=== PATIENT | male | born 1955 | race Caucasian/White ===

== ENCOUNTER 2016-06-05 10:24 | Emergency (ER) | payer MEDICARE, MEDICAID ==
--- NOTE | 2016-06-05 11:29 | PCM.SN ---
- Free Text/Narrative Note: 60-year-old gentleman presents emergency department today complaining of refill of his pain medications for his chronic back pain. I did review the [place] prescription drug monitoring program he has been receiving at consistent refills from the [facility] variety of providers. He didn't call to the clinic however unfortunately his primary care provider is out of the office and was informed he would not receive any pain medication and recommended that he followup in the emergency department. I was able to discuss the case with his primary care provider's team reviewed their policies as well as prescription usage history, after discussion with his primary care provider's team they agreed to refill his medication until his primary care provider returns on Thursday of next week at which time he has an appointment. Patient was in agreement above plan all his questions were answered.
== END 2016-06-05 11:32 | disposition home or self-care (01) ==
LOC: JP.ED 10:24
DX: M54.9 Dorsalgia, unspecified (principal); G89.29 Other chronic pain; Z79.899 Other long term (current) drug therapy
CPT/HCPCS: 99281; 99282

== ENCOUNTER 2016-06-27 04:07 | Emergency (ER) | payer MEDICARE, MEDICAID ==
[2016-06-27] MEDS ORDERED: Sodium Chloride 0.9% 1,000 ML IV SCH (04:45)
[2016-06-27] MEDS ORDERED: Sodium Chloride 0.9% 10 ML Syringe FLUSH PRN (04:53)
[2016-06-27] MEDS ORDERED: Sodium Chloride 0.9% 80 ML IV SCH (05:00)
[2016-06-27] MEDS ORDERED: Iopamidol 612 MG/ML 150 ML Bottle IV SCH (05:00)
[2016-06-27] MEDS ORDERED: HYDROmorphone 1 MG/ML Syringe IVPUSH ONE (06:28)
[2016-06-27 06:48] VITALS: BP 157/90
--- NOTE | 2016-06-27 07:11 | EDM.PDOC ---
ED HPI Trauma - General Chief Complaint: Lower Extremity Injury/Pain Stated Complaint: [facility] Time Seen by Provider: 06/27/16 04:29 Source: Reports: Patient History Limitations: Reports: No limitations - History of Present Illness INITIAL COMMENTS - FREE TEXT/NARRATIVE: History of present illness: [60-year-old male presenting with pain right lower quadrant and inability to raise his right leg off of his bed or to ambulate. Ischemia over the last couple of days and it got to the point where he called 911 and an ambulance to bring him in. He's had no fevers chills he's had no constipation diarrhea dysuria no blood in his urine but he is noted he's otherwise been feeling well. He's never had it like this before. It is a constant pain 9/10 in intensity sharp stabbing right lower quadrant] Review of systems: As per history of present illness and below otherwise all systems reviewed and negative. Past medical history: As per history of present illness and as reviewed below otherwise noncontributory. Surgical history: As per history of present illness and as reviewed below otherwise noncontributory. Social history: No reported history of drug or alcohol abuse. Family history: As per history of present illness and as reviewed below otherwise noncontributory. Physical exam: HEENT: Atraumatic, normocephalic, pupils reactive, negative for conjunctival pallor or scleral icterus, mucous membranes moist, throat clear, neck supple, nontender, trachea midline. Lungs: Clear to auscultation, breath sounds equal bilaterally, chest nontender. Heart: S1S2, regular, negative for clicks, rubs, or JVD. Abdomen: Exam shows patient to be morbidly obese but he does have a painful palpable mass in the right lower quadrant and on attempting to lift his right leg he experienced an exacerbation of his pain. Pelvis: Stable nontender. Genitourinary: Deferred. Rectal: Deferred. Extremities: Atraumatic, negative for cords or calf pain. Neurovascular unremarkable. Neuro: Awake, alert, oriented. Cranial nerves II through XII unremarkable. Cerebellum unremarkable. Motor and sensory unremarkable throughout. Exam nonfocal. Diagnostics: [CBC complete metabolic panel and UA were done. He may have a urinary tract infection urine cultures are ordered. Most notable is the abdominal pelvic CT which shows a mass in the right lower quadrant that may be involving the bladder or inside the bladder.] Therapeutics: [He was given IV fluids and IV Dilaudid for pain] Impression: [Right lower cord at Mass.] Plan: [He will be transferred by ground to [facility] to the hospitalist Dr. Soriano who will more than likely consult urology.] Definitive disposition and diagnosis as appropriate pending reevaluation and review of above. Allergies/ADRs: Allergies raspberry Allergy (Verified 06/18/16 13:06) Seizure strawberry Allergy (Verified 06/18/16 13:06) Seizure Home Medications: Ambulatory Orders Levothyroxine [Synthroid] 50 mcg PO DAILY 02/29/16 [Confirmed 06/27/16] Clotrimazole [Clotrimazole 1%] 1 applic TOP BID 06/04/16 [Confirmed 06/27/16] HYDROmorphone [Dilaudid] 2 - 4 mg PO Q6HR 06/27/16 [Confirmed 06/27/16] Past Medical History - Past Health History Medical/Surgical History: Denies Medical/Surgical History HEENT History: Reports: Impaired vision Cardiovascular History: Reports: Blood clots/VTE/DVT, SOB on exertion Respiratory History: Reports: Sleep apnea, SOB Gastrointestinal History: Reports: Chronic constipation, PUD Genitourinary History: Reports: Renal calculus Musculoskeletal History: Reports: Arthritis, Back pain, chronic, Fracture Neurological History: Reports: Seizure, Other (see below) Other Neuro History: Pt. states that some foods cause him to have seizures, mostly sweet foods Psychiatric History: Reports: Anxiety, Depression, Eating disorders Endocrine/Metabolic History: Reports: Hypothyroidism, Obesity/BMI 30+, Other ( see below) Other Endocrine/Metabolic History: started on thyroid meds again Hematologic History: Reports: None Immunologic History: Reports: None Oncologic (Cancer) History: Reports: None Dermatologic History: Reports: Other (see below) Other Dermatologic History: irritated skin at skin folds - Infectious Disease History Infectious Disease History: Reports: Chicken pox - Past Surgical History HEENT Surgical History: Reports: None Cardiovascular Surgical History: Reports: None Respiratory Surgical History: Reports: None GI Surgical History: Reports: Hernia, abdominal, Hernia, inguinal, Other (see below) Other GI Surgeries/Procedures: Pt. states that a "couple" years ago he had an EGD done and was found to have two ulcers. Pt. denies being on any medication for it. panniculectomy for abscess 3 weeks ago here with [facility]. PT HAD A PANNICULECTOMY JUNE 2015 Musculoskeletal Surgical History: Reports: Carpal tunnel Social & Family History - Family History HEENT: Reports: Cataract, Impaired vision, Macular degeneration Cardiac: Reports: CAD, [place] Respiratory: Reports: None GI: Reports: None : Reports: None OBGYN: Reports: None Musculoskeletal: Reports: Arthritis Other Musculoskeletal Family History: HIP REPLACEMENT BONE DEGENERATION Neurological: Reports: None Psychiatric: Reports: None Endocrine/Metabolic: Reports: None Hematologic: Reports: None Immunologic: Reports: None Dermatologic: Reports: None Oncologic: Reports: Other (see below) Other Oncologic Family History: BROTHER OF CANCER DOES NOT KNOW WHAT KIND - Tobacco Use Smoking Status *Q: Never Smoker Years of Tobacco use: 30 Packs/Tins Daily: 2 Used Tobacco, but Quit: Yes Month Tobacco Last Used: NA Second Hand Smoke Exposure: No - Caffeine Use Caffeine Use: Reports: Coffee Caffeine Use Comment: 3 cups/day - Alcohol Use Days Per Week of Alcohol Use: 0 - Recreational Drug Use Recreational Drug Use: No Review of Systems - Review of Systems Review Of Systems: ROS reveals no pertinent complaints other than HPI. Trauma Exam - Physical Exam Exam: See Below Course - Vital Signs Last Recorded V/S: Last Vital Signs Temp 35.9 C 06/27/16 06:47 Pulse 72 06/27/16 06:47 Resp 18 06/27/16 06:47 BP 157/90 H 06/27/16 06:47 Pulse Ox 98 06/27/16 06:47 - Orders/Labs/Meds Orders: Active Orders 24 hr Category Date Time Status Abdomen Pelvis w Cont [CT] Stat Exams 06/27/16 04:37 Taken Iopamidol [Isovue-300 (61%)] Med 06/27/16 05:00 Active 150 ml IV . DIRECTED Sodium Chloride 0.9% [Normal Saline] 1,000 ml Med 06/27/16 04:45 Active IV ASDIRECTED Sodium Chloride 0.9% [Normal Saline] 80 ml Med 06/27/16 05:00 Active IV ASDIRECTED Sodium Chloride 0.9% [Saline Flush] Med 06/27/16 04:53 Active 10 ml FLUSH ASDIRECTED PRN Medication Orders Sodium Chloride (Normal Saline) 1,000 mls @ 500 mls/hr IV ASDIRECTED VON Last Admin: 06/27/16 04:53 Dose: 500 mls/hr Sodium Chloride (Normal Saline) 80 mls @ 3 mls/sec IV ASDIRECTED VON Last Admin: 06/27/16 05:30 Dose: 3 mls/sec Iopamidol (Isovue-300 (61%)) 150 ml IV . DIRECTED VON Last Admin: 06/27/16 05:30 Dose: 150 ml Sodium Chloride (Saline Flush) 10 ml FLUSH ASDIRECTED PRN PRN Reason: Keep Vein Open Last Admin: 06/27/16 05:30 Dose: 10 ml Labs: Laboratory Tests 06/27/16 06/27/16 06/27/16 Range/Units 04:47 04:47 04:47 WBC 5.3 (4.5-11.0) K/uL RBC 4.39 (4.30-5.90) M/uL Hgb 12.3 (12.0-15.0) g/dL Hct 39.6 L (40.0-54.0) % MCV 90 (80-98) fL MCH 28 (27-31) pg MCHC 31 L (32-36) % Plt Count 122 L (150-400) K/uL Neut % (Auto) 60 (36-66) % Lymph % (Auto) 26 (24-44) % [place] % (Auto) 11 H (2-6) % Eos % (Auto) 3 (2-4) % Baso % (Auto) 0 (0-1) % D-Dimer, Quantitative 354 (0.0-400.0) ng/mL Sodium 146 (140-148) mmol/L Potassium 4.3 (3.6-5.2) mmol/L Chloride 108 (100-108) mmol/L Carbon Dioxide 30 (21-32) mmol/L Anion Gap 8.2 (5.0-14.0) mmol/L BUN 19 H (7-18) mg/dL Creatinine 0.9 (0.8-1.3) mg/dL Est Cr Clr Drug Dosing 81.40 mL/min Estimated GFR (MDRD) > 60 (>60) Glucose 98 (74-106) mg/dL Calcium 8.3 L (8.5-10.1) mg/dL Total Bilirubin 0.3 (0.2-1.0) mg/dL AST 16 (15-37) U/L ALT 25 (12-78) U/L Alkaline Phosphatase 62 (46-116) U/L Creatine Kinase 111 (39-308) U/L Total Protein 7.1 (6.4-8.2) g/dL Albumin 3.3 L (3.4-5.0) g/dL Globulin 3.8 H (2.3-3.5) g/dL Albumin/Globulin Ratio 0.9 L (1.2-2.2) Urine Color Urine Appearance Urine pH (4.5-8.0) Ur Specific Burns (1.008-1.030) Urine Protein (NEGATIVE) mg/dL Urine Glucose (UA) (NEGATIVE) mg/dL Urine Ketones (NEGATIVE) mg/dL Urine Occult Blood (NEGATIVE) Urine Nitrite (NEGAITVE) Urine Bilirubin (NEGATIVE) Urine Urobilinogen (NORMAL) mg/dL Ur Leukocyte Esterase (NEGATIVE) Urine RBC (0-5) Urine WBC (0-5) Ur Epithelial Cells Amorphous Sediment Urine Bacteria Urine Mucus 06/27/16 Range/Units 05:09 WBC (4.5-11.0) K/uL RBC (4.30-5.90) M/uL Hgb (12.0-15.0) g/dL Hct (40.0-54.0) % MCV (80-98) fL MCH (27-31) pg MCHC (32-36) % Plt Count (150-400) K/uL Neut % (Auto) (36-66) % Lymph % (Auto) (24-44) % [place] % (Auto) (2-6) % Eos % (Auto) (2-4) % Baso % (Auto) (0-1) % D-Dimer, Quantitative (0.0-400.0) ng/mL Sodium (140-148) mmol/L Potassium (3.6-5.2) mmol/L Chloride (100-108) mmol/L Carbon Dioxide (21-32) mmol/L Anion Gap (5.0-14.0) mmol/L BUN (7-18) mg/dL Creatinine (0.8-1.3) mg/dL Est Cr Clr Drug Dosing mL/min Estimated GFR (MDRD) (>60) Glucose (74-106) mg/dL Calcium (8.5-10.1) mg/dL Total Bilirubin (0.2-1.0) mg/dL AST (15-37) U/L ALT (12-78) U/L Alkaline Phosphatase (46-116) U/L Creatine Kinase (39-308) U/L Total Protein (6.4-8.2) g/dL Albumin (3.4-5.0) g/dL Globulin (2.3-3.5) g/dL Albumin/Globulin Ratio (1.2-2.2) Urine Color Yellow Urine Appearance Clear Urine pH 6.0 (4.5-8.0) Ur Specific Burns 1.020 (1.008-1.030) Urine Protein Negative (NEGATIVE) mg/dL Urine Glucose (UA) Normal (NEGATIVE) mg/dL Urine Ketones Negative (NEGATIVE) mg/dL Urine Occult Blood Trace (NEGATIVE) Urine Nitrite Negative (NEGAITVE) Urine Bilirubin Negative (NEGATIVE) Urine Urobilinogen Normal (NORMAL) mg/dL Ur Leukocyte Esterase Large (NEGATIVE) Urine RBC 0-5 (0-5) Urine WBC 10-20 H (0-5) Ur Epithelial Cells Not seen Amorphous Sediment Not seen Urine Bacteria Not seen Urine Mucus Not seen Meds: Medications Generic Name Dose Route Start Last Admin Trade Name Freq PRN Reason Stop Dose Admin Sodium Chloride 1,000 mls @ 500 mls/hr 06/27/16 04:45 06/27/16 04:53 Normal Saline IV 500 mls/hr ASDIRECTED VON Administration Sodium Chloride 80 mls @ 3 mls/sec 06/27/16 05:00 06/27/16 05:30 Normal Saline IV 3 mls/sec ASDIRECTED VON Administration Iopamidol 150 ml 06/27/16 05:00 06/27/16 05:30 Isovue-300 (61%) IV 150 ml . DIRECTED VON Administration Sodium Chloride 10 ml 06/27/16 04:53 06/27/16 05:30 Saline Flush FLUSH 10 ml ASDIRECTED PRN Administration Keep Vein Open Discontinued Medications Generic Name Dose Route Start Last Admin Trade Name Freq PRN Reason Stop Dose Admin Hydromorphone HCl 1 mg 06/27/16 06:28 06/27/16 06:43 Dilaudid IVPUSH 06/27/16 06:29 1 mg ONETIME ONE Administration Departure - Departure Time of Disposition: 07:11 Disposition: Home, Self-Care 01 Condition: fair Clinical Impression: Right lower quadrant abdominal mass Forms: ED Department Discharge - My Orders Last 24 Hours: My Active Orders 06/27/16 04:37 Abdomen Pelvis w Cont [CT] Stat 06/27/16 04:45 Sodium Chloride 0.9% [Normal Saline] 1,000 ml IV ASDIRECTED 06/27/16 04:53 Sodium Chloride 0.9% [Saline Flush] 10 ml FLUSH ASDIRECTED PRN 06/27/16 05:00 Iopamidol [Isovue-300 (61%)] 150 ml IV . DIRECTED Sodium Chloride 0.9% [Normal Saline] 80 ml IV ASDIRECTED - Assessment/Plan Last 24 Hours: My Active Orders 06/27/16 04:37 Abdomen Pelvis w Cont [CT] Stat 06/27/16 04:45 Sodium Chloride 0.9% [Normal Saline] 1,000 ml IV ASDIRECTED 06/27/16 04:53 Sodium Chloride 0.9% [Saline Flush] 10 ml FLUSH ASDIRECTED PRN 06/27/16 05:00 Iopamidol [Isovue-300 (61%)] 150 ml IV . DIRECTED Sodium Chloride 0.9% [Normal Saline] 80 ml IV ASDIRECTED
== END 2016-06-27 07:42 | disposition home or self-care (01) ==
LOC: JP.ED 04:07
DX: R19.03 Right lower quadrant abdominal swelling, mass and lump (principal); F41.9 Anxiety disorder, unspecified; F32.9 Major depressive disorder, single episode, unspecified; E03.9 Hypothyroidism, unspecified; E66.9 Obesity, unspecified; Z68.43 Body mass index [BMI] 50.0-59.9, adult; Z86.718 Personal history of other venous thrombosis and embolism; Z98.890 Other specified postprocedural states; Z79.899 Other long term (current) drug therapy; Z91.018 Allergy to other foods
CPT/HCPCS: 36415; 74177; 80053; 81001; 82550; 85025; 85379; 87086; 96361; 96374; 99284; J1170; J7030; J7040; J7050

== ENCOUNTER 2016-08-21 02:08 | Emergency (ER) | payer MEDICARE, MEDICAID ==
[2016-08-21] MEDS ORDERED: Sodium Chloride 0.9% 1,000 ML IV SCH ×2 (02:30→03:30)
[2016-08-21] MEDS ORDERED: Meclizine 25 MG Tab PO ONE ×2 (02:31→07:15)
[2016-08-21] MEDS ORDERED: LORazepam 2 MG/ML MDV IVPUSH ONE (02:37)
--- NOTE | 2016-08-21 02:37 | EDM.PDOC ---
[id number] [facility] Time Seen by Provider: 08/21/16 02:32 Source of Information: Reports: Patient History Limitations: Reports: No Limitations - History of Present Illness INITIAL COMMENTS - FREE TEXT/NARRATIVE: pt ate a wrap from [employer] and he thinks he may have gotten food poisoning in that he had 6-7 loose stools .He then developed vertigo and he felt like he was moving. He did not vomit. Onset: Today Duration: Hour(s):, Waxing/Waning Location: Reports: Generalized Associated Symptoms: Reports: Other ( vertigo) - Related Data Allergies Allergy/AdvReac Type Severity Reaction Status Date / Time raspberry Allergy Seizure Verified 07/09/16 14:03 strawberry Allergy Seizure Verified 07/09/16 14:03 Home Meds: Home Meds Clotrimazole [Clotrimazole 1%] 1 applic TOP BID 06/04/16 [History] HYDROmorphone [Dilaudid] 2 - 4 mg PO Q6HR 06/27/16 [History] Past Medical History - Past Health History Medical/Surgical History: Denies Medical/Surgical History HEENT History: Reports: Impaired Vision Cardiovascular History: Reports: Blood Clots/VTE/DVT, SOB on Exertion Respiratory History: Reports: Sleep Apnea, SOB Gastrointestinal History: Reports: Chronic Constipation, PUD Genitourinary History: Reports: Renal Calculus Musculoskeletal History: Reports: Arthritis, Back Pain, Chronic, Fracture Neurological History: Reports: Seizure, Other (See Below) Other Neuro History: Pt. states that some foods cause him to have seizures, mostly sweet foods Psychiatric History: Reports: Anxiety, Depression, Eating Disorders Endocrine/Metabolic History: Reports: Hypothyroidism, Obesity/BMI 30+, Other ( See Below) Other Endocrine/Metabolic History: started on thyroid meds again Hematologic History: Reports: None Immunologic History: Reports: None Oncologic (Cancer) History: Reports: None Dermatologic History: Reports: Other (See Below) Other Dermatologic History: irritated skin at skin folds - Infectious Disease History Infectious Disease History: Reports: Chicken Pox - Past Surgical History Head Surgeries/Procedures: Reports: None GI Surgical History: Reports: Hernia, Abdominal, Hernia, Inguinal, Other (See Below) Musculoskeletal Surgical History: Reports: Carpal Tunnel Social & Family History - Family History HEENT: Reports: Cataract, Impaired Vision, Macular Degeneration Cardiac: Reports: CAD, [place] Respiratory: Reports: None GI: Reports: None : Reports: None OBGYN: Reports: None Musculoskeletal: Reports: Arthritis Other Musculoskeletal Family History: HIP REPLACEMENT BONE DEGENERATION Neurological: Reports: None Psychiatric: Reports: None Endocrine/Metabolic: Reports: None Hematologic: Reports: None Immunologic: Reports: None Dermatologic: Reports: None Oncologic: Reports: Other (See Below) Other Oncologic Family History: BROTHER OF CANCER DOES NOT KNOW WHAT KIND - Tobacco Use Smoking Status *Q: Never Smoker Years of Tobacco use: 30 Packs/Tins Daily: 2 Used Tobacco, but Quit: Yes Month Tobacco Last Used: NA Second Hand Smoke Exposure: No - Caffeine Use Caffeine Use: Reports: Coffee, Soda Caffeine Use Comment: 3 cups/day - Alcohol Use Days Per Week of Alcohol Use: 0 - Recreational Drug Use Recreational Drug Use: No ED ROS GENERAL - Review of Systems Review Of Systems: See Below Constitutional: Reports: No Symptoms HEENT: Reports: Vertigo Respiratory: Reports: No Symptoms Cardiovascular: Reports: No Symptoms Endocrine: Reports: No Symptoms GI/Abdominal: Reports: Diarrhea : Reports: No Symptoms Musculoskeletal: Reports: No Symptoms Skin: Reports: No Symptoms ED EXAM, GENERAL - Physical Exam Exam: See Below Free Text/Narrative:: pt arrived feeling like his head was moving back and forth and having difficulty with his balance. He had had profuse diarrhea prior to that. Exam Limited By: No Limitations General Appearance: Alert, Anxious Eye Exam: Left Eye: Nystagmus Ears: Normal TMs Nose: Normal Inspection Throat/Mouth: Normal Inspection Neck: Normal Inspection Respiratory/Chest: No Respiratory Distress Cardiovascular: Regular Rate, Rhythm GI/Abdominal: Soft, Non-Tender Rectal (Males) Exam: Deferred Extremities: Normal Inspection Neurological: Alert, Oriented, Normal Cognition, Other ( vertigo) Psychiatric: Anxious Course - Vital Signs Last Recorded V/S: Last Vital Signs Temp 36.7 C 08/21/16 02:10 Pulse 69 08/21/16 07:17 Resp 15 08/21/16 07:17 BP 148/88 H 08/21/16 07:17 Pulse Ox 95 08/21/16 07:17 - Orders/Labs/Meds Labs: Laboratory Tests 08/21/16 08/21/16 08/21/16 Range/Units 02:30 02:30 05:04 WBC 5.0 (4.5-11.0) K/uL RBC 4.46 (4.30-5.90) M/uL Hgb 13.0 (12.0-15.0) g/dL Hct 39.9 L (40.0-54.0) % MCV 90 (80-98) fL MCH 29 (27-31) pg MCHC 33 (32-36) % Plt Count 135 L (150-400) K/uL Neut % (Auto) 66 (36-66) % Lymph % (Auto) 20 L (24-44) % [place] % (Auto) 12 H (2-6) % Eos % (Auto) 2 (2-4) % Baso % (Auto) 0 (0-1) % Sodium 143 (140-148) mmol/L Potassium 4.7 (3.6-5.2) mmol/L Chloride 107 (100-108) mmol/L Carbon Dioxide 29 (21-32) mmol/L Anion Gap 6.8 (5.0-14.0) mmol/L BUN 12 (7-18) mg/dL Creatinine 1.0 (0.8-1.3) mg/dL Est Cr Clr Drug Dosing 72.35 mL/min Estimated GFR (MDRD) > 60 (>60) Glucose 118 H (74-106) mg/dL Calcium 8.7 (8.5-10.1) mg/dL Total Bilirubin 0.3 (0.2-1.0) mg/dL AST 22 (15-37) U/L ALT 27 (12-78) U/L Alkaline Phosphatase 59 (46-116) U/L Total Protein 7.5 (6.4-8.2) g/dL Albumin 3.5 (3.4-5.0) g/dL Globulin 4.0 H (2.3-3.5) g/dL Albumin/Globulin Ratio 0.9 L (1.2-2.2) Urine Color Yellow Urine Appearance Clear Urine pH 5.0 (4.5-8.0) Ur Specific [place] 1.025 (1.008-1.030) Urine Protein Negative (NEGATIVE) mg/dL Urine Glucose (UA) Normal (NEGATIVE) mg/dL Urine Ketones Negative (NEGATIVE) mg/dL Urine Occult Blood Negative (NEGATIVE) Urine Nitrite Negative (NEGAITVE) Urine Bilirubin Negative (NEGATIVE) Urine Urobilinogen Normal (NORMAL) mg/dL Ur Leukocyte Esterase Negative (NEGATIVE) Urine RBC 0-5 (0-5) Urine WBC 0-5 (0-5) Ur Epithelial Cells Not seen Amorphous Sediment Not seen Urine Bacteria Not seen Urine Mucus Not seen Meds: Medications Discontinued Medications Generic Name Dose Route Start Last Admin Trade Name Sunnyq PRN Reason Stop Dose Admin Sodium Chloride 1,000 mls @ 999 mls/hr 08/21/16 02:30 08/21/16 02:40 Normal Saline IV 999 mls/hr ASDIRECTED VON Administration Sodium Chloride 1,000 mls @ 500 mls/hr 08/21/16 03:30 08/21/16 03:45 Normal Saline IV 500 mls/hr ASDIRECTED VON Administration Lorazepam 0.5 mg 08/21/16 02:37 08/21/16 02:42 Ativan IVPUSH 08/21/16 02:38 0.5 mg ONETIME ONE Administration Meclizine HCl 25 mg 08/21/16 02:31 08/21/16 02:39 Antivert PO 08/21/16 02:32 25 mg ONETIME ONE Administration Meclizine HCl 25 mg 08/21/16 07:15 08/21/16 07:32 Antivert PO 08/21/16 07:16 25 mg ONETIME ONE Administration - Re-Assessments/Exams Free Text/Narrative Re-Assessment/Exam: 08/21/16 07:12 pt had 2 liters of fluid and antivert. He is feeling much better. His lab work looked ok. Departure - Departure Time of Disposition: 07:13 Disposition: Home, Self-Care 01 Condition: fair Clinical Impression: Vertigo, Dehydration - Discharge Information Instructions: Vertigo, [id number], Dehydration, Adult, [id number] Referrals: PCP,None [Primary Care Provider] - Forms: ED Department Discharge Care Plan Goals: push fluids, low activity today immodium 2 tabs after each loose stool.
[2016-08-21 07:18] VITALS: BP 148/88
== END 2016-08-21 07:33 | disposition home or self-care (01) ==
LOC: JP.ED 02:08
DX: R42 Dizziness and giddiness (principal); E86.0 Dehydration; G89.29 Other chronic pain; M54.9 Dorsalgia, unspecified; E66.9 Obesity, unspecified; E03.9 Hypothyroidism, unspecified; Z91.018 Allergy to other foods; Z79.899 Other long term (current) drug therapy
CPT/HCPCS: 36415; 80053; 81001; 85025; 96361; 96374; 99284; A9270; J2060; J7040

== ENCOUNTER 2016-11-10 20:45 | Emergency (ER) | payer MEDICARE, MEDICAID ==
[2016-11-10 20:59] VITALS: BP 141/67
--- NOTE | 2016-11-10 21:16 | EDM.PDOC ---
ED HPI GENERAL MEDICAL PROBLEM - General Chief Complaint: General Stated Complaint: LOWER ABD PAIN Time Seen by Provider: 11/10/16 21:16 Source of Information: Reports: Patient, Old Records, RN Notes Reviewed History Limitations: Reports: No Limitations - History of Present Illness INITIAL COMMENTS - FREE TEXT/NARRATIVE: drove himself here Chief complaint Lower abdominal pain, painful urination History of present illness 61-year-old male with recent diagnosis of bladder cancer, presented to emergency a couple months ago, and was found to have a small mass next to the bladder on CT scan. Ultimately was diagnosed with bladder cancer and had a single treatment with removal of tumor and instillation of chemotherapy into the bladder about 2 months ago, treated at [facility] in [place]. He was seen by his physician on November 07 in the clinic and diagnosed with sinus condition and treated with albuterol and Advair inhalers and levofloxacin by mouth. His symptoms are a little better now. He has been on hydromorphone by mouth for a year for low back pain, he had an MRI which revealed nonsurgical condition. He takes 2-3 tablets per day. 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 He still has an open draining wound on the left side of his abdomen. Today's pain started yesterday, lower in the abdomen in the suprapubic area worse on the left than the right. Associated with urgency frequency but small amounts of urine with some blood streaking and significant pain in the penis with urination. He does wear incontinence underwear, some problem with control since he had his bladder surgery, never back to normal. He has felt hot today but no fever documented. bladder, penile Pain Score (Numeric/FACES): 8 - Related Data Allergies Allergy/AdvReac Type Severity Reaction Status Date / Time raspberry Allergy Seizure Verified 11/10/16 21:04 strawberry Allergy Seizure Verified 11/10/16 21:04 chocolate Allergy Seizure Uncoded 11/10/16 21:05 cinnamon Allergy Seizure Uncoded 11/10/16 21:05 Home Meds: Home Meds Albuterol [Ventolin HFA] 2 puff INH Q6H PRN 11/10/16 [History] Fluticasone/Salmeterol [Advair 250-50 Diskus] 1 puff INH BID 11/10/16 [History] HYDROmorphone [Dilaudid] 1 tab PO Q6H PRN 11/10/16 [History] Levofloxacin [Levofloxacin] 1 tab PO DAILY 11/10/16 [History] Phenazopyridine HCl [Pyridium] 200 mg PO TID PRN #10 tablet 11/10/16 [Rx] Sulfamethoxazole/Trimethoprim [Septra DS] 1 each PO BID #20 tab 11/10/16 [Rx] Past Medical History - Past Health History Medical/Surgical History: Denies Medical/Surgical History HEENT History: Reports: Impaired Vision Cardiovascular History: Reports: Blood Clots/VTE/DVT, SOB on Exertion Respiratory History: Reports: Sleep Apnea, SOB Gastrointestinal History: Reports: Chronic Constipation, PUD Genitourinary History: Reports: Renal Calculus, Urinary Incontinence Musculoskeletal History: Reports: Arthritis, Back Pain, Chronic, Fracture Neurological History: Reports: Seizure, Other (See Below) Other Neuro History: Pt. states that some foods cause him to have seizures, mostly sweet foods Psychiatric History: Reports: Anxiety, Depression, Eating Disorders, Suicide Attempt Endocrine/Metabolic History: Reports: Obesity/BMI 30+ Other Endocrine/Metabolic History: started on thyroid meds again Hematologic History: Reports: None Immunologic History: Reports: None Oncologic (Cancer) History: Reports: Bladder Dermatologic History: Reports: Other (See Below) Other Dermatologic History: irritated skin at skin folds - Infectious Disease History Infectious Disease History: Reports: Chicken Pox - Past Surgical History Head Surgeries/Procedures: Reports: None GI Surgical History: Reports: Hernia, Abdominal, Hernia, Inguinal, Other (See Below) Male Surgical History: Reports: Other (See Below) Other Male Surgeries/Procedures: bladder cancer- Social & Family History - Family History HEENT: Reports: Cataract, Impaired Vision, Macular Degeneration Cardiac: Reports: CAD, [place] Respiratory: Reports: None GI: Reports: None : Reports: None OBGYN: Reports: None Musculoskeletal: Reports: Arthritis Other Musculoskeletal Family History: HIP REPLACEMENT BONE DEGENERATION Neurological: Reports: None Psychiatric: Reports: None Endocrine/Metabolic: Reports: None Hematologic: Reports: None Immunologic: Reports: None Dermatologic: Reports: None Oncologic: Reports: Other (See Below) Other Oncologic Family History: BROTHER OF CANCER DOES NOT KNOW WHAT KIND - Tobacco Use Smoking Status *Q: Never Smoker Years of Tobacco use: 30 Packs/Tins Daily: 2 Used Tobacco, but Quit: Yes Month Tobacco Last Used: NA Second Hand Smoke Exposure: No - Caffeine Use Caffeine Use: Reports: Coffee, Soda Caffeine Use Comment: 3 cups/day - Alcohol Use Days Per Week of Alcohol Use: 0 - Recreational Drug Use Recreational Drug Use: No - Living Situation & Occupation Social History Comment: 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 Denies: Fever, Decreased Appetite HEENT: Reports: Rhinitis Respiratory: Reports: Cough. Denies: Shortness of Breath Cardiovascular: Denies: Chest Pain GI/Abdominal: Reports: Abdominal Pain. Denies: Diarrhea, Decreased Appetite, Nausea, Vomiting : Reports: Dysuria, Frequency, Hematuria, Incontinence, Urgency. Denies: Flank Pain Musculoskeletal: Reports: Back Pain Skin: Reports: Other (open wound of left abdomen from previous surgery) Neurological: Reports: No Symptoms Psychiatric: Reports: Anxiety Hematologic/Lymphatic: Reports: No Symptoms Immunologic: Reports: No Symptoms ED EXAM, RENAL/ - Physical Exam Exam: See Below Exam Limited By: No Limitations General Appearance: Alert, Anxious, Moderate Distress, Other (large body habitus , anxious, uncomfortable, increased respiratory rate and increased blood pressure, afebrile) Eye Exam: Bilateral Eye: Normal Inspection Nose: Normal Inspection Throat/Mouth: Normal Inspection Head: Atraumatic, Normocephalic Respiratory/Chest: No Respiratory Distress, Lungs Clear, No Accessory Muscle Use Cardiovascular: Normal Peripheral Pulses, Regular Rate, Rhythm GI/Abdominal: Normal Bowel Sounds, Soft, No Distention, Other (open wound left midabdomen with serous drainage, tender in the suprapubic area to the left of midline, it feels as if he might have a full bladder) (Male) Exam: No Hernia, Other (minimal erythema of his foreskin on the inside , no balanitis). No: Circumcised, Inguinal Lymphadenopathy, Scrotal Swelling, Scrotum Tenderness (L), Testicular Mass, Testicular Tenderness (L) Extremities: Normal Inspection Neurological: Alert, Oriented, No Motor/Sensory Deficits Psychiatric: Anxious Skin Exam: Warm, Dry, No Rash Course - Vital Signs Last Recorded V/S: Last Vital Signs Temp 37.1 C 11/10/16 21:12 Pulse 93 11/10/16 21:12 Resp 24 H 11/10/16 21:12 BP 141/67 H 11/10/16 21:12 Pulse Ox 97 11/10/16 21:12 - Orders/Labs/Meds Labs: Laboratory Tests 11/10/16 11/10/16 Range/Units 21:26 21:36 WBC 4.8 (4.5-11.0) K/uL RBC 4.29 L (4.30-5.90) M/uL Hgb 12.6 (12.0-15.0) g/dL Hct 38.9 L (40.0-54.0) % MCV 91 (80-98) fL MCH 29 (27-31) pg MCHC 32 (32-36) % Plt Count 126 L (150-400) K/uL Urine Color Yellow Urine Appearance Cloudy Urine pH 5.0 (4.5-8.0) Ur Specific [place] 1.025 (1.008-1.030) Urine Protein 30 H (NEGATIVE) mg/dL Urine Glucose (UA) Normal (NEGATIVE) mg/dL Urine Ketones Negative (NEGATIVE) mg/dL Urine Occult Blood Large (NEGATIVE) Urine Nitrite Negative (NEGAITVE) Urine Bilirubin Negative (NEGATIVE) Urine Urobilinogen Normal (NORMAL) mg/dL Ur Leukocyte Esterase Negative (NEGATIVE) Urine RBC Packed H (0-5) Urine WBC 5-10 H (0-5) Ur Epithelial Cells Few Amorphous Sediment Rare Urine Bacteria Few Urine Mucus Few Urine Other See note Meds: Medications Discontinued Medications Generic Name Dose Route Start Last Admin Trade Name Sunnyq PRN Reason Stop Dose Admin Ketorolac Tromethamine 15 mg 11/10/16 21:26 11/10/16 21:31 Toradol IM 11/10/16 21:27 15 mg ONETIME ONE Administration - Re-Assessments/Exams Free Text/Narrative Re-Assessment/Exam: 11/10/16 21:33 61-year-old male with dysuria urgency frequency hematuria and lower abdominal pain since yesterday. Diagnosed and treated for bladder cancer 2 months ago. On levofloxacin for upper respiratory infection currently. Differential diagnosis includes bladder infection, urinary retention among others Bladder scan Toradol 15 mg IM for pain 11/10/16 22:41 CBC normal Urine does show significant blood and white cells Urine culture pending Treat as infection Bladder scan was negative so he is not retaining urine Follow-up with urology or primary care if not improving within 3 days 11/10/16 22:42 Departure - Departure Time of Disposition: 22:43 Disposition: Home, Self-Care 01 Condition: Good Clinical Impression: Urinary tract infection Qualifiers: Urinary tract infection type: acute cystitis Hematuria presence: with hematuria Qualified Code(s): N30.01 - Acute cystitis with hematuria - Discharge Information Prescriptions: Phenazopyridine HCl [Pyridium] 200 mg PO TID PRN #10 tablet PRN Reason: painful urination Sulfamethoxazole/Trimethoprim [Septra DS] 1 each PO BID #20 tab Instructions: Urinary Tract Infection, Adult Referrals: Ezekiel Roberson MD [Primary Care Provider] - Forms: ED Department Discharge Additional Instructions: Please see your primary care provider/physician or urologist if symptoms aren't improving within 3 days
[2016-11-10] MEDS ORDERED: Ketorolac 30 MG/ML SDV IM ONE (21:26)
[2016-11-10] MEDS ORDERED: Phenazopyridine 95 MG Tab PO ONE (23:07)
[2016-11-10] MEDS ORDERED: Phenazopyridine 95 MG Tab ONE (23:10)
== END 2016-11-10 22:57 | disposition home or self-care (01) ==
LOC: JP.ED 20:45
DX: N30.01 Acute cystitis with hematuria (principal); E66.9 Obesity, unspecified; M19.90 Unspecified osteoarthritis, unspecified site; Z79.2 Long term (current) use of antibiotics; Z85.51 Personal history of malignant neoplasm of bladder; Z98.890 Other specified postprocedural states; Z86.718 Personal history of other venous thrombosis and embolism
CPT/HCPCS: 36415; 51798; 81001; 85027; 96372; 99284; A9270; J1885

== ENCOUNTER 2017-01-25 20:47 | Emergency (ER) | payer MEDICARE, MEDICAID ==
[2017-01-25 21:12] VITALS: BP 151/101
--- NOTE | 2017-01-25 22:06 | EDM.PDOC ---
ED HPI GENERAL MEDICAL PROBLEM - General Chief Complaint: Abdominal Pain Stated Complaint: INCISION PAIN Time Seen by Provider: 01/25/17 21:45 Source of Information: Reports: Patient History Limitations: Reports: No Limitations - History of Present Illness INITIAL COMMENTS - FREE TEXT/NARRATIVE: Stephanie presents to the emergency room tonight with complaints of chronic left lower abdomen fold wound for 2 years with increase in drainage for the past we or two. He reports previous panniculectomy two years ago. He denies fever, chills, nausea, vomiting or change in bowel and bladder function. left;abdom Pain Score (Numeric/FACES): 6 - Related Data Allergies Allergy/AdvReac Type Severity Reaction Status Date / Time cinnamon Allergy Seizure Verified 01/25/17 21:15 raspberry Allergy Seizure Verified 01/25/17 21:15 strawberry Allergy Seizure Verified 01/25/17 21:15 chocolate Allergy Seizure Uncoded 01/25/17 21:15 Home Meds: Home Meds Albuterol [Ventolin HFA] 2 puff INH Q6H PRN 11/10/16 [History] Fluticasone/Salmeterol [Advair 250-50 Diskus] 1 puff INH BID 11/10/16 [History] HYDROmorphone [Dilaudid] 1 tab PO Q6H PRN 11/10/16 [History] Fluticasone Propionate [Flonase] 2 spray INH DAILY 01/25/17 [History] Past Medical History - Past Health History Medical/Surgical History: Denies Medical/Surgical History HEENT History: Reports: Impaired Vision Cardiovascular History: Reports: Blood Clots/VTE/DVT, SOB on Exertion Respiratory History: Reports: Sleep Apnea, SOB Gastrointestinal History: Reports: Chronic Constipation, PUD Genitourinary History: Reports: Renal Calculus, Urinary Incontinence Musculoskeletal History: Reports: Arthritis, Back Pain, Chronic, Fracture Neurological History: Reports: Seizure, Other (See Below) Other Neuro History: Pt. states that some foods cause him to have seizures, mostly sweet foods Psychiatric History: Reports: Anxiety, Depression, Eating Disorders, Suicide Attempt Endocrine/Metabolic History: Reports: Obesity/BMI 30+ Other Endocrine/Metabolic History: started on thyroid meds again Hematologic History: Reports: None Immunologic History: Reports: None Oncologic (Cancer) History: Reports: Bladder Dermatologic History: Reports: Other (See Below) Other Dermatologic History: irritated skin at skin folds - Infectious Disease History Infectious Disease History: Reports: Chicken Pox - Past Surgical History Head Surgeries/Procedures: Reports: None GI Surgical History: Reports: Hernia, Abdominal, Hernia, Inguinal, Other (See Below) Male Surgical History: Reports: Other (See Below) Other Male Surgeries/Procedures: bladder cancer- Social & Family History - Family History HEENT: Reports: Cataract, Impaired Vision, Macular Degeneration Cardiac: Reports: CAD, [place] Respiratory: Reports: None GI: Reports: None : Reports: None OBGYN: Reports: None Musculoskeletal: Reports: Arthritis Other Musculoskeletal Family History: HIP REPLACEMENT BONE DEGENERATION Neurological: Reports: None Psychiatric: Reports: None Endocrine/Metabolic: Reports: None Hematologic: Reports: None Immunologic: Reports: None Dermatologic: Reports: None Oncologic: Reports: Other (See Below) Other Oncologic Family History: BROTHER OF CANCER DOES NOT KNOW WHAT KIND - Tobacco Use Smoking Status *Q: Never Smoker Years of Tobacco use: 30 Packs/Tins Daily: 2 Used Tobacco, but Quit: Yes Month Tobacco Last Used: NA Second Hand Smoke Exposure: No - Caffeine Use Caffeine Use: Reports: Coffee, Soda Caffeine Use Comment: 3 cups/day - Alcohol Use Days Per Week of Alcohol Use: 0 - Recreational Drug Use Recreational Drug Use: No ED ROS GENERAL - Review of Systems Review Of Systems: See Below Constitutional: Denies: Fever, Chills, Malaise, Weakness HEENT: Reports: No Symptoms Respiratory: Denies: Shortness of Breath, Wheezing, Cough, Sputum Cardiovascular: Denies: Dyspnea on Exertion, Edema, Lightheadedness, Palpitations, PND, Syncope Endocrine: Reports: No Symptoms GI/Abdominal: Reports: Abdominal Pain, Other (Pain to left lower abdomen at site of chronic wound. ). Denies: Constipation, Diarrhea, Nausea, Vomiting : Reports: No Symptoms Musculoskeletal: Denies: Joint Pain, Joint Swelling, Muscle Pain, Muscle Stiffness Skin: Reports: Wound, Other (Left lower abdomen, ) Neurological: Reports: No Symptoms Psychiatric: Reports: No Symptoms Hematologic/Lymphatic: Reports: No Symptoms Immunologic: Reports: No Symptoms ED EXAM, SKIN/RASH Exam: See Below Text/Narrative:: Stephanie is an alert, oriented 61 year old male presenting tonight for increased drainage of left lower abdominal wound status post panniculectomy 2 years ago. Exam Limited By: No Limitations General Appearance: Alert, WD/WN, Mild Distress Eye Exam: Bilateral Eye: EOMI, Normal Inspection Ears: Normal External Exam, Normal Canal, Hearing Grossly Normal, Normal TMs Throat/Mouth: Normal Inspection, Normal Lips, Normal Oropharynx, Normal Voice, No Airway Compromise Head: Atraumatic, Normocephalic Neck: Normal Inspection, Supple, Non-Tender, Full Range of Motion. No: Lymphadenopathy (R), Lymphadenopathy (L) Respiratory/Chest: No Respiratory Distress, Lungs Clear, Normal Breath Sounds, No Accessory Muscle Use, Chest Non-Tender Cardiovascular: Normal Peripheral Pulses, Regular Rate, Rhythm, No Murmur, No Rub, Other (1 to 2+ edema bilateral feet and ankles. ) Peripheral Pulses: 1+: Radial (L), Radial (R), Dorsalis Pedis (L), Dorsalis Pedis (R) GI/Abdominal: Normal Bowel Sounds, Soft, Non-Tender, No Distention, No Mass, Other (large, obese) Back Exam: Normal Inspection, Full Range of Motion. No: CVA Tenderness (R), CVA Tenderness (L), Muscle Spasm, Paraspinal Tenderness, Vertebral Tenderness Extremities: Normal Inspection, Normal Range of Motion, Non-Tender, Normal Capillary Refill, Other (pedal edema 1-2+. ) Neurological: Alert, Oriented, CN II-XII Intact, Normal Cognition, No Motor/ Sensory Deficits Psychiatric: Normal Affect, Normal Mood Skin: Warm, Dry, Normal Color, No Rash, Wound/Incision Location, Skin: Abdomen, Other (left lower abodominal fold at site of past panniculectomy incision. ) Characteristics: Linear, Other (wound bed pink, no fluctuance or erythema noted to surrounding tissues. Wound bed explored with longer area about 4 cm in length, and shorter separate open area 2cm, no sites of tunneling. Culture obtained. ) Associated features: Tenderness. No: Warmth, Swelling, Induration, Crusting Lymphatic: No Adenopathy Course - Vital Signs Last Recorded V/S: Last Vital Signs Temp 37.3 C 01/25/17 21:11 Pulse 93 01/25/17 21:11 Resp 20 01/25/17 21:11 BP 151/101 H 01/25/17 21:11 Pulse Ox 91 L 01/25/17 21:11 - Orders/Labs/Meds Orders: Active Orders 24 hr Category Date Time Status CULTURE WOUND + SMEAR [RM] Stat Lab 01/25/17 22:03 Received Labs: Laboratory Tests 01/25/17 01/25/17 Range/Units 22:09 22:09 WBC 5.3 (4.5-11.0) K/uL RBC 4.49 (4.30-5.90) M/uL Hgb 13.0 (12.0-15.0) g/dL Hct 40.5 (40.0-54.0) % MCV 90 (80-98) fL MCH 29 (27-31) pg MCHC 32 (32-36) % Plt Count 112 L (150-400) K/uL Neut % (Auto) 63 (36-66) % Lymph % (Auto) 20 L (24-44) % Orange % (Auto) 14 H (2-6) % Eos % (Auto) 2 (2-4) % Baso % (Auto) 0 (0-1) % Sodium 142 (140-148) mmol/L Potassium 4.2 (3.6-5.2) mmol/L Chloride 106 (100-108) mmol/L Carbon Dioxide 29 (21-32) mmol/L Anion Gap 7.2 (5.0-14.0) mmol/L BUN 19 H D (7-18) mg/dL Creatinine 1.0 (0.8-1.3) mg/dL Est Cr Clr Drug Dosing 64.96 mL/min Estimated GFR (MDRD) > 60 (>60) Glucose 110 H (74-106) mg/dL Calcium 8.8 (8.5-10.1) mg/dL Lab work reviewed with the patient. He will be provided a referral to Dr. Ramos for wound management. Culture results pending. Departure - Departure Time of Disposition: 22:29 Disposition: Home, Self-Care 01 Condition: Fair Clinical Impression: Abdominal pain, Status post panniculectomy - Discharge Information Referrals: Ezekiel Roberson MD [Primary Care Provider] - Forms: ED Department Discharge Additional Instructions: You have been treated for chronic left lower abdominal wound status post panniculectomy 2 years ago. There is no active infection at this time. It is best to do wet to dry dressings to the area and follow up with Dr. Ramos for chronic wound management. A referral will be placed for you to follow up with Dr. Schafer. Continue to take your prescribed pain medications per your pain contract. You may take acetaminophen as needed for pain. Return to the ER for worsening, issues or concerns. Follow up with your primary this week for a recheck and Dr. Ramos as directed. - My Orders Last 24 Hours: My Active Orders 01/25/17 22:03 CULTURE WOUND + SMEAR [RM] Stat - Assessment/Plan Last 24 Hours: My Active Orders 01/25/17 22:03 CULTURE WOUND + SMEAR [RM] Stat Assessment:: Abdominal pain - due to chronic wound Status post panniculectomy 2 years ago Plan: Patient has been treated for chronic left lower abdominal wound status post panniculectomy 2 years ago. There is no active infection at this time. It is best to do wet to dry dressings to the area and follow up with Dr. Ramos for chronic wound management. A referral will be placed to follow up with Dr. Schafer. Continue to take the prescribed pain medications per your pain contract. Patient may take acetaminophen as needed for pain. Return to the ER for worsening, issues or concerns. Follow up with his primary this week for a recheck and Dr. Ramos as directed.
== END 2017-01-25 22:56 | disposition home or self-care (01) ==
LOC: JP.ED 20:47
DX: R10.32 Left lower quadrant pain (principal); G89.29 Other chronic pain; Z98.890 Other specified postprocedural states; Z91.018 Allergy to other foods; Z79.899 Other long term (current) drug therapy
CPT/HCPCS: 36415; 80048; 85025; 87070; 87077; 87186; 87205; 99283; 99284

== ENCOUNTER 2017-01-31 15:39 | Emergency (ER) | payer MEDICARE, MEDICAID ==
[2017-01-31 16:01] VITALS: BP 173/85
[2017-01-31] MEDS ORDERED: Sulfamethoxazole/Trimethoprim 800-160 MG Tab PO ONE (16:27)
[2017-01-31] MEDS ORDERED: Ketorolac 60 MG/2 ML SDV IM ONE (16:29)
[2017-01-31] MEDS ORDERED: Fluconazole 150 MG Tab PO ONE (16:32)
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
== END 2017-01-31 17:38 | disposition home or self-care (01) ==
LOC: JP.ED 15:39
DX: L03.115 Cellulitis of right lower limb (principal); B37.2 Candidiasis of skin and nail; G47.30 Sleep apnea, unspecified; F32.9 Major depressive disorder, single episode, unspecified; Z85.51 Personal history of malignant neoplasm of bladder; Z86.718 Personal history of other venous thrombosis and embolism; Z98.890 Other specified postprocedural states; Z87.891 Personal history of nicotine dependence; Z79.899 Other long term (current) drug therapy; Z91.018 Allergy to other foods
CPT/HCPCS: 96372; 99283; A9270; J1885

== ENCOUNTER 2017-02-19 11:51 | Day surgery (SDC) | payer MEDICARE, MEDICAID ==
[2017-02-19] MEDS ORDERED: fentaNYL 100 MCG/2 ML SDV ONE (12:00)
[2017-02-19] MEDS ORDERED: Propofol 200 MG/20 ML SDV ONE (12:00)
[2017-02-19] MEDS ORDERED: Midazolam 1 MG/ML 2 ML SDV ONE (12:00)
[2017-02-19] MEDS ORDERED: Sodium Chloride 0.9% 1,000 ML IV SCH (12:15)
[2017-02-19] MEDS ORDERED: Ertapenem 1 GM in Sodium Chloride 0.9% 100 ML IV ONE (12:30)
[2017-02-19] MEDS ORDERED: ceFAZolin 2 GM in Sodium Chloride 0.9% 50 ML IV ONE (13:00)
[2017-02-19] MEDS ORDERED: Bupivacaine 0.5% 50 ML MDV ONE ×2 (13:34→14:51)
[2017-02-19] MEDS ORDERED: Lidocaine 1% with EPINEPHrine 1:100,000 50 ML MDV ONE ×2 (13:34→14:51)
[2017-02-19] MEDS ORDERED: Acetaminophen/HYDROcodone 325-5 MG Tab PO ONE (16:15)
[2017-02-19 16:44] VITALS: BP 142/82
--- NOTE | 2017-02-20 08:36 | CR ---
Catheter placement. Distal tip is not well visualized. Distal tip does appear the location of the mos t distal left brachiocephalic vein and near the confluence of the brachiocephalic veins. Consider rep eat film..
--- NOTE | 2017-02-20 11:16 | OR ---
DATE OF PROCEDURE: 02/19/2017 PROCEDURE: Left subclavian vein access. COMPLICATIONS: None. OPTICAL MODEL MAKER AND TESTER: None. ANESTHESIA: MAC. RISKS: Risks, benefits, alternatives, limitations including, but not limited to infection, bleeding, and pneumothorax were explained to the patient. PROCEDURE IN DETAIL: The patient was placed in supine position. The left chest was prepped and draped. The micropuncture needle kit system was used to access the left subclavian vein on the first pass. This was accessed without difficulty. This was then exchanged for a 35,000th wire. This was then dilated. Of note, lidocaine 1% was used prior to initiation of the procedure. The device was then advanced to the superior vena cava. This was then sutured into place, and Telfa was then used. The patient tolerated the procedure well. Néstor Ramos MD /[id number]
== END 2017-02-19 16:50 | disposition home or self-care (01) ==
LOC: JP.SDS 11:51
PROVIDERS: ATTEND Surgery
DX: Z45.2 Encounter for adjustment and management of vascular access device (principal)
CPT/HCPCS: 36415; 36558; 80053; 84484; 85025; 85610; 85730; 93005; A9270; C1894; J0690; J1335; J1642; J7030; J7040; J7050; 93010; J2250; J2704; J3010

== ENCOUNTER 2017-07-03 00:22 | Emergency (ER) | payer MEDICARE, MEDICAID ==
[2017-07-03 00:44] VITALS: BP 128/95
[2017-07-03] MEDS ORDERED: Ketorolac 60 MG/2 ML SDV IM ONE (00:51)
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
== END 2017-07-03 06:35 | disposition home or self-care (01) ==
LOC: JP.ED 00:22
DX: M62.838 Other muscle spasm (principal); Z87.891 Personal history of nicotine dependence; Z91.018 Allergy to other foods; Z88.7 Allergy status to serum and vaccine; Z88.8 Allergy status to other drugs, medicaments and biological substances; Z79.899 Other long term (current) drug therapy; X50.3XXA Overexertion from repetitive movements, initial encounter
CPT/HCPCS: 36415; 80048; 85025; 96372; 99284; J1885; 99282

== ENCOUNTER 2018-05-03 20:01 | Emergency (ER) | payer MEDICARE, MEDICAID ==
--- NOTE | 2018-05-03 20:46 | EDM.PDOC ---
ED HPI GENERAL MEDICAL PROBLEM - General Chief Complaint: Upper Extremity Injury/Pain Stated Complaint: L ARM PAIN SOB Time Seen by Provider: 05/03/18 20:30 Source of Information: Reports: Patient, Old Records, RN History Limitations: Reports: No Limitations - History of Present Illness INITIAL COMMENTS - FREE TEXT/NARRATIVE: 62 yo male with a pHx of "blood clots" presents with pain to the L elbow that began about noon today not associated with injury. He has chronic dyspnea on exertion that is not noticeably worse since noon today. No new or worsening swelling of his legs. No pain in his chest with breathing. No fever. Is worried he has a clot in his elbow so presents to the ER now. Onset: Today Onset Date: 05/03/18 Onset Time: 12:00 Duration: Hour(s):, Constant Location: Reports: Upper Extremity, Left Quality: Reports: Ache Severity: Moderate Improves with: Reports: Rest Worsens with: Reports: Movement Context: Reports: Other (see HPI) Associated Symptoms: Reports: No Other Symptoms Treatments SLEEVE MAKER: Reports: Other (see below) (none) Left Middle Arm Pain Score (Numeric/FACES): 6 - Related Data Allergies Allergy/AdvReac Type Severity Reaction Status Date / Time cinnamon Allergy Seizure Verified 05/03/18 20:22 raspberry Allergy Seizure Verified 05/03/18 20:22 strawberry Allergy Seizure Verified 05/03/18 20:22 Influenza Virus Vaccines AdvReac Seizure Verified 05/03/18 20:22 chocolate Allergy Seizure Uncoded 05/03/18 20:22 Home Meds: Home Meds Albuterol [Ventolin HFA] 2 puff INH Q6H PRN 11/10/16 [History] HYDROmorphone [Dilaudid] 2 mg PO Q6H PRN 11/10/16 [History] Fluticasone Propionate [Flonase] 2 spray CHELSY DAILY PRN 01/25/17 [History] Past Medical History - Past Health History Medical/Surgical History: Denies Medical/Surgical History HEENT History: Reports: Impaired Vision, Otitis Media Cardiovascular History: Reports: Angina, Blood Clots/VTE/DVT, SOB on Exertion Respiratory History: Reports: Sleep Apnea, SOB Gastrointestinal History: Reports: Chronic Constipation, PUD Genitourinary History: Reports: Renal Calculus, Urinary Incontinence, UTI, Recurrent Musculoskeletal History: Reports: Arthritis, Back Pain, Chronic, Fracture Neurological History: Reports: Seizure, Other (See Below) Other Neuro History: Pt. states that some foods cause him to have seizures, mostly sweet foods Psychiatric History: Reports: Anxiety, Depression, Eating Disorders, Suicide Attempt Endocrine/Metabolic History: Reports: Obesity/BMI 30+ Other Endocrine/Metabolic History: started on thyroid meds again Hematologic History: Reports: None Immunologic History: Reports: None Oncologic (Cancer) History: Reports: Bladder Dermatologic History: Reports: Other (See Below) Other Dermatologic History: irritated skin at skin folds - Infectious Disease History Infectious Disease History: Reports: Chicken Pox - Past Surgical History Head Surgeries/Procedures: Reports: None GI Surgical History: Reports: EGD, Hernia, Abdominal, Hernia, Inguinal, Other ( See Below) Other GI Surgeries/Procedures: Pt. states that a "couple" years ago he had an EGD done and was found to have two ulcers. Pt. denies being on any medication for it. panniculectomy for abscess 3 weeks ago here with [facility]. PT HAD A PANNICULECTOMY JUNE 2015 Male Surgical History: Reports: Other (See Below) Other Male Surgeries/Procedures: bladder cancer- dx 2017, untreated Social & Family History - Family History HEENT: Reports: Cataract, Impaired Vision, Macular Degeneration Cardiac: Reports: CAD, [place] Respiratory: Reports: None GI: Reports: None : Reports: None OBGYN: Reports: None Musculoskeletal: Reports: Arthritis Other Musculoskeletal Family History: HIP REPLACEMENT BONE DEGENERATION Neurological: Reports: None Psychiatric: Reports: None Endocrine/Metabolic: Reports: None Hematologic: Reports: None Immunologic: Reports: None Dermatologic: Reports: None Oncologic: Reports: Other (See Below) Other Oncologic Family History: BROTHER OF CANCER DOES NOT KNOW WHAT KIND - Tobacco Use Smoking Status *Q: Never Smoker - Caffeine Use Caffeine Use: Reports: Coffee Caffeine Use Comment: 3 cups/day - Recreational Drug Use Recreational Drug Use: No Review of Systems - Review of Systems Review Of Systems: See Below Constitutional: Reports: No Symptoms Eyes: Reports: No Symptoms Ears: Reports: No Symptoms Nose: Reports: No Symptoms Mouth/Throat: Reports: No Symptoms Respiratory: Reports: Shortness of Breath (chronic) Cardiovascular: Reports: No Symptoms, Edema (chronic leg swelling bilaterally below the knees.) GI/Abdominal: Reports: No Symptoms Genitourinary: Reports: No Symptoms Musculoskeletal: Reports: No Symptoms Skin: Reports: No Symptoms Neurological: Reports: No Symptoms Psychiatric: Reports: No Symptoms ED EXAM, GENERAL - Physical Exam Exam: See Below Exam Limited By: No Limitations General Appearance: Alert, WD/WN, No Apparent Distress, Obese Eye Exam: Bilateral Eye: Normal Inspection Ears: Normal External Exam, Normal Canal, Hearing Grossly Normal Ear Exam: Bilateral Ear: Auricle Normal, Canal Normal Nose: Normal Inspection, No Blood Throat/Mouth: Normal Inspection, Normal Lips, Normal Oropharynx, Normal Voice, No Airway Compromise Head: Atraumatic, Normocephalic Neck: Normal Inspection Respiratory/Chest: No Respiratory Distress, Lungs Clear, Normal Breath Sounds, No Accessory Muscle Use Cardiovascular: Regular Rate, Rhythm, Other (edema to both legs below the knees. ) GI/Abdominal: Normal Bowel Sounds, Soft, Non-Tender, No Distention, Other (obese ) Back Exam: Normal Inspection. No: CVA Tenderness (R), CVA Tenderness (L) Extremities: Normal Inspection, Normal Range of Motion, Pedal Edema ( bilaterally below the knees.), Arm Pain (L elbow pain in the antecubital fossa, worse with supination/pronation. No significant increase in elbow pain with flexion/extension. ). No: No Pedal Edema, Increased Warmth, Redness Neurological: Alert, Oriented, CN II-XII Intact, Normal Cognition, No Motor/ Sensory Deficits Psychiatric: Normal Affect, Normal Mood Skin Exam: Warm, Dry, Intact, Normal Color, No Rash Lymphatic: No Adenopathy Course - Vital Signs Last Recorded V/S: Last Vital Signs Temp 36.1 C 05/03/18 20:34 Pulse 81 05/03/18 22:13 Resp 18 05/03/18 22:13 BP 144/87 H 05/03/18 22:13 Pulse Ox 93 L 05/03/18 22:13 - Orders/Labs/Meds Orders: Active Orders 24 hr Category Date Time Status VL Duplex Upr Ext Veins Ltd Lt [US] Stat Exams 05/03/18 21:18 Ordered Labs: Laboratory Tests 05/03/18 Range/Units 20:37 D-Dimer, Quantitative 913 H (0.0-400.0) ng/mL - Radiology Interpretation Free Text/Narrative:: Venous doppler of L arm-negative for DVT Departure - Departure Time of Disposition: 22:56 Disposition: Home, Self-Care 01 Condition: Good Clinical Impression: Elbow pain, left - Discharge Information *PRESCRIPTION DRUG MONITORING PROGRAM REVIEWED*: No *COPY OF PRESCRIPTION DRUG MONITORING REPORT IN PATIENT CANDY: No Referrals: Ezekiel Roberson MD [Primary Care Provider] - Forms: ED Department Discharge Additional Instructions: Rest your left arm. If not better in 2-3 days follow up for recheck in the clinic with your provider. - My Orders Last 24 Hours: My Active Orders 05/03/18 21:18 VL Duplex Upr Ext Veins Ltd Lt [US] Stat - Assessment/Plan Last 24 Hours: My Active Orders 05/03/18 21:18 VL Duplex Upr Ext Veins Ltd Lt [US] Stat
[2018-05-03 22:14] VITALS: BP 144/87
--- NOTE | 2018-05-04 09:01 | US ---
VL Duplex Upr Ext Veins Ltd Lt INDICATION: pain, hx of clots, elevated d-dimer FINDINGS: The left internal jugular, innominate, subclavian, axillary, basilic, brachial, cephalic, radial, and ulnar veins are patent and negative for thrombus. IMPRESSION: Left upper extremity negative for DVT.
== END 2018-05-03 23:17 | disposition home or self-care (01) ==
LOC: JP.ED 20:01
DX: M25.522 Pain in left elbow (principal); Z79.899 Other long term (current) drug therapy; Z91.018 Allergy to other foods; Z88.7 Allergy status to serum and vaccine
CPT/HCPCS: 36415; 85379; 93971-26; 93971-LT; 99283; 99284-25

== ENCOUNTER 2018-11-30 16:56 | Emergency (ER) | payer MEDICARE, MEDICAID ==
--- NOTE | 2018-11-30 17:52 | EDM.PDOC ---
<Joshua Grant G - Last Filed: 11/30/18 17:47> ED HPI GENERAL MEDICAL PROBLEM - General Chief Complaint: Lower Extremity Injury/Pain Stated Complaint: CRAMPING Time Seen by Provider: 11/30/18 17:40 Source of Information: Reports: Patient, EMS, Old Records History Limitations: Reports: No Limitations - History of Present Illness INITIAL COMMENTS - FREE TEXT/NARRATIVE: 63 yo male presents by ambulance for "leg cramps". These have been lasting for several days. Seems to affect the R leg more than the L. Saw Dr. Roberson today and he attributed it to his leg swelling. After that appt the "cramping" moved to his R thigh so he called EMS for transport. Thinks he's been more SOB for a couple weeks, attributed it to his asthma. Thinks his legs are more swollen than usual. Onset: Gradual Duration: Day(s):, Getting Worse Location: Reports: Lower Extremity, Right Quality: Reports: Other ( "cramping") Severity: Moderate Improves with: Reports: None Worsens with: Reports: Other (time) Context: Reports: Other (See HPI, morbid obesity) Associated Symptoms: Reports: Shortness of Breath (mild). Denies: Fever/Chills , Nausea/Vomiting, Rash Treatments RN OR LPN: Reports: Other (see below) (none) - Related Data Allergies Allergy/AdvReac Type Severity Reaction Status Date / Time cinnamon Allergy Seizure Verified 11/30/18 17:56 raspberry Allergy Seizure Verified 11/30/18 17:56 strawberry Allergy Seizure Verified 11/30/18 17:56 Influenza Virus Vaccines AdvReac Seizure Verified 11/30/18 17:56 chocolate Allergy Seizure Uncoded 06/23/18 10:49 Home Meds: Home Meds Albuterol [Ventolin HFA] 2 puff INH Q6H PRN 11/10/16 [History] HYDROmorphone [Dilaudid] 2 mg PO Q6H PRN 11/10/16 [History] Fluticasone Propionate [Flonase] 2 spray CHELSY DAILY PRN 01/25/17 [History] Past Medical History - Past Health History Medical/Surgical History: Denies Medical/Surgical History HEENT History: Reports: Impaired Vision, Otitis Media Cardiovascular History: Reports: Angina, Blood Clots/VTE/DVT, SOB on Exertion Respiratory History: Reports: Sleep Apnea, SOB Gastrointestinal History: Reports: Chronic Constipation, PUD Genitourinary History: Reports: Renal Calculus, Urinary Incontinence, UTI, Recurrent Musculoskeletal History: Reports: Arthritis, Back Pain, Chronic, Fracture Neurological History: Reports: Seizure, Other (See Below) Other Neuro History: Pt. states that some foods cause him to have seizures, mostly sweet foods Psychiatric History: Reports: Anxiety, Depression, Eating Disorders, Suicide Attempt Endocrine/Metabolic History: Reports: Obesity/BMI 30+ Other Endocrine/Metabolic History: started on thyroid meds again Hematologic History: Reports: None Immunologic History: Reports: None Oncologic (Cancer) History: Reports: Bladder Dermatologic History: Reports: Other (See Below) Other Dermatologic History: irritated skin at skin folds - Infectious Disease History Infectious Disease History: Reports: Chicken Pox - Past Surgical History Head Surgeries/Procedures: Reports: None GI Surgical History: Reports: EGD, Hernia, Abdominal, Hernia, Inguinal, Other ( See Below) Other GI Surgeries/Procedures: Pt. states that a "couple" years ago he had an EGD done and was found to have two ulcers. Pt. denies being on any medication for it. panniculectomy for abscess 3 weeks ago here with [facility]. PT HAD A PANNICULECTOMY JUNE 2015 Male Surgical History: Reports: Other (See Below) Other Male Surgeries/Procedures: bladder cancer- dx 2017, untreated Social & Family History - Family History HEENT: Reports: Cataract, Impaired Vision, Macular Degeneration Cardiac: Reports: CAD, [place] Respiratory: Reports: None GI: Reports: None : Reports: None OBGYN: Reports: None Musculoskeletal: Reports: Arthritis Other Musculoskeletal Family History: HIP REPLACEMENT BONE DEGENERATION Neurological: Reports: None Psychiatric: Reports: None Endocrine/Metabolic: Reports: None Hematologic: Reports: None Immunologic: Reports: None Dermatologic: Reports: None Oncologic: Reports: Other (See Below) Other Oncologic Family History: BROTHER OF CANCER DOES NOT KNOW WHAT KIND - Caffeine Use Caffeine Use: Reports: Coffee Caffeine Use Comment: 3 cups/day Review of Systems - Review of Systems Review Of Systems: See Below Constitutional: Reports: No Symptoms Eyes: Reports: No Symptoms Ears: Reports: No Symptoms Nose: Reports: No Symptoms Mouth/Throat: Reports: No Symptoms Respiratory: Reports: Shortness of Breath (mild) Cardiovascular: Reports: No Symptoms, Edema (both LE's chronically, worse lately.) GI/Abdominal: Reports: No Symptoms Genitourinary: Reports: No Symptoms Musculoskeletal: Reports: Leg Pain (R>L) Skin: Reports: No Symptoms Neurological: Reports: No Symptoms ED EXAM, GENERAL - Physical Exam Exam: See Below Exam Limited By: No Limitations General Appearance: Alert, WD/WN, No Apparent Distress, Obese (morbid) Eye Exam: Bilateral Eye: Normal Inspection Ears: Normal External Exam, Normal Canal, Hearing Grossly Normal Ear Exam: Bilateral Ear: Auricle Normal, Canal Normal Nose: Normal Inspection, No Blood Throat/Mouth: Normal Inspection, Normal Lips, Normal Oropharynx, Normal Voice, No Airway Compromise. No: Normal Teeth (no teeth) Head: Atraumatic, Normocephalic Neck: Normal Inspection Respiratory/Chest: No Respiratory Distress, Lungs Clear, Normal Breath Sounds, No Accessory Muscle Use Cardiovascular: Regular Rate, Rhythm. No: No Edema (anasarca of both legs) Extremities: Pedal Edema (Both LE's are massively obese + swollen), Leg Pain (R calf and thigh). No: Non-Tender, No Pedal Edema, Increased Warmth, Redness Neurological: Alert, Oriented, CN II-XII Intact, Normal Cognition, No Motor/ Sensory Deficits Psychiatric: Normal Affect, Normal Mood Skin Exam: Warm, Dry, Intact, Normal Color, No Rash Course - Vital Signs Last Recorded V/S: Last Vital Signs Temp 36.0 C 11/30/18 17:54 Pulse 85 11/30/18 18:19 Resp 14 11/30/18 18:19 BP 126/49 L 11/30/18 18:19 Pulse Ox 92 L 11/30/18 18:19 - Orders/Labs/Meds Labs: Laboratory Tests 11/30/18 11/30/18 11/30/18 Range/Units 17:23 17:49 19:26 WBC 4.5 (4.5-11.0) K/uL RBC 4.42 (4.30-5.90) M/uL Hgb 13.3 (12.0-15.0) g/dL Hct 41.3 (40.0-54.0) % MCV 93 (80-98) fL MCH 30 (27-31) pg MCHC 32 (32-36) % Plt Count 87 L (150-400) K/uL Neut % (Auto) 62 (36-66) % Lymph % (Auto) 16 L (24-44) % [place] % (Auto) 19 H (2-6) % Eos % (Auto) 3 (2-4) % Baso % (Auto) 0 (0-1) % D-Dimer, Quantitative 813 H (0.0-400.0) ng/mL Sodium 140 (140-148) mmol/L Potassium 3.9 (3.6-5.2) mmol/L Chloride 105 (100-108) mmol/L Carbon Dioxide 29 (21-32) mmol/L Anion Gap 6.5 (5.0-14.0) mmol/L BUN 12 (7-18) mg/dL Creatinine 0.9 (0.8-1.3) mg/dL Est Cr Clr Drug Dosing 75.81 mL/min Estimated GFR (MDRD) > 60 (>60) Glucose 139 H (74-106) mg/dL Uric Acid (3.5-7.2) mg/dL Calcium 8.6 (8.5-10.1) mg/dL Magnesium 1.8 (1.8-2.4) mg/dL 11/30/18 Range/Units 20:30 WBC (4.5-11.0) K/uL RBC (4.30-5.90) M/uL Hgb (12.0-15.0) g/dL Hct (40.0-54.0) % MCV (80-98) fL MCH (27-31) pg MCHC (32-36) % Plt Count (150-400) K/uL Neut % (Auto) (36-66) % Lymph % (Auto) (24-44) % [place] % (Auto) (2-6) % Eos % (Auto) (2-4) % Baso % (Auto) (0-1) % D-Dimer, Quantitative (0.0-400.0) ng/mL Sodium (140-148) mmol/L Potassium (3.6-5.2) mmol/L Chloride (100-108) mmol/L Carbon Dioxide (21-32) mmol/L Anion Gap (5.0-14.0) mmol/L BUN (7-18) mg/dL Creatinine (0.8-1.3) mg/dL Est Cr Clr Drug Dosing mL/min Estimated GFR (MDRD) (>60) Glucose (74-106) mg/dL Uric Acid 4.8 (3.5-7.2) mg/dL Calcium (8.5-10.1) mg/dL Magnesium (1.8-2.4) mg/dL Departure - Departure Disposition: Home, Self-Care 01 Clinical Impression: Leg cramps, Infection of right foot - Discharge Information Referrals: PCP,None [Primary Care Provider] - Forms: ED Department Discharge Care Plan Goals: appt with Dr saul at the [facility], soak the rt foot bid in soapy water, keflex 500mg tid for foot, qiinine 325bid for leg cramps. <Sydnee Cevallos - Last Filed: 11/30/18 21:08> ED HPI GENERAL MEDICAL PROBLEM Right Leg Pain Score (Numeric/FACES): 6 Course - Re-Assessments/Exams Free Text/Narrative Re-Assessment/Exam: 11/30/18 20:54 pt was found to have no clots present in his leg. His electrolytes are good. He has a very tender area on the bottom of his rt foot. It is swollen and he is not able to bear weight on the site. xray wqs done which showed the swelling. His wbc was not elevated. He will be started on antibiotics and then he will see Dr saul Departure - Departure Time of Disposition: 20:57 Condition: Fair
[2018-11-30 18:20] VITALS: BP 126/49
--- NOTE | 2018-11-30 19:43 | CRLUS ---
INDICATION: D-dimer, leg cramps TECHNIQUE: Ultrasound venous duplex lower right extremity. Compression venous exam was performed using serra-scale, color Doppler, and spectral Doppler imaging. COMPARISON: 06/18/2015 FINDINGS: Sonographic imaging demonstrates the right common femoral, deep femoral, superficial femoral, popliteal, posterior tibial and greater saphenous veins to be fully compressible with normal color Doppler blood flow. IMPRESSION: Normal right lower extremity venous ultrasound, no sign of deep venous thrombosis. Dictated by Ezekiel Gamez MD @ 11/30/2018 7:42:19 PM Dictated by: Ezekiel Gamez MD @ 11/30/2018 19:42:22 (Electronically Signed)
--- NOTE | 2018-11-30 20:25 | CRLCR ---
Indication: Severe right heel pain Technique: Three views right foot Comparison: None Findings: Bones: Alignment is normal. No fractures or bone lesions. No bony erosions. Joint spaces: Moderate degenerative changes in the interphalangeal joints. Soft tissues: Diffuse soft tissue swelling of the foot. No soft tissue gas. Impression: Diffuse soft tissue swelling of the foot without soft tissue gas or bony abnormality. Dictated by Jane Gordon MD @ Nov 30 2018 8:22PM Signed by Dr. Jane Gordon @ Nov 30 2018 8:25PM
== END 2018-11-30 21:21 | disposition home or self-care (01) ==
LOC: JP.ED 16:56
DX: R25.2 Cramp and spasm (principal); L08.9 Local infection of the skin and subcutaneous tissue, unspecified; Z88.7 Allergy status to serum and vaccine; Z91.018 Allergy to other foods; Z86.718 Personal history of other venous thrombosis and embolism
CPT/HCPCS: 36415; 73630-RT; 80048; 83735; 84550; 85025; 85379; 93971-RT; 99284-25

== ENCOUNTER 2019-01-29 13:08 | Inpatient (IN) | payer MEDICARE, MEDICAID ==
--- NOTE | 2019-01-29 14:06 | EDM.PDOC ---
ED HPI GENERAL MEDICAL PROBLEM - General Chief Complaint: Respiratory Problem Stated Complaint: MEDICAL VIA TRI Time Seen by Provider: 01/29/19 14:02 Source of Information: Reports: Patient History Limitations: Reports: No Limitations - History of Present Illness INITIAL COMMENTS - FREE TEXT/NARRATIVE: 63-year-old with history of morbid obesity, prior DVT presents with concerns of dyspnea Reports that he has had difficulty with breathing for months, this worsened acutely this morning while visiting friends in [place]. His dyspnea has been associated with some pleuritic left-sided chest pain. He has no cough. No fevers. No new swelling in lower extremities. He reports no known history of cardiac disease, he is not sure if he has pulmonary disease. He was seen in the [place] emergency room, workup there was large unremarkable including negative troponins, nonischemic EKG, however he did have a positive d- dimer. Due to his morbid obesity they're unable to perform CT of his chest for PE, was therefore transferred to [place]. the patient is not sure when he was taken off of his anticoagulation for prior DVT. Middle Chest Pain Score (Numeric/FACES): 6 - Related Data Allergies Allergy/AdvReac Type Severity Reaction Status Date / Time cinnamon Allergy Seizure Verified 01/29/19 13:19 raspberry Allergy Seizure Verified 01/29/19 13:19 strawberry Allergy Seizure Verified 01/29/19 13:19 Influenza Virus Vaccines AdvReac Seizure Verified 01/29/19 13:19 chocolate Allergy Seizure Uncoded 06/23/18 10:49 Home Meds: Home Meds Albuterol [Ventolin HFA] 2 puff INH Q6H PRN 11/10/16 [History] HYDROmorphone [Dilaudid] 2 mg PO Q6H PRN 11/10/16 [History] Fluticasone Propionate [Flonase] 2 spray CHELSY DAILY PRN 01/25/17 [History] Gabapentin [Neurontin] 300 mg PO BID 01/29/19 [History] Sulfamethoxazole/Trimethoprim [Bactrim Ds Tablet] 1 tab PO BID 01/29/19 [History ] Past Medical History - Past Health History Medical/Surgical History: Denies Medical/Surgical History HEENT History: Reports: Impaired Vision, Otitis Media Cardiovascular History: Reports: Angina, Blood Clots/VTE/DVT, SOB on Exertion Respiratory History: Reports: Sleep Apnea, SOB Gastrointestinal History: Reports: Chronic Constipation, PUD Genitourinary History: Reports: Renal Calculus, Urinary Incontinence, UTI, Recurrent Musculoskeletal History: Reports: Arthritis, Back Pain, Chronic, Fracture Neurological History: Reports: Seizure, Other (See Below) Other Neuro History: Pt. states that some foods cause him to have seizures, mostly sweet foods Psychiatric History: Reports: Anxiety, Depression, Eating Disorders, Suicide Attempt Endocrine/Metabolic History: Reports: Obesity/BMI 30+ Other Endocrine/Metabolic History: started on thyroid meds again Hematologic History: Reports: None Immunologic History: Reports: None Oncologic (Cancer) History: Reports: Bladder Dermatologic History: Reports: Other (See Below) Other Dermatologic History: irritated skin at skin folds - Infectious Disease History Infectious Disease History: Reports: Chicken Pox - Past Surgical History Head Surgeries/Procedures: Reports: None HEENT Surgical History: Reports: None Cardiovascular Surgical History: Reports: None Respiratory Surgical History: Reports: None GI Surgical History: Reports: EGD, Hernia, Abdominal, Hernia, Inguinal, Other ( See Below) Other GI Surgeries/Procedures: Pt. states that a "couple" years ago he had an EGD done and was found to have two ulcers. Pt. denies being on any medication for it. panniculectomy for abscess 3 weeks ago here with [facility]. PT HAD A PANNICULECTOMY JUNE 2015 Male Surgical History: Reports: Other (See Below) Other Male Surgeries/Procedures: bladder cancer- dx 2017, untreated Endocrine Surgical History: Reports: None Social & Family History - Family History Family Medical History: Noncontributory HEENT: Reports: Cataract, Impaired Vision, Macular Degeneration Cardiac: Reports: CAD, [place] Respiratory: Reports: None GI: Reports: None : Reports: None OBGYN: Reports: None Musculoskeletal: Reports: Arthritis Other Musculoskeletal Family History: HIP REPLACEMENT BONE DEGENERATION Neurological: Reports: None Psychiatric: Reports: None Endocrine/Metabolic: Reports: None Hematologic: Reports: None Immunologic: Reports: None Dermatologic: Reports: None Oncologic: Reports: Other (See Below) Other Oncologic Family History: BROTHER OF CANCER DOES NOT KNOW WHAT KIND - Tobacco Use Smoking Status *Q: Never Smoker - Caffeine Use Caffeine Use: Reports: Coffee, Soda Caffeine Use Comment: 3 cups/day - Recreational Drug Use Recreational Drug Use: No ED ROS GENERAL - Review of Systems Review Of Systems: See Below Constitutional: Denies: Fever, Chills HEENT: Reports: No Symptoms Respiratory: Reports: Shortness of Breath, Pleuritic Chest Pain Cardiovascular: Reports: Chest Pain Endocrine: Reports: No Symptoms GI/Abdominal: Reports: No Symptoms : Reports: No Symptoms Musculoskeletal: Reports: No Symptoms Skin: Reports: No Symptoms Neurological: Reports: No Symptoms Psychiatric: Reports: No Symptoms Hematologic/Lymphatic: Reports: No Symptoms Immunologic: Reports: No Symptoms ED EXAM, GENERAL - Physical Exam Exam: See Below Exam Limited By: Other (morbid obesity) General Appearance: Alert, No Apparent Distress Nose: Normal Inspection Throat/Mouth: Normal Inspection Head: Atraumatic, Normocephalic Neck: Normal Inspection Respiratory/Chest: Other (mild tachypnea, becomes dyspnic with speaking, sat 88 % on RA with no exertion) Cardiovascular: Regular Rate, Rhythm, No Rub. No: Tachycardia GI/Abdominal: Soft, Non-Tender Extremities: Normal Inspection, Increased Warmth (right leg) Neurological: Alert, Oriented Psychiatric: Normal Affect, Normal Mood Skin Exam: Warm, Dry Course - Vital Signs Last Recorded V/S: Last Vital Signs Temp 37.0 C 01/29/19 13:18 Pulse 79 01/29/19 13:18 Resp 18 01/29/19 13:18 BP 153/63 H 01/29/19 13:18 Pulse Ox 89 L 01/29/19 13:58 - Orders/Labs/Meds Orders: Active Orders 24 hr Category Date Time Status EKG Documentation Completion [RC] ASDIRECTED Care 01/29/19 15:28 Active Iopamidol [Isovue-370 (76%)] Med 01/29/19 14:15 Active 100 ml IV . DIRECTED EKG 12 Lead [EK] Routine Ther 01/29/19 15:27 Ordered Medication Orders Iopamidol (Isovue-370 (76%)) 100 ml IV . DIRECTED VON Last Admin: 01/29/19 14:48 Dose: 100 ml Labs: Laboratory Tests 01/29/19 Range/Units 15:28 Troponin I < 0.017 (0.000-0.056) ng/mL Meds: Medications Generic Name Dose Route Start Last Admin Trade Name Freq PRN Reason Stop Dose Admin Iopamidol 100 ml 01/29/19 14:15 01/29/19 14:48 Isovue-370 (76%) IV 100 ml . DIRECTED VON Administration Discontinued Medications Generic Name Dose Route Start Last Admin Trade Name Marina PRN Reason Stop Dose Admin Sodium Chloride 80 mls @ 4 mls/sec 01/29/19 14:07 01/29/19 14:48 Normal Saline IV 01/29/19 14:08 4 mls/sec ONETIME ONE Administration Sodium Chloride 10 ml 01/29/19 14:07 01/29/19 14:48 Saline Flush FLUSH 01/29/19 14:08 10 ml ONETIME ONE Administration - Re-Assessments/Exams Free Text/Narrative Re-Assessment/Exam: 63-year-old presents with concerns of dyspnea. Reviewed his workup from [place]: EKG is nonischemic, there is an S1Q3T3 however this is old negative troponin and BNP. He is not acidotic or anemic. His chest x-ray is limited in value given his body habitus, however perhaps there is an infiltrate at the right base. He is hypoxic diabetes without exertion on my exam. I agree that she'll likely need CT imaging of the chest giving is undifferentiated hypoxia and history of DVT. We will obtain a CTA. Reviewed his labs from [place] and his creatinine is normal. 01/29/19 14:07 Free Text/Narrative Re-Assessment/Exam: CT without acute abnormality Repeat troponin and EKG - unremarkable Failed trial of ambulation due to dyspnea. Unclear etiology of this - does sound like dyspnea has been somewhat subacute, suspect this is due to deconditioning Perhaps an echo would be helpful, he has some risk factors for RV dysfxn At any rate is currently unsafe to live at home independently, admitted for further work-up 01/29/19 16:38 Departure - Departure Time of Disposition: 16:35 Disposition: Admitted As Inpatient 66 Clinical Impression: Dyspnea Qualifiers: Dyspnea type: dyspnea on exertion Qualified Code(s): R06.09 - Other forms of dyspnea - Discharge Information Referrals: PCP,None [Primary Care Provider] - Forms: ED Department Discharge - My Orders Last 24 Hours: My Active Orders 01/29/19 14:15 Iopamidol [Isovue-370 (76%)] 100 ml IV . DIRECTED 01/29/19 15:27 EKG 12 Lead [EK] Routine 01/29/19 15:28 EKG Documentation Completion [RC] ASDIRECTED - Assessment/Plan Last 24 Hours: My Active Orders 01/29/19 14:15 Iopamidol [Isovue-370 (76%)] 100 ml IV . DIRECTED 01/29/19 15:27 EKG 12 Lead [EK] Routine 01/29/19 15:28 EKG Documentation Completion [RC] ASDIRECTED
[2019-01-29] MEDS ORDERED: Sodium Chloride 0.9% 80 ML IV ONE (14:07)
[2019-01-29] MEDS ORDERED: Iopamidol 755 Mg/ML 100 ML Bottle IV SCH (14:15)
[2019-01-29] MEDS: Sodium Chloride 0.9% 10 ML Syringe FLUSH ONE ×2 (14:38→14:48)
--- NOTE | 2019-01-29 15:19 | CRLCT ---
INDICATION: Short of breath. History of DVT. TECHNIQUE: Axial images were acquired through the chest. 100 mL of Isovue-370 IV. Sagittal and coronal reconstructions. COMPARISON: None. FINDINGS: Compromised study due to body habitus. Pulmonary arteries: There is marginal contrast opacification of the main and lobar pulmonary arteries, with suboptimal contrast opacification of the segmental and subsegmental pulmonary arteries. No filling defects are identified to suggest an acute pulmonary embolus. Remainder of the chest: Heart is mildly enlarged. No significant pericardial effusion. The thoracic aorta is normal in caliber. Atherosclerotic changes including coronary calcifications. Paraesophageal varices are noted. Benign calcified pulmonary nodule right upper lobe axial image 26. There is a benign appearing fissural nodule in the right lung on axial image 61. No suspicious pulmonary nodules are identified. No airspace opacities to suggest pneumonia. No findings to suggest pulmonary edema. No pleural fluid. Upper abdomen: Abnormal liver morphology is noted with a nodular surface contour, suggestive of cirrhosis. Although the spleen is not entirely visualized, the spleen appears enlarged. A few low-density lesions are seen in the superior poles of both kidneys, which are incompletely evaluated but likely represent cysts. Please see the prior abdominal CT for further discussion. Bones: No acute abnormality. Degenerative changes. IMPRESSION: 1. Compromised examination due to body habitus as well as suboptimal contrast opacification of the pulmonary arteries. Within the limitations of the study, there is no evidence of an acute pulmonary embolus. 2. No CT findings to suggest acute intrathoracic disease. 3. Cirrhotic liver morphology with stigmata of portal venous hypertension. 4. Other findings as noted. Dictated by August Lucas MD @ 01/29/2019 3:18:15 PM Please note that all CT scans at this facility use dose modulation, iterative reconstruction, and/or weight-based dosing when appropriate to reduce radiation dose to as low as reasonably achievable. Dictated by: August Lucas MD @ 01/29/2019 15:18:34 (Electronically Signed)
[2019-01-29] MEDS ORDERED: Furosemide 20 MG/2 ML VIAL IVPUSH ONE (17:36)
[2019-01-29] MEDS ORDERED: HYDROmorphone 2 MG Tab PO ONE (17:45)
--- NOTE | 2019-01-29 17:46 | PCM.HP.2 ---
H&P History of Present Illness - General Date of Service: 01/29/19 Admit Problem/Dx: Admission Diagnosis/Problem Admission Diagnosis/Problem Dyspnea on exertion Source of Information: Patient, Provider History Limitations: Reports: No Limitations - History of Present Illness Initial Comments - Free Text/Narative: CC: My breathing has been bad HPI: Stephanie presents to the emergency room today with acute on chronic shortness of breath. He first noticed the increase in his dyspnea last night while he was trying to get to the bathroom. He has been short of breath even at rest since that time but is dramatically short of breath whenever he tries to exert himself. He admits that he has been short of breath for months but this is much worse. He does describe some pleuritic chest discomfort and points to the middle of his chest. He says this is relatively mild but only present when he's trying to take a deep breath to catch his breath. He has been taking his usual pain pills but they haven't helped this pleuritic pain much. Pain does not radiate. He has not been coughing and has not had any fevers or chills. No complaints of sore throat but he does have some nasal congestion. Appetite has been stable. He has some lower extremity edema but this is not dramatically worse than usual. He is being treated for cellulitis of the right lower extremity. He does not report orthopnea. No history of heart disease. He was initially seen in the emergency room in [place]. Labs they're unremarkable. He did not fit in the CT scan machine so he was sent here for a CT pulmonary angiogram. This was unremarkable. Troponin and proBNP were unremarkable. The patient is extremely short of breath with any activity and is not safe for outpatient management. He will be admitted for further workup and treatment. Middle Chest Pain Score (Numeric/FACES): 6 - Related Data Allergies/Adverse Reactions: Allergies Allergy/AdvReac Type Severity Reaction Status Date / Time cinnamon Allergy Seizure Verified 01/29/19 13:19 raspberry Allergy Seizure Verified 01/29/19 13:19 strawberry Allergy Seizure Verified 01/29/19 13:19 Influenza Virus Vaccines AdvReac Seizure Verified 01/29/19 13:19 chocolate Allergy Seizure Uncoded 06/23/18 10:49 Home Medications: Home Meds Albuterol [Ventolin HFA] 2 puff INH Q6H PRN 11/10/16 [History] HYDROmorphone [Dilaudid] 2 mg PO Q6H PRN 11/10/16 [History] Fluticasone Propionate [Flonase] 2 spray CHELSY DAILY PRN 01/25/17 [History] Gabapentin [Neurontin] 300 mg PO BID 01/29/19 [History] Sulfamethoxazole/Trimethoprim [Bactrim Ds Tablet] 1 tab PO BID 01/29/19 [History ] Past Medical History - Past Health History Medical/Surgical History: Denies Medical/Surgical History HEENT History: Reports: Impaired Vision, Otitis Media Cardiovascular History: Reports: Angina, Blood Clots/VTE/DVT, SOB on Exertion Respiratory History: Reports: Sleep Apnea, SOB Gastrointestinal History: Reports: Chronic Constipation, PUD Genitourinary History: Reports: Renal Calculus, Urinary Incontinence, UTI, Recurrent Musculoskeletal History: Reports: Arthritis, Back Pain, Chronic, Fracture Neurological History: Reports: Seizure, Other (See Below) Other Neuro History: Pt. states that some foods cause him to have seizures, mostly sweet foods Psychiatric History: Reports: Anxiety, Depression, Eating Disorders, Suicide Attempt Endocrine/Metabolic History: Reports: Obesity/BMI 30+ Other Endocrine/Metabolic History: started on thyroid meds again Hematologic History: Reports: None Immunologic History: Reports: None Oncologic (Cancer) History: Reports: Bladder Dermatologic History: Reports: Other (See Below) Other Dermatologic History: irritated skin at skin folds - Infectious Disease History Infectious Disease History: Reports: Chicken Pox - Past Surgical History Head Surgeries/Procedures: Reports: None HEENT Surgical History: Reports: None Cardiovascular Surgical History: Reports: None Respiratory Surgical History: Reports: None GI Surgical History: Reports: EGD, Hernia, Abdominal, Hernia, Inguinal, Other ( See Below) Other GI Surgeries/Procedures: Pt. states that a "couple" years ago he had an EGD done and was found to have two ulcers. Pt. denies being on any medication for it. panniculectomy for abscess 3 weeks ago here with [facility]. PT HAD A PANNICULECTOMY JUNE 2015 Male Surgical History: Reports: Other (See Below) Other Male Surgeries/Procedures: bladder cancer- dx 2017, untreated Endocrine Surgical History: Reports: None Social & Family History - Family History Family Medical History: Noncontributory HEENT: Reports: Cataract, Impaired Vision, Macular Degeneration Cardiac: Reports: CAD, GA Respiratory: Reports: None GI: Reports: None : Reports: None OBGYN: Reports: None Musculoskeletal: Reports: Arthritis Other Musculoskeletal Family History: HIP REPLACEMENT BONE DEGENERATION Neurological: Reports: None Psychiatric: Reports: None Endocrine/Metabolic: Reports: None Hematologic: Reports: None Immunologic: Reports: None Dermatologic: Reports: None Oncologic: Reports: Other (See Below) Other Oncologic Family History: BROTHER OF CANCER DOES NOT KNOW WHAT KIND - Tobacco Use Smoking Status *Q: Never Smoker - Caffeine Use Caffeine Use: Reports: Coffee, Soda Caffeine Use Comment: 3 cups/day - Alcohol Use Alcohol Use History: No - Recreational Drug Use Recreational Drug Use: No H&P Review of Systems - Review of Systems: Review Of Systems: See Below Free Text/Narrative: A complete 12 point review of systems was obtained. Pertinent positives and negatives are noted in the history of present illness. All other systems were reviewed and were negative except as noted. Exam - Exam Exam: See Below - Vital Signs Vital Signs: Last Vital Signs Temp 37.0 C 01/29/19 13:18 Pulse 79 01/29/19 13:18 Resp 18 01/29/19 13:18 BP 153/63 H 01/29/19 13:18 Pulse Ox 89 L 01/29/19 13:58 Weight: 225.435 kg - Exam Quality Assessment: No: Supplemental Oxygen General: Alert, Oriented, Cooperative. No: Mild Distress HEENT: Conjunctiva Clear, Mucosa Moist & [place]. No: Scleral Icterus Neck: Supple, Trachea Midline. No: Lymphadenopathy Lungs: Clear to Auscultation, Normal Respiratory Effort Cardiovascular: Regular Rate, Regular Rhythm. No: Systolic Murmur GI/Abdominal Exam: Normal Bowel Sounds, Soft, No Distention, Tender (mild LUQ) Extremities: Pedal Edema, Increased Warmth (right leg near knee medially ) Skin: Warm, Dry Neuro Extensive - Mental Status: Alert, Oriented x3, Nl Response to Commands Neuro Extensive - Motor, Sensory, Reflexes: No: Dysarthria, Abnormal Motor, Tremor Psychiatric: Alert, Normal Affect - Patient Data Lab Results Last 24 hrs: Laboratory Results - last 24 hr 01/29/19 Range/Units 15:28 Troponin I < 0.017 (0.000-0.056) ng/mL Imaging Impressions Last 24 hrs: CT scan of the chest - images from the CT pulmonary angiogram were personally reviewed and the radiologist interpretation is noted - there is no evidence for pulmonary embolism though contrast timing was not quite optimal. No evidence for pneumonia. No pleural effusions. No pericardial effusion. *Q Meaningful Use (ADM) - VTE Risk Assess *Q Each Risk Factor Represents 1 Point: Swollen Legs, Current, Obesity ( BMI > 25 kg/m2) Total Score 1 Point Risk Factors: 2 Each Risk Factor Represents 2 Points: Age 60 - 74 Years Total Score 2 Point Risk Factors: 2 Each Risk Factor Represents 3 Points: History of DVT/PE Total Score 3 Point Risk Factors: 3 Each Risk Factor Represents 5 Points: None Total Score 5 Point Risk Factors: 0 Venous Thromboembolism Risk Factor Score *Q: 7 - Problem List (1) Dyspnea on exertion SNOMED Code(s): 39438035 ICD Code: R06.09 - OTHER FORMS OF DYSPNEA Status: Acute Current Visit: Yes (2) Cellulitis of right lower extremity SNOMED Code(s): 805657619 ICD Code: L03.115 - CELLULITIS OF RIGHT LOWER LIMB Status: Acute Current Visit: Yes (3) Morbid obesity with BMI of 70 and over, adult SNOMED Code(s): 192959181 ICD Code: E66.01 - MORBID (SEVERE) OBESITY DUE TO EXCESS CALORIES; Z68.45 - BODY MASS INDEX (BMI) 70 OR GREATER, ADULT Status: Chronic Current Visit: Yes Problem List Initiated/Reviewed/Updated: Yes Orders Last 24hrs: Active Orders 24 hr Category Date Time Status Patient Status Manage Transfer [TRANSFER] Routine ADT 01/29/19 17:37 Ordered EKG Documentation Completion [RC] ASDIRECTED Care 01/29/19 15:28 Active HYDROmorphone [Dilaudid] Med 01/29/19 17:45 Once 2 mg PO ONETIME ONE Iopamidol [Isovue-370 (76%)] Med 01/29/19 14:15 Active 100 ml IV . DIRECTED Resuscitation Status Routine Resus Stat 01/29/19 17:39 Ordered EKG 12 Lead [EK] Routine Ther 01/29/19 15:27 Ordered Medication Orders Hydromorphone HCl (Dilaudid) 2 mg PO ONETIME ONE Stop: 01/29/19 17:46 Iopamidol (Isovue-370 (76%)) 100 ml IV . DIRECTED [facility] Last Admin: 01/29/19 14:48 Dose: 100 ml Assessment/Plan Comment:: ASSESSMENT AND PLAN - Dyspnea on exertion - acute on chronic with rapid worsening in the past 24 hours. No evidence for bacterial infection, pulmonary embolism or acute coronary syndrome. occult congestive heart failure could be considered. Early viral syndrome/URI could be considered. With worsening lower extremity edema over the past month I suspect this is a volume issue. Patient was agreeable to a trial of diuresis. -Furosemide 20 mg 1 now -Reassess volume status in the morning -Echocardiogram when available Thursday -Nebulizers as needed for shortness of breath Morbid obesity with BMI greater than 70 - previous consideration for gastric bypass has been given. Cellulitis of the right lower extremity - receiving outpatient antibiotic therapy for suspected cellulitis. May be a component of stasis dermatitis. -Continue antibiotics Chronic back pain - stable. -Continue home medications Maintenance issues - - DVT prophylaxis - enoxaparin - GI prophylaxis - not indicated - Nutrition - low sodium - Mares catheter - not indicated CODE STATUS - full code Admission justification - This patient will be admitted for inpatient services and is medically appropriate meeting medical necessity for inpatient admission as outlined in my documentation. I reasonably expect the patient will require inpatient services that span a period time over 2 midnights. I reasonably expect this patient to be discharged or transferred within 96 hours [facility]. needs expedited workup including echocardiogram which will not be available for 2 days. Disposition - I would anticipate [facility] versus home with home care Primary care physician - Dr. Da Hurd M.D. - Mortality Measure Prognosis:: Good
[2019-01-29] MEDS ORDERED: LORazepam 2 MG/ML SDV IVPUSH PRN (17:58)
[2019-01-29] MEDS ORDERED: Melatonin 3 MG Tab PO PRN (17:58)
[2019-01-29] MEDS ORDERED: Magnesium Hydroxide 400 MG/5 ML Susp 30 ML Cup PO PRN (17:58)
[2019-01-29] MEDS ORDERED: Fluticasone Propionate Nasal Spray 16 GM Bottle NAS PRN (17:58)
[2019-01-29] MEDS ORDERED: Ondansetron 4 MG/2 ML SDV IV PRN (17:58)
[2019-01-29] MEDS ORDERED: Ondansetron 4 MG Tab.DIS PO PRN (17:58)
[2019-01-29] MEDS: Lactobacillus Rhamnosus GG (Probiotic) Cap PO SCH (21:14)
[2019-01-29] MEDS: Gabapentin 300 MG Cap PO SCH (21:14)
[2019-01-29] MEDS: Sulfamethoxazole/Trimethoprim 800-160 MG Tab PO SCH (21:14)
[2019-01-29] MEDS: Acetaminophen 325 MG Tab PO PRN (22:32)
[2019-01-30] MEDS: HYDROmorphone 2 MG Tab PO PRN ×3 (01:11→20:02)
[2019-01-30] MEDS: Albuterol 0.083% 2.5 MG/3 ML Neb Soln NEB PRN (07:49)
[2019-01-30] MEDS ORDERED: Enoxaparin 40 MG/0.4 ML Syringe SUBCUT SCH (09:00)
[2019-01-30] MEDS: Sulfamethoxazole/Trimethoprim 800-160 MG Tab PO SCH ×2 (09:10→20:02)
[2019-01-30] MEDS: Gabapentin 300 MG Cap PO SCH ×2 (09:10→20:02)
[2019-01-30] MEDS: Lactobacillus Rhamnosus GG (Probiotic) Cap PO SCH ×2 (09:10→20:02)
[2019-01-30] MEDS ORDERED: Ibuprofen 600 MG Tab PO PRN (10:37)
--- NOTE | 2019-01-30 10:41 | PCM.PN ---
- General Info Date of Service: 01/30/19 Subjective Update: No acute events overnight. Patient did have a low-grade fever. Still feels short of breath but no significant cough. Less anterior chest discomfort with deep breathing today. Lower extremity edema is a little better today. Still feels weak and fatigued. Functional Status: Reports: Pain Controlled, Tolerating Diet - Review of Systems General: Reports: Weakness Pulmonary: Reports: Shortness of Breath - Patient Data Vitals - Most Recent: Last Vital Signs Temp 36.9 C 01/30/19 07:30 Pulse 75 01/30/19 07:30 Resp 20 01/30/19 07:30 BP 133/71 01/30/19 07:30 Pulse Ox 94 L 01/30/19 10:11 Weight - Most Recent: 221.353 kg I&O - Last 24 Hours: Intake & Output 01/29/19 01/30/19 01/30/19 22:59 06:59 14:59 Intake Total 520 Output Total 1500 350 Balance -1500 170 Lab Results Last 24 Hours: Laboratory Results - last 24 hr 01/29/19 01/30/19 01/30/19 Range/Units 15:28 04:37 04:37 WBC 4.2 L (4.5-11.0) K/uL RBC 4.41 (4.30-5.90) M/uL Hgb 12.7 (12.0-15.0) g/dL Hct 41.5 (40.0-54.0) % MCV 94 (80-98) fL MCH 29 (27-31) pg MCHC 31 L (32-36) % Plt Count 86 L (150-400) K/uL Sodium 139 L (140-148) mmol/L Potassium 4.0 (3.6-5.2) mmol/L Chloride 104 (100-108) mmol/L Carbon Dioxide 29 (21-32) mmol/L Anion Gap 10.0 (5.0-14.0) mmol/L BUN 10 (7-18) mg/dL Creatinine 1.0 (0.8-1.3) mg/dL Est Cr Clr Drug Dosing 70.52 mL/min Estimated GFR (MDRD) > 60 (>60) Glucose 93 (74-106) mg/dL Calcium 8.4 L (8.5-10.1) mg/dL Troponin I < 0.017 (0.000-0.056) ng/mL Med Orders - Current: Current Medications Acetaminophen (Tylenol) 650 mg PO Q4H PRN PRN Reason: Pain (Mild 1-3)/fever Last Admin: 01/29/19 22:32 Dose: 650 mg Albuterol (Proventil Neb Soln) 2.5 mg NEB Q4H PRN PRN Reason: Shortness Of Breath/wheezing Last Admin: 01/30/19 07:49 Dose: 2.5 mg Fluticasone Propionate (Flonase) 0 gm CHELSY DAILY PRN PRN Reason: Allergies Gabapentin (Neurontin) 300 mg PO BID [facility] Last Admin: 01/30/19 09:10 Dose: 300 mg Hydromorphone HCl (Dilaudid) 2 mg PO Q6H PRN PRN Reason: Pain Last Admin: 01/30/19 07:44 Dose: 2 mg Ibuprofen (Motrin) 600 mg PO Q6H PRN PRN Reason: Pain (Mild 1-3)/Headache Lactobacillus Rhamnosus (Culturelle) 1 cap PO BID [facility] Last Admin: 01/30/19 09:10 Dose: 1 cap Lorazepam (Ativan) 0.5 mg IVPUSH Q4H PRN PRN Reason: Nausea/Vomiting Magnesium Hydroxide (Milk Of Magnesia) 30 ml PO Q12H PRN PRN Reason: Constipation Melatonin (Melatonin) 9 mg PO BEDTIME PRN PRN Reason: Sleep Ondansetron HCl (Zofran Odt) 4 mg PO Q6H PRN PRN Reason: Nausea able to take PO Ondansetron HCl (Zofran) 4 mg IV Q6H PRN PRN Reason: Nausea/Vomiting Senna/Docusate Sodium (Senna Plus) 1 tab PO BID PRN PRN Reason: Constipation Trimethoprim/Sulfamethoxazole (Septra Ds) 1 tab PO BID [facility] Stop: 01/31/19 21:01 Last Admin: 01/30/19 09:10 Dose: 1 tab Discontinued Medications Enoxaparin Sodium (Lovenox) 40 mg SUBCUT DAILY [facility] Furosemide (Lasix) 20 mg IVPUSH ONETIME ONE Stop: 01/29/19 17:37 Last Admin: 01/29/19 18:02 Dose: 20 mg Hydromorphone HCl (Dilaudid) 2 mg PO ONETIME ONE Stop: 01/29/19 17:46 Last Admin: 01/29/19 18:02 Dose: 2 mg Sodium Chloride (Normal Saline) 80 mls @ 4 mls/sec IV ONETIME ONE Stop: 01/29/19 14:08 Last Admin: 01/29/19 14:48 Dose: 4 mls/sec Iopamidol (Isovue-370 (76%)) 100 ml IV . DIRECTED [facility] Last Admin: 01/29/19 14:48 Dose: 100 ml Sodium Chloride (Saline Flush) 10 ml FLUSH ONETIME ONE Stop: 01/29/19 14:08 Last Admin: 01/29/19 14:48 Dose: 10 ml - Exam Quality Assessment: Supplemental Oxygen General: Alert, Oriented, Cooperative, No Acute Distress Lungs: Clear to Auscultation, Normal Respiratory Effort, Decreased Breath Sounds (both bases) Cardiovascular: Regular Rate, Regular Rhythm GI/Abdominal Exam: Soft, No Distention Extremities: Pedal Edema, Increased Warmth (right knee/leg medially and posterior popliteal fossa ) Skin: Warm, Dry, Rash (erythema under pannus from midline to left ) Psy/Mental Status: Alert, Normal Affect - Problem List & Annotations (1) Dyspnea on exertion SNOMED Code(s): 55491778 Code(s): R06.09 - OTHER FORMS OF DYSPNEA Status: Acute Current Visit: Yes (2) Cellulitis of right lower extremity SNOMED Code(s): 238175194 Code(s): L03.115 - CELLULITIS OF RIGHT LOWER LIMB Status: Acute Current Visit: Yes (3) Morbid obesity with BMI of 70 and over, adult SNOMED Code(s): 435627694 Code(s): E66.01 - MORBID (SEVERE) OBESITY DUE TO EXCESS CALORIES; Z68.45 - BODY MASS INDEX (BMI) 70 OR GREATER, ADULT Status: Chronic Current Visit: Yes - Problem List Review Problem List Initiated/Reviewed/Updated: Yes - My Orders Last 24 Hours: My Active Orders 01/29/19 17:39 Resuscitation Status Routine 01/29/19 17:58 Patient Status [ADT] Routine Intake and Output [RC] QSHIFT Notify Provider Vital Signs [RC] ASDIRECTED Oxygen Therapy [RC] PRN RT Aerosol Therapy [RC] ASDIRECTED Up With Assistance [RC] ASDIRECTED VTE/DVT Education [RC] Per Unit Routine Vital Signs [RC] Q4H Acetaminophen [Tylenol] 650 mg PO Q4H PRN Albuterol [Proventil Neb Soln] 2.5 mg NEB Q4H PRN Docusate Sodium/Sennosides [Senna Plus] 1 tab PO BID PRN Fluticasone Propionate [Flonase] 0 gm CHELSY DAILY PRN HYDROmorphone [Dilaudid] 2 mg PO Q6H PRN LORazepam [Ativan] 0.5 mg IVPUSH Q4H PRN Magnesium Hydroxide [Milk of Magnesia] 30 ml PO Q12H PRN Melatonin 9 mg PO BEDTIME PRN Ondansetron [Zofran ODT] 4 mg PO Q6H PRN Ondansetron [Zofran] 4 mg IV Q6H PRN 01/29/19 21:00 Gabapentin [Neurontin] 300 mg PO BID Lactobacillus Rhamnosus GG [Culturelle] 1 cap PO BID Sulfamethoxazole/Trimethoprim [Septra DS] 1 tab PO BID 01/30/19 10:37 Ibuprofen [Motrin] 600 mg PO Q6H PRN 01/30/19 11:00 Nystatin [Nystatin Crm] 1 gm TOP TID 01/31/19 05:00 BASIC METABOLIC PANEL,BMP [CHEM] Timed CBC W/O DIFF,HEMOGRAM [HEME] Timed (1) 01/31/19 07:00 PT Evaluation and Treatment [CONS] Routine Echo Comp wo Cont [US] Routine - Plan Plan:: ASSESSMENT AND PLAN - Dyspnea on exertion - acute on chronic with rapid worsening in the 24 hours prior to admission. CT angiogram of the chest unremarkable. Viral URI could be considered and he does have mild leukopenia and thrombocytopenia. Occult congestive heart failure could be considered. Lower extremity edema little better with diuresis but dyspnea not significantly changed. -Furosemide 40 mg 1 now -Reassess volume status in the morning -Echocardiogram when available Thursday -Nebulizers as needed for shortness of breath Morbid obesity with BMI greater than 70 - previous consideration for gastric bypass has been given. Cellulitis of the right lower extremity - receiving outpatient antibiotic therapy for suspected cellulitis. May be a component of stasis dermatitis. -Continue antibiotics Chronic back pain - stable. -Continue home medications Maintenance issues - - DVT prophylaxis - unable to utilize pharmacological prophylaxis at this time because of thrombocytopenia and unable to utilize mechanical prophylaxis because of cellulitis and body habitus - GI prophylaxis - not indicated - Nutrition - low sodium Disposition - I would anticipate discharge to assisted facility for subacute rehabilitation versus home with home care Jared Hurd M.D.
[2019-01-30] MEDS ORDERED: Furosemide 40 MG/4 ML VIAL IVPUSH ONE (12:30)
[2019-01-30] MEDS: Nystatin Crm 15 GM Tube TOP SCH ×3 (12:52→20:03)
[2019-01-31] MEDS: Albuterol 0.083% 2.5 MG/3 ML Neb Soln NEB PRN (04:59)
[2019-01-31] MEDS: Lactobacillus Rhamnosus GG (Probiotic) Cap PO SCH ×2 (08:21→21:24)
[2019-01-31] MEDS: Nystatin Crm 15 GM Tube TOP SCH ×3 (08:21→21:24)
[2019-01-31] MEDS: Gabapentin 300 MG Cap PO SCH ×2 (08:21→21:24)
[2019-01-31] MEDS: Sulfamethoxazole/Trimethoprim 800-160 MG Tab PO SCH ×2 (08:22→21:25)
[2019-01-31] MEDS: HYDROmorphone 2 MG Tab PO PRN ×2 (08:27→21:28)
[2019-01-31] MEDS: Acetaminophen 325 MG Tab PO PRN ×2 (08:27→21:28)
--- NOTE | 2019-01-31 13:33 | PCM.PN ---
- General Info Date of Service: 01/31/19 Subjective Update: Mr. Santa was admitted with hypoxia of undetermined etiology. Since admission has required ongoing use of supplemental oxygen to maintain adequate oxygenation. He has received IV diuretics but really has noted no significant improvement in his breathing, peripheral edema has improved. CT scan of the chest with contrast was obtained on admission showing no evidence of significant pulmonary disease or evidence of pulmonary emboli. He has a history of long-standing morbid obesity and a current BMI of 75. Functional Status: Reports: Tolerating Diet, Ambulating, Urinating - Review of Systems General: Reports: Weakness. Denies: Fever, Chills Pulmonary: Reports: Shortness of Breath. Denies: Pleuritic Chest Pain, Cough, Sputum, Hemoptysis, Wheezing Cardiovascular: Reports: Dyspnea on Exertion. Denies: Chest Pain, Palpitations , Orthopnea, PND, Edema, Lightheadedness Gastrointestinal: Reports: No Symptoms - Patient Data Vitals - Most Recent: Last Vital Signs Temp 98.5 F 01/31/19 11:26 Pulse 71 01/31/19 11:26 Resp 16 01/31/19 11:26 BP 134/62 01/31/19 11:26 Pulse Ox 93 L 01/31/19 11:26 Weight - Most Recent: 480 lb 9.6 oz I&O - Last 24 Hours: Intake & Output 01/30/19 01/31/19 01/31/19 22:59 06:59 14:59 Intake Total 600 270 Output Total 675 Balance -75 270 Lab Results Last 24 Hours: Laboratory Results - last 24 hr 01/31/19 01/31/19 Range/Units 05:07 05:07 WBC 3.2 L (4.5-11.0) K/uL RBC 4.59 (4.30-5.90) M/uL Hgb 13.8 (12.0-15.0) g/dL Hct 42.6 (40.0-54.0) % MCV 93 (80-98) fL MCH 30 (27-31) pg MCHC 32 (32-36) % Plt Count (150-400) K/uL Sodium 137 L (140-148) mmol/L Potassium 5.0 (3.6-5.2) mmol/L Chloride 104 (100-108) mmol/L Carbon Dioxide 24 (21-32) mmol/L Anion Gap 14.0 (5.0-14.0) mmol/L BUN 11 (7-18) mg/dL Creatinine 0.9 (0.8-1.3) mg/dL Est Cr Clr Drug Dosing 78.35 mL/min Estimated GFR (MDRD) > 60 (>60) Glucose 94 (74-106) mg/dL Calcium 8.3 L (8.5-10.1) mg/dL Med Orders - Current: Current Medications Acetaminophen (Tylenol) 650 mg PO Q4H PRN PRN Reason: Pain (Mild 1-3)/fever Last Admin: 01/31/19 08:27 Dose: 650 mg Albuterol (Proventil Neb Soln) 2.5 mg NEB Q4H PRN PRN Reason: Shortness Of Breath/wheezing Last Admin: 01/31/19 04:59 Dose: 2.5 mg Fluticasone Propionate (Flonase) 0 gm CHELSY DAILY PRN PRN Reason: Allergies Gabapentin (Neurontin) 300 mg PO BID [facility] Last Admin: 01/31/19 08:21 Dose: 300 mg Hydromorphone HCl (Dilaudid) 2 mg PO Q6H PRN PRN Reason: Pain Last Admin: 01/31/19 08:27 Dose: 2 mg Ibuprofen (Motrin) 600 mg PO Q6H PRN PRN Reason: Pain (Mild 1-3)/Headache Last Admin: 01/30/19 10:58 Dose: 600 mg Lactobacillus Rhamnosus (Culturelle) 1 cap PO BID [facility] Last Admin: 01/31/19 08:21 Dose: 1 cap Lorazepam (Ativan) 0.5 mg IVPUSH Q4H PRN PRN Reason: Nausea/Vomiting Magnesium Hydroxide (Milk Of Magnesia) 30 ml PO Q12H PRN PRN Reason: Constipation Melatonin (Melatonin) 9 mg PO BEDTIME PRN PRN Reason: Sleep Nystatin (Nystatin Crm) 0 gm TOP TID [facility] Last Admin: 01/31/19 08:21 Dose: 1 applic Ondansetron HCl (Zofran Odt) 4 mg PO Q6H PRN PRN Reason: Nausea able to take PO Ondansetron HCl (Zofran) 4 mg IV Q6H PRN PRN Reason: Nausea/Vomiting Senna/Docusate Sodium (Senna Plus) 1 tab PO BID PRN PRN Reason: Constipation Trimethoprim/Sulfamethoxazole (Septra Ds) 1 tab PO BID [facility] Stop: 01/31/19 21:01 Last Admin: 01/31/19 08:22 Dose: 1 tab Discontinued Medications Enoxaparin Sodium (Lovenox) 40 mg SUBCUT DAILY [facility] Last Admin: 01/30/19 10:40 Dose: Not Given Furosemide (Lasix) 20 mg IVPUSH ONETIME ONE Stop: 01/29/19 17:37 Last Admin: 01/29/19 18:02 Dose: 20 mg Furosemide (Lasix) 40 mg IVPUSH ONETIME ONE Stop: 01/30/19 12:31 Last Admin: 01/30/19 13:27 Dose: 40 mg Hydromorphone HCl (Dilaudid) 2 mg PO ONETIME ONE Stop: 01/29/19 17:46 Last Admin: 01/29/19 18:02 Dose: 2 mg Sodium Chloride (Normal Saline) 80 mls @ 4 mls/sec IV ONETIME ONE Stop: 01/29/19 14:08 Last Admin: 01/29/19 14:48 Dose: 4 mls/sec Iopamidol (Isovue-370 (76%)) 100 ml IV . DIRECTED [facility] Last Admin: 01/29/19 14:48 Dose: 100 ml Sodium Chloride (Saline Flush) 10 ml FLUSH ONETIME ONE Stop: 01/29/19 14:08 Last Admin: 01/29/19 14:48 Dose: 10 ml - Exam Quality Assessment: DVT Prophylaxis General: Alert, Oriented, Cooperative, Mild Distress Lungs: Clear to Auscultation, Normal Respiratory Effort, Decreased Breath Sounds Cardiovascular: Regular Rate, Regular Rhythm, No Murmurs GI/Abdominal Exam: Soft, Non-Tender, No Organomegaly, No Distention Extremities: No Pedal Edema, Other (Area of tenderness plantar aspect of the right heel) - Problem List Review Problem List Initiated/Reviewed/Updated: Yes - My Orders Last 24 Hours: My Active Orders 01/31/19 13:18 RT Spirometry with Bronchodilator [RESPCARE] Urgent RT Spirometry with DLCO [RESPCARE] Urgent 01/31/19 13:27 Notify Provider Consults [RC] ASDIRECTED Consult to Physician [CONS] Routine 02/01/19 05:00 CBC WITH AUTO DIFF [HEME] Timed - Plan Plan:: ASSESSMENT AND PLAN - Dyspnea on exertion - resistant hypoxia, despite diuretic therapy. Peripheral edema has improved. Most likely would be chronic and worsening obesity related hypoventilation. Echocardiogram obtained this morning, preliminary report, shows normal left ventricular systolic function with concentric left ventricular hypertrophy, raising the possibility of some diastolic dysfunction. -Pulmonary function tests -Echocardiogram or mole report pending -Nebulizers as needed for shortness of breath Morbid obesity with BMI greater than 70 - previous consideration for gastric bypass has been given. Cellulitis of the right lower extremity - receiving outpatient antibiotic therapy for suspected cellulitis. May be a component of stasis dermatitis. -Continue antibiotics until completion Pain plantar aspect of the right heel-tenderness to palpation, question fluctuance -Consult Dr. Ramos for surgical opinion Chronic back pain - stable. -Continue home medications Maintenance issues - - DVT prophylaxis - unable to utilize pharmacological prophylaxis at this time because of thrombocytopenia and unable to utilize mechanical prophylaxis because of cellulitis and body habitus - GI prophylaxis - not indicated - Nutrition - low sodium Disposition - I would anticipate discharge to nursing home facility for subacute rehabilitation versus home with home care
[2019-02-01] MEDS: Albuterol 0.083% 2.5 MG/3 ML Neb Soln NEB PRN ×2 (05:44→07:47)
[2019-02-01] MEDS: Acetaminophen 325 MG Tab PO PRN ×2 (08:19→23:23)
[2019-02-01] MEDS: Lactobacillus Rhamnosus GG (Probiotic) Cap PO SCH ×2 (08:19→20:24)
[2019-02-01] MEDS: HYDROmorphone 2 MG Tab PO PRN (08:20)
[2019-02-01] MEDS: Gabapentin 300 MG Cap PO SCH ×2 (08:21→20:24)
[2019-02-01] MEDS ORDERED: Nitroglycerin 0.4 MG Tab.SL SL ONE (08:34)
[2019-02-01] MEDS: Nystatin Crm 15 GM Tube TOP SCH (09:22)
[2019-02-01] MEDS ORDERED: Nitroglycerin 0.4 MG Tab.SL SL PRN (12:15)
--- NOTE | 2019-02-01 12:28 | PCM.PN ---
- General Info Date of Service: 02/01/19 Subjective Update: Mr. Santa to use to require supplemental oxygen to maintain adequate oxygenation. He did experience a episode of chest pain occurring in the lower chest upper abdomen earlier today. Oxygenation was adequate at that time was stable vital signs. We were unable to get an EKG during the episode, symptoms resolved after he ate and had one sublingual nitroglycerin. He reports pain was similar to his episodes of reflux, but more intense. Full report on echocardiogram shows mild diastolic dysfunction, normal systolic function. Elevated right-sided pressures and concentric left ventricular hypertrophy. Pulmonary function studies showed decreased lung volumes, no evidence of significant obstruction, normal DLCO. Functional Status: Reports: Tolerating Diet, Ambulating, Urinating - Review of Systems General: Reports: Weakness. Denies: Fever, Chills Pulmonary: Reports: Shortness of Breath. Denies: Pleuritic Chest Pain, Cough, Sputum, Hemoptysis, Wheezing Cardiovascular: Reports: Dyspnea on Exertion, Edema. Denies: Chest Pain, Palpitations, Orthopnea, PND, Lightheadedness Gastrointestinal: Reports: No Symptoms - Patient Data Vitals - Most Recent: Last Vital Signs Temp 98.1 F 02/01/19 10:43 Pulse 80 02/01/19 10:43 Resp 18 02/01/19 10:43 BP 137/61 02/01/19 10:43 Pulse Ox 93 L 02/01/19 10:43 Weight - Most Recent: 471 lb 4.8 oz I&O - Last 24 Hours: Intake & Output 01/31/19 02/01/19 02/01/19 22:59 06:59 14:59 Intake Total 100 200 Output Total 750 350 Balance -650 -150 Lab Results Last 24 Hours: Laboratory Results - last 24 hr 02/01/19 Range/Units 04:45 WBC 2.8 L (4.5-11.0) K/uL RBC 4.23 L (4.30-5.90) M/uL Hgb 12.4 (12.0-15.0) g/dL Hct 40.4 (40.0-54.0) % MCV 96 (80-98) fL MCH 29 (27-31) pg MCHC 31 L (32-36) % Plt Count 82 L (150-400) K/uL Neut % (Auto) 58 (36-66) % Lymph % (Auto) 23 L (24-44) % White % (Auto) 15 H (2-6) % Eos % (Auto) 4 (2-4) % Baso % (Auto) 0 (0-1) % Med Orders - Current: Current Medications Acetaminophen (Tylenol) 650 mg PO Q4H PRN PRN Reason: Pain (Mild 1-3)/fever Last Admin: 02/01/19 08:19 Dose: 650 mg Albuterol (Proventil Neb Soln) 2.5 mg NEB Q4H PRN PRN Reason: Shortness Of Breath/wheezing Last Admin: 02/01/19 07:47 Dose: 2.5 mg Fluticasone Propionate (Flonase) 0 gm CHELSY DAILY PRN PRN Reason: Allergies Furosemide (Lasix) 40 mg PO DAILY VON Gabapentin (Neurontin) 300 mg PO BID [facility] Last Admin: 02/01/19 08:21 Dose: 300 mg Hydromorphone HCl (Dilaudid) 2 mg PO Q6H PRN PRN Reason: Pain Last Admin: 02/01/19 08:20 Dose: 2 mg Ibuprofen (Motrin) 600 mg PO Q6H PRN PRN Reason: Pain (Mild 1-3)/Headache Last Admin: 01/30/19 10:58 Dose: 600 mg Lactobacillus Rhamnosus (Culturelle) 1 cap PO BID [facility] Last Admin: 02/01/19 08:19 Dose: 1 cap Lorazepam (Ativan) 0.5 mg IVPUSH Q4H PRN PRN Reason: Nausea/Vomiting Magnesium Hydroxide (Milk Of Magnesia) 30 ml PO Q12H PRN PRN Reason: Constipation Last Admin: 02/01/19 08:19 Dose: 30 ml Melatonin (Melatonin) 9 mg PO BEDTIME PRN PRN Reason: Sleep Nitroglycerin (Nitrostat) 0.4 mg SL Q5M PRN PRN Reason: Chest Pain Nystatin (Nystop) 0 gm TOP TID [facility] Ondansetron HCl (Zofran Odt) 4 mg PO Q6H PRN PRN Reason: Nausea able to take PO Ondansetron HCl (Zofran) 4 mg IV Q6H PRN PRN Reason: Nausea/Vomiting Senna/Docusate Sodium (Senna Plus) 1 tab PO BID PRN PRN Reason: Constipation Last Admin: 02/01/19 08:20 Dose: 1 tab Discontinued Medications Enoxaparin Sodium (Lovenox) 40 mg SUBCUT DAILY [facility] Last Admin: 01/30/19 10:40 Dose: Not Given Furosemide (Lasix) 20 mg IVPUSH ONETIME ONE Stop: 01/29/19 17:37 Last Admin: 01/29/19 18:02 Dose: 20 mg Furosemide (Lasix) 40 mg IVPUSH ONETIME ONE Stop: 01/30/19 12:31 Last Admin: 01/30/19 13:27 Dose: 40 mg Hydromorphone HCl (Dilaudid) 2 mg PO ONETIME ONE Stop: 01/29/19 17:46 Last Admin: 01/29/19 18:02 Dose: 2 mg Sodium Chloride (Normal Saline) 80 mls @ 4 mls/sec IV ONETIME ONE Stop: 01/29/19 14:08 Last Admin: 01/29/19 14:48 Dose: 4 mls/sec Iopamidol (Isovue-370 (76%)) 100 ml IV . DIRECTED [facility] Last Admin: 01/29/19 14:48 Dose: 100 ml Nitroglycerin (Nitrostat) 0.4 mg SL ONETIME ONE Stop: 02/01/19 08:35 Last Admin: 02/01/19 09:19 Dose: 0.4 mg Nystatin (Nystatin Crm) 0 gm TOP TID [facility] Last Admin: 02/01/19 09:22 Dose: 1 applic Sodium Chloride (Saline Flush) 10 ml FLUSH ONETIME ONE Stop: 01/29/19 14:08 Last Admin: 01/29/19 14:48 Dose: 10 ml Trimethoprim/Sulfamethoxazole (Septra Ds) 1 tab PO BID [facility] Stop: 01/31/19 21:01 Last Admin: 01/31/19 21:25 Dose: 1 tab - Exam General: Alert, Oriented, Cooperative Lungs: Clear to Auscultation, Normal Respiratory Effort Cardiovascular: Regular Rate, Regular Rhythm, No Murmurs GI/Abdominal Exam: Soft, Non-Tender, No Organomegaly, No Distention Extremities: Other (Area of cellulitis right leg has resolved, there does appear to be yeast infection the posterior aspect of the knee) - Problem List Review Problem List Initiated/Reviewed/Updated: Yes - My Orders Last 24 Hours: My Active Orders 01/31/19 13:18 RT Spirometry with Bronchodilator [RESPCARE] Urgent RT Spirometry with DLCO [RESPCARE] Urgent 01/31/19 13:27 Notify Provider Consults [RC] ASDIRECTED Consult to Physician [CONS] Routine 02/01/19 12:00 Furosemide [Lasix] 40 mg PO DAILY 02/01/19 12:15 Nitroglycerin [Nitrostat] 0.4 mg SL Q5M PRN 02/01/19 14:00 Nystatin [Nystop] See Dose Instructions TOP TID 02/02/19 05:00 CBC WITH AUTO DIFF [HEME] Timed 02/03/19 08:00 Cholescintigraphy w Pharm Int [NM] Routine - Plan Plan:: ASSESSMENT AND PLAN - Dyspnea on exertion - resistant hypoxia, despite diuretic therapy. Peripheral edema has improved. Most likely would be chronic and worsening obesity related hypoventilation. Echocardiogram report describes normal systolic function, very mild diastolic dysfunction, elevated right-sided pressures, and concentric left ventricular hypertrophy. Pulmonary function studies from this morning showed decreased lung volumes at baseline, no evidence of significant obstructing process or diffusion abnormality. He did experience some chest pain today symptoms consistent with previous episodes of reflux. -Continue supplemental oxygen as needed -Nebulizers as needed for shortness of breath -Outpatient Lexiscan Myoview study Morbid obesity with BMI greater than 70 - previous consideration for gastric bypass has been given. Cellulitis of the right lower extremity - resolved now has residual yeast infection -Statin powder 3 times daily Pain plantar aspect of the right heel-continued tenderness -Management per Dr. Ramos Chronic back pain - stable. -Continue home medications Maintenance issues - - DVT prophylaxis - unable to utilize pharmacological prophylaxis at this time because of thrombocytopenia and unable to utilize mechanical prophylaxis because of cellulitis and body habitus - GI prophylaxis - not indicated - Nutrition - low sodium Disposition - I would [facility] to [facility] for [facility] versus home with home care
[2019-02-01] MEDS: Furosemide 40 MG Tab PO SCH (13:47)
[2019-02-01] MEDS: Nystatin Topical Powder 15 GM Bottle TOP SCH ×2 (13:52→20:24)
--- NOTE | 2019-02-01 17:27 | CONS ---
DATE OF SERVICE: 02/01/2019 REFERRING PHYSICIAN: CONSULTING PHYSICIAN: Néstor Ramos MD REASON FOR CONSULTATION: Evaluation of right heel wound. HISTORY OF PRESENT ILLNESS: This 63-year-old male reports he has chronic shortness of breath, but this has turned acutely worse in the last 24 hours. He also has had some chest pain. The patient has been admitted for these problems. His second problem is an area of concern of fluctuance on his right heel. PAST MEDICAL HISTORY: Morbid obesity, constipation, history kidney stones, chronic UTIs, seizures, anxiety, depression, suicide attempt, shortness of breath as described above, and history of DVTs. PAST SURGICAL HISTORY: Multiple abdominal hernia repairs; history of gastric ulcers; and panniculectomy, which resulted in a prolonged hospital stay. FAMILY HISTORY: Noncontributory. SOCIAL HISTORY: He is not a smoker. REVIEW OF SYSTEMS: GENERAL: The patient is appropriate except for shortness of breath. HEENT: No symptoms. RESPIRATORY: . CARDIOVASCULAR: History of chest pain. GASTROINTESTINAL: Normal bowel movements. GENITOURINARY: No dysuria. MUSCULOSKELETAL: No new symptoms. SKIN: The patient does not report any pain in the right heel. PHYSICAL EXAMINATION: VITAL SIGNS: Stable. GENERAL: The patient is resting comfortably. NECK: Supple. LUNGS: Clear. EYES: Pupils are equal. The patient wears glasses. RESPIRATORY: Poor inspiratory effort bilaterally. CARDIOVASCULAR: Regular rhythm and rate. ABDOMEN: Obese and nontender. SKIN: Shows a palpable area with no pain with palpation. Some callus noted with this. No bleeding. No bruising. IMAGING: I did review his imaging. ASSESSMENT AND PLAN: Probable deep tissue injury due to prolonged sitting and pressure due to the patient's significant morbid obese habitus. We will start the patient on offload heel protector both at night and during the day. No open wound at this time. I discussed with him that this is a deep tissue injury extending from the deep to the proximal tissue. We discussed signs and symptoms of complications and the role of emergency room. Néstor Ramos MD /[id number]
[2019-02-02] MEDS: HYDROmorphone 2 MG Tab PO PRN (08:23)
[2019-02-02] MEDS: Acetaminophen 325 MG Tab PO PRN (08:23)
[2019-02-02] MEDS: Gabapentin 300 MG Cap PO SCH (08:25)
[2019-02-02] MEDS: Nystatin Topical Powder 15 GM Bottle TOP SCH (08:25)
[2019-02-02] MEDS: Lactobacillus Rhamnosus GG (Probiotic) Cap PO SCH (08:25)
[2019-02-02] MEDS: Furosemide 40 MG Tab PO SCH (08:25)
--- NOTE | 2019-02-02 10:41 | PCM.DCSUM1 ---
Discharge Summary - Hospital Course Brief History: Mr. Santa is a 63-year-old gentleman who was admitted as a direct admission from the clinic for further evaluation and management of shortness of breath and hypoxia. - Discharge Data Discharge Date: 02/02/19 Discharge Disposition: Home, Self-Care 01 Condition: Fair - Referral to Home Health Primary Care Physician: PCP None - Discharge Diagnosis/Problem(s) (1) Obesity hypoventilation syndrome SNOMED Code(s): 593157386 ICD Code: E66.2 - MORBID (SEVERE) OBESITY WITH ALVEOLAR HYPOVENTILATION Status: Acute Current Visit: Yes (2) Hypoxia SNOMED Code(s): 371259719 ICD Code: R09.02 - HYPOXEMIA Status: Acute Current Visit: Yes (3) Cellulitis of right lower extremity SNOMED Code(s): 723975194 ICD Code: L03.115 - CELLULITIS OF RIGHT LOWER LIMB Status: Acute Current Visit: Yes (4) Morbid obesity with BMI of 70 and over, adult SNOMED Code(s): 013306166 ICD Code: E66.01 - MORBID (SEVERE) OBESITY DUE TO EXCESS CALORIES; Z68.45 - BODY MASS INDEX (BMI) 70 OR GREATER, ADULT Status: Chronic Current Visit: Yes - Patient Summary/Data Consults: Consultations 01/31/19 07:00 PT Evaluation and Treatment [CONS] Routine Please Evaluate and Treat. PT Reason for Consult: Strengthening This query below is only for informational purposes and is not editable. 01/31/19 13:27 Consult to Physician [CONS] Routine Consulting Provider: Néstor Ramos Call Completed to Consulting Physician: Yes Reason for Consult: Please evaluate right heel for underlying infection Hospital Course: Mr. Santa presented with acute on chronic shortness of breath. He first noticed the increase in his dyspnea last night while he was trying to get to the bathroom. He has been short of breath even at rest since that time but is dramatically short of breath whenever he tries to exert himself. He admits that he has been short of breath for months but this is much worse. He does describe some pleuritic chest discomfort and points to the middle of his chest. He says this is relatively mild but only present when he's trying to take a deep breath to catch his breath. He has been taking his usual pain pills but they haven't helped this pleuritic pain much. Pain does not radiate. He has not been coughing and has not had any fevers or chills. No complaints of sore throat but he does have some nasal congestion. Appetite has been stable. He has some lower extremity edema but this is not dramatically worse than usual. He is being treated for cellulitis of the right lower extremity. He does not report orthopnea. No history of heart disease. He was initially seen in the emergency room in [place]. Labs they're unremarkable. He did not fit in the CT scan machine so he was sent here for a CT pulmonary angiogram. This was unremarkable. Troponin and proBNP were unremarkable. The patient is extremely short of breath with any activity and is not safe for outpatient management. On admission he was treated with supplemental oxygen and maintained adequate oxygenation. He completed his course of oral antibiotic therapy for cellulitis of the right lower extremity. He was seen daily by physical therapy and slowly regain some strength during hospitalization. Throughout his hospital stay continued require supplemental oxygen and prior to discharge was noted to have an oxygen saturation of 87% on room air. There was no evidence of underlying pulmonary infection. Echocardiogram was obtained and showed preserved systolic function of the left ventricle there was mild diastolic dysfunction. He was found to have concentric left ventricular hypertrophy and elevation in right- sided pressures. Only function studies were obtained and showed decreased lung volumes, no evidence of reversible obstructing process, normal DLCO. Was felt most likely that his shortness of breath and hypoxia related to obesity hypoventilation syndrome. He will be discharged on 2 L of oxygen via nasal cannula. He did receive diuretic therapy during hospitalization and will be discharged with this for management of his peripheral edema, there was no improvement in respiratory status with diuresis. He will be scheduled for outpatient today [facility] Myoview study to evaluate for underlying coronary artery disease. Activity will be as tolerated and he will resume his usual diet. He will be discharged to the [facility] for restorative physical therapy and occupational therapy. - Patient Instructions Diet: Usual Diet as Tolerated Activity: As Tolerated Other/Special Instructions: Discharge to [facility] for restorative physical therapy and occupational therapy. Oxygen 2 L/m via nasal cannula - Discharge Plan *PRESCRIPTION DRUG MONITORING PROGRAM REVIEWED*: Not Applicable *COPY OF PRESCRIPTION DRUG MONITORING REPORT IN PATIENT CANDY: Not Applicable Prescriptions/Med Rec: Furosemide [Lasix] 40 mg PO DAILY #30 tablet Lactobacillus Rhamnosus GG [Culturelle] 1 cap PO BID #60 cap Home Medications: Home Meds Albuterol [Ventolin HFA] 2 puff INH Q6H PRN 11/10/16 [History] HYDROmorphone [Dilaudid] 2 mg PO Q6H PRN 11/10/16 [History] Fluticasone Propionate [Flonase] 2 spray CHELSY DAILY PRN 01/25/17 [History] Gabapentin [Neurontin] 300 mg PO BID 01/29/19 [History] Furosemide [Lasix] 40 mg PO DAILY #30 tablet 02/02/19 [Rx] Lactobacillus Rhamnosus GG [Culturelle] 1 cap PO BID #60 cap 02/02/19 [Rx] Oxygen Therapy Mode: Nasal Cannula Oxygen Flow Rate (L/min): 2 - Discharge Summary/Plan Comment DC Time >30 min.: No - Patient Data Vitals - Most Recent: Last Vital Signs Temp 97.6 F 02/02/19 03:00 Pulse 79 02/02/19 03:00 Resp 20 02/02/19 03:00 BP 154/73 H 02/02/19 03:00 Pulse Ox 87 L 02/02/19 10:07 Weight - Most Recent: 471 lb 4.8 oz I&O - Last 24 hours: Intake & Output 02/01/19 02/02/19 02/02/19 22:59 06:59 14:59 Output Total 1250 Balance -1250 Lab Results - Last 24 hrs: Laboratory Results - last 24 hr 02/02/19 Range/Units 05:00 WBC 2.8 L (4.5-11.0) K/uL RBC 4.36 (4.30-5.90) M/uL Hgb 12.7 (12.0-15.0) g/dL Hct 41.4 (40.0-54.0) % MCV 95 (80-98) fL MCH 29 (27-31) pg MCHC 31 L (32-36) % Plt Count 79 L (150-400) K/uL Neut % (Auto) 61 (36-66) % Lymph % (Auto) 20 L (24-44) % [place] % (Auto) 15 H (2-6) % Eos % (Auto) 3 (2-4) % Baso % (Auto) 0 (0-1) % Med Orders - Current: Current Medications Acetaminophen (Tylenol) 650 mg PO Q4H PRN PRN Reason: Pain (Mild 1-3)/fever Last Admin: 02/02/19 08:23 Dose: 650 mg Albuterol (Proventil Neb Soln) 2.5 mg NEB Q4H PRN PRN Reason: Shortness Of Breath/wheezing Last Admin: 02/01/19 07:47 Dose: 2.5 mg Fluticasone Propionate (Flonase) 0 gm CHELSY DAILY PRN PRN Reason: Allergies Furosemide (Lasix) 40 mg PO DAILY [facility] Last Admin: 02/02/19 08:25 Dose: 40 mg Gabapentin (Neurontin) 300 mg PO BID [facility] Last Admin: 02/02/19 08:25 Dose: 300 mg Hydromorphone HCl (Dilaudid) 2 mg PO Q6H PRN PRN Reason: Pain Last Admin: 02/02/19 08:23 Dose: 2 mg Ibuprofen (Motrin) 600 mg PO Q6H PRN PRN Reason: Pain (Mild 1-3)/Headache Last Admin: 01/30/19 10:58 Dose: 600 mg Lactobacillus Rhamnosus (Culturelle) 1 cap PO BID [facility] Last Admin: 02/02/19 08:25 Dose: 1 cap Lorazepam (Ativan) 0.5 mg IVPUSH Q4H PRN PRN Reason: Nausea/Vomiting Magnesium Hydroxide (Milk Of Magnesia) 30 ml PO Q12H PRN PRN Reason: Constipation Last Admin: 02/01/19 08:19 Dose: 30 ml Melatonin (Melatonin) 9 mg PO BEDTIME PRN PRN Reason: Sleep Nitroglycerin (Nitrostat) 0.4 mg SL Q5M PRN PRN Reason: Chest Pain Nystatin (Nystop) 0 gm TOP TID [facility] Last Admin: 02/02/19 08:25 Dose: 1 applic Ondansetron HCl (Zofran Odt) 4 mg PO Q6H PRN PRN Reason: Nausea able to take PO Ondansetron HCl (Zofran) 4 mg IV Q6H PRN PRN Reason: Nausea/Vomiting Senna/Docusate Sodium (Senna Plus) 1 tab PO BID PRN PRN Reason: Constipation Last Admin: 02/01/19 08:20 Dose: 1 tab Discontinued Medications Enoxaparin Sodium (Lovenox) 40 mg SUBCUT DAILY [facility] Last Admin: 01/30/19 10:40 Dose: Not Given Furosemide (Lasix) 20 mg IVPUSH ONETIME ONE Stop: 01/29/19 17:37 Last Admin: 01/29/19 18:02 Dose: 20 mg Furosemide (Lasix) 40 mg IVPUSH ONETIME ONE Stop: 01/30/19 12:31 Last Admin: 01/30/19 13:27 Dose: 40 mg Hydromorphone HCl (Dilaudid) 2 mg PO ONETIME ONE Stop: 01/29/19 17:46 Last Admin: 01/29/19 18:02 Dose: 2 mg Sodium Chloride (Normal Saline) 80 mls @ 4 mls/sec IV ONETIME ONE Stop: 01/29/19 14:08 Last Admin: 01/29/19 14:48 Dose: 4 mls/sec Iopamidol (Isovue-370 (76%)) 100 ml IV . DIRECTED [facility] Last Admin: 01/29/19 14:48 Dose: 100 ml Nitroglycerin (Nitrostat) 0.4 mg SL ONETIME ONE Stop: 02/01/19 08:35 Last Admin: 02/01/19 09:19 Dose: 0.4 mg Nystatin (Nystatin Crm) 0 gm TOP TID [facility] Last Admin: 02/01/19 09:22 Dose: 1 applic Sodium Chloride (Saline Flush) 10 ml FLUSH ONETIME ONE Stop: 01/29/19 14:08 Last Admin: 01/29/19 14:48 Dose: 10 ml Trimethoprim/Sulfamethoxazole (Septra Ds) 1 tab PO BID [facility] Stop: 01/31/19 21:01 Last Admin: 01/31/19 21:25 Dose: 1 tab - Exam Quality Assessment: Reports: DVT Prophylaxis General: Reports: Alert, Oriented, Cooperative, No Acute Distress Lungs: Reports: Clear to Auscultation, Normal Respiratory Effort, Decreased Breath Sounds Cardiovascular: Reports: Regular Rate, Regular Rhythm, No Murmurs GI/Abdominal Exam: Soft, Non-Tender, No Organomegaly, No Distention Extremities: Non-Tender, No Pedal Edema
[2019-02-02 11:29] VITALS: BP 148/80; PULSE 78
== END 2019-02-02 11:15 | disposition home or self-care (01) | DRG 206 ==
LOC: JP.ED 13:08 → JP.MS 17:37
PROVIDERS: ADMIT Internal Medicine; ATTEND Hospitalist
DX: R06.09 Other forms of dyspnea (principal); E66.2 Morbid (severe) obesity with alveolar hypoventilation; L03.115 Cellulitis of right lower limb; Z86.718 Personal history of other venous thrombosis and embolism; Z68.45 Body mass index [BMI] 70 or greater, adult; K59.09 Other constipation; M19.90 Unspecified osteoarthritis, unspecified site; F32.9 Major depressive disorder, single episode, unspecified; F41.9 Anxiety disorder, unspecified; I25.10 Atherosclerotic heart disease of native coronary artery without angina pectoris; M54.9 Dorsalgia, unspecified; G89.29 Other chronic pain; Z87.440 Personal history of urinary (tract) infections; Z88.7 Allergy status to serum and vaccine; Z91.018 Allergy to other foods; Z88.8 Allergy status to other drugs, medicaments and biological substances; Z87.442 Personal history of urinary calculi
CPT/HCPCS: 36415; 71275; 80048; 84484; 85025; 85027; 93005; 93010; 93306; 94060; 94640; 94729; 97110-GP; 97162-GP; 97530-GP; 97535-GP; 99284; 99285-25; A9270-GY; J1940; J7030; Q9967

== ENCOUNTER 2019-02-10 09:46 | Emergency (ER) | payer MEDICARE, MEDICAID ==
[2019-02-10] MEDS ORDERED: Aspirin 81 MG Tab.Chew ONE (10:05)
[2019-02-10] MEDS ORDERED: Nitroglycerin 0.4 MG Tab.SL ONE (10:18)
[2019-02-10] MEDS ORDERED: Aspirin 81 MG Tab.Chew PO ONE (10:18)
[2019-02-10] MEDS: Nitroglycerin 0.4 MG Tab.SL SL PRN ×2 (10:19→10:24)
[2019-02-10] MEDS ORDERED: Alum Hydrox/Mag Hydrox/Simeth 15 ML, Lidocaine 2% 15 ML PO ONE ×2 (10:25)
--- NOTE | 2019-02-10 10:34 | EDM.PDOC ---
ED HPI GENERAL MEDICAL PROBLEM - General Chief Complaint: Chest Pain Stated Complaint: chest pain from x-ray Time Seen by Provider: 02/10/19 10:07 Source of Information: Reports: Patient, Old Records, Provider, RN Notes Reviewed History Limitations: Reports: No Limitations - History of Present Illness INITIAL COMMENTS - FREE TEXT/NARRATIVE: 63-year-old gentleman presents emergency department today complaint of chest pain, he has a known history of obesity hypoventilation syndrome was recently admitted to the hospital for similar symptoms rule out for myocardial infarction was negative underwent Lexiscan portion of the stress test on February 04 which is read as negative. Unfortunately due to scheduling airs he was not able to repeat the resting images until today. With discussion of the marketing technology coordinator, patient reported to nuclear med without pain was given a small breakfast which included yogurt and the radioisotope. Was then taken for nuclear medicine imaging resting images were performed then development of chest pain rated 6 out of 10 per [facility] of his chest no radiation no shortness of breath beyond baseline no diaphoresis no nausea or vomiting Chest Pain Score (Numeric/FACES): 5 - Related Data Allergies Allergy/AdvReac Type Severity Reaction Status Date / Time cinnamon Allergy Seizure Verified 02/10/19 10:16 raspberry Allergy Seizure Verified 02/10/19 10:16 strawberry Allergy Seizure Verified 02/10/19 10:16 Influenza Virus Vaccines AdvReac Seizure Verified 02/10/19 10:16 chocolate Allergy Seizure Uncoded 02/03/19 11:23 Home Meds: Home Meds Albuterol [Ventolin HFA] 2 puff INH Q6H PRN 11/10/16 [History] HYDROmorphone [Dilaudid] 2 mg PO Q6H PRN 11/10/16 [History] Fluticasone Propionate [Flonase] 2 spray CHELSY DAILY PRN 01/25/17 [History] Gabapentin [Neurontin] 300 mg PO BID 01/29/19 [History] Furosemide [Lasix] 40 mg PO DAILY #30 tablet 02/02/19 [Rx] Lactobacillus Rhamnosus GG [Culturelle] 1 cap PO BID #60 cap 02/02/19 [Rx] Albuterol/Ipratropium [DuoNeb 3.0-0.5 MG/3 ML] 3 ml INH TID 02/10/19 [History] [place] Starch/Kaolin/Zinc Oxide [Gold [place] Medicated Baby Powd] 1 applic TOP BID 02/10/19 [History] Lanolin/Mineral Oil [Eucerin Original Lotion] 1 applic TOP BID 02/10/19 [History ] Past Medical History HEENT History: Reports: Impaired Vision, Otitis Media Cardiovascular History: Reports: Angina, Blood Clots/VTE/DVT, SOB on Exertion Respiratory History: Reports: Sleep Apnea, SOB Gastrointestinal History: Reports: Chronic Constipation, PUD Genitourinary History: Reports: Renal Calculus, Urinary Incontinence, UTI, Recurrent Musculoskeletal History: Reports: Arthritis, Back Pain, Chronic, Fracture Neurological History: Reports: Seizure, Other (See Below) Other Neuro History: Pt. states that some foods cause him to have seizures, mostly sweet foods Psychiatric History: Reports: Anxiety, Depression, Eating Disorders, Suicide Attempt Endocrine/Metabolic History: Reports: Obesity/BMI 30+ Other Endocrine/Metabolic History: started on thyroid meds again Hematologic History: Reports: None Immunologic History: Reports: None Oncologic (Cancer) History: Reports: Bladder Dermatologic History: Reports: Other (See Below) Other Dermatologic History: irritated skin at skin folds - Infectious Disease History Infectious Disease History: Reports: Chicken Pox - Past Surgical History Head Surgeries/Procedures: Reports: None HEENT Surgical History: Reports: None Cardiovascular Surgical History: Reports: None Respiratory Surgical History: Reports: None GI Surgical History: Reports: EGD, Hernia, Abdominal, Hernia, Inguinal, Other ( See Below) Other GI Surgeries/Procedures: Pt. states that a "couple" years ago he had an EGD done and was found to have two ulcers. Pt. denies being on any medication for it. panniculectomy for abscess 3 weeks ago here with [facility]. PT HAD A PANNICULECTOMY JUNE 2015 Male Surgical History: Reports: Other (See Below) Other Male Surgeries/Procedures: bladder cancer- dx 2017, untreated Endocrine Surgical History: Reports: None Social & Family History - Family History Family Medical History: Noncontributory HEENT: Reports: Cataract, Impaired Vision, Macular Degeneration Cardiac: Reports: CAD, [place] Respiratory: Reports: None GI: Reports: None : Reports: None OBGYN: Reports: None Musculoskeletal: Reports: Arthritis Other Musculoskeletal Family History: HIP REPLACEMENT BONE DEGENERATION Neurological: Reports: None Psychiatric: Reports: None Endocrine/Metabolic: Reports: None Hematologic: Reports: None Immunologic: Reports: None Dermatologic: Reports: None Oncologic: Reports: Other (See Below) Other Oncologic Family History: BROTHER OF CANCER DOES NOT KNOW WHAT KIND - Tobacco Use Smoking Status *Q: Never Smoker - Caffeine Use Caffeine Use: Reports: Coffee, Soda Caffeine Use Comment: 3 cups/day - Recreational Drug Use Recreational Drug Use: No ED ROS GENERAL - Review of Systems Review Of Systems: See Below Constitutional: Reports: No Symptoms HEENT: Reports: No Symptoms Respiratory: Reports: Shortness of Breath (Not beyond baseline) Cardiovascular: Reports: Chest Pain, Dyspnea on Exertion GI/Abdominal: Reports: No Symptoms ED EXAM, GENERAL - Physical Exam Exam: See Below Exam Limited By: No Limitations General Appearance: Alert, WD/WN, No Apparent Distress Respiratory/Chest: No Respiratory Distress, Lungs Clear, Normal Breath Sounds, No Accessory Muscle Use, Chest Non-Tender Cardiovascular: Regular Rate, Rhythm, No Murmur GI/Abdominal: Soft, Non-Tender Course - Vital Signs Last Recorded V/S: Last Vital Signs Temp 97.9 F 02/10/19 10:17 Pulse 78 02/10/19 10:43 Resp 12 02/10/19 10:43 BP 117/60 02/10/19 10:43 Pulse Ox 92 L 02/10/19 10:43 - Orders/Labs/Meds Orders: Active Orders 24 hr Category Date Time Status Cardiac Monitoring [RC] .As Directed Care 02/10/19 10:14 Active EKG Documentation Completion [RC] ASDIRECTED Care 02/10/19 10:14 Active Nitroglycerin [Nitrostat] Med 02/10/19 10:18 Active 0.4 mg SL Q5M PRN EKG 12 Lead [EK] Stat Ther 02/10/19 10:14 Ordered Medication Orders Nitroglycerin (Nitrostat) 0.4 mg SL Q5M PRN PRN Reason: Chest Pain Last Admin: 02/10/19 10:24 Dose: 0.4 mg Admin: 02/10/19 10:19 Dose: 0.4 mg Labs: Laboratory Tests 02/10/19 02/10/19 Range/Units 10:14 10:14 WBC 3.3 L (4.5-11.0) K/uL RBC 4.83 (4.30-5.90) M/uL Hgb 14.4 (12.0-15.0) g/dL Hct 45.3 (40.0-54.0) % MCV 94 (80-98) fL MCH 30 (27-31) pg MCHC 32 (32-36) % Plt Count 64 L (150-400) K/uL Neut % (Auto) 55 (36-66) % Lymph % (Auto) 24 (24-44) % [place] % (Auto) 17 H (2-6) % Eos % (Auto) 5 H (2-4) % Baso % (Auto) 1 (0-1) % Sodium 136 L (140-148) mmol/L Potassium 4.2 (3.6-5.2) mmol/L Chloride 101 (100-108) mmol/L Carbon Dioxide 31 (21-32) mmol/L Anion Gap 8.2 (5.0-14.0) mmol/L BUN 12 (7-18) mg/dL Creatinine 0.9 (0.8-1.3) mg/dL Est Cr Clr Drug Dosing TNP Estimated GFR (MDRD) > 60 (>60) Glucose 110 H (74-106) mg/dL Calcium 8.9 (8.5-10.1) mg/dL Total Bilirubin 0.9 (0.2-1.0) mg/dL AST 37 (15-37) U/L ALT 28 (12-78) U/L Alkaline Phosphatase 51 (46-116) U/L Troponin I < 0.017 (0.000-0.056) ng/mL Total Protein 7.5 (6.4-8.2) g/dL Albumin 3.5 (3.4-5.0) g/dL Globulin 4.0 H (2.3-3.5) g/dL Albumin/Globulin Ratio 0.9 L (1.2-2.2) Meds: Medications Generic Name Dose Route Start Last Admin Trade Name Freq PRN Reason Stop Dose Admin Nitroglycerin 0.4 mg 02/10/19 10:18 02/10/19 10:24 Nitrostat SL 0.4 mg Q5M PRN Administration Chest Pain Discontinued Medications Generic Name Dose Route Start Last Admin Trade Name Freq PRN Reason Stop Dose Admin Aspirin Confirm 02/10/19 10:05 02/10/19 10:20 Aspirin Administered 02/10/19 10:06 Not Given Dose 324 mg .ROUTE .STK-MED ONE Aspirin 324 mg 02/10/19 10:18 02/10/19 10:20 Aspirin PO 02/10/19 10:19 324 mg ONETIME ONE Administration Al Hydroxide/Mg Hydroxide 15 0 ml 02/10/19 10:25 02/10/19 10:29 ml/ Lidocaine HCl 15 ml PO 02/10/19 10:26 15 ml ONETIME ONE Administration Nitroglycerin Confirm 02/10/19 10:18 02/10/19 10:20 Nitrostat Administered 02/10/19 10:19 Not Given Dose 0.4 mg .ROUTE .STK-MED ONE Departure - Departure Time of Disposition: 11:42 Disposition: Home, Self-Care 01 Condition: Fair Clinical Impression: Epigastric pain Referrals: PCP,None [Primary Care Provider] - Forms: ED Department Discharge Additional Instructions: Recommend to remain seated or standing approximately 30 minutes to one hour before lying down, follow-up with your primary care provider after the results from the stress test are available, call return to the emergency department worsening of symptoms - My Orders Last 24 Hours: My Active Orders 02/10/19 10:14 Cardiac Monitoring [RC] .As Directed EKG Documentation Completion [RC] ASDIRECTED EKG 12 Lead [EK] Stat 02/10/19 10:18 Nitroglycerin [Nitrostat] 0.4 mg SL Q5M PRN - Assessment/Plan Last 24 Hours: My Active Orders 02/10/19 10:14 Cardiac Monitoring [RC] .As Directed EKG Documentation Completion [RC] ASDIRECTED EKG 12 Lead [EK] Stat 02/10/19 10:18 Nitroglycerin [Nitrostat] 0.4 mg SL Q5M PRN Plan: Assessment Acuity = acute Site and laterality = epigastric pain Etiology = probable gastroesophageal reflux disease Manifestations = none Location of injury = Home Lab values = CBC, CMP, chest x-ray, troponin no acute process, EKG demonstrates left axis deviation first 3 block old Q waves in right bundle-branch block this is similar to prior EKGs Plan He had no significant relief from nitroglycerin provided in the ED however he got good relief from GI cocktail and then improvement when he was sat up which then relieved the pressure off his abdomen. The stress test was completed today him follow-up with his primary care after stress test results, recommend to remain standing or seated 30 minutes to an hour after eating and not to lie down This note was dictated using [employer] voice recognition software please call with any questions on syntax or grammar.
[2019-02-10 10:44] VITALS: BP 117/60; PULSE 78
--- NOTE | 2019-02-10 11:16 | CRLCR ---
INDICATION: Chest pain. COMPARISON: 01/29/[address], 05/23/2016 chest x-ray. TECHNIQUE: Single upright portable view of the chest. FINDINGS: Cardiac leads overlie the chest. Cardiac silhouette is mildly enlarged. Left basilar retrocardiac atelectasis/consolidation. Elevation of left hemidiaphragm. No pleural effusion or pneumothorax. IMPRESSION: Mild cardiomegaly, unchanged. Left basilar atelectasis/consolidation. Elevation of left hemidiaphragm. Dictated by Ezekiel Oliva MD @ Feb 10 2019 11:09AM Signed by Dr. Ezekiel Oliva @ Feb 10 2019 11:15AM
== END 2019-02-10 11:57 | disposition home or self-care (01) ==
LOC: JP.ED 09:46
DX: R10.13 Epigastric pain (principal); E66.9 Obesity, unspecified; Z88.7 Allergy status to serum and vaccine; Z91.018 Allergy to other foods; Z68.45 Body mass index [BMI] 70 or greater, adult
CPT/HCPCS: 36415; 71045; 80053; 84484; 85025; 93005; 99285; A9270

== ENCOUNTER 2020-02-16 22:50 | Emergency (ER) | payer MEDICARE, MEDICAID ==
[2020-02-16 23:56] VITALS: PULSE 81
[2020-02-17] MEDS ORDERED: Sodium Chloride 0.9% 10 ML Syringe FLUSH PRN (00:34)
[2020-02-17] MEDS ORDERED: Sodium Chloride 0.9% 1,000 ML IV ONE (00:34)
[2020-02-17] MEDS ORDERED: Ketorolac 30 MG/ML SDV IVPUSH ONE (00:40)
--- NOTE | 2020-02-17 00:47 | EDM.PDOC ---
ED HPI GENERAL MEDICAL PROBLEM - General Chief Complaint: General Stated Complaint: MUSCLE SPASMS VIA NORTH Time Seen by Provider: 02/17/20 00:32 Source of Information: Reports: Patient, EMS History Limitations: Reports: No Limitations - History of Present Illness INITIAL COMMENTS - FREE TEXT/NARRATIVE: Stephanie is a 64-year-old male presenting to the ED for evaluation of intense e pisodic muscle cramping involving the right thigh and left calf that started about 3 hours prior to arrival. Patient has had a history at times of having these intermittent cramps. Of note, the patient is morbidly obese with a BMI of 64.6. In addition he has a history for a DVT in the left popliteal vein. He has very limited mobility due to his body habitus but denies any injury. Leg Pain Score (Numeric/FACES): 10 - Related Data Allergies Allergy/AdvReac Type Severity Reaction Status Date / Time blueberry Allergy Wheezing Verified 02/16/20 23:04 cinnamon Allergy Seizure Verified 02/16/20 23:04 raspberry Allergy Seizure Verified 02/16/20 23:04 strawberry Allergy Seizure Verified 02/16/20 23:04 Influenza Virus Vaccines AdvReac Seizure Verified 02/16/20 23:04 chocolate Allergy Seizure Uncoded 02/16/20 23:04 Home Meds: Home Meds Albuterol [Ventolin HFA] 2 puff INH Q6H PRN 11/10/16 [History] HYDROmorphone [Dilaudid] 2 mg PO Q6H PRN 11/10/16 [History] Fluticasone Propionate [Flonase] 2 spray CHELSY DAILY PRN 01/25/17 [History] Gabapentin [Neurontin] 100 mg PO BID 01/29/19 [History] Furosemide [Lasix] 40 mg PO DAILY #30 tablet 02/02/19 [Rx] Lanolin/Mineral Oil [Eucerin Original Lotion] 1 applic TOP BID 02/10/19 [History] Past Medical History - Past Health History Medical/Surgical History: Denies Medical/Surgical History HEENT History: Reports: Impaired Vision, Otitis Media Cardiovascular History: Reports: Angina, Blood Clots/VTE/DVT, SOB on Exertion Respiratory History: Reports: Sleep Apnea, SOB Gastrointestinal History: Reports: Chronic Constipation, PUD Genitourinary History: Reports: Renal Calculus, Urinary Incontinence, UTI, Recurrent Musculoskeletal History: Reports: Arthritis, Back Pain, Chronic, Fracture Neurological History: Reports: Seizure, Other (See Below) Other Neuro History: Pt. states that some foods cause him to have seizures, mostly sweet foods Psychiatric History: Reports: Anxiety, Depression, Eating Disorders, Suicide Attempt Endocrine/Metabolic History: Reports: Obesity/BMI 30+ Other Endocrine/Metabolic History: started on thyroid meds again Hematologic History: Reports: None Immunologic History: Reports: None Oncologic (Cancer) History: Reports: Bladder Dermatologic History: Reports: Other (See Below) Other Dermatologic History: irritated skin at skin folds - Infectious Disease History Infectious Disease History: Reports: Chicken Pox - Past Surgical History Head Surgeries/Procedures: Reports: None HEENT Surgical History: Reports: None Cardiovascular Surgical History: Reports: None Respiratory Surgical History: Reports: None GI Surgical History: Reports: EGD, Hernia, Abdominal, Hernia, Inguinal, Other (See Below) Other GI Surgeries/Procedures: Pt. states that a "couple" years ago he had an EGD done and was found to have two ulcers. Pt. denies being on any medication for it. panniculectomy for abscess 3 weeks ago here with [facility]. PT HAD A PANNICULECTOMY JUNE 2015 Male Surgical History: Reports: Other (See Below) Other Male Surgeries/Procedures: bladder cancer- dx 2017, untreated Endocrine Surgical History: Reports: None Social & Family History - Family History Family Medical History: No Pertinent Family History HEENT: Reports: Cataract, Impaired Vision, Macular Degeneration Cardiac: Reports: CAD, [place] Respiratory: Reports: None GI: Reports: None : Reports: None OBGYN: Reports: None Musculoskeletal: Reports: Arthritis Other Musculoskeletal Family History: HIP REPLACEMENT BONE DEGENERATION Neurological: Reports: None Psychiatric: Reports: None Endocrine/Metabolic: Reports: None Hematologic: Reports: None Immunologic: Reports: None Dermatologic: Reports: None Oncologic: Reports: Other (See Below) Other Oncologic Family History: BROTHER OF CANCER DOES NOT KNOW WHAT KIND - Tobacco Use Tobacco Use Status *Q: Never Tobacco User - Caffeine Use Caffeine Use: Reports: Coffee, Soda Caffeine Use Comment: 3 cups/day - Recreational Drug Use Recreational Drug Use: No ED ROS GENERAL - Review of Systems Review Of Systems: See Below Constitutional: Reports: No Symptoms HEENT: Reports: No Symptoms Respiratory: Reports: No Symptoms Cardiovascular: Reports: No Symptoms Endocrine: Reports: No Symptoms GI/Abdominal: Reports: No Symptoms : Reports: No Symptoms Musculoskeletal: Reports: Leg Pain (Intermittent cramping in the right thigh and left calf causing intense pain.) Skin: Reports: Other Neurological: Reports: No Symptoms Psychiatric: Reports: Anxiety Hematologic/Lymphatic: Reports: No Symptoms Immunologic: Reports: No Symptoms ED EXAM, GENERAL - Physical Exam Exam: See Below Exam Limited By: No Limitations General Appearance: Alert, WD/WN, Mild Distress (Episodes of intense cramping in the right thigh and left calf for the last 3 to 4 hours.) Eye Exam: Bilateral Eye: PERRL Throat/Mouth: Normal Inspection, Normal Lips, Normal Oropharynx, Normal Voice, No Airway Compromise Head: Atraumatic, Normocephalic Neck: Supple, Non-Tender. No: Lymphadenopathy (R), Lymphadenopathy (L) Respiratory/Chest: No Respiratory Distress, Lungs Clear, Normal Breath Sounds, No Accessory Muscle Use, Chest Non-Tender Cardiovascular: Normal Peripheral Pulses, Regular Rate, Rhythm, No JVD, Other (Chronic lymphedema in both lower extremities) Peripheral Pulses: 1+: Posterior Tibial (L), Posterior Tibial (R), 2+: Radial (L), Radial (R) GI/Abdominal: Normal Bowel Sounds, Soft, Non-Tender Extremities: Pedal Edema (Chronic lymphedema), Briana's Sign (Left calf with dorsiflexion of the foot), Leg Pain (Episodic spasms in the right thigh and left calf), Limited Range of Motion (Due to body habitus), Redness (Secondary to chronic venous stasis. No evidence for acute cellulitis.). No: Increased Warmth Neurological: Alert, Oriented, Normal Cognition, No Motor/Sensory Deficits Psychiatric: Normal Affect, Anxious Skin Exam: Warm, Dry Lymphatic: No Adenopathy Course - Vital Signs Last Recorded V/S: Last Vital Signs Temp 36.9 C 02/16/20 22:59 Pulse 81 02/16/20 23:42 Resp 20 02/17/20 01:42 BP 120/55 L 02/17/20 01:42 Pulse Ox 95 02/17/20 01:42 - Orders/Labs/Meds Orders: Active Orders 24 hr Category Date Time Status Calcium Gluconate Med 02/17/20 01:43 Once 1 gm IVPUSH ONETIME ONE Magnesium Sulfate/Water [Magnesium Sulfate in Water Med 02/17/20 01:43 Ordered Premix] 2 gm Premix Bag 1 bag IV ONETIME Sodium Chloride 0.9% [Saline Flush] Med 02/17/20 00:34 Active 10 ml FLUSH ASDIRECTED PRN Saline Lock Insert [OM.PC] Routine Oth 02/17/20 00:34 Ordered Medication Orders Sodium Chloride (Saline Flush) 10 ml FLUSH ASDIRECTED PRN PRN Reason: Keep Vein Open Last Admin: 02/17/20 00:54 Dose: 10 ml Documented by: ELISABET Labs: Laboratory Tests 02/17/20 02/17/20 Range/Units 00:50 00:50 WBC 3.4 L (4.5-11.0) K/uL RBC 4.47 (4.30-5.90) M/uL Hgb 13.6 (12.0-15.0) g/dL Hct 41.1 (40.0-54.0) % MCV 92 (80-98) fL MCH 30 (27-31) pg MCHC 33 (32-36) % Plt Count 51 L (150-400) K/uL Neut % (Auto) 69 H (36-66) % Lymph % (Auto) 14 L (24-44) % [place] % (Auto) 15 H (2-6) % Eos % (Auto) 2 (2-4) % Baso % (Auto) 0 (0-1) % ESR 9 (0-20) mm/hr Sodium 137 L (140-148) mmol/L Potassium 5.8 H (3.6-5.2) mmol/L Chloride 106 (100-108) mmol/L Carbon Dioxide 24 (21-32) mmol/L Anion Gap 12.8 (5.0-14.0) mmol/L BUN 11 (7-18) mg/dL Creatinine 0.8 (0.8-1.3) mg/dL Est Cr Clr Drug Dosing TNP Estimated GFR (MDRD) > 60 (>60) Glucose 143 H (74-106) mg/dL Calcium 7.0 L D (8.5-10.1) mg/dL Magnesium 1.7 L (1.8-2.4) mg/dL Total Bilirubin 0.6 (0.2-1.0) mg/dL AST 31 (15-37) U/L ALT 25 (12-78) U/L Alkaline Phosphatase 41 L (46-116) U/L C-Reactive Protein 0.05 (0.0-0.3) mg/dL Total Protein 6.1 L (6.4-8.2) g/dL Albumin 2.8 L (3.4-5.0) g/dL Globulin 3.3 (2.3-3.5) g/dL Albumin/Globulin Ratio 0.9 L (1.2-2.2) Meds: Medications Generic Name Dose Route Start Last Admin Trade Name Freq PRN Reason Stop Dose Admin Sodium Chloride 10 ml 02/17/20 00:34 02/17/20 00:54 Saline Flush FLUSH 10 ml ASDIRECTED PRN Administration Keep Vein Open Discontinued Medications Generic Name Dose Route Start Last Admin Trade Name Freteresa PRN Reason Stop Dose Admin Sodium Chloride 1,000 mls @ 999 mls/hr 02/17/20 00:34 02/17/20 00:53 Normal Saline IV 02/17/20 01:34 999 mls/hr .BOLUS ONE Administration Ketorolac Tromethamine 30 mg 02/17/20 00:40 02/17/20 00:58 Toradol IVPUSH 02/17/20 00:41 30 mg ONETIME ONE Administration - Radiology Interpretation Free Text/Narrative:: Bilateral lower extremity venous duplex ultrasound failed to demonstrate any evidence for an acute deep venous thrombosis or thrombophlebitis. This is reassuring giving the patient's presenting complaint of leg cramping in the presence of morbid obesity and chronic venous stasis changes. - Re-Assessments/Exams Free Text/Narrative Re-Assessment/Exam: Stephanie was found to have significantly low calcium evident 0.1 with mild elevation of his potassium at 5.8 and slightly diminished magnesium at 1.7. Repleted his calcium with calcium gluconate 1 g IV and magnesium with 2 g of magnesium sulfate IV. Patient tolerated both well. Patient also underwent ultrasound venous duplex of both lower extremities to make sure there was no acute deep venous thrombosis or acute thrombophlebitis. Neither were evident in the testing. The patient did improve after receiving the medication as well as IV Toradol for pain. In addition, he received a liter of IV normal saline for repletion of his fluids. At this time I believe he is suitable for discharge home in satisfactory condition. Departure - Departure Time of Disposition: 03:35 Disposition: Home, Self-Care 01 Condition: Good Clinical Impression: Bilateral leg cramps, Hypocalcemia, Hypomagnesemia, Morbid obesity with BMI of 70 and over, adult - Discharge Information *PRESCRIPTION DRUG MONITORING PROGRAM REVIEWED*: Not Applicable *COPY OF PRESCRIPTION DRUG MONITORING REPORT IN PATIENT CANDY: Not Applicable Instructions: Muscle Cramps and Spasms, [id number], Hypomagnesemia, Hypocal cemia, Adult Referrals: PCP,None [Primary Care Provider] - Forms: ED Department Discharge Care Plan Goals: Follow-up with your primary care provider as needed to discuss any changes in your medication that may be contributing to your low calcium and magnesium. These are likely causing your cramping and may be the results of the use of your diuretic. In addition, you have a slightly elevated potassium so be careful with intake of foods containing potassium like orange juice, bananas, and electrolyte drinks like Gatorade. Your ultrasound of the lower extremities failed to demonstrate any new evidence of blood clot in any of the veins which is reassuring as this can sometimes be a source of pain. At this time, I think that you are suitable for discharge home. Sepsis Event Note (ED) - Evaluation Sepsis Screening Result: No Definite Risk - Focused Exam Vital Signs: Vital Signs Temp Pulse Resp BP Pulse Ox 02/17/20 01:42 20 120/55 L 95 02/16/20 23:42 81 152/53 H 91 L 02/16/20 23:12 88 141/76 H 92 L 02/16/20 22:59 36.9 C 98 24 H 162/94 H 94 L 02/16/20 22:50 36.9 C 98 24 H 162/94 H 94 L - Problem List & Annotations (1) Morbid obesity with BMI of 70 and over, adult SNOMED Code(s): 529233882 Code(s): E66.01 - MORBID (SEVERE) OBESITY DUE TO EXCESS CALORIES; Z68.45 - BODY MASS INDEX [BMI] 70 OR GREATER, ADULT Status: Chronic Priority: Medium Current Visit: Yes (2) Bilateral leg cramps SNOMED Code(s): 62874226648835486 Code(s): R25.2 - CRAMP AND SPASM Status: Acute Priority: Medium Current Visit: Yes (3) Hypocalcemia SNOMED Code(s): 3065145 Code(s): E83.51 - HYPOCALCEMIA Status: Acute Priority: Medium Current Visit: Yes (4) Hypomagnesemia SNOMED Code(s): 982383271 Code(s): E83.42 - HYPOMAGNESEMIA Status: Acute Priority: Medium Current Visit: Yes - Problem List Review Problem List Initiated/Reviewed/Updated: Yes - My Orders Last 24 Hours: My Active Orders 02/17/20 00:34 Sodium Chloride 0.9% [Saline Flush] 10 ml FLUSH ASDIRECTED PRN Saline Lock Insert [OM.PC] Routine 02/17/20 01:43 Calcium Gluconate 1 gm IVPUSH ONETIME ONE Magnesium Sulfate/Water [Magnesium Sulfate in Water Premix] 2 gm Premix Bag 1 bag IV ONETIME - Assessment/Plan Last 24 Hours: My Active Orders 02/17/20 00:34 Sodium Chloride 0.9% [Saline Flush] 10 ml FLUSH ASDIRECTED PRN Saline Lock Insert [OM.PC] Routine 02/17/20 01:43 Calcium Gluconate 1 gm IVPUSH ONETIME ONE Magnesium Sulfate/Water [Magnesium Sulfate in Water Premix] 2 gm Premix Bag 1 bag IV ONETIME
[2020-02-17 01:42] VITALS: BP 120/55
[2020-02-17] MEDS ORDERED: Calcium Gluconate 10% 1 GM/10 ML SDV IVPUSH ONE (01:43)
[2020-02-17] MEDS ORDERED: Magnesium Sulfate/Water 2 GM in Premix Bag 1 BAG IV ONE (01:43)
--- NOTE | 2020-02-17 09:23 | US ---
VL Duplex Lwr Ext Veins Comp HISTORY: No Clinical Info FINDINGS: The deep veins of the both lower extremities demonstrate normal augmentation and compressibility through the upper to mid thighs. The distal thigh deep venous system is not well seen in either leg due to body habitus. No evidence for deep venous thrombosis in the popliteal veins. Calf veins are not seen. IMPRESSION: Very limited venous Doppler study due to patient body habitus Where the veins are visualized there is flow, compressibility and augmentation. No evidence of DVT identified
== END 2020-02-17 06:15 | disposition home or self-care (01) ==
LOC: JP.ED 22:50
DX: R25.2 Cramp and spasm (principal); E83.51 Hypocalcemia; E83.42 Hypomagnesemia; E66.01 Morbid (severe) obesity due to excess calories; Z68.45 Body mass index [BMI] 70 or greater, adult; Z91.018 Allergy to other foods; Z88.7 Allergy status to serum and vaccine; Z79.899 Other long term (current) drug therapy
CPT/HCPCS: 36415; 80053; 83735; 85025; 85610; 85651; 86140; 93970; 93970-26; 96365; 96366; 96375; 99284; 99284-25; J0610; J1885; J3475; J7030

== ENCOUNTER 2020-04-11 10:19 | Emergency (ER) | payer MEDICARE, MEDICAID ==
[2020-04-11 10:34] VITALS: BP 138/71; PULSE 72
[2020-04-11] MEDS ORDERED: Sodium Chloride 0.9% 10 ML Syringe FLUSH PRN ×2 (11:00)
[2020-04-11] MEDS ORDERED: Meclizine 25 MG Tab PO ONE (11:00)
--- NOTE | 2020-04-11 11:04 | EDM.PDOC ---
ED HPI GENERAL MEDICAL PROBLEM - General Chief Complaint: General Stated Complaint: DIZZY, RT SHOULDER PAIN, LIGHT HEADED Time Seen by Provider: 04/11/20 10:50 Source of Information: Reports: Patient, RN Notes Reviewed History Limitations: Reports: No Limitations - History of Present Illness INITIAL COMMENTS - FREE TEXT/NARRATIVE: 64-year-old gentleman presents emergency department with a complaint of dizziness, he states it started this morning it is positional whenever he puts his head back dizziness increases significantly with nausea and vomiting he also has difficulty ambulating - Related Data Allergies Allergy/AdvReac Type Severity Reaction Status Date / Time blueberry Allergy Wheezing Verified 02/16/20 23:04 cinnamon Allergy Seizure Verified 02/16/20 23:04 raspberry Allergy Seizure Verified 02/16/20 23:04 strawberry Allergy Seizure Verified 02/16/20 23:04 Influenza Virus Vaccines AdvReac Seizure Verified 02/16/20 23:04 chocolate Allergy Seizure Uncoded 02/16/20 23:04 Home Meds: Home Meds Albuterol [Ventolin HFA] 2 puff INH Q6H PRN 11/10/16 [History] HYDROmorphone [Dilaudid] 2 mg PO Q6H PRN 11/10/16 [History] Fluticasone Propionate [Flonase] 2 spray CHELSY DAILY PRN 01/25/17 [History] Gabapentin [Neurontin] 100 mg PO BID 01/29/19 [History] Lanolin/Mineral Oil [Eucerin Original Lotion] 1 applic TOP BID 02/10/19 [History] Past Medical History HEENT History: Reports: Impaired Vision, Otitis Media Cardiovascular History: Reports: Angina, Blood Clots/VTE/DVT, SOB on Exertion Respiratory History: Reports: Sleep Apnea, SOB Gastrointestinal History: Reports: Chronic Constipation, PUD Genitourinary History: Reports: Renal Calculus, Urinary Incontinence, UTI, Recurrent Musculoskeletal History: Reports: Arthritis, Back Pain, Chronic, Fracture Neurological History: Reports: Seizure, Other (See Below) Other Neuro History: Pt. states that some foods cause him to have seizures, mostly sweet foods Psychiatric History: Reports: Anxiety, Depression, Eating Disorders, Suicide Attempt Endocrine/Metabolic History: Reports: Hypothyroidism, Obesity/BMI 30+ Other Endocrine/Metabolic History: started on thyroid meds again Hematologic History: Reports: None Immunologic History: Reports: None Oncologic (Cancer) History: Reports: Bladder Dermatologic History: Reports: Other (See Below) Other Dermatologic History: irritated skin at skin folds - Infectious Disease History Infectious Disease History: Reports: Chicken Pox - Past Surgical History Head Surgeries/Procedures: Reports: None HEENT Surgical History: Reports: None Cardiovascular Surgical History: Reports: None Respiratory Surgical History: Reports: None GI Surgical History: Reports: EGD, Hernia, Abdominal, Hernia, Inguinal, Other (See Below) Other GI Surgeries/Procedures: Pt. states that a "couple" years ago he had an EGD done and was found to have two ulcers. Pt. denies being on any medication for it. panniculectomy for abscess 3 weeks ago here with [facility]. PT HAD A PANNICULECTOMY JUNE 2015 Male Surgical History: Reports: Other (See Below) Other Male Surgeries/Procedures: bladder cancer- dx 2017, untreated Endocrine Surgical History: Reports: None Neurological Surgical History: Reports: None Musculoskeletal Surgical History: Reports: Carpal Tunnel Dermatological Surgical History: Reports: None Social & Family History - Family History Family Medical History: No Pertinent Family History HEENT: Reports: Cataract, Impaired Vision, Macular Degeneration Cardiac: Reports: CAD, [place] Respiratory: Reports: None GI: Reports: None : Reports: None OBGYN: Reports: None Musculoskeletal: Reports: Arthritis Other Musculoskeletal Family History: HIP REPLACEMENT BONE DEGENERATION Neurological: Reports: None Psychiatric: Reports: None Endocrine/Metabolic: Reports: None Hematologic: Reports: None Immunologic: Reports: None Dermatologic: Reports: None Oncologic: Reports: Other (See Below) Other Oncologic Family History: BROTHER OF CANCER DOES NOT KNOW WHAT KIND - Tobacco Use Tobacco Use Status *Q: Never Tobacco User - Caffeine Use Caffeine Use: Reports: Coffee, Soda Caffeine Use Comment: 3 cups/day - Recreational Drug Use Recreational Drug Use: No ED ROS GENERAL - Review of Systems Review Of Systems: See Below Constitutional: Reports: No Symptoms HEENT: Reports: Vertigo Respiratory: Reports: No Symptoms Cardiovascular: Reports: No Symptoms GI/Abdominal: Reports: Nausea, Vomiting : Reports: No Symptoms Musculoskeletal: Reports: No Symptoms Skin: Reports: No Symptoms Neurological: Reports: Dizziness ED EXAM, GENERAL - Physical Exam Exam: See Below Exam Limited By: No Limitations General Appearance: Alert, WD/WN, No Apparent Distress Eye Exam: Bilateral Eye: EOMI, Normal Inspection, PERRL Ears: Normal External Exam, Normal Canal, Hearing Grossly Normal, Normal TMs Head: Atraumatic, Normocephalic Neck: Normal Inspection, Supple, Non-Tender, Full Range of Motion Respiratory/Chest: No Respiratory Distress, Lungs Clear, Normal Breath Sounds, No Accessory Muscle Use, Chest Non-Tender Cardiovascular: Regular Rate, Rhythm, No Murmur Neurological: Alert, Oriented, CN II-XII Intact, Other (Difficulty standing and ambulating) Course - Vital Signs Last Recorded V/S: Last Vital Signs Temp 97.6 F 04/11/20 10:34 Pulse 72 04/11/20 10:34 Resp 20 04/11/20 10:34 BP 138/71 04/11/20 10:34 Pulse Ox 91 L 04/11/20 10:34 - Orders/Labs/Meds Orders: Active Orders 24 hr Category Date Time Status Peripheral IV Care [RC] . DIRECTED Care 04/11/20 11:01 Active Iopamidol [Isovue-370 (76%)] Med 04/11/20 11:30 Active 100 ml IV . DIRECTED Sodium Chloride 0.9% [Normal Saline] 1,000 ml Med 04/11/20 11:15 Active IV ASDIRECTED Sodium Chloride 0.9% [Normal Saline] 100 ml Med 04/11/20 11:30 Active IV ASDIRECTED Sodium Chloride 0.9% [Saline Flush] Med 04/11/20 11:00 Active 10 ml FLUSH ASDIRECTED PRN Sodium Chloride 0.9% [Saline Flush] Med 04/11/20 11:00 Active 10 ml FLUSH ASDIRECTED PRN Peripheral IV Insertion Adult [OM.PC] Urgent Oth 04/11/20 11:00 Ordered Medication Orders Sodium Chloride (Normal Saline) 1,000 mls @ 500 mls/hr IV ASDIRECTED [facility] Last Admin: 04/11/20 11:48 Dose: 500 mls/hr Documented by: PREILOR Sodium Chloride (Normal Saline) 100 mls @ 3 mls/sec IV ASDIRECTED VON Last Admin: 04/11/20 12:13 Dose: 3 mls/sec Documented by: PITA Iopamidol (Isovue-370 (76%)) 100 ml IV . DIRECTED [facility] Last Admin: 04/11/20 12:12 Dose: 100 ml Documented by: PITA Sodium Chloride (Saline Flush) 10 ml FLUSH ASDIRECTED PRN PRN Reason: Keep Vein Open Sodium Chloride (Saline Flush) 10 ml FLUSH ASDIRECTED PRN PRN Reason: Keep Vein Open Labs: Laboratory Tests 04/11/20 04/11/20 04/11/20 Range/Units 11:24 11:24 11:24 WBC 4.4 L (4.5-11.0) K/uL RBC 4.68 (4.30-5.90) M/uL Hgb 13.8 (12.0-15.0) g/dL Hct 43.3 (40.0-54.0) % MCV 93 (80-98) fL MCH 30 (27-31) pg MCHC 32 (32-36) % Plt Count 95 L (150-400) K/uL Neut % (Auto) 75 H (36-66) % Lymph % (Auto) 15 L (24-44) % Waller % (Auto) 7 H (2-6) % Eos % (Auto) 2 (2-4) % Baso % (Auto) 1 (0-1) % PT 12.7 H (9.5-12.0) sec INR 1.17 (0.80-1.20) Sodium 138 L (140-148) mmol/L Potassium 4.1 (3.6-5.2) mmol/L Chloride 104 (100-108) mmol/L Carbon Dioxide 29 (21-32) mmol/L Anion Gap 9.1 (5.0-14.0) mmol/L BUN 9 (7-18) mg/dL Creatinine 0.8 (0.8-1.3) mg/dL Est Cr Clr Drug Dosing 78.11 mL/min Estimated GFR (MDRD) > 60 (>60) Glucose 110 H (74-106) mg/dL Calcium 9.0 D (8.5-10.1) mg/dL Total Bilirubin 1.0 D (0.2-1.0) mg/dL AST 37 (15-37) U/L ALT 32 (12-78) U/L Alkaline Phosphatase 55 (46-116) U/L Troponin I < 0.017 (0.000-0.056) ng/mL Total Protein 7.2 (6.4-8.2) g/dL Albumin 3.1 L (3.4-5.0) g/dL Globulin 4.1 H (2.3-3.5) g/dL Albumin/Globulin Ratio 0.8 L (1.2-2.2) Meds: Medications Generic Name Dose Route Start Last Admin Trade Name Sunnyq PRN Reason Stop Dose Admin Sodium Chloride 1,000 mls @ 500 mls/hr 04/11/20 11:15 04/11/20 11:48 Normal Saline IV 500 mls/hr ASDIRECTED VON Administration Sodium Chloride 100 mls @ 3 mls/sec 04/11/20 11:30 04/11/20 12:13 Normal Saline IV 3 mls/sec ASDIRECTED VON Administration Iopamidol 100 ml 04/11/20 11:30 04/11/20 12:12 Isovue-370 (76%) IV 100 ml . DIRECTED VON Administration Sodium Chloride 10 ml 04/11/20 11:00 Saline Flush FLUSH ASDIRECTED PRN Keep Vein Open Sodium Chloride 10 ml 04/11/20 11:00 Saline Flush FLUSH ASDIRECTED PRN Keep Vein Open Discontinued Medications Generic Name Dose Route Start Last Admin Trade Name Freq PRN Reason Stop Dose Admin Meclizine HCl 25 mg 04/11/20 11:00 04/11/20 11:47 Antivert PO 04/11/20 11:01 25 mg ONETIME ONE Administration Sodium Chloride 10 ml 04/11/20 11:29 04/11/20 12:13 Saline Flush FLUSH 04/11/20 11:30 10 ml ONETIME ONE Administration Departure - Departure Time of Disposition: 12:57 Disposition: Home, Self-Care 01 Condition: Fair Clinical Impression: Vertigo - Discharge Information Instructions: Dizziness, [id number] Referrals: Ezekiel Roberson MD [Primary Care Provider] - Forms: ED Department Discharge Additional Instructions: Continue to use the meclizine as needed for dizzy symptoms, please followup with your primary care provider in 3-5 days if not better, please call return to the emergency department with worsening of symptoms. Sepsis Event Note (ED) - Evaluation Sepsis Screening Result: No Definite Risk - Focused Exam Vital Signs: Vital Signs Temp Pulse Resp BP Pulse Ox 04/11/20 10:34 97.6 F 72 20 138/71 91 L 04/11/20 10:30 97.6 F 72 20 138/71 91 L - My Orders Last 24 Hours: My Active Orders 04/11/20 11:00 Sodium Chloride 0.9% [Saline Flush] 10 ml FLUSH ASDIRECTED PRN Sodium Chloride 0.9% [Saline Flush] 10 ml FLUSH ASDIRECTED PRN Peripheral IV Insertion Adult [OM.PC] Urgent 04/11/20 11:01 Peripheral IV Care [RC] . DIRECTED 04/11/20 11:15 Sodium Chloride 0.9% [Normal Saline] 1,000 ml IV ASDIRECTED 04/11/20 11:30 Iopamidol [Isovue-370 (76%)] 100 ml IV . DIRECTED Sodium Chloride 0.9% [Normal Saline] 100 ml IV ASDIRECTED - Assessment/Plan Last 24 Hours: My Active Orders 04/11/20 11:00 Sodium Chloride 0.9% [Saline Flush] 10 ml FLUSH ASDIRECTED PRN Sodium Chloride 0.9% [Saline Flush] 10 ml FLUSH ASDIRECTED PRN Peripheral IV Insertion Adult [OM.PC] Urgent 04/11/20 11:01 Peripheral IV Care [RC] . DIRECTED 04/11/20 11:15 Sodium Chloride 0.9% [Normal Saline] 1,000 ml IV ASDIRECTED 04/11/20 11:30 Iopamidol [Isovue-370 (76%)] 100 ml IV . DIRECTED Sodium Chloride 0.9% [Normal Saline] 100 ml IV ASDIRECTED Plan: Assessment Acuity = acute Site and laterality = vertigo Etiology = unknown Manifestations = none Location of injury = Home Lab values = CBC, CMP, troponin within normal limits CT of the head shows no acute process CTA reveals some carotid plaques however no significant stenosis does have smaller than usual vertebral arteries and the normal variant no occlusions noted Plan He had good improvement with meclizine prescription written for 1 tab p.o. 3 times daily 25 mg as needed follow-up primary care 3 to 5 days if not better This note was dictated using [employer] recognition software please call with any questions on syntax or grammar.
[2020-04-11] MEDS ORDERED: Sodium Chloride 0.9% 1,000 ML IV SCH (11:15)
[2020-04-11] MEDS ORDERED: Iopamidol 755 Mg/ML 100 ML Bottle IV SCH (11:30)
[2020-04-11] MEDS ORDERED: Sodium Chloride 0.9% 100 ML IV SCH (11:30)
[2020-04-11] MEDS: Sodium Chloride 0.9% 10 ML Syringe FLUSH ONE ×2 (11:50→12:13)
--- NOTE | 2020-04-11 12:36 | CT ---
Head wo Cont CLINICAL HISTORY: Dizziness COMPARISON: 2016 TECHNIQUE: Transverse scans were obtained from the base of the skull through the vertex without IV contrast on a multislice, multidetector CT scanner. Auto dosage reduction and iterative reconstruction techniques employed. FINDINGS: There is expansion of the sella turcica with soft tissue density within. The this appearance is similar to 2016. There is no mass effect, hemorrhage, or extraaxial collection. The basal cisterns and sulci over the convexities are prominent. The ventricles are normal for age. IMPRESSION: Moderate atrophic change Expansion of the sella turcica with internal soft tissue density appears similar to 2016. Clinicalcorrelation necessary No acute intracranial findings
--- NOTE | 2020-04-11 12:45 | CT ---
Ang Head CLINICAL HISTORY: Dizziness. COMPARISON: CT brain 2016 TECHNIQUE: Multiple volume rendered and MIP 3D reconstructions were generated from source images obtained on a spiral scanner before and after intravenous iodinated contrast enhancement . Auto dosage reduction and iterative reconstruction techniques employed. FINDINGS: Internal carotid arteries: Show some hard plaque in the carotid siphons without significant stenosis Anterior cerebral arteries: Normal course and contour Middle cerebral arteries: Normal course and contour Posterior cerebral arteries: Posterior cerebral arteries are small. They're predominantly fed from the carotid circulation bilaterally Vertebral/basilar arteries: The vertebral and basilar arteries are small. Right vertebral artery does not connect to the basilar artery. It continues into the right AICA. IMPRESSION: Anatomic variant of the posterior circulation which is fed mainly by the internal carotid arteries Small vertebral and basilar arteries Hard plaque in both carotid siphons without significant stenosis Brain
== END 2020-04-11 13:50 | disposition home or self-care (01) ==
LOC: JP.ED 10:19
DX: R42 Dizziness and giddiness (principal); R11.2 Nausea with vomiting, unspecified; E03.9 Hypothyroidism, unspecified; E66.9 Obesity, unspecified; Z68.45 Body mass index [BMI] 70 or greater, adult; Z91.018 Allergy to other foods; Z88.7 Allergy status to serum and vaccine; Z79.899 Other long term (current) drug therapy
CPT/HCPCS: 36415; 70450; 70496; 80053; 84484; 85025; 85610; 99284; A9270; J7030; Q9967

== ENCOUNTER 2020-08-29 13:37 | Inpatient (IN) | payer MEDICARE, MEDICAID ==
--- NOTE | 2020-08-29 13:58 | EDM.PDOC ---
ED HPI GENERAL MEDICAL PROBLEM - General Chief Complaint: Respiratory Problem Stated Complaint: COUGH,SOB,TEMP Time Seen by Provider: 08/29/20 13:50 Source of Information: Reports: Patient, Provider, RN Notes Reviewed History Limitations: Reports: No Limitations - History of Present Illness INITIAL COMMENTS - FREE TEXT/NARRATIVE: 65-year-old gentleman presents emergency department today complaint of shortness of breath and fever, he has a known history of obstructive hypoventilation syndrome secondary to body habitus. He states he has been ill for the last several weeks has had a fever over for the last week he does produce greenish sputum in nature he denies any Covid vaccine no known Covid exposure. He feels short of breath was found to be hypoxic in clinic around 84% I did discuss the case with Dr. Avalos who had initially evaluated him in clinic sent to the emergency department for further evaluation Generalized Pain Score (Numeric/FACES): 4 - Related Data Allergies Allergy/AdvReac Type Severity Reaction Status Date / Time blueberry Allergy Wheezing Verified 08/29/20 15:04 cinnamon Allergy Seizure Verified 08/29/20 15:04 raspberry Allergy Seizure Verified 08/29/20 15:04 strawberry Allergy Seizure Verified 08/29/20 15:04 Influenza Virus Vaccines AdvReac Seizure Verified 08/29/20 15:04 chocolate Allergy Seizure Uncoded 02/16/20 23:04 Home Meds: Home Meds Albuterol [Ventolin HFA] 2 puff INH Q6H PRN 11/10/16 [History] HYDROmorphone [Dilaudid] 2 mg PO Q6H PRN 11/10/16 [History] Fluticasone Propionate [Flonase] 2 spray CHELSY DAILY PRN 01/25/17 [History] Gabapentin [Neurontin] 100 mg PO BID 01/29/19 [History] Past Medical History HEENT History: Reports: Impaired Vision, Otitis Media Cardiovascular History: Reports: Angina, Blood Clots/VTE/DVT, SOB on Exertion Respiratory History: Reports: Sleep Apnea, SOB Gastrointestinal History: Reports: Chronic Constipation, PUD Genitourinary History: Reports: Renal Calculus, Urinary Incontinence, UTI, Recurrent Musculoskeletal History: Reports: Arthritis, Back Pain, Chronic, Fracture Neurological History: Reports: Seizure, Other (See Below) Other Neuro History: Pt. states that some foods cause him to have seizures, mostly sweet foods Psychiatric History: Reports: Anxiety, Depression, Eating Disorders, Suicide Attempt Endocrine/Metabolic History: Reports: Hypothyroidism, Obesity/BMI 30+ Other Endocrine/Metabolic History: started on thyroid meds again Hematologic History: Reports: None Immunologic History: Reports: None Oncologic (Cancer) History: Reports: Bladder Dermatologic History: Reports: Other (See Below) Other Dermatologic History: irritated skin at skin folds - Infectious Disease History Infectious Disease History: Reports: Chicken Pox - Past Surgical History Head Surgeries/Procedures: Reports: None HEENT Surgical History: Reports: None Cardiovascular Surgical History: Reports: None Respiratory Surgical History: Reports: None GI Surgical History: Reports: EGD, Hernia, Abdominal, Hernia, Inguinal, Other (See Below) Other GI Surgeries/Procedures: Pt. states that a "couple" years ago he had an EGD done and was found to have two ulcers. Pt. denies being on any medication for it. panniculectomy for abscess 3 weeks ago here with [facility]. PT HAD A P ANNICULECTOMY JUNE 2015 Male Surgical History: Reports: Other (See Below) Other Male Surgeries/Procedures: bladder cancer- dx 2017, untreated Endocrine Surgical History: Reports: None Neurological Surgical History: Reports: None Musculoskeletal Surgical History: Reports: Carpal Tunnel Dermatological Surgical History: Reports: None Social & Family History - Family History Family Medical History: No Pertinent Family History HEENT: Reports: Cataract, Impaired Vision, Macular Degeneration Cardiac: Reports: CAD, [place] Respiratory: Reports: None GI: Reports: None : Reports: None OBGYN: Reports: None Musculoskeletal: Reports: Arthritis Other Musculoskeletal Family History: HIP REPLACEMENT BONE DEGENERATION Neurological: Reports: None Psychiatric: Reports: None Endocrine/Metabolic: Reports: None Hematologic: Reports: None Immunologic: Reports: None Dermatologic: Reports: None Oncologic: Reports: Other (See Below) Other Oncologic Family History: BROTHER OF CANCER DOES NOT KNOW WHAT KIND - Caffeine Use Caffeine Use: Reports: Coffee, Soda Caffeine Use Comment: 3 cups/day ED ROS GENERAL - Review of Systems Review Of Systems: See Below Constitutional: Reports: Fever, Weakness HEENT: Reports: No Symptoms Respiratory: Reports: Shortness of Breath, Cough. Denies: Wheezing Cardiovascular: Reports: Dyspnea on Exertion. Denies: Chest Pain GI/Abdominal: Reports: No Symptoms ED EXAM, GENERAL - Physical Exam Exam: See Below Exam Limited By: No Limitations General Appearance: Alert, Mild Distress Respiratory/Chest: Respiratory Distress, Decreased Breath Sounds Cardiovascular: Regular Rate, Rhythm, No Murmur GI/Abdominal: Soft, Non-Tender Course - Vital Signs Last Recorded V/S: Last Vital Signs Temp 97.9 F 08/29/20 15:01 Pulse 79 08/29/20 15:18 Resp 24 H 08/29/20 15:06 BP 123/66 08/29/20 15:18 Pulse Ox 93 L 08/29/20 15:18 - Orders/Labs/Meds Orders: Active Orders 24 hr Category Date Time Status Nurse Communication: Isolation [RC] ASDIRECTED Care 08/29/20 16:03 Ordered Positioning, Patient [RC] ASDIRECTED Care 08/29/20 16:02 Ordered Vital Signs [RC] Q1H Care 08/29/20 13:51 Active Chest 1V Frontal [CR] Urgent Exams 08/29/20 14:21 Ordered BLOOD GAS ARTERIAL [BG] Stat Lab 08/29/20 16:02 Ordered CULTURE BLOOD [BC] Urgent Lab 08/29/20 14:15 Received CULTURE BLOOD [BC] Urgent Lab 08/29/20 14:22 Received HEPATIC FUNCTION PANEL,HFP [CHEM] DAILY Lab 08/30/20 16:15 Ordered HEPATIC FUNCTION PANEL,HFP [CHEM] DAILY Lab 08/31/20 16:15 Ordered HEPATIC FUNCTION PANEL,HFP [CHEM] DAILY Lab 09/01/20 16:15 Ordered HEPATIC FUNCTION PANEL,HFP [CHEM] DAILY Lab 09/02/20 16:15 Ordered HEPATIC FUNCTION PANEL,HFP [CHEM] Stat Lab 08/29/20 16:03 Ordered UA W/MICROSCOPIC [URIN] Urgent Lab 08/29/20 13:51 Ordered dexAMETHasone [Decadron] Med 08/29/20 16:15 Ordered 6 mg IVPUSH DAILY Blood Culture x2 Reflex Set [OM.PC] Urgent Oth 08/29/20 13:51 Ordered Isolation [COMM] Stat Oth 08/29/20 13:53 Ordered Isolation [COMM] Stat Oth 08/29/20 16:02 Ordered Medication Orders Dexamethasone (Dexamethasone 4 Mg/Ml Sdv) 6 mg IVPUSH DAILY VON Stop: 09/07/20 09:01 Labs: Laboratory Tests 08/29/20 08/29/20 08/29/20 Range/Units 13:53 14:15 14:15 WBC 4.2 L (4.5-11.0) K/uL RBC 4.36 (4.30-5.90) M/uL Hgb 13.1 (12.0-15.0) g/dL Hct 40.7 (40.0-54.0) % MCV 93 (80-98) fL MCH 30 (27-31) pg MCHC 32 (32-36) % Plt Count 77 L (150-400) K/uL Neut % (Auto) 74.2 H (36-66) % Lymph % (Auto) 10.1 L (24-44) % [place] % (Auto) 12.3 H (2-6) % Eos % (Auto) 2.7 (2-4) % Baso % (Auto) 0.7 (0-1) % Sodium 141 (140-148) mmol/L Potassium 3.7 (3.6-5.2) mmol/L Chloride 102 (100-108) mmol/L Carbon Dioxide 27 (21-32) mmol/L Anion Gap 11.6 (5.0-14.0) mmol/L BUN 8 (7-18) mg/dL Creatinine 0.9 (0.8-1.3) mg/dL Est Cr Clr Drug Dosing 68.52 mL/min Estimated GFR (MDRD) > 60 (>60) Glucose 116 H (74-106) mg/dL Lactic Acid (0.4-2.0) mmol/L Calcium 8.1 L (8.5-10.1) mg/dL Total Bilirubin 1.3 H (0.2-1.0) mg/dL AST 72 H D (15-37) U/L ALT 43 (12-78) U/L Alkaline Phosphatase 51 (46-116) U/L Troponin I (0.000-0.056) ng/mL C-Reactive Protein 2.75 H (0.0-0.3) mg/dL Total Protein 6.8 (6.4-8.2) g/dL Albumin 2.7 L (3.4-5.0) g/dL Globulin 4.1 H (2.3-3.5) g/dL Albumin/Globulin Ratio 0.7 L (1.2-2.2) Procalcitonin ng/mL Influenza Type A RNA Negative (NEGATIVE) RSV RNA (INAAT) Negative (NEGATIVE) Influenza Type B RNA Negative (NEGATIVE) SARS-CoV-2 RNA (ROB) Positive H (NEGATIVE) 08/29/20 08/29/20 08/29/20 Range/Units 14:15 14:15 14:15 WBC (4.5-11.0) K/uL RBC (4.30-5.90) M/uL Hgb (12.0-15.0) g/dL Hct (40.0-54.0) % MCV (80-98) fL MCH (27-31) pg MCHC (32-36) % Plt Count (150-400) K/uL Neut % (Auto) (36-66) % Lymph % (Auto) (24-44) % [place] % (Auto) (2-6) % Eos % (Auto) (2-4) % Baso % (Auto) (0-1) % Sodium (140-148) mmol/L Potassium (3.6-5.2) mmol/L Chloride (100-108) mmol/L Carbon Dioxide (21-32) mmol/L Anion Gap (5.0-14.0) mmol/L BUN (7-18) mg/dL Creatinine (0.8-1.3) mg/dL Est Cr Clr Drug Dosing mL/min Estimated GFR (MDRD) (>60) Glucose (74-106) mg/dL Lactic Acid 1.8 (0.4-2.0) mmol/L Calcium (8.5-10.1) mg/dL Total Bilirubin (0.2-1.0) mg/dL AST (15-37) U/L ALT (12-78) U/L Alkaline Phosphatase (46-116) U/L Troponin I < 0.017 (0.000-0.056) ng/mL C-Reactive Protein (0.0-0.3) mg/dL Total Protein (6.4-8.2) g/dL Albumin (3.4-5.0) g/dL Globulin (2.3-3.5) g/dL Albumin/Globulin Ratio (1.2-2.2) Procalcitonin 0.12 ng/mL Influenza Type A RNA (NEGATIVE) RSV RNA (INAAT) (NEGATIVE) Influenza Type B RNA (NEGATIVE) SARS-CoV-2 RNA (ROB) (NEGATIVE) Meds: Medications Generic Name Dose Route Start Last Admin Trade Name Freq PRN Reason Stop Dose Admin Dexamethasone 6 mg 08/29/20 16:15 Dexamethasone 4 Mg/Ml Sdv IVPUSH 09/07/20 09:01 DAILY VON Discontinued Medications Generic Name Dose Route Start Last Admin Trade Name Freq PRN Reason Stop Dose Admin Remdesivir 200 mg/ Sodium 250 mls @ 250 mls/hr 08/29/20 16:02 Chloride IV 08/29/20 16:03 ONETIME ONE Departure - Departure Time of Disposition: 16:10 Disposition: Admitted As Inpatient 66 Condition: Poor Clinical Impression: COVID-19 - Discharge Information Referrals: Ezekiel Roberson MD [Primary Care Provider] - Forms: ED Department Discharge Sepsis Event Note (ED) - Focused Exam Vital Signs: Vital Signs Temp Pulse Resp BP Pulse Ox 08/29/20 15:18 79 123/66 93 L 08/29/20 15:06 81 24 H 131/63 94 L 08/29/20 15:01 97.9 F 94 24 H 159/85 H 94 L 08/29/20 13:54 97.9 F 94 24 H 159/85 H 91 L - My Orders Last 24 Hours: My Active Orders 08/29/20 13:51 Vital Signs [RC] Q1H UA W/MICROSCOPIC [URIN] Urgent Blood Culture x2 Reflex Set [OM.PC] Urgent 08/29/20 13:53 Isolation [COMM] Stat 08/29/20 14:15 CULTURE BLOOD [BC] Urgent 08/29/20 14:21 Chest 1V Frontal [CR] Urgent 08/29/20 14:22 CULTURE BLOOD [BC] Urgent 08/29/20 16:02 Positioning, Patient [RC] ASDIRECTED BLOOD GAS ARTERIAL [BG] Stat Isolation [COMM] Stat 08/29/20 16:03 Nurse Communication: Isolation [RC] ASDIRECTED HEPATIC FUNCTION PANEL,HFP [CHEM] Stat 08/29/20 16:15 dexAMETHasone [Decadron] 6 mg IVPUSH DAILY 08/30/20 16:15 HEPATIC FUNCTION PANEL,HFP [CHEM] DAILY 08/31/20 16:15 HEPATIC FUNCTION PANEL,HFP [CHEM] DAILY 09/01/20 16:15 HEPATIC FUNCTION PANEL,HFP [CHEM] DAILY 09/02/20 16:15 HEPATIC FUNCTION PANEL,HFP [CHEM] DAILY - Assessment/Plan Last 24 Hours: My Active Orders 08/29/20 13:51 Vital Signs [RC] Q1H UA W/MICROSCOPIC [URIN] Urgent Blood Culture x2 Reflex Set [OM.PC] Urgent 08/29/20 13:53 Isolation [COMM] Stat 08/29/20 14:15 CULTURE BLOOD [BC] Urgent 08/29/20 14:21 Chest 1V Frontal [CR] Urgent 08/29/20 14:22 CULTURE BLOOD [BC] Urgent 08/29/20 16:02 Positioning, Patient [RC] ASDIRECTED BLOOD GAS ARTERIAL [BG] Stat Isolation [COMM] Stat 08/29/20 16:03 Nurse Communication: Isolation [RC] ASDIRECTED HEPATIC FUNCTION PANEL,HFP [CHEM] Stat 08/29/20 16:15 dexAMETHasone [Decadron] 6 mg IVPUSH DAILY 08/30/20 16:15 HEPATIC FUNCTION PANEL,HFP [CHEM] DAILY 08/31/20 16:15 HEPATIC FUNCTION PANEL,HFP [CHEM] DAILY 09/01/20 16:15 HEPATIC FUNCTION PANEL,HFP [CHEM] DAILY 09/02/20 16:15 HEPATIC FUNCTION PANEL,HFP [CHEM] DAILY Plan: Assessment Acuity = acute Site and laterality = viral syndrome Etiology = COVID-19 Manifestations = hypoxia Location of injury = Home Lab values = WBC low at 4.2 consistent leukopenia total bilirubin elevated 1.3 consistent hyperbilirubinemia CRP elevated 2.75 Covid was positive chest x-ray Covid type pattern Plan Call discussed case hospitalist on-call at 1600 kindly agreed to come evaluate the patient emergency department for admission remdesivir loading dose given in the emergency department as well as dose dexamethasone This note was dictated using [employer] voice recognition software please call with any questions on syntax or grammar.
[2020-08-29 15:31] LABS: CORONAVIRUS COVID-19 NAA POSITIVE (NEGATIVE)
[2020-08-29] MEDS ORDERED: REMDESIVIR 200 MG in Sodium Chloride 0.9% 250 ML IV ONE ×2 (16:02→17:00)
[2020-08-29] MEDS: Dexamethasone 4 MG/ML SDV IVPUSH SCH (16:45)
--- NOTE | 2020-08-29 17:32 | PCM.HP.2 ---
H&P History of Present Illness - General Date of Service: 08/29/20 Admit Problem/Dx: Admission Diagnosis/Problem Admission Diagnosis/Problem Hypoxia Source of Information: Patient, Old Records, Provider, RN Notes Reviewed History Limitations: Reports: No Limitations - History of Present Illness Initial Comments - Free Text/Narative: Mr. Santa is a 65-year-old gentleman who is admitted through the emergency department with acute on chronic hypoxia secondary to COVID-19 infection. Mr. Santa has a known history of hypoxia secondary to obesity hypoventilation syndrome. He reports that over the last several weeks he has had increased shortness of breath. Although it has been prescribed for him in the past he currently does not use home supplemental oxygen. This past week has become more ill with increased shortness of breath, fever, myalgias, cough, and headache. Because of progressive symptoms he presented to the emergency department today for further evaluation. On initial assessment he was found to be hypoxic and placed on supplemental oxygen. White blood cell count is within normal range, chest x-ray does show patchy bilateral infiltrates. COVID-19 testing was found to be positive. He has been started on IV Decadron and remdesivir while in the emergency department. Generalized Pain Score (Numeric/FACES): 4 - Related Data Allergies/Adverse Reactions: Allergies Allergy/AdvReac Type Severity Reaction Status Date / Time blueberry Allergy Wheezing Verified 08/29/20 15:04 cinnamon Allergy Seizure Verified 08/29/20 15:04 raspberry Allergy Seizure Verified 08/29/20 15:04 strawberry Allergy Seizure Verified 08/29/20 15:04 Influenza Virus Vaccines AdvReac Seizure Verified 08/29/20 15:04 chocolate Allergy Seizure Uncoded 02/16/20 23:04 Home Medications: Home Meds Albuterol [Ventolin HFA] 2 puff INH Q6H PRN 11/10/16 [History] HYDROmorphone [Dilaudid] 2 mg PO Q6H PRN 11/10/16 [History] Fluticasone Propionate [Flonase] 2 spray CHELSY DAILY PRN 01/25/17 [History] Gabapentin [Neurontin] 100 mg PO BID 01/29/19 [History] Past Medical History HEENT History: Reports: Impaired Vision, Otitis Media Cardiovascular History: Reports: Angina, Blood Clots/VTE/DVT, SOB on Exertion Respiratory History: Reports: Sleep Apnea, SOB Gastrointestinal History: Reports: Chronic Constipation, PUD Genitourinary History: Reports: Renal Calculus, Urinary Incontinence, UTI, Recurrent Musculoskeletal History: Reports: Arthritis, Back Pain, Chronic, Fracture Neurological History: Reports: Seizure, Other (See Below) Other Neuro History: Pt. states that some foods cause him to have seizures, mostly sweet foods Psychiatric History: Reports: Anxiety, Depression, Eating Disorders, Suicide Attempt Endocrine/Metabolic History: Reports: Hypothyroidism, Obesity/BMI 30+ Other Endocrine/Metabolic History: started on thyroid meds again Hematologic History: Reports: None Immunologic History: Reports: None Oncologic (Cancer) History: Reports: Bladder Dermatologic History: Reports: Other (See Below) Other Dermatologic History: irritated skin at skin folds - Infectious Disease History Infectious Disease History: Reports: Chicken Pox - Past Surgical History Head Surgeries/Procedures: Reports: None GI Surgical History: Reports: EGD, Hernia, Abdominal, Hernia, Inguinal, Other (See Below) Other GI Surgeries/Procedures: Pt. states that a "couple" years ago he had an EGD done and was found to have two ulcers. Pt. denies being on any medication for it. panniculectomy for abscess.. PT HAD A PANNICULECTOMY JUNE 2015 Male Surgical History: Reports: Other (See Below) Other Male Surgeries/Procedures: bladder cancer- dx 2017, untreated Musculoskeletal Surgical History: Reports: Carpal Tunnel Social & Family History - Family History Family Medical History: No Pertinent Family History HEENT: Reports: Cataract, Impaired Vision, Macular Degeneration Cardiac: Reports: CAD, NC Respiratory: Reports: None GI: Reports: None : Reports: None OBGYN: Reports: None Musculoskeletal: Reports: Arthritis Other Musculoskeletal Family History: HIP REPLACEMENT BONE DEGENERATION Neurological: Reports: None Psychiatric: Reports: None Endocrine/Metabolic: Reports: None Hematologic: Reports: None Immunologic: Reports: None Dermatologic: Reports: None Oncologic: Reports: Other (See Below) Other Oncologic Family History: BROTHER OF CANCER DOES NOT KNOW WHAT KIND - Tobacco Use Tobacco Use Status *Q: Never Tobacco User - Caffeine Use Caffeine Use: Reports: None Caffeine Use Comment: 3 cups/day - Recreational Drug Use Recreational Drug Use: No H&P Review of Systems - Review of Systems: Review Of Systems: See Below General: Reports: Fever, Chills, Malaise, Weakness, Fatigue HEENT: Reports: Headaches. Denies: Dysphasia, Ear Pain, Eye Pain, Sore Throat Pulmonary: Reports: Shortness of Breath, Cough. Denies: Wheezing, Pleuritic Chest Pain, Sputum, Hemoptysis Cardiovascular: Reports: Dyspnea on Exertion, Edema. Denies: Chest Pain, Palpitations, Orthopnea, PND, Lightheadedness Gastrointestinal: Reports: Abdominal Pain, Diarrhea, Nausea. Denies: Difficulty Swallowing, Distension, Hematemesis, Hematochezia, Melena, Vomiting Genitourinary: Reports: No Symptoms Musculoskeletal: Reports: Muscle Pain, Muscle Stiffness Psychiatric: Reports: No Symptoms Neurological: Reports: Headache. Denies: Confusion, Dizziness, Paresthesia, Weakness Hematologic/Lymphatic: Reports: No Symptoms Immunologic: Reports: No Symptoms Exam - Exam Exam: See Below - Vital Signs Vital Signs: Last Vital Signs Temp 97.9 F 08/29/20 15:01 Pulse 87 08/29/20 16:00 Resp 22 H 08/29/20 16:00 BP 125/75 08/29/20 16:00 Pulse Ox 91 L 08/29/20 16:00 Weight: 450 lb - Exam Quality Assessment: Supplemental Oxygen, DVT Prophylaxis General: Alert, Oriented, Cooperative, Moderate Distress HEENT: Conjunctiva Clear, Hearing Intact, Mucosa Moist & [place], Normal Nasal Septum, Posterior Pharynx Clear, Pupils Equal Neck: Supple, Trachea Midline, +2 Carotid Pulse wo Bruit Lungs: Decreased Breath Sounds. No: Rales, Rhonchi, Wheezing Cardiovascular: Regular Rate, Regular Rhythm, Normal S1, Normal S2. No: Systolic Murmur, Diastolic Murmur GI/Abdominal Exam: Soft, Non-Tender, No Organomegaly, No Distention Extremities: Non-Tender, Pedal Edema Skin: Warm, Dry, Intact Neurological: Cranial Nerves Intact, Strength Equal Bilateral, Normal Speech, Normal Tone, Sensation Intact. No: Focal Deficit Neuro Extensive - Mental Status: Alert, Oriented x3, Normal Mood/Affect, Normal Cognition, Memory Intact - Patient Data Lab Results Last 24 hrs: Laboratory Results - last 24 hr 08/29/20 08/29/20 08/29/20 Range/Units 13:53 14:15 14:15 WBC 4.2 L (4.5-11.0) K/uL RBC 4.36 (4.30-5.90) M/uL Hgb 13.1 (12.0-15.0) g/dL Hct 40.7 (40.0-54.0) % MCV 93 (80-98) fL MCH 30 (27-31) pg MCHC 32 (32-36) % Plt Count 77 L (150-400) K/uL Neut % (Auto) 74.2 H (36-66) % Lymph % (Auto) 10.1 L (24-44) % Ray % (Auto) 12.3 H (2-6) % Eos % (Auto) 2.7 (2-4) % Baso % (Auto) 0.7 (0-1) % Puncture Site ABG pH (7.350-7.450) ABG pCO2 (35.0-42.0) mmHg ABG pO2 (75.0-100.0) mmHg ABG HCO3 (22.0-26.0) mmol/L ABG Total CO2 (23.0-27.0) mmol/L ABG O2 Saturation (95.0-98.0) % ABG O2 Content (15.0-23.0) %vol ABG Base Excess mm/L ABG Hemoglobin (13.5-18.0) g/dL ABG Oxyhemoglobin % ABG Carboxyhemoglobin (0.0-1.6) % ABG Methemoglobin % John Test O2 Delivery Device Oxygen Flow Rate L Sodium 141 (140-148) mmol/L Potassium 3.7 (3.6-5.2) mmol/L Chloride 102 (100-108) mmol/L Carbon Dioxide 27 (21-32) mmol/L Anion Gap 11.6 (5.0-14.0) mmol/L BUN 8 (7-18) mg/dL Creatinine 0.9 (0.8-1.3) mg/dL Est Cr Clr Drug Dosing 68.52 mL/min Estimated GFR (MDRD) > 60 (>60) Glucose 116 H (74-106) mg/dL Lactic Acid (0.4-2.0) mmol/L Calcium 8.1 L (8.5-10.1) mg/dL Total Bilirubin 1.3 H (0.2-1.0) mg/dL AST 72 H D (15-37) U/L ALT 43 (12-78) U/L Alkaline Phosphatase 51 (46-116) U/L Troponin I (0.000-0.056) ng/mL C-Reactive Protein 2.75 H (0.0-0.3) mg/dL Total Protein 6.8 (6.4-8.2) g/dL Albumin 2.7 L (3.4-5.0) g/dL Globulin 4.1 H (2.3-3.5) g/dL Albumin/Globulin Ratio 0.7 L (1.2-2.2) Procalcitonin ng/mL Influenza Type A RNA Negative (NEGATIVE) RSV RNA (INAAT) Negative (NEGATIVE) Influenza Type B RNA Negative (NEGATIVE) SARS-CoV-2 RNA (ROB) Positive H (NEGATIVE) 08/29/20 08/29/20 08/29/20 Range/Units 14:15 14:15 14:15 WBC (4.5-11.0) K/uL RBC (4.30-5.90) M/uL Hgb (12.0-15.0) g/dL Hct (40.0-54.0) % MCV (80-98) fL MCH (27-31) pg MCHC (32-36) % Plt Count (150-400) K/uL Neut % (Auto) (36-66) % Lymph % (Auto) (24-44) % Ray % (Auto) (2-6) % Eos % (Auto) (2-4) % Baso % (Auto) (0-1) % Puncture Site ABG pH (7.350-7.450) ABG pCO2 (35.0-42.0) mmHg ABG pO2 (75.0-100.0) mmHg ABG HCO3 (22.0-26.0) mmol/L ABG Total CO2 (23.0-27.0) mmol/L ABG O2 Saturation (95.0-98.0) % ABG O2 Content (15.0-23.0) %vol ABG Base Excess mm/L ABG Hemoglobin (13.5-18.0) g/dL ABG Oxyhemoglobin % ABG Carboxyhemoglobin (0.0-1.6) % ABG Methemoglobin % John Test O2 Delivery Device Oxygen Flow Rate L Sodium (140-148) mmol/L Potassium (3.6-5.2) mmol/L Chloride (100-108) mmol/L Carbon Dioxide (21-32) mmol/L Anion Gap (5.0-14.0) mmol/L BUN (7-18) mg/dL Creatinine (0.8-1.3) mg/dL Est Cr Clr Drug Dosing mL/min Estimated GFR (MDRD) (>60) Glucose (74-106) mg/dL Lactic Acid 1.8 (0.4-2.0) mmol/L Calcium (8.5-10.1) mg/dL Total Bilirubin (0.2-1.0) mg/dL AST (15-37) U/L ALT (12-78) U/L Alkaline Phosphatase (46-116) U/L Troponin I < 0.017 (0.000-0.056) ng/mL C-Reactive Protein (0.0-0.3) mg/dL Total Protein (6.4-8.2) g/dL Albumin (3.4-5.0) g/dL Globulin (2.3-3.5) g/dL Albumin/Globulin Ratio (1.2-2.2) Procalcitonin 0.12 ng/mL Influenza Type A RNA (NEGATIVE) RSV RNA (INAAT) (NEGATIVE) Influenza Type B RNA (NEGATIVE) SARS-CoV-2 RNA (ROB) (NEGATIVE) 08/29/20 Range/Units 16:22 WBC (4.5-11.0) K/uL RBC (4.30-5.90) M/uL Hgb (12.0-15.0) g/dL Hct (40.0-54.0) % MCV (80-98) fL MCH (27-31) pg MCHC (32-36) % Plt Count (150-400) K/uL Neut % (Auto) (36-66) % Lymph % (Auto) (24-44) % Ray % (Auto) (2-6) % Eos % (Auto) (2-4) % Baso % (Auto) (0-1) % Puncture Site Lt radial ABG pH 7.444 (7.350-7.450) ABG pCO2 41.3 (35.0-42.0) mmHg ABG pO2 70.7 L (75.0-100.0) mmHg ABG HCO3 27.8 H (22.0-26.0) mmol/L ABG Total CO2 24.5 (23.0-27.0) mmol/L ABG O2 Saturation 93.9 L (95.0-98.0) % ABG O2 Content 17.4 (15.0-23.0) %vol ABG Base Excess 3.8 mm/L ABG Hemoglobin 13.4 L (13.5-18.0) g/dL ABG Oxyhemoglobin 92.2 % ABG Carboxyhemoglobin 1.3 (0.0-1.6) % ABG Methemoglobin 0.5 % John Test Pass O2 Delivery Device Nasal cannula Oxygen Flow Rate 3.0 L Sodium (140-148) mmol/L Potassium (3.6-5.2) mmol/L Chloride (100-108) mmol/L Carbon Dioxide (21-32) mmol/L Anion Gap (5.0-14.0) mmol/L BUN (7-18) mg/dL Creatinine (0.8-1.3) mg/dL Est Cr Clr Drug Dosing mL/min Estimated GFR (MDRD) (>60) Glucose (74-106) mg/dL Lactic Acid (0.4-2.0) mmol/L Calcium (8.5-10.1) mg/dL Total Bilirubin (0.2-1.0) mg/dL AST (15-37) U/L ALT (12-78) U/L Alkaline Phosphatase (46-116) U/L Troponin I (0.000-0.056) ng/mL C-Reactive Protein (0.0-0.3) mg/dL Total Protein (6.4-8.2) g/dL Albumin (3.4-5.0) g/dL Globulin (2.3-3.5) g/dL Albumin/Globulin Ratio (1.2-2.2) Procalcitonin ng/mL Influenza Type A RNA (NEGATIVE) RSV RNA (INAAT) (NEGATIVE) Influenza Type B RNA (NEGATIVE) SARS-CoV-2 RNA (ROB) (NEGATIVE) Result Diagrams: 08/29/20 14:15 08/29/20 14:15 Sepsis Event Note - Evaluation Sepsis Screening Result: Possible Sepsis Risk - Focused Exam Vital Signs: Vital Signs Temp Pulse Resp BP Pulse Ox 08/29/20 16:00 87 22 H 125/75 91 L 08/29/20 15:18 79 123/66 93 L 08/29/20 15:06 81 24 H 131/63 94 L 08/29/20 15:01 97.9 F 94 24 H 159/85 H 94 L 08/29/20 13:54 97.9 F 94 24 H 159/85 H 91 L *Q Meaningful Use (ADM) - VTE Risk Assess *Q Each Risk Factor Represents 1 Point: Swollen Legs, Current, Obesity ( BMI > 25 kg/m2), Serious lung disease including pneumonia Total Score 1 Point Risk Factors: 3 Each Risk Factor Represents 2 Points: Age 60 - 74 Years Total Score 2 Point Risk Factors: 2 Each Risk Factor Represents 3 Points: None Total Score 3 Point Risk Factors: 0 Each Risk Factor Represents 5 Points: None Total Score 5 Point Risk Factors: 0 Venous Thromboembolism Risk Factor Score *Q: 5 Problem List Initiated/Reviewed/Updated: Yes Orders Last 24hrs: Active Orders 24 hr Category Date Time Status Patient Status Manage Transfer [TRANSFER] Routine ADT 08/29/20 16:53 Active Nurse Communication: Isolation [RC] ASDIRECTED Care 08/29/20 16:03 Active Positioning, Patient [RC] ASDIRECTED Care 08/29/20 16:02 Active Vital Signs [RC] Q1H Care 08/29/20 13:51 Active Chest 1V Frontal [CR] Urgent Exams 08/29/20 14:21 Taken CULTURE BLOOD [BC] Urgent Lab 08/29/20 14:15 Received CULTURE BLOOD [BC] Urgent Lab 08/29/20 14:22 Received HEPATIC FUNCTION PANEL,HFP [CHEM] DAILY Lab 08/30/20 16:15 Ordered HEPATIC FUNCTION PANEL,HFP [CHEM] DAILY Lab 08/31/20 16:15 Ordered HEPATIC FUNCTION PANEL,HFP [CHEM] DAILY Lab 09/01/20 16:15 Ordered HEPATIC FUNCTION PANEL,HFP [CHEM] DAILY Lab 09/02/20 16:15 Ordered UA W/MICROSCOPIC [URIN] Urgent Lab 08/29/20 13:51 Ordered Remdesivir 200 mg Med 08/29/20 17:00 Active Sodium Chloride 0.9% [Normal Saline] 250 ml IV ONETIME dexAMETHasone [Decadron] Med 08/29/20 16:15 Active 6 mg IVPUSH DAILY Blood Culture x2 Reflex Set [OM.PC] Urgent Oth 08/29/20 13:51 Ordered Isolation [COMM] Stat Oth 08/29/20 13:53 Ordered Isolation [COMM] Stat Ot 08/29/20 16:02 Ordered Resuscitation Status Routine Resus Stat 08/29/20 16:56 Ordered Medication Orders Dexamethasone (Dexamethasone 4 Mg/Ml Sdv) 6 mg IVPUSH DAILY VON Stop: 09/07/20 09:01 Last Admin: 08/29/20 16:45 Dose: 6 mg Documented by: MACIEL Remdesivir 200 mg/ Sodium (Chloride) 250 mls @ 250 mls/hr IV ONETIME ONE Stop: 08/29/20 17:59 Last Admin: 08/29/20 16:48 Dose: 250 mls/hr Documented by: MACIEL Assessment/Plan Comment:: ASSESSMENT AND PLAN COVID-19 INFECTION-he is unaware of his exposure but did test positive today. Findings of infiltrates on chest x-ray with current symptom complex consistent with COVID-19 infection. -Limit IV fluids -Decadron 6 mg IV daily, today is day 1 -Remdesivir 200 mg IV given today, then 100 mg IV daily for 4 days -Supplemental oxygen as needed ACUTE ON CHRONIC HYPOXIC RESPIRATORY FAILURE-underlying obesity hypoventilation syndrome, with current Covid infection -Supplemental oxygen and respiratory support as needed -Continuous pulse oximetry -Consider early use of BiPAP MORBID OBESITY MAINTENANCE ISSUES -DVT prophylaxis; Lovenox 40 mg subcu every 12 hours, because of history of previous DVT and current Covid infection -GI prophylaxis; not indicated -Mares catheter; not indicated -Nutrition; regular diet -Nicotine dependence; not required CODE STATUS-FULL CODE ADMISSION STATUS-patient will be admitted to inpatient status, expect at least a 2 night hospital stay for evaluation and management of problems as outlined above. At the time of this admission I do not reasonably expected evaluation and management of this problem will require more than a 96 hour hospital stay. DISPOSITION-anticipate discharge to home after the hospital stay. PRIMARY CARE PROVIDER-Dr. Roberson - Mortality Measure Prognosis:: Poor
[2020-08-29] MEDS ORDERED: Polyethylene Glycol 3350 Powder 17 GM Packet PO PRN (18:10)
[2020-08-29] MEDS ORDERED: Sodium Chloride 0.9% 10 ML Syringe FLUSH PRN (18:10)
[2020-08-29] MEDS ORDERED: Ondansetron 4 MG/2 ML SDV IV PRN (18:10)
[2020-08-29] MEDS ORDERED: Acetaminophen 325 MG Tab PO PRN (18:10)
[2020-08-29] MEDS ORDERED: Albuterol 8 GM Inhaler INH PRN (18:10)
[2020-08-29] MEDS ORDERED: Fluticasone Propionate Nasal Spray 16 GM Bottle NAS PRN (18:10)
[2020-08-29] MEDS: HYDROmorphone 2 MG Tab PO PRN (18:28)
[2020-08-29] MEDS: Gabapentin 100 MG Cap PO SCH (20:12)
[2020-08-30] MEDS: HYDROmorphone 2 MG Tab PO PRN ×3 (05:55→20:57)
[2020-08-30] MEDS: Gabapentin 100 MG Cap PO SCH ×2 (08:06→20:57)
[2020-08-30] MEDS: Dexamethasone 4 MG/ML SDV IVPUSH SCH (08:07)
--- NOTE | 2020-08-30 08:54 | CR ---
CHEST: Portable 08/29/2020 at 3:57 PM CLINICAL HISTORY:Covid COMPARISON:02/10/2019 FINDINGS: Heart is enlarged. Pulmonary vascularity is partially obscured. There are diffuse bilateral patchy densities. Much of this is chronic. Superimposed pneumonitis is not excluded. There are atherosclerotic changes in the aorta. Impression: Diffuse increase in lung markings bilaterally some which is chronic. Superimposed pneumonitis is not excluded Cardiomegaly
[2020-08-30] MEDS: Enoxaparin 40 MG/0.4 ML Syringe SUBCUT SCH ×2 (09:12→09:13)
--- NOTE | 2020-08-30 16:26 | PCM.PN ---
- General Info Date of Service: 08/30/20 Subjective Update: Mr. Santa has been stable since admission yesterday. Currently requiring 2 to 5 L of oxygen via nasal cannula, oxygen saturations drop when he lies down. Functional Status: Reports: Tolerating Diet, Urinating - Review of Systems General: Reports: Weakness, Fatigue. Denies: Fever, Chills Pulmonary: Reports: Shortness of Breath. Denies: Pleuritic Chest Pain, Cough, Sputum, Hemoptysis, Wheezing Cardiovascular: Reports: Dyspnea on Exertion. Denies: Chest Pain, Palpitations, Orthopnea, PND, Edema, Lightheadedness Gastrointestinal: Reports: No Symptoms Genitourinary: Reports: No Symptoms - Patient Data Vitals - Most Recent: Last Vital Signs Temp 97.1 F 08/30/20 12:00 Pulse 62 08/30/20 06:00 Resp 12 08/30/20 14:00 BP 129/64 08/30/20 14:00 Pulse Ox 94 L 08/30/20 14:00 Weight - Most Recent: 432 lb 15.982 oz I&O - Last 24 Hours: Intake & Output 08/30/20 08/30/20 08/30/20 06:59 14:59 22:59 Output Total 550 Balance -550 Lab Results Last 24 Hours: Laboratory Results - last 24 hr 08/29/20 08/29/20 08/30/20 Range/Units 16:22 20:34 05:28 WBC 2.2 L (4.5-11.0) K/uL RBC 4.04 L (4.30-5.90) M/uL Hgb 12.0 (12.0-15.0) g/dL Hct 38.2 L (40.0-54.0) % MCV 95 (80-98) fL MCH 30 (27-31) pg MCHC 31 L (32-36) % Plt Count 72 L (150-400) K/uL Neut % (Auto) 76.9 H (36-66) % Lymph % (Auto) 14.0 L (24-44) % [place] % (Auto) 7.7 H (2-6) % Eos % (Auto) 0.5 L (2-4) % Baso % (Auto) 0.9 (0-1) % D-Dimer, Quantitative (0.0-500.0) ng/mL Puncture Site Lt radial ABG pH 7.444 (7.350-7.450) ABG pCO2 41.3 (35.0-42.0) mmHg ABG pO2 70.7 L (75.0-100.0) mmHg ABG HCO3 27.8 H (22.0-26.0) mmol/L ABG Total CO2 24.5 (23.0-27.0) mmol/L ABG O2 Saturation 93.9 L (95.0-98.0) % ABG O2 Content 17.4 (15.0-23.0) %vol ABG Base Excess 3.8 mm/L ABG Hemoglobin 13.4 L (13.5-18.0) g/dL ABG Oxyhemoglobin 92.2 % ABG Carboxyhemoglobin 1.3 (0.0-1.6) % ABG Methemoglobin 0.5 % John Test Pass O2 Delivery Device Nasal cannula Oxygen Flow Rate 3.0 L Sodium (140-148) mmol/L Potassium (3.6-5.2) mmol/L Chloride (100-108) mmol/L Carbon Dioxide (21-32) mmol/L Anion Gap (5.0-14.0) mmol/L BUN (7-18) mg/dL Creatinine (0.8-1.3) mg/dL Est Cr Clr Drug Dosing mL/min Estimated GFR (MDRD) (>60) Glucose (74-106) mg/dL Calcium (8.5-10.1) mg/dL Total Bilirubin (0.2-1.0) mg/dL AST (15-37) U/L ALT (12-78) U/L Alkaline Phosphatase (46-116) U/L C-Reactive Protein (0.0-0.3) mg/dL Total Protein (6.4-8.2) g/dL Albumin (3.4-5.0) g/dL Globulin (2.3-3.5) g/dL Albumin/Globulin Ratio (1.2-2.2) Urine Color Yellow (YELLOW) Urine Appearance Slightly cloudy A (CLEAR) Urine pH 5.5 (5.0-8.0) Ur Specific [place] >= 1.030 (1.008-1.030) Urine Protein Trace H (NEGATIVE) mg/dL Urine Glucose (UA) Negative (NEGATIVE) mg/dL Urine Ketones Negative (NEGATIVE) mg/dL Urine Occult Blood Moderate H (NEGATIVE) Urine Nitrite Negative (NEGATIVE) Urine Bilirubin Small H (NEGATIVE) Urine Urobilinogen 0.2 (0.2-1.0) EU/dL Ur Leukocyte Esterase Negative (NEGATIVE) Urine RBC 0-5 (0-5) Urine WBC 0-5 (0-5) Ur Epithelial Cells Rare Amorphous Sediment Rare Urine Bacteria Rare Urine Mucus Many 08/30/20 08/30/20 Range/Units 05:28 05:28 WBC (4.5-11.0) K/uL RBC (4.30-5.90) M/uL Hgb (12.0-15.0) g/dL Hct (40.0-54.0) % MCV (80-98) fL MCH (27-31) pg MCHC (32-36) % Plt Count (150-400) K/uL Neut % (Auto) (36-66) % Lymph % (Auto) (24-44) % [place] % (Auto) (2-6) % Eos % (Auto) (2-4) % Baso % (Auto) (0-1) % D-Dimer, Quantitative 4775.48 H (0.0-500.0) ng/mL Puncture Site ABG pH (7.350-7.450) ABG pCO2 (35.0-42.0) mmHg ABG pO2 (75.0-100.0) mmHg ABG HCO3 (22.0-26.0) mmol/L ABG Total CO2 (23.0-27.0) mmol/L ABG O2 Saturation (95.0-98.0) % ABG O2 Content (15.0-23.0) %vol ABG Base Excess mm/L ABG Hemoglobin (13.5-18.0) g/dL ABG Oxyhemoglobin % ABG Carboxyhemoglobin (0.0-1.6) % ABG Methemoglobin % John Test O2 Delivery Device Oxygen Flow Rate L Sodium 141 (140-148) mmol/L Potassium 4.2 (3.6-5.2) mmol/L Chloride 104 (100-108) mmol/L Carbon Dioxide 30 (21-32) mmol/L Anion Gap 7.1 (5.0-14.0) mmol/L BUN 7 (7-18) mg/dL Creatinine 0.7 L (0.8-1.3) mg/dL Est Cr Clr Drug Dosing 88.69 mL/min Estimated GFR (MDRD) > 60 (>60) Glucose 125 H (74-106) mg/dL Calcium 7.8 L (8.5-10.1) mg/dL Total Bilirubin 1.1 H (0.2-1.0) mg/dL AST 57 H (15-37) U/L ALT 41 (12-78) U/L Alkaline Phosphatase 46 (46-116) U/L C-Reactive Protein 3.37 H (0.0-0.3) mg/dL Total Protein 6.5 (6.4-8.2) g/dL Albumin 2.5 L (3.4-5.0) g/dL Globulin 4.0 H (2.3-3.5) g/dL Albumin/Globulin Ratio 0.6 L (1.2-2.2) Urine Color (YELLOW) Urine Appearance (CLEAR) Urine pH (5.0-8.0) Ur Specific [place] (1.008-1.030) Urine Protein (NEGATIVE) mg/dL Urine Glucose (UA) (NEGATIVE) mg/dL Urine Ketones (NEGATIVE) mg/dL Urine Occult Blood (NEGATIVE) Urine Nitrite (NEGATIVE) Urine Bilirubin (NEGATIVE) Urine Urobilinogen (0.2-1.0) EU/dL Ur Leukocyte Esterase (NEGATIVE) Urine RBC (0-5) Urine WBC (0-5) Ur Epithelial Cells Amorphous Sediment Urine Bacteria Urine Mucus [place] Results Last 24 Hours: Microbiology 08/29/20 14:22 Aerobic Blood Culture - Preliminary Blood - Venous NO GROWTH AFTER 1 DAY Anaerobic Blood Culture - Preliminary NO GROWTH AFTER 1 DAY 08/29/20 14:15 Aerobic Blood Culture - Preliminary Blood - Arm, Left NO GROWTH AFTER 1 DAY Anaerobic Blood Culture - Preliminary NO GROWTH AFTER 1 DAY Med Orders - Current: Current Medications Acetaminophen (Acetaminophen 325 Mg Tab) 650 mg PO Q4H PRN PRN Reason: Pain (Mild 1-3)/fever Albuterol (Albuterol 8 Gm Inhaler) 0 gm INH Q6H PRN PRN Reason: Shortness of Breath Dexamethasone (Dexamethasone 4 Mg/Ml Sdv) 6 mg IVPUSH DAILY VON Stop: 09/07/20 09:01 Last Admin: 08/30/20 08:07 Dose: 6 mg Documented by: Fluticasone Propionate (Fluticasone Propionate Nasal Cumm[place] 16 Gm Bottle) 0 gm CHELSY DAILY PRN PRN Reason: Allergies Gabapentin (Gabapentin 100 Mg Cap) 100 mg PO BID [facility] Last Admin: 08/30/20 08:06 Dose: 100 mg Documented by: Hydromorphone HCl (Hydromorphone 2 Mg Tab) 2 mg PO Q6H PRN PRN Reason: Pain Last Admin: 08/30/20 12:16 Dose: 2 mg Documented by: Remdesivir 100 mg/ Sodium (Chloride) 100 mls @ 100 mls/hr IV Q24H [facility] Stop: 09/02/20 17:59 Ondansetron HCl (Ondansetron 4 Mg/2 Ml Sdv) 4 mg IV Q4H PRN PRN Reason: Nausea/Vomiting Polyethylene Glycol (Polyethylene Glycol 3350 Powder 17 Gm Packet) 17 gm PO DAILY PRN PRN Reason: Constipation Sodium Chloride (Sodium Chloride 0.9% 10 Ml Syringe) 10 ml FLUSH ASDIRECTED PRN PRN Reason: Keep Vein Open Discontinued Medications Enoxaparin Sodium (Enoxaparin 40 Mg/0.4 Ml Syringe) 40 mg SUBCUT Q12H [facility] Last Admin: 08/30/20 09:13 Dose: Not Given Documented by: Remdesivir 200 mg/ Sodium (Chloride) 250 mls @ 250 mls/hr IV ONETIME ONE Stop: 08/29/20 17:59 Last Admin: 08/29/20 16:48 Dose: 250 mls/hr Documented by: - Exam Quality Assessment: Supplemental Oxygen, DVT Prophylaxis General: Alert, Oriented, Cooperative, Mild Distress Lungs: Clear to Auscultation, Normal Respiratory Effort, Decreased Breath Sounds Cardiovascular: Regular Rate, Regular Rhythm, No Murmurs GI/Abdominal Exam: Soft, Non-Tender, No Organomegaly, No Distention Extremities: Non-Tender, Pedal Edema - Patient Data Lab Results Last 24 hrs: Laboratory Results - last 24 hr 08/29/20 08/29/20 08/30/20 Range/Units 16:22 20:34 05:28 WBC 2.2 L (4.5-11.0) K/uL RBC 4.04 L (4.30-5.90) M/uL Hgb 12.0 (12.0-15.0) g/dL Hct 38.2 L (40.0-54.0) % MCV 95 (80-98) fL MCH 30 (27-31) pg MCHC 31 L (32-36) % Plt Count 72 L (150-400) K/uL Neut % (Auto) 76.9 H (36-66) % Lymph % (Auto) 14.0 L (24-44) % [place] % (Auto) 7.7 H (2-6) % Eos % (Auto) 0.5 L (2-4) % Baso % (Auto) 0.9 (0-1) % D-Dimer, Quantitative (0.0-500.0) ng/mL Puncture Site Lt radial ABG pH 7.444 (7.350-7.450) ABG pCO2 41.3 (35.0-42.0) mmHg ABG pO2 70.7 L (75.0-100.0) mmHg ABG HCO3 27.8 H (22.0-26.0) mmol/L ABG Total CO2 24.5 (23.0-27.0) mmol/L ABG O2 Saturation 93.9 L (95.0-98.0) % ABG O2 Content 17.4 (15.0-23.0) %vol ABG Base Excess 3.8 mm/L ABG Hemoglobin 13.4 L (13.5-18.0) g/dL ABG Oxyhemoglobin 92.2 % ABG Carboxyhemoglobin 1.3 (0.0-1.6) % ABG Methemoglobin 0.5 % John Test Pass O2 Delivery Device Nasal cannula Oxygen Flow Rate 3.0 L Sodium (140-148) mmol/L Potassium (3.6-5.2) mmol/L Chloride (100-108) mmol/L Carbon Dioxide (21-32) mmol/L Anion Gap (5.0-14.0) mmol/L BUN (7-18) mg/dL Creatinine (0.8-1.3) mg/dL Est Cr Clr Drug Dosing mL/min Estimated GFR (MDRD) (>60) Glucose (74-106) mg/dL Calcium (8.5-10.1) mg/dL Total Bilirubin (0.2-1.0) mg/dL AST (15-37) U/L ALT (12-78) U/L Alkaline Phosphatase (46-116) U/L C-Reactive Protein (0.0-0.3) mg/dL Total Protein (6.4-8.2) g/dL Albumin (3.4-5.0) g/dL Globulin (2.3-3.5) g/dL Albumin/Globulin Ratio (1.2-2.2) Urine Color Yellow (YELLOW) Urine Appearance Slightly cloudy A (CLEAR) Urine pH 5.5 (5.0-8.0) Ur Specific [place] >= 1.030 (1.008-1.030) Urine Protein Trace H (NEGATIVE) mg/dL Urine Glucose (UA) Negative (NEGATIVE) mg/dL Urine Ketones Negative (NEGATIVE) mg/dL Urine Occult Blood Moderate H (NEGATIVE) Urine Nitrite Negative (NEGATIVE) Urine Bilirubin Small H (NEGATIVE) Urine Urobilinogen 0.2 (0.2-1.0) EU/dL Ur Leukocyte Esterase Negative (NEGATIVE) Urine RBC 0-5 (0-5) Urine WBC 0-5 (0-5) Ur Epithelial Cells Rare Amorphous Sediment Rare Urine Bacteria Rare Urine Mucus Many 08/30/20 08/30/20 Range/Units 05:28 05:28 WBC (4.5-11.0) K/uL RBC (4.30-5.90) M/uL Hgb (12.0-15.0) g/dL Hct (40.0-54.0) % MCV (80-98) fL MCH (27-31) pg MCHC (32-36) % Plt Count (150-400) K/uL Neut % (Auto) (36-66) % Lymph % (Auto) (24-44) % [place] % (Auto) (2-6) % Eos % (Auto) (2-4) % Baso % (Auto) (0-1) % D-Dimer, Quantitative 4775.48 H (0.0-500.0) ng/mL Puncture Site ABG pH (7.350-7.450) ABG pCO2 (35.0-42.0) mmHg ABG pO2 (75.0-100.0) mmHg ABG HCO3 (22.0-26.0) mmol/L ABG Total CO2 (23.0-27.0) mmol/L ABG O2 Saturation (95.0-98.0) % ABG O2 Content (15.0-23.0) %vol ABG Base Excess mm/L ABG Hemoglobin (13.5-18.0) g/dL ABG Oxyhemoglobin % ABG Carboxyhemoglobin (0.0-1.6) % ABG Methemoglobin % John Test O2 Delivery Device Oxygen Flow Rate L Sodium 141 (140-148) mmol/L Potassium 4.2 (3.6-5.2) mmol/L Chloride 104 (100-108) mmol/L Carbon Dioxide 30 (21-32) mmol/L Anion Gap 7.1 (5.0-14.0) mmol/L BUN 7 (7-18) mg/dL Creatinine 0.7 L (0.8-1.3) mg/dL Est Cr Clr Drug Dosing 88.69 mL/min Estimated GFR (MDRD) > 60 (>60) Glucose 125 H (74-106) mg/dL Calcium 7.8 L (8.5-10.1) mg/dL Total Bilirubin 1.1 H (0.2-1.0) mg/dL AST 57 H (15-37) U/L ALT 41 (12-78) U/L Alkaline Phosphatase 46 (46-116) U/L C-Reactive Protein 3.37 H (0.0-0.3) mg/dL Total Protein 6.5 (6.4-8.2) g/dL Albumin 2.5 L (3.4-5.0) g/dL Globulin 4.0 H (2.3-3.5) g/dL Albumin/Globulin Ratio 0.6 L (1.2-2.2) Urine Color (YELLOW) Urine Appearance (CLEAR) Urine pH (5.0-8.0) Ur Specific [place] (1.008-1.030) Urine Protein (NEGATIVE) mg/dL Urine Glucose (UA) (NEGATIVE) mg/dL Urine Ketones (NEGATIVE) mg/dL Urine Occult Blood (NEGATIVE) Urine Nitrite (NEGATIVE) Urine Bilirubin (NEGATIVE) Urine Urobilinogen (0.2-1.0) EU/dL Ur Leukocyte Esterase (NEGATIVE) Urine RBC (0-5) Urine WBC (0-5) Ur Epithelial Cells Amorphous Sediment Urine Bacteria Urine Mucus Result Diagrams: 08/30/20 05:28 08/30/20 05:28 [place] Results Last 24 hrs: Microbiology 08/29/20 14:22 Aerobic Blood Culture - Preliminary Blood - Venous NO GROWTH AFTER 1 DAY Anaerobic Blood Culture - Preliminary NO GROWTH AFTER 1 DAY 08/29/20 14:15 Aerobic Blood Culture - Preliminary Blood - Arm, Left NO GROWTH AFTER 1 DAY Anaerobic Blood Culture - Preliminary NO GROWTH AFTER 1 DAY Sepsis Event Note - Evaluation Sepsis Screening Result: No Definite Risk - Focused Exam Vital Signs: Vital Signs Temp Pulse Resp BP Pulse Ox 08/30/20 14:00 12 129/64 94 L 08/30/20 12:00 97.1 F 12 121/64 92 L 08/30/20 10:00 16 125/66 92 L 08/30/20 08:00 97 F 14 121/59 L 97 08/30/20 06:00 62 16 122/62 93 L - Problem List Review Problem List Initiated/Reviewed/Updated: Yes - My Orders Last 24 Hours: My Active Orders 08/29/20 16:56 Resuscitation Status Routine 08/29/20 18:10 Acetaminophen [TylenoL] 650 mg PO Q4H PRN Albuterol [Ventolin HFA] 0 gm INH Q6H PRN HYDROmorphone [Dilaudid] 2 mg PO Q6H PRN Ondansetron [Zofran] 4 mg IV Q4H PRN Sodium Chloride 0.9% [Saline Flush] 10 ml FLUSH ASDIRECTED PRN polyethylene glycoL 3350 [MiraLAX] 17 gm PO DAILY PRN 08/29/20 18:10 Patient Status [ADT] Routine Ambulate [RC] QID Cardiac Monitoring [RC] Q6H Height and Weight [RC] DAILY Intake and Output [RC] QSHIFT Notify Provider Vital Signs [RC] ASDIRECTED Oxygen Therapy [RC] PRN RT Post Treatment Assessment [RC] Click to Edit Up With Assistance [RC] ASDIRECTED Up to Chair [RC] QID Vital Signs [RC] Q2H Saline Lock Insert [OM.PC] Routine 08/29/20 21:00 Gabapentin [Neurontin] 100 mg PO BID 08/30/20 07:09 Fluticasone Propionate [Flonase] 0 gm CHELSY DAILY PRN 08/30/20 08:15 Antiembolic Devices [RC] .Routine Sequential Compression Device [OM.PC] Routine 08/30/20 17:00 Remdesivir 100 mg Sodium Chloride 0.9% [Normal Saline] 100 ml IV Q24H 08/31/20 05:00 CBC WITH AUTO DIFF [HEME] Timed COMPREHENSIVE METABOLIC PN,CMP [CHEM] Timed 08/31/20 05:11 CRP [C-REACTIVE PROTEIN] [CHEM] AM D Dimer [D-DIMER QUANTITATIVE] [COAG] AM - Plan Plan:: ASSESSMENT AND PLAN COVID-19 INFECTION-he is unaware of his exposure but did test positive today. Findings of infiltrates on chest x-ray with current symptom complex consistent with COVID-19 infection. Stable since admission, currently requiring relatively low level of supplemental oxygen -Limit IV fluids -Decadron 6 mg IV daily, today is day 2 -Remdesivir 200 mg IV given today, then 100 mg IV daily for 4 days, today is day 1 of 4 -Supplemental oxygen as needed ACUTE ON CHRONIC HYPOXIC RESPIRATORY FAILURE-underlying obesity hypoventilation syndrome, with current Covid infection -Supplemental oxygen and respiratory support as needed -Continuous pulse oximetry -Consider early use of BiPAP MORBID OBESITY MAINTENANCE ISSUES -DVT prophylaxis; Lovenox 40 mg subcu every 12 hours, because of history of previous DVT and current Covid infection -GI prophylaxis; not indicated -Mares catheter; not indicated -Nutrition; regular diet -Nicotine dependence; not required CODE STATUS-FULL CODE ADMISSION STATUS-patient will be admitted to inpatient status, expect at least a 2 night hospital stay for evaluation and management of problems as outlined above. At the time of this admission I do not reasonably expected evaluation and management of this problem will require more than a 96 hour hospital stay. DISPOSITION-anticipate discharge to home after the hospital stay. PRIMARY CARE PROVIDER-Dr. Roberson
[2020-08-30] MEDS: REMDESIVIR 100 MG in Sodium Chloride 0.9% 100 ML IV SCH (17:09)
[2020-08-31] MEDS: HYDROmorphone 2 MG Tab PO PRN ×3 (04:47→21:50)
[2020-08-31] MEDS: Gabapentin 100 MG Cap PO SCH ×2 (09:02→21:50)
[2020-08-31] MEDS: Dexamethasone 4 MG/ML SDV IVPUSH SCH (09:02)
--- NOTE | 2020-08-31 14:59 | PCM.PN ---
- General Info Date of Service: 08/31/20 Subjective Update: Mr. Santa has remained fairly stable over the last 24 hours, currently requiring 2 L of oxygen per minute via nasal cannula. He has ongoing difficulty with cough which for the most part has been nonproductive. No significant temperature elevations, appetite improving. Functional Status: Reports: Tolerating Diet, Urinating - Review of Systems General: Reports: Weakness, Fatigue. Denies: Fever, Chills Pulmonary: Reports: Shortness of Breath, Cough. Denies: Pleuritic Chest Pain, Sputum, Hemoptysis, Wheezing Cardiovascular: Reports: Dyspnea on Exertion. Denies: Chest Pain, Palpitations, Orthopnea, PND, Edema, Lightheadedness Gastrointestinal: Reports: No Symptoms Genitourinary: Reports: No Symptoms - Patient Data Vitals - Most Recent: Last Vital Signs Temp 95.5 F L 08/31/20 08:00 Pulse 58 L 08/31/20 14:00 Resp 13 08/31/20 14:00 BP 124/61 08/31/20 14:00 Pulse Ox 94 L 08/31/20 14:00 Weight - Most Recent: 432 lb 15.982 oz I&O - Last 24 Hours: Intake & Output 08/30/20 08/31/20 08/31/20 22:59 06:59 14:59 Intake Total 100 600 200 Output Total 350 175 Balance 100 250 25 Lab Results Last 24 Hours: Laboratory Results - last 24 hr 08/31/20 08/31/20 08/31/20 Range/Units 05:30 05:30 05:30 WBC 5.6 (4.5-11.0) K/uL RBC 4.22 L (4.30-5.90) M/uL Hgb 12.7 (12.0-15.0) g/dL Hct 39.9 L (40.0-54.0) % MCV 95 (80-98) fL MCH 30 (27-31) pg MCHC 32 (32-36) % Plt Count 95 L (150-400) K/uL Neut % (Auto) 84.0 H (36-66) % Lymph % (Auto) 8.0 L (24-44) % [place] % (Auto) 7.4 H (2-6) % Eos % (Auto) 0.2 L (2-4) % Baso % (Auto) 0.4 (0-1) % D-Dimer, Quantitative 4376.27 H (0.0-500.0) ng/mL Sodium 143 (140-148) mmol/L Potassium 4.2 (3.6-5.2) mmol/L Chloride 104 (100-108) mmol/L Carbon Dioxide 30 (21-32) mmol/L Anion Gap 8.7 (5.0-14.0) mmol/L BUN 11 D (7-18) mg/dL Creatinine 0.9 (0.8-1.3) mg/dL Est Cr Clr Drug Dosing 68.98 mL/min Estimated GFR (MDRD) > 60 (>60) Glucose 138 H (74-106) mg/dL Calcium 8.3 L (8.5-10.1) mg/dL Total Bilirubin 1.0 (0.2-1.0) mg/dL AST 48 H (15-37) U/L ALT 41 (12-78) U/L Alkaline Phosphatase 48 (46-116) U/L C-Reactive Protein (0.0-0.3) mg/dL Total Protein 6.7 (6.4-8.2) g/dL Albumin 2.6 L (3.4-5.0) g/dL Globulin 4.1 H (2.3-3.5) g/dL Albumin/Globulin Ratio 0.6 L (1.2-2.2) // Range/Units 05:30 WBC (4.5-11.0) K/uL RBC (4.30-5.90) M/uL Hgb (12.0-15.0) g/dL Hct (40.0-54.0) % MCV (80-98) fL MCH (27-31) pg MCHC (32-36) % Plt Count (150-400) K/uL Neut % (Auto) (36-66) % Lymph % (Auto) (24-44) % [place] % (Auto) (2-6) % Eos % (Auto) (2-4) % Baso % (Auto) (0-1) % D-Dimer, Quantitative (0.0-500.0) ng/mL Sodium (140-148) mmol/L Potassium (3.6-5.2) mmol/L Chloride (100-108) mmol/L Carbon Dioxide (21-32) mmol/L Anion Gap (5.0-14.0) mmol/L BUN (7-18) mg/dL Creatinine (0.8-1.3) mg/dL Est Cr Clr Drug Dosing mL/min Estimated GFR (MDRD) (>60) Glucose (74-106) mg/dL Calcium (8.5-10.1) mg/dL Total Bilirubin (0.2-1.0) mg/dL AST (15-37) U/L ALT (12-78) U/L Alkaline Phosphatase (46-116) U/L C-Reactive Protein 2.78 H (0.0-0.3) mg/dL Total Protein (6.4-8.2) g/dL Albumin (3.4-5.0) g/dL Globulin (2.3-3.5) g/dL Albumin/Globulin Ratio (1.2-2.2) [place] Results Last 24 Hours: Microbiology 08/29/20 14:22 Aerobic Blood Culture - Preliminary Blood - Venous NO GROWTH AFTER 2 DAYS Anaerobic Blood Culture - Preliminary NO GROWTH AFTER 2 DAYS 08/29/20 14:15 Aerobic Blood Culture - Preliminary Blood - Arm, Left NO GROWTH AFTER 2 DAYS Anaerobic Blood Culture - Preliminary NO GROWTH AFTER 2 DAYS Med Orders - Current: Current Medications Acetaminophen (Acetaminophen 325 Mg Tab) 650 mg PO Q4H PRN PRN Reason: Pain (Mild 1-3)/fever Albuterol (Albuterol 8 Gm Inhaler) 0 gm INH Q6H PRN PRN Reason: Shortness of Breath Dexamethasone (Dexamethasone 4 Mg/Ml Sdv) 6 mg IVPUSH DAILY [facility] Stop: 09/07/20 09:01 Last Admin: 08/31/20 09:02 Dose: 6 mg Documented by: Fluticasone Propionate (Fluticasone Propionate Nasal [place] 16 Gm Bottle) 0 gm CHELSY DAILY PRN PRN Reason: Allergies Gabapentin (Gabapentin 100 Mg Cap) 100 mg PO BID VON Last Admin: 08/31/20 09:02 Dose: 100 mg Documented by: Hydromorphone HCl (Hydromorphone 2 Mg Tab) 2 mg PO Q6H PRN PRN Reason: Pain Last Admin: 08/31/20 04:47 Dose: 2 mg Documented by: Remdesivir 100 mg/ Sodium (Chloride) 100 mls @ 100 mls/hr IV Q24H [facility] Stop: 09/02/20 17:59 Last Admin: 08/30/20 17:09 Dose: 100 mls/hr Documented by: Ondansetron HCl (Ondansetron 4 Mg/2 Ml Sdv) 4 mg IV Q4H PRN PRN Reason: Nausea/Vomiting Polyethylene Glycol (Polyethylene Glycol 3350 Powder 17 Gm Packet) 17 gm PO DAILY PRN PRN Reason: Constipation Sodium Chloride (Sodium Chloride 0.9% 10 Ml Syringe) 10 ml FLUSH ASDIRECTED PRN PRN Reason: Keep Vein Open Discontinued Medications Enoxaparin Sodium (Enoxaparin 40 Mg/0.4 Ml Syringe) 40 mg SUBCUT Q12H [facility] Last Admin: 08/30/20 09:13 Dose: Not Given Documented by: Remdesivir 200 mg/ Sodium (Chloride) 250 mls @ 250 mls/hr IV ONETIME ONE Stop: 08/29/20 17:59 Last Admin: 08/29/20 16:48 Dose: 250 mls/hr Documented by: - Exam Quality Assessment: Supplemental Oxygen, DVT Prophylaxis General: Alert, Oriented, Cooperative, Mild Distress Lungs: Clear to Auscultation, Normal Respiratory Effort, Decreased Breath Sounds Cardiovascular: Regular Rate, Regular Rhythm, No Murmurs GI/Abdominal Exam: Soft, Non-Tender, No Organomegaly, No Distention Extremities: Non-Tender, Pedal Edema - Patient Data Lab Results Last 24 hrs: Laboratory Results - last 24 hr 08/31/20 08/31/20 08/31/20 Range/Units 05:30 05:30 05:30 WBC 5.6 (4.5-11.0) K/uL RBC 4.22 L (4.30-5.90) M/uL Hgb 12.7 (12.0-15.0) g/dL Hct 39.9 L (40.0-54.0) % MCV 95 (80-98) fL MCH 30 (27-31) pg MCHC 32 (32-36) % Plt Count 95 L (150-400) K/uL Neut % (Auto) 84.0 H (36-66) % Lymph % (Auto) 8.0 L (24-44) % Beadle % (Auto) 7.4 H (2-6) % Eos % (Auto) 0.2 L (2-4) % Baso % (Auto) 0.4 (0-1) % D-Dimer, Quantitative 4376.27 H (0.0-500.0) ng/mL Sodium 143 (140-148) mmol/L Potassium 4.2 (3.6-5.2) mmol/L Chloride 104 (100-108) mmol/L Carbon Dioxide 30 (21-32) mmol/L Anion Gap 8.7 (5.0-14.0) mmol/L BUN 11 D (7-18) mg/dL Creatinine 0.9 (0.8-1.3) mg/dL Est Cr Clr Drug Dosing 68.98 mL/min Estimated GFR (MDRD) > 60 (>60) Glucose 138 H (74-106) mg/dL Calcium 8.3 L (8.5-10.1) mg/dL Total Bilirubin 1.0 (0.2-1.0) mg/dL AST 48 H (15-37) U/L ALT 41 (12-78) U/L Alkaline Phosphatase 48 (46-116) U/L C-Reactive Protein (0.0-0.3) mg/dL Total Protein 6.7 (6.4-8.2) g/dL Albumin 2.6 L (3.4-5.0) g/dL Globulin 4.1 H (2.3-3.5) g/dL Albumin/Globulin Ratio 0.6 L (1.2-2.2) 05/28/ Range/Units 05:30 WBC (4.5-11.0) K/uL RBC (4.30-5.90) M/uL Hgb (12.0-15.0) g/dL Hct (40.0-54.0) % MCV (80-98) fL MCH (27-31) pg MCHC (32-36) % Plt Count (150-400) K/uL Neut % (Auto) (36-66) % Lymph % (Auto) (24-44) % [place] % (Auto) (2-6) % Eos % (Auto) (2-4) % Baso % (Auto) (0-1) % D-Dimer, Quantitative (0.0-500.0) ng/mL Sodium (140-148) mmol/L Potassium (3.6-5.2) mmol/L Chloride (100-108) mmol/L Carbon Dioxide (21-32) mmol/L Anion Gap (5.0-14.0) mmol/L BUN (7-18) mg/dL Creatinine (0.8-1.3) mg/dL Est Cr Clr Drug Dosing mL/min Estimated GFR (MDRD) (>60) Glucose (74-106) mg/dL Calcium (8.5-10.1) mg/dL Total Bilirubin (0.2-1.0) mg/dL AST (15-37) U/L ALT (12-78) U/L Alkaline Phosphatase (46-116) U/L C-Reactive Protein 2.78 H (0.0-0.3) mg/dL Total Protein (6.4-8.2) g/dL Albumin (3.4-5.0) g/dL Globulin (2.3-3.5) g/dL Albumin/Globulin Ratio (1.2-2.2) Result Diagrams: 08/31/20 05:30 08/31/20 05:30 [place] Results Last 24 hrs: Microbiology 08/29/20 14:22 Aerobic Blood Culture - Preliminary Blood - Venous NO GROWTH AFTER 2 DAYS Anaerobic Blood Culture - Preliminary NO GROWTH AFTER 2 DAYS 08/29/20 14:15 Aerobic Blood Culture - Preliminary Blood - Arm, Left NO GROWTH AFTER 2 DAYS Anaerobic Blood Culture - Preliminary NO GROWTH AFTER 2 DAYS Sepsis Event Note - Evaluation Sepsis Screening Result: No Definite Risk - Focused Exam Vital Signs: Vital Signs Temp Pulse Resp BP Pulse Ox 08/31/20 14:00 58 L 13 124/61 94 L 08/31/20 12:00 60 15 126/63 91 L 08/31/20 10:00 65 15 134/61 91 L 08/31/20 08:00 95.5 F L 54 L 13 133/78 90 L 08/31/20 06:00 97.6 F 66 15 124/74 93 L 08/31/20 04:00 57 L 17 124/70 93 L - Problem List Review Problem List Initiated/Reviewed/Updated: Yes - My Orders Last 24 Hours: My Active Orders 08/30/20 17:00 Remdesivir 100 mg Sodium Chloride 0.9% [Normal Saline] 100 ml IV Q24H 09/01/20 05:00 CBC WITH AUTO DIFF [HEME] Timed COMPREHENSIVE METABOLIC PN,CMP [CHEM] Timed 09/01/20 05:11 CRP [C-REACTIVE PROTEIN] [CHEM] AM D Dimer [D-DIMER QUANTITATIVE] [COAG] AM - Plan Plan:: ASSESSMENT AND PLAN COVID-19 INFECTION-stable since yesterday with no significant worsening of respiratory status -Limit IV fluids -Decadron 6 mg IV daily, today is day 3 -Remdesivir 200 mg IV given today, then 100 mg IV daily for 4 days, today is day 2 of 4 -Supplemental oxygen as needed ACUTE ON CHRONIC HYPOXIC RESPIRATORY FAILURE-underlying obesity hypoventilation syndrome, with current Covid infection -Supplemental oxygen and respiratory support as needed -Continuous pulse oximetry -Consider early use of BiPAP MORBID OBESITY MAINTENANCE ISSUES -DVT prophylaxis; Lovenox 40 mg subcu every 12 hours, because of history of previous DVT and current Covid infection -GI prophylaxis; not indicated -Mares catheter; not indicated -Nutrition; regular diet -Nicotine dependence; not required CODE STATUS-FULL CODE ADMISSION STATUS-patient will be admitted to inpatient status, expect at least a 2 night hospital stay for evaluation and management of problems as outlined above. At the time of this admission I do not reasonably expected evaluation and management of this problem will require more than a 96 hour hospital stay. DISPOSITION-anticipate discharge to home after the hospital stay. PRIMARY CARE PROVIDER-Dr. Roberson
[2020-08-31] MEDS: REMDESIVIR 100 MG in Sodium Chloride 0.9% 100 ML IV SCH (18:16)
[2020-09-01] MEDS: Albuterol 8 GM Inhaler INH PRN ×2 (04:31→19:57)
[2020-09-01] MEDS: HYDROmorphone 2 MG Tab PO PRN ×2 (05:39→19:10)
[2020-09-01] MEDS: Gabapentin 100 MG Cap PO SCH ×2 (08:17→21:28)
[2020-09-01] MEDS: Dexamethasone 4 MG/ML SDV IVPUSH SCH (08:17)
--- NOTE | 2020-09-01 10:48 | PCM.PN ---
- General Info Date of Service: 09/01/20 Subjective Update: Mr. Santa feels improved with increased energy level and appetite. Vital signs have been stable and he has remained afebrile. Respiratory status stable with n o evidence of significant worsening since yesterday. Subjectively reports less shortness of breath and cough. Functional Status: Reports: Tolerating Diet, Urinating - Review of Systems General: Reports: Weakness, Fatigue. Denies: Fever, Chills Pulmonary: Reports: Shortness of Breath, Cough. Denies: Pleuritic Chest Pain, Sputum, Hemoptysis, Wheezing Cardiovascular: Reports: Dyspnea on Exertion. Denies: Chest Pain, Palpitations, Orthopnea, PND, Edema, Lightheadedness Gastrointestinal: Reports: No Symptoms - Patient Data Vitals - Most Recent: Last Vital Signs Temp 97.7 F 09/01/20 08:00 Pulse 60 09/01/20 06:00 Resp 16 09/01/20 08:00 BP 145/82 H 09/01/20 08:00 Pulse Ox 93 L 09/01/20 08:00 Weight - Most Recent: 434 lb 8 oz I&O - Last 24 Hours: Intake & Output 08/31/20 09/01/20 09/01/20 22:59 06:59 14:59 Intake Total 600 1000 Output Total 200 300 Balance 400 700 Lab Results Last 24 Hours: Laboratory Results - last 24 hr 09/01/20 09/01/20 09/01/20 Range/Units 06:05 06:05 06:05 WBC 4.4 L (4.5-11.0) K/uL RBC 4.20 L (4.30-5.90) M/uL Hgb 12.5 (12.0-15.0) g/dL Hct 39.7 L (40.0-54.0) % MCV 95 (80-98) fL MCH 30 (27-31) pg MCHC 32 (32-36) % Plt Count 86 L (150-400) K/uL Neut % (Auto) 76.8 H (36-66) % Lymph % (Auto) 10.7 L (24-44) % [place] % (Auto) 11.6 H (2-6) % Eos % (Auto) 0.7 L (2-4) % Baso % (Auto) 0.2 (0-1) % D-Dimer, Quantitative 5334.96 H (0.0-500.0) ng/mL Sodium 142 (140-148) mmol/L Potassium 4.0 (3.6-5.2) mmol/L Chloride 104 (100-108) mmol/L Carbon Dioxide 32 (21-32) mmol/L Anion Gap 6.4 (5.0-14.0) mmol/L BUN 13 (7-18) mg/dL Creatinine 0.8 (0.8-1.3) mg/dL Est Cr Clr Drug Dosing 77.60 mL/min Estimated GFR (MDRD) > 60 (>60) Glucose 109 H (74-106) mg/dL Calcium 8.2 L (8.5-10.1) mg/dL Total Bilirubin 0.9 (0.2-1.0) mg/dL AST 35 (15-37) U/L ALT 37 (12-78) U/L Alkaline Phosphatase 49 (46-116) U/L C-Reactive Protein (0.0-0.3) mg/dL Total Protein 6.6 (6.4-8.2) g/dL Albumin 2.7 L (3.4-5.0) g/dL Globulin 3.9 H (2.3-3.5) g/dL Albumin/Globulin Ratio 0.7 L (1.2-2.2) // Range/Units 06:05 WBC (4.5-11.0) K/uL RBC (4.30-5.90) M/uL Hgb (12.0-15.0) g/dL Hct (40.0-54.0) % MCV (80-98) fL MCH (27-31) pg MCHC (32-36) % Plt Count (150-400) K/uL Neut % (Auto) (36-66) % Lymph % (Auto) (24-44) % [place] % (Auto) (2-6) % Eos % (Auto) (2-4) % Baso % (Auto) (0-1) % D-Dimer, Quantitative (0.0-500.0) ng/mL Sodium (140-148) mmol/L Potassium (3.6-5.2) mmol/L Chloride (100-108) mmol/L Carbon Dioxide (21-32) mmol/L Anion Gap (5.0-14.0) mmol/L BUN (7-18) mg/dL Creatinine (0.8-1.3) mg/dL Est Cr Clr Drug Dosing mL/min Estimated GFR (MDRD) (>60) Glucose (74-106) mg/dL Calcium (8.5-10.1) mg/dL Total Bilirubin (0.2-1.0) mg/dL AST (15-37) U/L ALT (12-78) U/L Alkaline Phosphatase (46-116) U/L C-Reactive Protein 1.85 H (0.0-0.3) mg/dL Total Protein (6.4-8.2) g/dL Albumin (3.4-5.0) g/dL Globulin (2.3-3.5) g/dL Albumin/Globulin Ratio (1.2-2.2) [place] Results Last 24 Hours: Microbiology 08/29/20 14:22 Aerobic Blood Culture - Preliminary Blood - Venous NO GROWTH AFTER 2 DAYS Anaerobic Blood Culture - Preliminary NO GROWTH AFTER 2 DAYS 08/29/20 14:15 Aerobic Blood Culture - Preliminary Blood - Arm, Left NO GROWTH AFTER 2 DAYS Anaerobic Blood Culture - Preliminary NO GROWTH AFTER 2 DAYS Med Orders - Current: Current Medications Acetaminophen (Acetaminophen 325 Mg Tab) 650 mg PO Q4H PRN PRN Reason: Pain (Mild 1-3)/fever Albuterol (Albuterol 8 Gm Inhaler) 0 gm INH Q2H PRN PRN Reason: Shortness of Breath Last Admin: 09/01/20 04:31 Dose: 2 puff Documented by: Dexamethasone (Dexamethasone 4 Mg/Ml Sdv) 6 mg IVPUSH DAILY [facility] Stop: 09/07/20 09:01 Last Admin: 09/01/20 08:17 Dose: 6 mg Documented by: Fluticasone Propionate (Fluticasone Propionate Nasal [place] 16 Gm Bottle) 0 gm CHELSY DAILY PRN PRN Reason: Allergies Gabapentin (Gabapentin 100 Mg Cap) 100 mg PO BID [facility] Last Admin: 09/01/20 08:17 Dose: 100 mg Documented by: Hydromorphone HCl (Hydromorphone 2 Mg Tab) 2 mg PO Q6H PRN PRN Reason: Pain Last Admin: 09/01/20 05:39 Dose: 2 mg Documented by: Remdesivir 100 mg/ Sodium (Chloride) 100 mls @ 100 mls/hr IV Q24H [facility] Stop: 09/02/20 17:59 Last Admin: 08/31/20 18:16 Dose: 100 mls/hr Documented by: Ondansetron HCl (Ondansetron 4 Mg/2 Ml Sdv) 4 mg IV Q4H PRN PRN Reason: Nausea/Vomiting Polyethylene Glycol (Polyethylene Glycol 3350 Powder 17 Gm Packet) 17 gm PO DAILY PRN PRN Reason: Constipation Sodium Chloride (Sodium Chloride 0.9% 10 Ml Syringe) 10 ml FLUSH ASDIRECTED PRN PRN Reason: Keep Vein Open Discontinued Medications Albuterol (Albuterol 8 Gm Inhaler) 0 gm INH Q6H PRN PRN Reason: Shortness of Breath Last Admin: 08/31/20 16:02 Dose: 2 puff Documented by: Enoxaparin Sodium (Enoxaparin 40 Mg/0.4 Ml Syringe) 40 mg SUBCUT Q12H [facility] Last Admin: 08/30/20 09:13 Dose: Not Given Documented by: Remdesivir 200 mg/ Sodium (Chloride) 250 mls @ 250 mls/hr IV ONETIME ONE Stop: 08/29/20 17:59 Last Admin: 08/29/20 16:48 Dose: 250 mls/hr Documented by: - Exam Quality Assessment: Supplemental Oxygen, DVT Prophylaxis General: Alert, Oriented, Cooperative, Mild Distress Lungs: Clear to Auscultation, Normal Respiratory Effort, Decreased Breath Sounds Cardiovascular: Regular Rate, Regular Rhythm, No Murmurs GI/Abdominal Exam: Soft, Non-Tender, No Organomegaly, No Distention Extremities: Non-Tender, Pedal Edema - Patient Data Lab Results Last 24 hrs: Laboratory Results - last 24 hr 09/01/20 09/01/20 09/01/20 Range/Units 06:05 06:05 06:05 WBC 4.4 L (4.5-11.0) K/uL RBC 4.20 L (4.30-5.90) M/uL Hgb 12.5 (12.0-15.0) g/dL Hct 39.7 L (40.0-54.0) % MCV 95 (80-98) fL MCH 30 (27-31) pg MCHC 32 (32-36) % Plt Count 86 L (150-400) K/uL Neut % (Auto) 76.8 H (36-66) % Lymph % (Auto) 10.7 L (24-44) % [place] % (Auto) 11.6 H (2-6) % Eos % (Auto) 0.7 L (2-4) % Baso % (Auto) 0.2 (0-1) % D-Dimer, Quantitative 5334.96 H (0.0-500.0) ng/mL Sodium 142 (140-148) mmol/L Potassium 4.0 (3.6-5.2) mmol/L Chloride 104 (100-108) mmol/L Carbon Dioxide 32 (21-32) mmol/L Anion Gap 6.4 (5.0-14.0) mmol/L BUN 13 (7-18) mg/dL Creatinine 0.8 (0.8-1.3) mg/dL Est Cr Clr Drug Dosing 77.60 mL/min Estimated GFR (MDRD) > 60 (>60) Glucose 109 H (74-106) mg/dL Calcium 8.2 L (8.5-10.1) mg/dL Total Bilirubin 0.9 (0.2-1.0) mg/dL AST 35 (15-37) U/L ALT 37 (12-78) U/L Alkaline Phosphatase 49 (46-116) U/L C-Reactive Protein (0.0-0.3) mg/dL Total Protein 6.6 (6.4-8.2) g/dL Albumin 2.7 L (3.4-5.0) g/dL Globulin 3.9 H (2.3-3.5) g/dL Albumin/Globulin Ratio 0.7 L (1.2-2.2) 09/01/20 Range/Units 06:05 WBC (4.5-11.0) K/uL RBC (4.30-5.90) M/uL Hgb (12.0-15.0) g/dL Hct (40.0-54.0) % MCV (80-98) fL MCH (27-31) pg MCHC (32-36) % Plt Count (150-400) K/uL Neut % (Auto) (36-66) % Lymph % (Auto) (24-44) % [place] % (Auto) (2-6) % Eos % (Auto) (2-4) % Baso % (Auto) (0-1) % D-Dimer, Quantitative (0.0-500.0) ng/mL Sodium (140-148) mmol/L Potassium (3.6-5.2) mmol/L Chloride (100-108) mmol/L Carbon Dioxide (21-32) mmol/L Anion Gap (5.0-14.0) mmol/L BUN (7-18) mg/dL Creatinine (0.8-1.3) mg/dL Est Cr Clr Drug Dosing mL/min Estimated GFR (MDRD) (>60) Glucose (74-106) mg/dL Calcium (8.5-10.1) mg/dL Total Bilirubin (0.2-1.0) mg/dL AST (15-37) U/L ALT (12-78) U/L Alkaline Phosphatase (46-116) U/L C-Reactive Protein 1.85 H (0.0-0.3) mg/dL Total Protein (6.4-8.2) g/dL Albumin (3.4-5.0) g/dL Globulin (2.3-3.5) g/dL Albumin/Globulin Ratio (1.2-2.2) Result Diagrams: 09/01/20 06:05 09/01/20 06:05 [place] Results Last 24 hrs: Microbiology 08/29/20 14:22 Aerobic Blood Culture - Preliminary Blood - Venous NO GROWTH AFTER 2 DAYS Anaerobic Blood Culture - Preliminary NO GROWTH AFTER 2 DAYS 08/29/20 14:15 Aerobic Blood Culture - Preliminary Blood - Arm, Left NO GROWTH AFTER 2 DAYS Anaerobic Blood Culture - Preliminary NO GROWTH AFTER 2 DAYS Sepsis Event Note - Evaluation Sepsis Screening Result: No Definite Risk - Focused Exam Vital Signs: Vital Signs Temp Pulse Resp BP Pulse Ox 09/01/20 08:00 97.7 F 16 145/82 H 93 L 09/01/20 06:00 60 15 139/64 92 L 09/01/20 04:00 98.1 F 52 L 23 H 127/68 92 L 09/01/20 02:00 56 L 17 142/61 H 93 L 09/01/20 00:00 68 18 140/68 91 L - Problem List Review Problem List Initiated/Reviewed/Updated: Yes - My Orders Last 24 Hours: My Active Orders 08/31/20 16:19 Albuterol [Ventolin HFA] See Dose Instructions INH Q2H PRN 09/02/20 05:00 CBC WITH AUTO DIFF [HEME] Timed COMPREHENSIVE METABOLIC PN,CMP [CHEM] Timed 09/02/20 05:11 CRP [C-REACTIVE PROTEIN] [CHEM] AM D Dimer [D-DIMER QUANTITATIVE] [COAG] AM - Plan Plan:: ASSESSMENT AND PLAN COVID-19 INFECTION-stable since yesterday with no significant worsening of respiratory status -Limit IV fluids -Decadron 6 mg IV daily, today is day 4 -Remdesivir 200 mg IV given today, then 100 mg IV daily for 4 days, today is day 3 of 4 -Supplemental oxygen as needed ACUTE ON CHRONIC HYPOXIC RESPIRATORY FAILURE-underlying obesity hypoventilation syndrome, with current Covid infection. Oxygen use has been stable over the last 24 hours -Supplemental oxygen and respiratory support as needed -Continuous pulse oximetry -Consider early use of BiPAP MORBID OBESITY MAINTENANCE ISSUES -DVT prophylaxis; SCUDs, use of anticoagulation limited by thrombocytopenia -GI prophylaxis; not indicated -Mares catheter; not indicated -Nutrition; regular diet -Nicotine dependence; not required CODE STATUS-FULL CODE ADMISSION STATUS-patient will be admitted to inpatient status, expect at least a 2 night hospital stay for evaluation and management of problems as outlined above. At the time of this admission I do not reasonably expected evaluation and management of this problem will require more than a 96 hour hospital stay. DISPOSITION-anticipate discharge to home after the hospital stay. PRIMARY CARE PROVIDER-Dr. Roberson
[2020-09-01] MEDS: REMDESIVIR 100 MG in Sodium Chloride 0.9% 100 ML IV SCH (16:17)
[2020-09-02] MEDS: Dexamethasone 4 MG/ML SDV IVPUSH SCH (08:29)
[2020-09-02] MEDS: HYDROmorphone 2 MG Tab PO PRN ×2 (08:29→19:39)
[2020-09-02] MEDS: Gabapentin 100 MG Cap PO SCH ×2 (08:29→20:21)
--- NOTE | 2020-09-02 09:57 | PCM.PN ---
- General Info Date of Service: 09/02/20 Subjective Update: Mr. Santa has been fairly stable since yesterday, now off of supplemental oxygen. Remains weak, he did slide out of his wheelchair yesterday, but did not experience significant injury. Vital signs have been stable and he has been afebrile. Will likely require custodial placement for restorative physical therapy and Occupational Therapy. Functional Status: Reports: Tolerating Diet, Ambulating, Urinating - Review of Systems General: Reports: Weakness, Fatigue. Denies: Fever, Chills Pulmonary: Reports: No Symptoms Cardiovascular: Reports: No Symptoms Gastrointestinal: Reports: No Symptoms Genitourinary: Reports: No Symptoms - Patient Data Vitals - Most Recent: Last Vital Signs Temp 97.8 F 09/02/20 08:00 Pulse 63 09/02/20 06:00 Resp 12 09/02/20 08:00 BP 148/90 H 09/02/20 08:00 Pulse Ox 90 L 09/02/20 08:00 Weight - Most Recent: 434 lb 8 oz I&O - Last 24 Hours: Intake & Output 09/01/20 09/02/20 09/02/20 22:59 06:59 14:59 Intake Total 1300 600 Output Total 200 300 Balance 1100 300 Lab Results Last 24 Hours: Laboratory Results - last 24 hr 09/02/20 09/02/20 09/02/20 Range/Units 05:44 05:44 05:44 WBC 4.5 (4.5-11.0) K/uL RBC 4.35 (4.30-5.90) M/uL Hgb 13.0 (12.0-15.0) g/dL Hct 41.3 (40.0-54.0) % MCV 95 (80-98) fL MCH 30 (27-31) pg MCHC 32 (32-36) % Plt Count 86 L (150-400) K/uL Neut % (Auto) 72.4 H (36-66) % Lymph % (Auto) 12.6 L (24-44) % [place] % (Auto) 14.1 H (2-6) % Eos % (Auto) 0.7 L (2-4) % Baso % (Auto) 0.2 (0-1) % D-Dimer, Quantitative 6912.77 H (0.0-500.0) ng/mL Sodium 145 (140-148) mmol/L Potassium 4.0 (3.6-5.2) mmol/L Chloride 106 (100-108) mmol/L Carbon Dioxide 33 H (21-32) mmol/L Anion Gap 10.0 (5.0-14.0) mmol/L BUN 13 (7-18) mg/dL Creatinine 0.9 (0.8-1.3) mg/dL Est Cr Clr Drug Dosing 68.98 mL/min Estimated GFR (MDRD) > 60 (>60) Glucose 115 H (74-106) mg/dL Calcium 8.6 (8.5-10.1) mg/dL Total Bilirubin 0.9 (0.2-1.0) mg/dL AST 41 H (15-37) U/L ALT 38 (12-78) U/L Alkaline Phosphatase 54 (46-116) U/L C-Reactive Protein (0.0-0.3) mg/dL Total Protein 6.7 (6.4-8.2) g/dL Albumin 2.7 L (3.4-5.0) g/dL Globulin 4.0 H (2.3-3.5) g/dL Albumin/Globulin Ratio 0.7 L (1.2-2.2) 05/30/ Range/Units 05:44 WBC (4.5-11.0) K/uL RBC (4.30-5.90) M/uL Hgb (12.0-15.0) g/dL Hct (40.0-54.0) % MCV (80-98) fL MCH (27-31) pg MCHC (32-36) % Plt Count (150-400) K/uL Neut % (Auto) (36-66) % Lymph % (Auto) (24-44) % Woodson % (Auto) (2-6) % Eos % (Auto) (2-4) % Baso % (Auto) (0-1) % D-Dimer, Quantitative (0.0-500.0) ng/mL Sodium (140-148) mmol/L Potassium (3.6-5.2) mmol/L Chloride (100-108) mmol/L Carbon Dioxide (21-32) mmol/L Anion Gap (5.0-14.0) mmol/L BUN (7-18) mg/dL Creatinine (0.8-1.3) mg/dL Est Cr Clr Drug Dosing mL/min Estimated GFR (MDRD) (>60) Glucose (74-106) mg/dL Calcium (8.5-10.1) mg/dL Total Bilirubin (0.2-1.0) mg/dL AST (15-37) U/L ALT (12-78) U/L Alkaline Phosphatase (46-116) U/L C-Reactive Protein 1.31 H (0.0-0.3) mg/dL Total Protein (6.4-8.2) g/dL Albumin (3.4-5.0) g/dL Globulin (2.3-3.5) g/dL Albumin/Globulin Ratio (1.2-2.2) [place] Results Last 24 Hours: Microbiology 08/29/20 14:22 Aerobic Blood Culture - Preliminary Blood - Venous NO GROWTH AFTER 3 DAYS Anaerobic Blood Culture - Preliminary NO GROWTH AFTER 3 DAYS 08/29/20 14:15 Aerobic Blood Culture - Preliminary Blood - Arm, Left NO GROWTH AFTER 3 DAYS Anaerobic Blood Culture - Preliminary NO GROWTH AFTER 3 DAYS Med Orders - Current: Current Medications Acetaminophen (Acetaminophen 325 Mg Tab) 650 mg PO Q4H PRN PRN Reason: Pain (Mild 1-3)/fever Albuterol (Albuterol 8 Gm Inhaler) 0 gm INH Q2H PRN PRN Reason: Shortness of Breath Last Admin: 09/01/20 19:57 Dose: 2 puff Documented by: Dexamethasone (Dexamethasone 4 Mg/Ml Sdv) 6 mg IVPUSH DAILY [facility] Stop: 09/07/20 09:01 Last Admin: 09/02/20 08:29 Dose: 6 mg Documented by: Fluticasone Propionate (Fluticasone Propionate Nasal [place] 16 Gm Bottle) 0 gm CHELSY DAILY PRN PRN Reason: Allergies Gabapentin (Gabapentin 100 Mg Cap) 100 mg PO BID [facility] Last Admin: 09/02/20 08:29 Dose: 100 mg Documented by: Hydromorphone HCl (Hydromorphone 2 Mg Tab) 2 mg PO Q6H PRN PRN Reason: Pain Last Admin: 09/02/20 08:29 Dose: 2 mg Documented by: Remdesivir 100 mg/ Sodium (Chloride) 100 mls @ 100 mls/hr IV Q24H [facility] Stop: 09/02/20 17:59 Last Admin: 09/01/20 16:17 Dose: 100 mls/hr Documented by: Ondansetron HCl (Ondansetron 4 Mg/2 Ml Sdv) 4 mg IV Q4H PRN PRN Reason: Nausea/Vomiting Polyethylene Glycol (Polyethylene Glycol 3350 Powder 17 Gm Packet) 17 gm PO DAILY PRN PRN Reason: Constipation Sodium Chloride (Sodium Chloride 0.9% 10 Ml Syringe) 10 ml FLUSH ASDIRECTED PRN PRN Reason: Keep Vein Open Discontinued Medications Albuterol (Albuterol 8 Gm Inhaler) 0 gm INH Q6H PRN PRN Reason: Shortness of Breath Last Admin: 08/31/20 16:02 Dose: 2 puff Documented by: Enoxaparin Sodium (Enoxaparin 40 Mg/0.4 Ml Syringe) 40 mg SUBCUT Q12H [facility] Last Admin: 08/30/20 09:13 Dose: Not Given Documented by: Remdesivir 200 mg/ Sodium (Chloride) 250 mls @ 250 mls/hr IV ONETIME ONE Stop: 08/29/20 17:59 Last Admin: 08/29/20 16:48 Dose: 250 mls/hr Documented by: - Exam Quality Assessment: DVT Prophylaxis General: Alert, Oriented, Cooperative, No Acute Distress Lungs: Clear to Auscultation, Normal Respiratory Effort Cardiovascular: Regular Rate, Regular Rhythm, No Murmurs GI/Abdominal Exam: Soft, Non-Tender, No Organomegaly, No Distention Extremities: Non-Tender, Pedal Edema - Patient Data Lab Results Last 24 hrs: Laboratory Results - last 24 hr 09/02/20 09/02/20 09/02/20 Range/Units 05:44 05:44 05:44 WBC 4.5 (4.5-11.0) K/uL RBC 4.35 (4.30-5.90) M/uL Hgb 13.0 (12.0-15.0) g/dL Hct 41.3 (40.0-54.0) % MCV 95 (80-98) fL MCH 30 (27-31) pg MCHC 32 (32-36) % Plt Count 86 L (150-400) K/uL Neut % (Auto) 72.4 H (36-66) % Lymph % (Auto) 12.6 L (24-44) % Woodson % (Auto) 14.1 H (2-6) % Eos % (Auto) 0.7 L (2-4) % Baso % (Auto) 0.2 (0-1) % D-Dimer, Quantitative 6912.77 H (0.0-500.0) ng/mL Sodium 145 (140-148) mmol/L Potassium 4.0 (3.6-5.2) mmol/L Chloride 106 (100-108) mmol/L Carbon Dioxide 33 H (21-32) mmol/L Anion Gap 10.0 (5.0-14.0) mmol/L BUN 13 (7-18) mg/dL Creatinine 0.9 (0.8-1.3) mg/dL Est Cr Clr Drug Dosing 68.98 mL/min Estimated GFR (MDRD) > 60 (>60) Glucose 115 H (74-106) mg/dL Calcium 8.6 (8.5-10.1) mg/dL Total Bilirubin 0.9 (0.2-1.0) mg/dL AST 41 H (15-37) U/L ALT 38 (12-78) U/L Alkaline Phosphatase 54 (46-116) U/L C-Reactive Protein (0.0-0.3) mg/dL Total Protein 6.7 (6.4-8.2) g/dL Albumin 2.7 L (3.4-5.0) g/dL Globulin 4.0 H (2.3-3.5) g/dL Albumin/Globulin Ratio 0.7 L (1.2-2.2) 09/02/20 Range/Units 05:44 WBC (4.5-11.0) K/uL RBC (4.30-5.90) M/uL Hgb (12.0-15.0) g/dL Hct (40.0-54.0) % MCV (80-98) fL MCH (27-31) pg MCHC (32-36) % Plt Count (150-400) K/uL Neut % (Auto) (36-66) % Lymph % (Auto) (24-44) % Woodson % (Auto) (2-6) % Eos % (Auto) (2-4) % Baso % (Auto) (0-1) % D-Dimer, Quantitative (0.0-500.0) ng/mL Sodium (140-148) mmol/L Potassium (3.6-5.2) mmol/L Chloride (100-108) mmol/L Carbon Dioxide (21-32) mmol/L Anion Gap (5.0-14.0) mmol/L BUN (7-18) mg/dL Creatinine (0.8-1.3) mg/dL Est Cr Clr Drug Dosing mL/min Estimated GFR (MDRD) (>60) Glucose (74-106) mg/dL Calcium (8.5-10.1) mg/dL Total Bilirubin (0.2-1.0) mg/dL AST (15-37) U/L ALT (12-78) U/L Alkaline Phosphatase (46-116) U/L C-Reactive Protein 1.31 H (0.0-0.3) mg/dL Total Protein (6.4-8.2) g/dL Albumin (3.4-5.0) g/dL Globulin (2.3-3.5) g/dL Albumin/Globulin Ratio (1.2-2.2) Result Diagrams: 09/02/20 05:44 09/02/20 05:44 [place] Results Last 24 hrs: Microbiology 08/29/20 14:22 Aerobic Blood Culture - Preliminary Blood - Venous NO GROWTH AFTER 3 DAYS Anaerobic Blood Culture - Preliminary NO GROWTH AFTER 3 DAYS 08/29/20 14:15 Aerobic Blood Culture - Preliminary Blood - Arm, Left NO GROWTH AFTER 3 DAYS Anaerobic Blood Culture - Preliminary NO GROWTH AFTER 3 DAYS Sepsis Event Note - Evaluation Sepsis Screening Result: No Definite Risk - Focused Exam Vital Signs: Vital Signs Temp Pulse Resp BP Pulse Ox 09/02/20 08:00 97.8 F 12 148/90 H 90 L 09/02/20 06:00 63 19 134/65 09/02/20 04:00 98.0 F 68 15 143/71 H 91 L 09/02/20 02:00 65 18 146/79 H 91 L 09/02/20 00:00 67 16 130/64 89 L 09/01/20 22:00 74 21 H 144/72 H 90 L - Problem List Review Problem List Initiated/Reviewed/Updated: Yes - My Orders Last 24 Hours: My Active Orders 09/02/20 09:53 Patient Status [ADT] Routine - Plan Plan:: ASSESSMENT AND PLAN COVID-19 INFECTION-stable since yesterday with no significant worsening of respiratory status -Limit IV fluids -Decadron 6 mg IV daily, today is day 5 -Remdesivir 200 mg IV given today, then 100 mg IV daily for 4 days, today is day 4 of 4 -Supplemental oxygen as needed ACUTE ON CHRONIC HYPOXIC RESPIRATORY FAILURE-underlying obesity hypoventilation syndrome, with current Covid infection. During the day is off of supplemental oxygen -Supplemental oxygen and respiratory support as needed -Continuous pulse oximetry MORBID OBESITY MAINTENANCE ISSUES -DVT prophylaxis; SCUDs, use of anticoagulation limited by thrombocytopenia -GI prophylaxis; not indicated -Mares catheter; not indicated -Nutrition; regular diet -Nicotine dependence; not required CODE STATUS-FULL CODE ADMISSION STATUS-patient will be admitted to inpatient status, expect at least a 2 night hospital stay for evaluation and management of problems as outlined above. At the time of this admission I do not reasonably expected evaluation and management of this problem will require more than a 96 hour hospital stay. DISPOSITION-anticipate discharge to home after the hospital stay. PRIMARY CARE PROVIDER-Dr. Roberson
[2020-09-02] MEDS: REMDESIVIR 100 MG in Sodium Chloride 0.9% 100 ML IV SCH (16:24)
[2020-09-02] MEDS: Albuterol 8 GM Inhaler INH PRN (17:55)
[2020-09-03] MEDS: Albuterol 8 GM Inhaler INH PRN (07:53)
[2020-09-03] MEDS: Gabapentin 100 MG Cap PO SCH ×2 (09:30→20:56)
[2020-09-03] MEDS: Enoxaparin 40 MG/0.4 ML Syringe SUBCUT SCH (09:30)
[2020-09-03] MEDS: Dexamethasone 4 MG/ML SDV IVPUSH SCH (09:31)
--- NOTE | 2020-09-03 11:55 | PCM.PN ---
- General Info Date of Service: 09/03/20 Subjective Update: No acute events overnight. Patient is off oxygen as of this morning but saturations are right around 90%. He continues to feel short of breath though less so than a few days ago. He continues to experience pain in the anterior chest that has been present for about 5 years with some ups and downs. Pain is worse with deep breathing and any sort of palpation of the chest. No nausea. Mild diarrhea that is stable. Still feels weak and has limitation in mobility compared to baseline though his baseline is not very good. Functional Status: Reports: Pain Controlled, Tolerating Diet - Review of Systems General: Reports: Weakness Cardiovascular: Reports: Chest Pain - Patient Data Vitals - Most Recent: Last Vital Signs Temp 36.6 C 09/03/20 11:21 Pulse 67 09/03/20 11:21 Resp 20 09/03/20 11:21 BP 154/70 H 09/03/20 11:21 Pulse Ox 89 L 09/03/20 11:21 Weight - Most Recent: 197.086 kg I&O - Last 24 Hours: Intake & Output 09/02/20 09/03/20 09/03/20 22:59 06:59 14:59 Intake Total 120 320 Balance 120 320 [facility] Results Last 24 Hours: Microbiology 08/29/20 14:15 Aerobic Blood Culture - Preliminary Blood - Arm, Left NO GROWTH AFTER 4 DAYS Anaerobic Blood Culture - Preliminary NO GROWTH AFTER 4 DAYS 08/29/20 14:22 Aerobic Blood Culture - Preliminary Blood - Venous NO GROWTH AFTER 4 DAYS Anaerobic Blood Culture - Preliminary NO GROWTH AFTER 4 DAYS Med Orders - Current: Current Medications Acetaminophen (Acetaminophen 325 Mg Tab) 650 mg PO Q4H PRN PRN Reason: Pain (Mild 1-3)/fever Albuterol (Albuterol 8 Gm Inhaler) 0 gm INH Q2H PRN PRN Reason: Shortness of Breath Last Admin: 09/03/20 07:53 Dose: 2 puff Documented by: Enoxaparin Sodium (Enoxaparin 40 Mg/0.4 Ml Syringe) 40 mg SUBCUT DAILY [facility] Last Admin: 09/03/20 09:30 Dose: 40 mg Documented by: Fluticasone Propionate (Fluticasone Propionate Nasal [place] 16 Gm Bottle) 0 gm CHELSY DAILY PRN PRN Reason: Allergies Gabapentin (Gabapentin 100 Mg Cap) 100 mg PO BID [facility] Last Admin: 09/03/20 09:30 Dose: 100 mg Documented by: Hydromorphone HCl (Hydromorphone 2 Mg Tab) 2 mg PO Q6H PRN PRN Reason: Pain Last Admin: 09/02/20 19:39 Dose: 2 mg Documented by: Ondansetron HCl (Ondansetron 4 Mg/2 Ml Sdv) 4 mg IV Q4H PRN PRN Reason: Nausea/Vomiting Polyethylene Glycol (Polyethylene Glycol 3350 Powder 17 Gm Packet) 17 gm PO DAILY PRN PRN Reason: Constipation Sodium Chloride (Sodium Chloride 0.9% 10 Ml Syringe) 10 ml FLUSH ASDIRECTED PRN PRN Reason: Keep Vein Open Discontinued Medications Albuterol (Albuterol 8 Gm Inhaler) 0 gm INH Q6H PRN PRN Reason: Shortness of Breath Last Admin: 08/31/20 16:02 Dose: 2 puff Documented by: Dexamethasone (Dexamethasone 4 Mg/Ml Sdv) 6 mg IVPUSH DAILY [facility] Stop: 09/07/20 09:01 Last Admin: 09/03/20 09:31 Dose: 6 mg Documented by: Enoxaparin Sodium (Enoxaparin 40 Mg/0.4 Ml Syringe) 40 mg SUBCUT Q12H [facility] Last Admin: 08/30/20 09:13 Dose: Not Given Documented by: Remdesivir 200 mg/ Sodium (Chloride) 250 mls @ 250 mls/hr IV ONETIME ONE Stop: 08/29/20 17:59 Last Admin: 08/29/20 16:48 Dose: 250 mls/hr Documented by: Remdesivir 100 mg/ Sodium (Chloride) 100 mls @ 100 mls/hr IV Q24H [facility] Stop: 09/02/20 17:59 Last Admin: 09/02/20 16:24 Dose: 100 mls/hr Documented by: - Exam Quality Assessment: No: Supplemental Oxygen General: Alert, Oriented, Cooperative, No Acute Distress Lungs: Normal Respiratory Effort, Crackles (mild diffuse) Cardiovascular: Regular Rate, Regular Rhythm GI/Abdominal Exam: Normal Bowel Sounds, Soft, Non-Tender, No Distention Psy/Mental Status: Alert, Normal Affect - Patient Data Result Diagrams: 09/02/20 05:44 09/02/20 05:44 [place] Results Last 24 hrs: Microbiology 08/29/20 14:15 Aerobic Blood Culture - Preliminary Blood - Arm, Left NO GROWTH AFTER 4 DAYS Anaerobic Blood Culture - Preliminary NO GROWTH AFTER 4 DAYS 08/29/20 14:22 Aerobic Blood Culture - Preliminary Blood - Venous NO GROWTH AFTER 4 DAYS Anaerobic Blood Culture - Preliminary NO GROWTH AFTER 4 DAYS Sepsis Event Note - Evaluation Sepsis Screening Result: No Definite Risk - Focused Exam Vital Signs: Vital Signs Temp Pulse Resp BP Pulse Ox 09/03/20 11:21 36.6 C 67 20 154/70 H 89 L 09/03/20 07:53 36.3 C 64 18 132/61 92 L 09/03/20 04:20 35.7 C L 59 L 16 153/74 H 90 L - Problem List Review Problem List Initiated/Reviewed/Updated: Yes - My Orders Last 24 Hours: My Active Orders 09/03/20 09:00 Enoxaparin [Lovenox] 40 mg SUBCUT DAILY 09/03/20 16:00 dexAMETHasone 6 mg PO Q24H 09/04/20 05:00 BASIC METABOLIC PANEL,BMP [CHEM] Timed CBC W/O DIFF,HEMOGRAM [HEME] Timed (1) CRP [C-REACTIVE PROTEIN] [CHEM] Timed D-DIMER QUANTITATIVE [COAG] Timed - Plan Plan:: ASSESSMENT AND PLAN COVID-19 PNEUMONIA-complicated by acute respiratory failure with hypoxia that has now resolved. Still weak and has mild diarrhea but is improving. He has completed remdesivir. He is describing some noncardiac chest pain that sounds more like costochondritis. -Limit IV fluids -Decadron 6 mg daily, today is day 6 -Supplemental oxygen as needed -Continue isolation precautions ACUTE ON CHRONIC HYPOXIC RESPIRATORY FAILURE-underlying obesity hypoventilation syndrome, with current Covid infection. Seems to be coming around from the Covid infection and is off oxygen as of this morning. -Supplemental oxygen and respiratory support as needed -Continuous pulse oximetry MORBID OBESITY-BMI greater than 70 MAINTENANCE ISSUES -DVT prophylaxis; SCUDs, use of anticoagulation limited by thrombocytopenia -GI prophylaxis; not indicated -Mares catheter; not indicated -Nutrition; regular diet DISPOSITION-anticipate discharge to home with home care versus correction for subacute rehab after the hospital stay. Jared Hurd MD
[2020-09-03] MEDS: Fluticasone Propionate Nasal Spray 16 GM Bottle NAS PRN ×2 (13:51→20:55)
[2020-09-03] MEDS ORDERED: Dexamethasone 2 MG Tab PO SCH (16:00)
[2020-09-03] MEDS: HYDROmorphone 2 MG Tab PO PRN (16:48)
[2020-09-04] MEDS: HYDROmorphone 2 MG Tab PO PRN ×2 (01:48→11:28)
[2020-09-04 07:43] VITALS: BP 114/60; PULSE 58
[2020-09-04] MEDS: Gabapentin 100 MG Cap PO SCH (09:29)
[2020-09-04] MEDS: Enoxaparin 40 MG/0.4 ML Syringe SUBCUT SCH (09:29)
--- NOTE | 2020-09-04 13:30 | PCM.DCSUM1 ---
Discharge Summary - Hospital Course Brief History: 65-year-old male with history of morbid obesity with a BMI greater than 70 who presented with cough, shortness of breath and fever. He was admitted for management of COVID-19 pneumonia with acute respiratory failure with hypoxia. Diagnosis: Stroke: No - Discharge Data Discharge Date: 09/04/20 Discharge Disposition: Home, W Home Health Agency 06 Condition: Fair - Referral to Home Health Date of Face to Face Encounter: 09/04/20 Reason for Homebound Status: covid 19 pneumonia Primary Care Physician: Ezekiel Roberson MD Skilled Need: Nursing - Discharge Diagnosis/Problem(s) (1) Pneumonia due to COVID-19 virus SNOMED Code(s): 129291055517390629 ICD Code: U07.1 - COVID-19; J12.82 - PNEUMONIA DUE TO CORONAVIRUS DISEASE 2018 Status: Acute Current Visit: Yes (2) Acute respiratory failure due to COVID-19 SNOMED Code(s): 067756705 ICD Code: U07.1 - COVID-19; J96.00 - ACUTE RESPIRATORY FAILURE, UNSP W HYPOXIA OR HYPERCAPNIA Status: Acute Current Visit: Yes (3) Morbid obesity with BMI of 70 and over, adult SNOMED Code(s): 046359406 ICD Code: E66.01 - MORBID (SEVERE) OBESITY DUE TO EXCESS CALORIES; Z68.45 - BODY MASS INDEX [BMI] 70 OR GREATER, ADULT Status: Chronic Priority: Medium Current Visit: No - Patient Instructions Diet: Regular Diet as Tolerated Activity: As Tolerated Showering/Bathing: May Shower Notify Provider of: Fever, Increased Pain Other/Special Instructions: 1. You were in the hospital for management of COVID- 19 pneumonia complicated by acute respiratory failure with hypoxia. Your condition has been improving after treatment with 5 days of remdesivir as well as steroid administration. You no longer require supplemental oxygen during the day. I would recommend a home evaluation to see if you need supplemental oxygen at nighttime and this will be set up through [facility]. I do recommend additional steroid treatment after hospital discharge. Please take dexamethasone 6 mg once daily at suppertime for 4 more doses. Your first dose outside of the hospital will be due this evening at suppertime. You should complete a total of 10 days of quarantine time because of the Covid infection. You should remain in quarantine through the end of the day on Thursday and then may resume your usual activities on Thursday. 2. Continue your other home medications as previously prescribed. - Discharge Plan *PRESCRIPTION DRUG MONITORING PROGRAM REVIEWED*: Not Applicable *COPY OF PRESCRIPTION DRUG MONITORING REPORT IN PATIENT CANDY: Not Applicable Prescriptions/Med Rec: dexAMETHasone [Dexamethasone] 6 mg PO Q24H #12 tablet Home Medications: Home Meds Albuterol [Ventolin HFA] 2 puff INH Q6H PRN 11/10/16 [History] HYDROmorphone [Dilaudid] 2 mg PO Q6H PRN 11/10/16 [History] Fluticasone Propionate [Flonase] 2 spray CHELSY DAILY PRN 01/25/17 [History] Gabapentin [Neurontin] 100 mg PO BID 01/29/19 [History] dexAMETHasone [Dexamethasone] 6 mg PO Q24H #12 tablet 09/04/20 [Rx] Oxygen Therapy Mode: Room Air Patient Handouts: COVID-19 Frequently Asked Questions, Dexamethasone tablets Referrals: Ezekiel Roberson MD [Primary Care Provider] - 09/11/20 1:45 pm (Please arrive 15 minutes early to register for your appointment.) - Discharge Summary/Plan Comment DC Time >30 min.: Yes (40-set up home care ) - Patient Data Vitals - Most Recent: Last Vital Signs Temp 36.2 C 09/04/20 07:41 Pulse 58 L 09/04/20 07:41 Resp 16 09/04/20 09:29 BP 114/60 09/04/20 07:41 Pulse Ox 90 L 09/04/20 09:29 Weight - Most Recent: 197.086 kg I&O - Last 24 hours: Intake & Output 09/03/20 09/04/20 09/04/20 22:59 06:59 14:59 Intake Total 450 Balance 450 Lab Results - Last 24 hrs: Laboratory Results - last 24 hr 09/04/20 09/04/20 09/04/20 Range/Units 04:15 04:15 04:15 WBC 4.2 L (4.5-11.0) K/uL RBC 4.26 L (4.30-5.90) M/uL Hgb 12.7 (12.0-15.0) g/dL Hct 40.1 (40.0-54.0) % MCV 94 (80-98) fL MCH 30 (27-31) pg MCHC 32 (32-36) % Plt Count 69 L (150-400) K/uL D-Dimer, Quantitative 5132.81 H (0.0-500.0) ng/mL Sodium 142 (140-148) mmol/L Potassium 4.0 (3.6-5.2) mmol/L Chloride 105 (100-108) mmol/L Carbon Dioxide 29 (21-32) mmol/L Anion Gap 8.1 (5.0-14.0) mmol/L BUN 13 (7-18) mg/dL Creatinine 0.8 (0.8-1.3) mg/dL Est Cr Clr Drug Dosing 77.60 mL/min Estimated GFR (MDRD) > 60 (>60) Glucose 141 H (74-106) mg/dL Calcium 8.2 L (8.5-10.1) mg/dL C-Reactive Protein 0.80 H (0.0-0.3) mg/dL [facility] Results - Last 24 hrs: Microbiology 08/29/20 14:15 Aerobic Blood Culture - Final Blood - Arm, Left NO GROWTH AFTER 5 DAYS Anaerobic Blood Culture - Final NO GROWTH AFTER 5 DAYS 08/29/20 14:22 Aerobic Blood Culture - Final Blood - Venous NO GROWTH AFTER 5 DAYS Anaerobic Blood Culture - Final NO GROWTH AFTER 5 DAYS Med Orders - Current: Current Medications Acetaminophen (Acetaminophen 325 Mg Tab) 650 mg PO Q4H PRN PRN Reason: Pain (Mild 1-3)/fever Albuterol (Albuterol 8 Gm Inhaler) 0 gm INH Q2H PRN PRN Reason: Shortness of Breath Last Admin: 09/03/20 07:53 Dose: 2 puff Documented by: Dexamethasone (Dexamethasone 2 Mg Tab) 6 mg PO Q24H [facility] Last Admin: 09/03/20 16:47 Dose: 6 mg Documented by: Enoxaparin Sodium (Enoxaparin 40 Mg/0.4 Ml Syringe) 40 mg SUBCUT DAILY [facility] Last Admin: 09/04/20 09:29 Dose: 40 mg Documented by: Fluticasone Propionate (Fluticasone Propionate Nasal [place] 16 Gm Bottle) 0 gm CHELSY DAILY PRN PRN Reason: Allergies Last Admin: 09/03/20 20:55 Dose: 2 sprays Documented by: Gabapentin (Gabapentin 100 Mg Cap) 100 mg PO BID [facility] Last Admin: 09/04/20 09:29 Dose: 100 mg Documented by: Hydromorphone HCl (Hydromorphone 2 Mg Tab) 2 mg PO Q6H PRN PRN Reason: Pain Last Admin: 09/04/20 11:28 Dose: 2 mg Documented by: Ondansetron HCl (Ondansetron 4 Mg/2 Ml Sdv) 4 mg IV Q4H PRN PRN Reason: Nausea/Vomiting Polyethylene Glycol (Polyethylene Glycol 3350 Powder 17 Gm Packet) 17 gm PO DAILY PRN PRN Reason: Constipation Sodium Chloride (Sodium Chloride 0.9% 10 Ml Syringe) 10 ml FLUSH ASDIRECTED PRN PRN Reason: Keep Vein Open Discontinued Medications Albuterol (Albuterol 8 Gm Inhaler) 0 gm INH Q6H PRN PRN Reason: Shortness of Breath Last Admin: 08/31/20 16:02 Dose: 2 puff Documented by: Dexamethasone (Dexamethasone 4 Mg/Ml Sdv) 6 mg IVPUSH DAILY [facility] Stop: 09/07/20 09:01 Last Admin: 09/03/20 09:31 Dose: 6 mg Documented by: Enoxaparin Sodium (Enoxaparin 40 Mg/0.4 Ml Syringe) 40 mg SUBCUT Q12H [facility] Last Admin: 08/30/20 09:13 Dose: Not Given Documented by: Remdesivir 200 mg/ Sodium (Chloride) 250 mls @ 250 mls/hr IV ONETIME ONE Stop: 08/29/20 17:59 Last Admin: 08/29/20 16:48 Dose: 250 mls/hr Documented by: Remdesivir 100 mg/ Sodium (Chloride) 100 mls @ 100 mls/hr IV Q24H [facility] Stop: 09/02/20 17:59 Last Admin: 09/02/20 16:24 Dose: 100 mls/hr Documented by:
== END 2020-09-04 14:30 | disposition home health service (06) | DRG 177 ==
LOC: JP.ED 13:37 → JP.ICU 16:53 → JP.2SS 09-02 16:00
PROVIDERS: ADMIT Hospitalist; ATTEND Internal Medicine
PROC: 8E0ZXY6 Isolation (ICD-10-PCS; principal; 2020-08-29)
PROC: XW033E5 Introduction of Remdesivir Anti-infective into Peripheral Vein, Percutaneous Approach, New Technology Group 5 (ICD-10-PCS; 2020-08-29)
PROC: XW033F5 Introduction of Other New Technology Therapeutic Substance into Peripheral Vein, Percutaneous Approach, New Technology Group 5 (ICD-10-PCS; 2020-08-29)
DX: U07.1 COVID-19 (principal); J12.82 Pneumonia due to coronavirus disease 2019; G47.30 Sleep apnea, unspecified; J96.01 Acute respiratory failure with hypoxia; Z87.11 Personal history of peptic ulcer disease; R32 Unspecified urinary incontinence; M19.90 Unspecified osteoarthritis, unspecified site; M54.9 Dorsalgia, unspecified; G89.29 Other chronic pain; Z68.45 Body mass index [BMI] 70 or greater, adult; E66.01 Morbid (severe) obesity due to excess calories; H54.7 Unspecified visual loss; E66.9 Obesity, unspecified; Z85.51 Personal history of malignant neoplasm of bladder; Z88.7 Allergy status to serum and vaccine; Z91.018 Allergy to other foods; Z79.899 Other long term (current) drug therapy; G47.33 Obstructive sleep apnea (adult) (pediatric); K59.09 Other constipation; Z87.440 Personal history of urinary (tract) infections; Z87.442 Personal history of urinary calculi; F41.9 Anxiety disorder, unspecified; F32.9 Major depressive disorder, single episode, unspecified; E03.9 Hypothyroidism, unspecified; G40.909 Epilepsy, unspecified, not intractable, without status epilepticus
CPT/HCPCS: 0241U; 36415; 36600; 71045; 80048; 80053; 81001; 82803; 83605; 84145; 84484; 85025; 85027; 85379; 86140; 87040; 94640; 99285; A9270-GY; J1100; J1650; J7050; J8540

== ENCOUNTER 2021-01-07 09:31 | Inpatient (IN) | payer MEDICARE, MEDICAID ==
[2021-01-07] MEDS ORDERED: Morphine 4 MG/ML Syringe IVPUSH PRN (09:53)
[2021-01-07] MEDS ORDERED: Aspirin 81 MG Tab.Chew PO ONE (09:53)
[2021-01-07] MEDS ORDERED: Sodium Chloride 0.9% 10 ML Syringe FLUSH PRN (09:53)
[2021-01-07] MEDS ORDERED: Ondansetron 4 MG/2 ML SDV IVPUSH ONE (09:56)
--- NOTE | 2021-01-07 10:05 | EDM.PDOC ---
ED HPI GENERAL MEDICAL PROBLEM - General Chief Complaint: Chest Pain Stated Complaint: MEDICAL Time Seen by Provider: 01/07/21 09:47 Source of Information: Reports: Patient, EMS, RN Notes Reviewed History Limitations: Reports: No Limitations - History of Present Illness INITIAL COMMENTS - FREE TEXT/NARRATIVE: 65-year-old gentleman presents to the emergency department today EMS services for a syncopal event. He states he had just went to the bathroom stood up felt lightheaded woke on the ground fortunately hit his head has a large bump in the back of his head he is complaining of chest pain shortness of breath beyond baseline headache with nausea and vomiting. Chest Pain Score (Numeric/FACES): 3 - Related Data Allergies Allergy/AdvReac Type Severity Reaction Status Date / Time blueberry Allergy Wheezing Verified 01/07/21 09:38 cinnamon Allergy Seizure Verified 01/07/21 09:38 raspberry Allergy Seizure Verified 01/07/21 09:38 strawberry Allergy Seizure Verified 01/07/21 09:38 Influenza Virus Vaccines AdvReac Seizure Verified 01/07/21 09:38 chocolate Allergy Seizure Uncoded 02/16/20 23:04 Home Meds: Home Meds Albuterol [Ventolin HFA] 2 puff INH Q6H PRN 11/10/16 [History] HYDROmorphone [Dilaudid] 2 mg PO Q6H PRN 11/10/16 [History] Fluticasone Propionate [Flonase] 2 spray CHELSY DAILY PRN 01/25/17 [History] Gabapentin [Neurontin] 100 mg PO BID 01/29/19 [History] Past Medical History HEENT History: Reports: Impaired Vision, Otitis Media Cardiovascular History: Reports: Angina, Blood Clots/VTE/DVT, SOB on Exertion Respiratory History: Reports: Sleep Apnea, SOB Gastrointestinal History: Reports: Chronic Constipation, PUD Genitourinary History: Reports: Renal Calculus, Urinary Incontinence, UTI, Rec urrent Musculoskeletal History: Reports: Arthritis, Back Pain, Chronic, Fracture Neurological History: Reports: Seizure, Other (See Below) Other Neuro History: Pt. states that some foods cause him to have seizures, mostly sweet foods Psychiatric History: Reports: Anxiety, Depression, Eating Disorders, Suicide Attempt Endocrine/Metabolic History: Reports: Hypothyroidism, Obesity/BMI 30+ Other Endocrine/Metabolic History: started on thyroid meds again Hematologic History: Reports: None Immunologic History: Reports: None Oncologic (Cancer) History: Reports: Bladder Dermatologic History: Reports: Other (See Below) Other Dermatologic History: irritated skin at skin folds - Infectious Disease History Infectious Disease History: Reports: Chicken Pox - Past Surgical History GI Surgical History: Reports: EGD, Hernia, Abdominal, Hernia, Inguinal, Other (See Below) Other GI Surgeries/Procedures: Pt. states that a "couple" years ago he had an EGD done and was found to have two ulcers. Pt. denies being on any medication for it. panniculectomy for abscess.. PT HAD A PANNICULECTOMY JUNE 2015 Male Surgical History: Reports: Other (See Below) Other Male Surgeries/Procedures: bladder cancer- dx 2017, untreated Musculoskeletal Surgical History: Reports: Carpal Tunnel Social & Family History - Family History Family Medical History: No Pertinent Family History HEENT: Reports: Cataract, Impaired Vision, Macular Degeneration Cardiac: Reports: CAD, [place] Respiratory: Reports: None GI: Reports: None : Reports: None OBGYN: Reports: None Musculoskeletal: Reports: Arthritis Other Musculoskeletal Family History: HIP REPLACEMENT BONE DEGENERATION Neurological: Reports: None Psychiatric: Reports: None Endocrine/Metabolic: Reports: None Hematologic: Reports: None Immunologic: Reports: None Dermatologic: Reports: None Oncologic: Reports: Other (See Below) Other Oncologic Family History: BROTHER OF CANCER DOES NOT KNOW WHAT KIND - Tobacco Use Tobacco Use Status *Q: Never Tobacco User - Caffeine Use Caffeine Use: Reports: Soda Caffeine Use Comment: 3 cups/day - Recreational Drug Use Recreational Drug Use: No ED ROS GENERAL - Review of Systems Review Of Systems: See Below Constitutional: Reports: No Symptoms HEENT: Reports: No Symptoms Respiratory: Reports: Shortness of Breath Cardiovascular: Reports: Chest Pain, Lightheadedness, Syncope GI/Abdominal: Reports: Nausea, Vomiting. Denies: Abdominal Pain Neurological: Reports: Syncope ED EXAM, GENERAL - Physical Exam Exam: See Below Exam Limited By: No Limitations General Appearance: Alert, WD/WN, No Apparent Distress Head: Other (Large hematoma occipital region right side) Respiratory/Chest: No Respiratory Distress, Lungs Clear, Normal Breath Sounds, No Accessory Muscle Use, Other (Tender to palpation across the lower ribs) Cardiovascular: Regular Rate, Rhythm, No Murmur Neurological: Alert, Oriented Course - Vital Signs Last Recorded V/S: Last Vital Signs Temp 96.6 F L 01/07/21 09:32 Pulse 73 01/07/21 14:30 Resp 17 01/07/21 14:30 BP 112/64 01/07/21 14:30 Pulse Ox 92 L 01/07/21 12:35 - Orders/Labs/Meds Orders: Active Orders 24 hr Category Date Time Status Cardiac Monitoring [RC] .As Directed Care 01/07/21 09:53 Active Peripheral IV Care [RC] . DIRECTED Care 01/07/21 09:55 Active VL Duplex Lwr Ext Veins Comp [US] Stat Exams 01/07/21 14:45 Taken CORONAVIRUS COVID-19 ROB [MOLEC] Routine Lab 01/07/21 15:58 Received Morphine Med 01/07/21 09:53 Active 4 mg IVPUSH Q10M PRN Sodium Chloride 0.9% [Normal Saline] 1,000 ml Med 01/07/21 12:00 Active IV ASDIRECTED Sodium Chloride 0.9% [Saline Flush] Med 01/07/21 09:53 Active 10 ml FLUSH ASDIRECTED PRN Peripheral IV Insertion Adult [OM.PC] Stat Oth 01/07/21 09:53 Ordered Saline Lock Insert [OM.PC] Stat Oth 01/07/21 09:53 Ordered Medication Orders Sodium Chloride (Normal Saline) 1,000 mls @ 500 mls/hr IV ASDIRECTED VON Last Admin: 01/07/21 12:24 Dose: 500 mls/hr Documented by: BARRY Morphine Sulfate (Morphine 4 Mg/Ml Syringe) 4 mg IVPUSH Q10M PRN PRN Reason: Chest Pain Stop: 01/08/21 09:54 Sodium Chloride (Sodium Chloride 0.9% 10 Ml Syringe) 10 ml FLUSH ASDIRECTED PRN PRN Reason: Keep Vein Open Labs: Laboratory Tests 01/07/21 01/07/21 01/07/21 Range/Units 10:04 10:04 10:04 WBC 4.2 L (4.5-11.0) K/uL RBC 3.88 L (4.30-5.90) M/uL Hgb 11.9 L (12.0-15.0) g/dL Hct 36.5 L (40.0-54.0) % MCV 94 (80-98) fL MCH 31 (27-31) pg MCHC 33 (32-36) % Plt Count 95 L (150-400) K/uL Neut % (Auto) 70.4 H (36-66) % Lymph % (Auto) 12.1 L (24-44) % [place] % (Auto) 12.3 H (2-6) % Eos % (Auto) 4.7 H (2-4) % Baso % (Auto) 0.5 (0-1) % D-Dimer, Quantitative 5517.76 H (0.0-500.0) ng/mL Sodium 141 (140-148) mmol/L Potassium 3.4 L (3.6-5.2) mmol/L Chloride 105 (100-108) mmol/L Carbon Dioxide 28 (21-32) mmol/L Anion Gap 11.4 (5.0-14.0) mmol/L BUN 5 L D (7-18) mg/dL Creatinine 0.9 (0.8-1.3) mg/dL Est Cr Clr Drug Dosing 73.84 mL/min Estimated GFR (MDRD) > 60 (>60) Glucose 124 H (74-106) mg/dL Calcium 8.2 L (8.5-10.1) mg/dL Total Bilirubin 1.8 H D (0.2-1.0) mg/dL AST 42 H (15-37) U/L ALT 25 (12-78) U/L Alkaline Phosphatase 67 (46-116) U/L Troponin I 0.023 (0.000-0.056) ng/mL Total Protein 6.7 (6.4-8.2) g/dL Albumin 2.5 L (3.4-5.0) g/dL Globulin 4.2 H (2.3-3.5) g/dL Albumin/Globulin Ratio 0.6 L (1.2-2.2) Lipase 35 L (73-393) U/L SARS CoV-2 RNA Rapid ROB 01/07/21 01/07/21 Range/Units 13:45 15:36 WBC (4.5-11.0) K/uL RBC (4.30-5.90) M/uL Hgb (12.0-15.0) g/dL Hct (40.0-54.0) % MCV (80-98) fL MCH (27-31) pg MCHC (32-36) % Plt Count (150-400) K/uL Neut % (Auto) (36-66) % Lymph % (Auto) (24-44) % [place] % (Auto) (2-6) % Eos % (Auto) (2-4) % Baso % (Auto) (0-1) % D-Dimer, Quantitative (0.0-500.0) ng/mL Sodium (140-148) mmol/L Potassium (3.6-5.2) mmol/L Chloride (100-108) mmol/L Carbon Dioxide (21-32) mmol/L Anion Gap (5.0-14.0) mmol/L BUN (7-18) mg/dL Creatinine (0.8-1.3) mg/dL Est Cr Clr Drug Dosing mL/min Estimated GFR (MDRD) (>60) Glucose (74-106) mg/dL Calcium (8.5-10.1) mg/dL Total Bilirubin (0.2-1.0) mg/dL AST (15-37) U/L ALT (12-78) U/L Alkaline Phosphatase (46-116) U/L Troponin I 0.020 (0.000-0.056) ng/mL Total Protein (6.4-8.2) g/dL Albumin (3.4-5.0) g/dL Globulin (2.3-3.5) g/dL Albumin/Globulin Ratio (1.2-2.2) Lipase (73-393) U/L SARS CoV-2 RNA Rapid ROB Negative Meds: Medications Generic Name Dose Route Start Last Admin Trade Name Freq PRN Reason Stop Dose Admin Sodium Chloride 1,000 mls @ 500 mls/hr 01/07/21 12:00 01/07/21 12:24 Normal Saline IV 500 mls/hr ASDIRECTED VON Administration Morphine Sulfate 4 mg 01/07/21 09:53 Morphine 4 Mg/Ml Syringe IVPUSH 01/08/21 09:54 Q10M PRN Chest Pain Sodium Chloride 10 ml 01/07/21 09:53 Sodium Chloride 0.9% 10 Ml Syringe FLUSH ASDIRECTED PRN Keep Vein Open Discontinued Medications Generic Name Dose Route Start Last Admin Trade Name Freq PRN Reason Stop Dose Admin Aspirin 324 mg 01/07/21 09:53 01/07/21 10:12 Aspirin 81 Mg Tab.Chew PO 01/07/21 09:54 324 mg ONETIME ONE Administration Hydromorphone HCl 2 mg 01/07/21 14:44 Hydromorphone 2 Mg Tab PO 01/07/21 14:45 NOW STA Sodium Chloride 100 mls @ 4 mls/sec 01/07/21 11:45 01/07/21 12:05 Normal Saline IV 01/07/21 11:46 4 mls/sec ASDIRECTED VON Administration Iopamidol 100 ml 01/07/21 11:45 01/07/21 12:05 Iopamidol 755 Mg/Ml 100 Ml Bottle IV 01/07/21 11:46 100 ml . DIRECTED VON Administration Ondansetron HCl 4 mg 01/07/21 09:56 01/07/21 10:12 Ondansetron 4 Mg/2 Ml Sdv IVPUSH 01/07/21 09:57 4 mg ONETIME ONE Administration Sodium Chloride 10 ml 01/07/21 11:36 01/07/21 12:05 Sodium Chloride 0.9% 10 Ml Syringe FLUSH 01/07/21 11:37 10 ml ONETIME ONE Administration Departure - Departure Time of Disposition: 16:07 Disposition: Refer to Observation Condition: Poor Clinical Impression: Nocturnal hypoxemia due to obesity Referrals: PCP,None [Primary Care Provider] - Forms: ED Department Discharge Sepsis Event Note (ED) - Evaluation Sepsis Screening Result: No Definite Risk - Focused Exam Vital Signs: Vital Signs Temp Pulse Resp BP Pulse Ox 01/07/21 14:30 73 17 112/64 01/07/21 12:35 77 17 126/69 92 L 01/07/21 11:00 79 16 139/72 92 L 01/07/21 09:32 96.6 F L 91 18 143/57 H 90 L - My Orders Last 24 Hours: My Active Orders 01/07/21 09:53 Cardiac Monitoring [RC] .As Directed Morphine 4 mg IVPUSH Q10M PRN Sodium Chloride 0.9% [Saline Flush] 10 ml FLUSH ASDIRECTED PRN Peripheral IV Insertion Adult [OM.PC] Stat Saline Lock Insert [OM.PC] Stat 01/07/21 09:55 Peripheral IV Care [RC] . DIRECTED 01/07/21 12:00 Sodium Chloride 0.9% [Normal Saline] 1,000 ml IV ASDIRECTED 01/07/21 14:45 VL Duplex Lwr Ext Veins Comp [US] Stat 01/07/21 15:58 CORONAVIRUS COVID-19 ROB [MOLEC] Routine - Assessment/Plan Last 24 Hours: My Active Orders 01/07/21 09:53 Cardiac Monitoring [RC] .As Directed Morphine 4 mg IVPUSH Q10M PRN Sodium Chloride 0.9% [Saline Flush] 10 ml FLUSH ASDIRECTED PRN Peripheral IV Insertion Adult [OM.PC] Stat Saline Lock Insert [OM.PC] Stat 01/07/21 09:55 Peripheral IV Care [RC] . DIRECTED 01/07/21 12:00 Sodium Chloride 0.9% [Normal Saline] 1,000 ml IV ASDIRECTED 01/07/21 14:45 VL Duplex Lwr Ext Veins Comp [US] Stat 01/07/21 15:58 CORONAVIRUS COVID-19 ROB [MOLEC] Routine Plan: Assessment Acuity = acute Site and laterality = syncopal event complicating the has a history of obesity hypoxic syndrome as well as a history of thromboembolism Etiology = unknown Manifestations = none Location of injury = Home Lab values = WBC low at 4.3 consistent leukopenia hemoglobin low 11.9 consistent normochromic anemia D-dimer elevated at 5517 of unclear significance total bilirubin elevated 1.8 consistent with hyperbilirubinemia initial troponin 0 0.023 in the normal range repeat troponin 0 0.020 still within the normal range Covid was negative CT scan inconclusive for pulmonary embolism ultrasound inconclusive for DVT Plan Call discussed case hospitalist on-call at 1610 agreed to come evaluate patient emergency department for admission This note was dictated using [employer] voice recognition software please call with any questions on syntax or grammar.
--- NOTE | 2021-01-07 11:19 | CRLCR ---
For Patients: As a result of the Century Cures Act, medical imaging exams and procedure reports are released immediately into your electronic medical record. You may view this report before your referring provider. If you have questions, please contact your health care provider. Indication: Chest Pain Comparison: Single-view chest August 29, 2020 Technique: Single AP view chest Findings: There is hyperinflation and chronic interstitial change. There are increased interstitial and airspace opacities seen throughout the bilateral hemithoraces likely representing pulmonary edema and/or multifocal infiltrates similar to previous exam. The cardiac silhouette is mildly prominent with a tortuous thoracic aorta. The bony thorax is grossly intact. Impression: Increased interstitial and airspace opacities of the bilateral hemithoraces likely representing pulmonary edema and/or multifocal infiltrates. Dictated by Myke Prakash MD @ 01/07/2021 11:18:07 AM (Electronically Signed)
--- NOTE | 2021-01-07 11:19 | CRLCT ---
For Patients: As a result of the Century Cures Act, medical imaging exams and procedure reports are released immediately into your electronic medical record. You may view this report before your referring provider. If you have questions, please contact your health care provider. INDICATION: Trauma; fell. COMPARISON: CT head without intravenous contrast April 11, 2020. Technique: CT head without intravenous contrast; coronal and sagittal reformats. Findings : A scalp hematoma identified overlying the right occipital bone. No intracranial hemorrhage. No evidence of shift of the midline structures. The calvarium is unremarkable. Periventricular low density secondary to small vessel disease. Expansion of the sella turcica suggesting a pituitary mass; suggest obtaining an MR of the head for further assessment. No interval change identified when compared to April 11, 2020. IMPRESSION: 1. No intracranial hemorrhage. 2. No evidence of shift of the midline structures. 3. Scalp hematoma involving the right occipital area. 4. Enlargement of the sella turcica; rule out Pituitary tumor; further assessment with an MRI of the sella suggested; no interval change. Please note that all CT scans at this facility use dose modulation, iterative reconstruction, and/or weight-based dosing when appropriate to reduce radiation dose to as low as reasonably achievable. Dictated by Veronica Kirby MD @ 01/07/2021 11:17:01 AM (Electronically Signed)
[2021-01-07] MEDS ORDERED: Sodium Chloride 0.9% 10 ML Syringe FLUSH ONE (11:36)
[2021-01-07] MEDS ORDERED: Sodium Chloride 0.9% 100 ML IV SCH (11:45)
[2021-01-07] MEDS ORDERED: Iopamidol 755 Mg/ML 100 ML Bottle IV SCH (11:45)
[2021-01-07] MEDS ORDERED: Sodium Chloride 0.9% 1,000 ML IV SCH (12:00)
--- NOTE | 2021-01-07 13:18 | CRLCT ---
For Patients: As a result of the Century Cures Act, medical imaging exams and procedure reports are released immediately into your electronic medical record. You may view this report before your referring provider. If you have questions, please contact your health care provider. INDICATION: Elevated D-dimer. Abnormal chest x-ray. TECHNIQUE: CT chest PE was acquired with 100 cc Isovue 370 IV contrast. COMPARISON: CT chest November 29, 2018. FINDINGS: Heart and vasculature: Contrast opacification of the pulmonary arterial tree is suboptimal precluding assessment for pulmonary embolism. Heart size is normal. Thoracic aorta and pulmonary artery are normal in caliber.Coronary artery atherosclerosis is present. Lungs and pleural: Trace left-sided pleural effusion. No nodules or infiltrates. No pneumothorax. Lymph nodes/mediastinum: Soft tissue nodularity adjacent to the distal esophagus presumably representing mildly enlarged lymph nodes. Chest wall: No masses. Upper abdomen: Cirrhotic morphology of the liver has worsened since the prior exam. Moderate upper abdominal ascites. Bones: Unremarkable for age. IMPRESSION: 1. Assessment for pulmonary embolism is precluded due to poor contrast opacification of the pulmonary arterial tree. 2. Trace left-sided pleural effusion of uncertain etiology. No sign of pneumonia. 3. Mild nonspecific lymphadenopathy adjacent to the distal esophagus. 4. Interval worsening of liver cirrhosis with moderate upper abdominal ascites suggesting portal venous hypertension. Please note that all CT scans at this facility use dose modulation, iterative reconstruction, and/or weight-based dosing when appropriate to reduce radiation dose to as low as reasonably achievable. Dictated by Anton Dobson MD @ 01/07/2021 1:16:15 PM (Electronically Signed)
[2021-01-07] MEDS ORDERED: HYDROmorphone 2 MG Tab PO STA (14:44)
--- NOTE | 2021-01-07 16:09 | CRLUS ---
For Patients: As a result of the Century Cures Act, medical imaging exams and procedure reports are released immediately into your electronic medical record. You may view this report before your referring provider. If you have questions, please contact your health care provider. INDICATION: Positive D-dimer. Abnormal chest x-ray. TECHNIQUE: Ultrasound venous duplex bilateral lower extremity. Compression venous exam was performed using serra-scale, color Doppler, and spectral Doppler analysis. COMPARISON: None. FINDINGS: Deep veins: Sonographic imaging demonstrates the right common femoral, deep femoral, superficial femoral, popliteal, posterior tibial and the contralateral right common femoral veins to be fully compressible with normal color Doppler blood flow where visualized. However, multiple segments of the venous system in both lower extremities were not visualized due to body habitus. Superficial veins: Greater saphenous vein is fully compressible. No popliteal cyst. IMPRESSION: Limited suboptimal exam without convincing evidence for venous thrombosis in either lower extremity. Dictated by Anton Dobson MD @ 01/07/2021 4:06:09 PM Dictated by: Anton Dobson MD @ 01/07/2021 16:07:08 (Electronically Signed)
--- NOTE | 2021-01-07 16:28 | PCM.HP.2 ---
H&P History of Present Illness - General Date of Service: 01/07/21 Admit Problem/Dx: Admission Diagnosis/Problem Admission Diagnosis/Problem Syncope Source of Information: Patient, Provider History Limitations: Reports: No Limitations - History of Present Illness Initial Comments - Free Text/Narative: CC: I fell backwards and hit my head HPI: Stephanie presents to the emergency room today by ambulance after falling backwards in the bathroom and hitting his head on the door frame. He reports having diarrhea this morning when he woke up. He did not make it to the bathroom before the diarrhea started. After his bowel movement he was working on cleaning up the mass when he suddenly realized that he was falling backwards. He did strike his head on the door frame. He is not sure if he lost consciousness or not. No one witnessed the fall. He was able to call 911 and summoned an ambulance. He is currently complaining of mild achy posterior head pain which is improving after dose of hydromorphone. No obvious triggers to make the pain worse. He reports intermittent difficulties with the diarrhea. He does not have associated abdominal pain. He reports subjective fevers off and on but this is a chronic problem. He has noticed that his urine has been darker than usual for the past couple of weeks. He does note lower extremity edema but thinks this has been stable for some time. He reports that he was prescribed oxygen a couple of years ago but never received it because his insurance required him to pay about $400 and he did not want to pay for it. Work-up in the emergency room revealed mild leukopenia and thrombocytopenia. He has an elevated D-dimer at 5500. Bilirubin is mildly elevated. Chest x-ray did not suggest acute pathology. CT scan looking for pulmonary embolism was nondiagnostic. CT scan did document progression of his cirrhosis. Head CT was negative. He was noted to be hypoxic with activity. The patient is going to be admitted for additional work-up for pulmonary embolism. Chest Pain Score (Numeric/FACES): 3 - Related Data Allergies/Adverse Reactions: Allergies Allergy/AdvReac Type Severity Reaction Status Date / Time blueberry Allergy Wheezing Verified 01/07/21 09:38 cinnamon Allergy Seizure Verified 01/07/21 09:38 raspberry Allergy Seizure Verified 01/07/21 09:38 strawberry Allergy Seizure Verified 01/07/21 09:38 Influenza Virus Vaccines AdvReac Seizure Verified 01/07/21 09:38 chocolate Allergy Seizure Uncoded 02/16/20 23:04 Home Medications: Home Meds Albuterol [Ventolin HFA] 2 puff INH Q6H PRN 11/10/16 [History] HYDROmorphone [Dilaudid] 2 mg PO Q6H PRN 11/10/16 [History] Fluticasone Propionate [Flonase] 2 spray CHELSY DAILY PRN 01/25/17 [History] Gabapentin [Neurontin] 100 mg PO BID 01/29/19 [History] Past Medical History HEENT History: Reports: Impaired Vision, Otitis Media Cardiovascular History: Reports: Angina, Blood Clots/VTE/DVT, SOB on Exertion Respiratory History: Reports: Sleep Apnea, SOB Gastrointestinal History: Reports: Chronic Constipation, PUD Genitourinary History: Reports: Renal Calculus, Urinary Incontinence, UTI, Recur rent Musculoskeletal History: Reports: Arthritis, Back Pain, Chronic, Fracture Neurological History: Reports: Seizure, Other (See Below) Other Neuro History: Pt. states that some foods cause him to have seizures, mostly sweet foods Psychiatric History: Reports: Anxiety, Depression, Eating Disorders, Suicide Attempt Endocrine/Metabolic History: Reports: Hypothyroidism, Obesity/BMI 30+ Other Endocrine/Metabolic History: started on thyroid meds again Hematologic History: Reports: None Immunologic History: Reports: None Oncologic (Cancer) History: Reports: Bladder Dermatologic History: Reports: Other (See Below) Other Dermatologic History: irritated skin at skin folds - Infectious Disease History Infectious Disease History: Reports: Chicken Pox - Past Surgical History GI Surgical History: Reports: EGD, Hernia, Abdominal, Hernia, Inguinal, Other (See Below) Other GI Surgeries/Procedures: Pt. states that a "couple" years ago he had an EGD done and was found to have two ulcers. Pt. denies being on any medication for it. panniculectomy for abscess.. PT HAD A PANNICULECTOMY JUNE 2015 Male Surgical History: Reports: Other (See Below) Other Male Surgeries/Procedures: bladder cancer- dx 2017, untreated Musculoskeletal Surgical History: Reports: Carpal Tunnel Social & Family History - Family History Family Medical History: No Pertinent Family History HEENT: Reports: Cataract, Impaired Vision, Macular Degeneration Cardiac: Reports: CAD, CT Respiratory: Reports: None GI: Reports: None : Reports: None OBGYN: Reports: None Musculoskeletal: Reports: Arthritis Other Musculoskeletal Family History: HIP REPLACEMENT BONE DEGENERATION Neurological: Reports: None Psychiatric: Reports: None Endocrine/Metabolic: Reports: None Hematologic: Reports: None Immunologic: Reports: None Dermatologic: Reports: None Oncologic: Reports: Other (See Below) Other Oncologic Family History: BROTHER OF CANCER DOES NOT KNOW WHAT KIND - Tobacco Use Tobacco Use Status *Q: Never Tobacco User - Caffeine Use Caffeine Use: Reports: Soda Caffeine Use Comment: 3 cups/day - Recreational Drug Use Recreational Drug Use: No H&P Review of Systems - Review of Systems: Review Of Systems: See Below Free Text/Narrative: A complete 12 point review of systems was obtained. Pertinent positives and negatives are noted in the history of present illness. All other systems were reviewed and were negative except as noted. Exam - Exam Exam: See Below - Vital Signs Vital Signs: Last Vital Signs Temp 35.9 C L 01/07/21 09:32 Pulse 71 01/07/21 16:23 Resp 16 01/07/21 16:23 BP 128/56 L 01/07/21 16:23 Pulse Ox 98 01/07/21 16:23 Weight: 204.117 kg - Exam Quality Assessment: Supplemental Oxygen General: Alert, Oriented, Cooperative. No: Mild Distress HEENT: Conjunctiva Clear, Mucosa Moist & [place]. No: Scleral Icterus Neck: Supple, Trachea Midline Lungs: Clear to Auscultation, Normal Respiratory Effort, Decreased Breath Sounds (Mild left lung base) Cardiovascular: Regular Rate, Regular Rhythm. No: Systolic Murmur GI/Abdominal Exam: Normal Bowel Sounds, Soft, No Distention, Tender (Mild in the lower middle area of the abdomen just below the umbilicus) Extremities: Pedal Edema (Pitting edema to the knee bilaterally with chronic venous stasis changes of both legs over the distal three quarters of his lower legs). No: Increased Warmth Skin: Warm, Dry Neuro Extensive - Mental Status: Alert, Oriented x3, Nl Response to Commands Neuro Extensive - Motor, Sensory, Reflexes: No: Dysarthria, Abnormal Motor Psychiatric: Alert, Normal Affect - Patient Data Lab Results Last 24 hrs: Laboratory Results - last 24 hr 01/07/21 01/07/21 01/07/21 Range/Units 10: 10:04 10:04 WBC 4.2 L (4.5-11.0) K/uL RBC 3.88 L (4.30-5.90) M/uL Hgb 11.9 L (12.0-15.0) g/dL Hct 36.5 L (40.0-54.0) % MCV 94 (80-98) fL MCH 31 (27-31) pg MCHC 33 (32-36) % Plt Count 95 L (150-400) K/uL Neut % (Auto) 70.4 H (36-66) % Lymph % (Auto) 12.1 L (24-44) % [place] % (Auto) 12.3 H (2-6) % Eos % (Auto) 4.7 H (2-4) % Baso % (Auto) 0.5 (0-1) % D-Dimer, Quantitative 5517.76 H (0.0-500.0) ng/mL Sodium 141 (140-148) mmol/L Potassium 3.4 L (3.6-5.2) mmol/L Chloride 105 (100-108) mmol/L Carbon Dioxide 28 (21-32) mmol/L Anion Gap 11.4 (5.0-14.0) mmol/L BUN 5 L D (7-18) mg/dL Creatinine 0.9 (0.8-1.3) mg/dL Est Cr Clr Drug Dosing 73.84 mL/min Estimated GFR (MDRD) > 60 (>60) Glucose 124 H (74-106) mg/dL Calcium 8.2 L (8.5-10.1) mg/dL Total Bilirubin 1.8 H D (0.2-1.0) mg/dL AST 42 H (15-37) U/L ALT 25 (12-78) U/L Alkaline Phosphatase 67 (46-116) U/L Troponin I 0.023 (0.000-0.056) ng/mL Total Protein 6.7 (6.4-8.2) g/dL Albumin 2.5 L (3.4-5.0) g/dL Globulin 4.2 H (2.3-3.5) g/dL Albumin/Globulin Ratio 0.6 L (1.2-2.2) Lipase 35 L (73-393) U/L SARS CoV-2 RNA Rapid ROB 01/07/21 01/07/21 Range/Units 13:45 15:36 WBC (4.5-11.0) K/uL RBC (4.30-5.90) M/uL Hgb (12.0-15.0) g/dL Hct (40.0-54.0) % MCV (80-98) fL MCH (27-31) pg MCHC (32-36) % Plt Count (150-400) K/uL Neut % (Auto) (36-66) % Lymph % (Auto) (24-44) % [place] % (Auto) (2-6) % Eos % (Auto) (2-4) % Baso % (Auto) (0-1) % D-Dimer, Quantitative (0.0-500.0) ng/mL Sodium (140-148) mmol/L Potassium (3.6-5.2) mmol/L Chloride (100-108) mmol/L Carbon Dioxide (21-32) mmol/L Anion Gap (5.0-14.0) mmol/L BUN (7-18) mg/dL Creatinine (0.8-1.3) mg/dL Est Cr Clr Drug Dosing mL/min Estimated GFR (MDRD) (>60) Glucose (74-106) mg/dL Calcium (8.5-10.1) mg/dL Total Bilirubin (0.2-1.0) mg/dL AST (15-37) U/L ALT (12-78) U/L Alkaline Phosphatase (46-116) U/L Troponin I 0.020 (0.000-0.056) ng/mL Total Protein (6.4-8.2) g/dL Albumin (3.4-5.0) g/dL Globulin (2.3-3.5) g/dL Albumin/Globulin Ratio (1.2-2.2) Lipase (73-393) U/L SARS CoV-2 RNA Rapid ROB Negative Result Diagrams: 01/07/21 10:04 01/07/21 10:04 Imaging Impressions Last 24 hrs: All of the images below were personally reviewed and the radiologist interpretation was noted Head CT-no acute pathology Chest x-ray-lungs clear with no obvious mass, infiltrate or effusion. CT pulmonary angiogram-suboptimal exam due to body habitus. Unable to evaluate for pulmonary embolism because of the lack of contrast of visibility. No obvi ous infiltrates were noted. In the upper abdomen there was evidence for cirrhosis and portal venous hypertension. Bilateral lower extremity venous ultrasound-limited exam because of body habitus but no obvious evidence for DVT. Sepsis Event Note - Evaluation Sepsis Screening Result: No Definite Risk - Focused Exam Vital Signs: Vital Signs Temp Pulse Resp BP Pulse Ox 01/07/21 16:23 71 16 128/56 L 98 01/07/21 14:30 73 17 112/64 01/07/21 12:35 77 17 126/69 92 L 01/07/21 11:00 79 16 139/72 92 L 01/07/21 09:32 35.9 C L 91 18 143/57 H 90 L *Q Meaningful Use (ADM) - VTE Risk Assess *Q Each Risk Factor Represents 1 Point: Swollen Legs, Current, Obesity ( BMI > 25 kg/m2), Serious lung disease including pneumonia Total Score 1 Point Risk Factors: 3 Each Risk Factor Represents 2 Points: Age 60 - 74 Years, Malignancy (present or previous) Total Score 2 Point Risk Factors: 4 Each Risk Factor Represents 3 Points: History of DVT/PE Total Score 3 Point Risk Factors: 3 Each Risk Factor Represents 5 Points: None Total Score 5 Point Risk Factors: 0 Venous Thromboembolism Risk Factor Score *Q: 10 - Problem List (1) Syncope and collapse SNOMED Code(s): 685611541 ICD Code: R55 - SYNCOPE AND COLLAPSE Status: Acute Current Visit: Yes (2) Nocturnal hypoxemia due to obesity SNOMED Code(s): 470831479 ICD Code: E66.9 - OBESITY, UNSPECIFIED; G47.36 - SLEEP RELATED HY POVENTILATION IN CONDITIONS CLASSD [id number] Status: Chronic Current Visit: Yes (3) Morbid obesity with BMI of 70 and over, adult SNOMED Code(s): 459824868 ICD Code: E66.01 - MORBID (SEVERE) OBESITY DUE TO EXCESS CALORIES; Z68.45 - BODY MASS INDEX [BMI] 70 OR GREATER, ADULT Status: Chronic Priority: Medium Current Visit: No (4) Cirrhosis SNOMED Code(s): 11672949 ICD Code: K74.60 - UNSPECIFIED CIRRHOSIS OF LIVER Status: Chronic Current Visit: Yes Qualifiers: Hepatic cirrhosis type: other cirrhosis Qualified Code(s): K74.69 - Other cirrhosis of liver Problem List Initiated/Reviewed/Updated: Yes Orders Last 24hrs: Active Orders 24 hr Category Date Time Status Patient Status Manage Transfer [TRANSFER] Routine ADT 01/07/21 16:23 Ordered Cardiac Monitoring [RC] .As Directed Care 01/07/21 09:53 Active Peripheral IV Care [RC] . DIRECTED Care 01/07/21 09:55 Active CORONAVIRUS COVID-19 ROB [MOLEC] Routine Lab 01/07/21 15:58 Received Morphine Med 01/07/21 09:53 Active 4 mg IVPUSH Q10M PRN Sodium Chloride 0.9% [Normal Saline] 1,000 ml Med 01/07/21 12:00 Active IV ASDIRECTED Sodium Chloride 0.9% [Saline Flush] Med 01/07/21 09:53 Active 10 ml FLUSH ASDIRECTED PRN Peripheral IV Insertion Adult [OM.PC] Stat Oth 01/07/21 09:53 Ordered Saline Lock Insert [OM.PC] Stat Oth 01/07/21 09:53 Ordered Resuscitation Status Routine Resus Stat 01/07/21 16:24 Ordered Medication Orders Sodium Chloride (Normal Saline) 1,000 mls @ 500 mls/hr IV ASDIRECTED VON Last Admin: 01/07/21 12:24 Dose: 500 mls/hr Documented by: BARRY Morphine Sulfate (Morphine 4 Mg/Ml Syringe) 4 mg IVPUSH Q10M PRN PRN Reason: Chest Pain Stop: 01/08/21 09:54 Sodium Chloride (Sodium Chloride 0.9% 10 Ml Syringe) 10 ml FLUSH ASDIRECTED PRN PRN Reason: Keep Vein Open Assessment/Plan Comment:: ASSESSMENT AND PLAN - Syncope-suspect vasovagal or benign cause. Cannot rule out pulmonary embolism at this time. He has an elevated D-dimer and does have hypoxia though I suspect this is related to obesity as discussed below. D-dimer could be elevated in the setting of cirrhosis. CT pulmonary angiogram nondiagnostic for PE. VQ scan would likely be nondiagnostic. Planning to assess with echocardiogram tomorrow. -Cardiac monitoring overnight -Continuous pulse oximetry -Echo in the morning Morbid obesity with BMI greater than 70-previously diagnosed with obesity hypoventilation syndrome though he does not have home oxygen because he was not willing to pay for this according to his report. I think he would benefit from home oxygen if this is the case. -Evaluation for home oxygen tomorrow morning -Pulse oximetry overnight Cirrhosis-likely secondary to nonalcoholic fatty liver disease. There is evidence for portal venous hypertension. This appears to be compensated at this time. -Additional laboratory testing in the morning Chronic pain-stable Maintenance issues - -DVT prophylaxis-enoxaparin (low platelet level is noted, benefits outweigh the risk) -GI prophylaxis-not indicated -[id number] -Mares catheter-not indicated CODE STATUS -full Admission justification -this patient will be referred to observation for expedited work-up and pulse oximetry Disposition -I anticipate discharge home after the hospital stay Primary care physician -Dr. Da Hurd M.D. - Mortality Measure Prognosis:: Good
[2021-01-07] MEDS ORDERED: Enoxaparin 40 MG/0.4 ML Syringe SUBCUT ONE (17:33)
[2021-01-07] MEDS ORDERED: Potassium Chloride 20 MEQ Tab.ER PO ONE (17:33)
[2021-01-07] MEDS ORDERED: Ondansetron 4 MG/2 ML SDV IV PRN (17:33)
[2021-01-07] MEDS ORDERED: LORazepam 2 MG/ML SDV IVPUSH PRN (17:33)
[2021-01-07] MEDS ORDERED: Ondansetron 4 MG Tab.DIS PO PRN (17:33)
[2021-01-07] MEDS: Melatonin 3 MG Tab PO PRN (20:23)
[2021-01-07] MEDS: Acetaminophen 325 MG Tab PO PRN (20:23)
[2021-01-07] MEDS: Gabapentin 100 MG Cap PO SCH (22:31)
[2021-01-08] MEDS: HYDROmorphone 2 MG Tab PO PRN ×2 (03:09→09:09)
[2021-01-08] MEDS ORDERED: Albuterol 8 GM Inhaler INH PRN (07:03)
[2021-01-08] MEDS ORDERED: Fluticasone Propionate Nasal Spray 16 GM Bottle NASBOTH PRN (07:03)
[2021-01-08] MEDS: Gabapentin 100 MG Cap PO SCH ×2 (09:08→21:45)
[2021-01-08] MEDS ORDERED: Nystatin Topical Powder 15 GM Bottle TOP SCH (10:00)
--- NOTE | 2021-01-08 10:59 | PCM.PN ---
- General Info Date of Service: 01/08/21 Subjective Update: No acute events overnight. Heart rate and oxygenation have been stable. He did require supplemental oxygen overnight. No diarrhea or vomiting. He is reportin g right shoulder pain today and thinks this is because of the pushing and pulling he had to do yesterday. Pain is worse when trying to abduct at the shoulder as well as internal and external rotation. He gets some spasms of pain as well. Very intermittent and mild episodes of discomfort in the epigastrium overnight but none today. Appetite has been good. Functional Status: Reports: Pain Controlled, Tolerating Diet - Review of Systems General: Reports: Weakness Musculoskeletal: Reports: Shoulder Pain - Patient Data Vitals - Most Recent: Last Vital Signs Temp 36.7 C 01/08/21 10: Pulse 69 01/08/21 10: Resp 18 01/08/21 10:27 BP 119/54 L 01/08/21 10: Pulse Ox 97 01/08/21 10:27 Weight - Most Recent: 204.117 kg I&O - Last 24 Hours: Intake & Output 01/07/21 01/08/21 01/08/21 22:59 06:59 14:59 Intake Total 1000 400 Balance 1000 400 Lab Results Last 24 Hours: Laboratory Results - last 24 hr 01/07/21 01/07/21 01/07/21 Range/Units 13:45 15:36 15:58 WBC (4.5-11.0) K/uL RBC (4.30-5.90) M/uL Hgb (12.0-15.0) g/dL Hct (40.0-54.0) % MCV (80-98) fL MCH (27-31) pg MCHC (32-36) % Plt Count (150-400) K/uL PT (9.2-10.6) sec INR APTT (21.4-31.8) sec Sodium (140-148) mmol/L Potassium (3.6-5.2) mmol/L Chloride (100-108) mmol/L Carbon Dioxide (21-32) mmol/L Anion Gap (5.0-14.0) mmol/L BUN (7-18) mg/dL Creatinine (0.8-1.3) mg/dL Est Cr Clr Drug Dosing mL/min Estimated GFR (MDRD) (>60) Glucose (74-106) mg/dL Calcium (8.5-10.1) mg/dL Ferritin (8-388) ng/ml Total Bilirubin (0.2-1.0) mg/dL AST (15-37) U/L ALT (12-78) U/L Alkaline Phosphatase (46-116) U/L Troponin I 0.020 (0.000-0.056) ng/mL Total Protein (6.4-8.2) g/dL Albumin (3.4-5.0) g/dL Globulin (2.3-3.5) g/dL Albumin/Globulin Ratio (1.2-2.2) SARS-CoV-2 RNA (ROB) Negative (NEGATIVE) SARS CoV-2 RNA Rapid ROB Negative 01/08/21 01/08/21 01/08/21 Range/Units 05:50 05:50 05:50 WBC 3.0 L (4.5-11.0) K/uL RBC 3.56 L (4.30-5.90) M/uL Hgb 10.7 L (12.0-15.0) g/dL Hct 34.1 L (40.0-54.0) % MCV 96 (80-98) fL MCH 30 (27-31) pg MCHC 31 L (32-36) % Plt Count 75 L (150-400) K/uL PT 15.0 H (9.2-10.6) sec INR 1.5 APTT 33.4 H (21.4-31.8) sec Sodium 142 (140-148) mmol/L Potassium 3.8 (3.6-5.2) mmol/L Chloride 106 (100-108) mmol/L Carbon Dioxide 30 (21-32) mmol/L Anion Gap 5.8 (5.0-14.0) mmol/L BUN 6 L (7-18) mg/dL Creatinine 0.8 (0.8-1.3) mg/dL Est Cr Clr Drug Dosing 83.07 mL/min Estimated GFR (MDRD) > 60 (>60) Glucose 82 (74-106) mg/dL Calcium 7.9 L (8.5-10.1) mg/dL Ferritin 181 (8-388) ng/ml Total Bilirubin 1.5 H (0.2-1.0) mg/dL AST 40 H (15-37) U/L ALT 25 (12-78) U/L Alkaline Phosphatase 58 (46-116) U/L Troponin I (0.000-0.056) ng/mL Total Protein 6.0 L (6.4-8.2) g/dL Albumin 2.3 L (3.4-5.0) g/dL Globulin 3.7 H (2.3-3.5) g/dL Albumin/Globulin Ratio 0.6 L (1.2-2.2) SARS-CoV-2 RNA (ROB) (NEGATIVE) SARS CoV-2 RNA Rapid ROB Med Orders - Current: Current Medications Acetaminophen (Acetaminophen 325 Mg Tab) 650 mg PO Q4H PRN PRN Reason: Pain (Mild 1-3)/fever Last Admin: 01/07/21 20:23 Dose: 650 mg Documented by: Albuterol (Albuterol 8 Gm Inhaler) 0 gm INH Q6H PRN PRN Reason: Shortness of Breath Fluticasone Propionate (Fluticasone Propionate Nasal [place] 16 Gm Bottle) 0 gm NASBOTH DAILY PRN PRN Reason: Allergies Gabapentin (Gabapentin 100 Mg Cap) 100 mg PO BID VON Last Admin: 01/08/21 09:08 Dose: 100 mg Documented by: Hydromorphone HCl (Hydromorphone 2 Mg Tab) 2 mg PO Q6H PRN PRN Reason: Pain Last Admin: 01/08/21 09:09 Dose: 2 mg Documented by: Lorazepam (Lorazepam 2 Mg/Ml Sdv) 0.5 mg IVPUSH Q4H PRN PRN Reason: Nausea/Vomiting Melatonin (Melatonin 3 Mg Tab) 9 mg PO BEDTIME PRN PRN Reason: Sleep Last Admin: 01/07/21 20:23 Dose: 9 mg Documented by: Nystatin (Nystatin Topical Powder 15 Gm Bottle) 0 gm TOP TID VON Ondansetron HCl (Ondansetron 4 Mg/2 Ml Sdv) 4 mg IV Q6H PRN PRN Reason: Nausea/Vomiting Ondansetron HCl (Ondansetron 4 Mg Tab.Dis) 4 mg PO Q6H PRN PRN Reason: Nausea able to take PO Senna/Docusate Sodium (Docusate Sodium/Sennosides 50-8.6 Mg Tab) 1 tab PO BID PRN PRN Reason: Constipation Sodium Chloride (Sodium Chloride 0.9% 10 Ml Syringe) 10 ml FLUSH ASDIRECTED PRN PRN Reason: Keep Vein Open Discontinued Medications Aspirin (Aspirin 81 Mg Tab.Chew) 324 mg PO ONETIME ONE Stop: 01/07/21 09:54 Last Admin: 01/07/21 10:12 Dose: 324 mg Documented by: Enoxaparin Sodium (Enoxaparin 40 Mg/0.4 Ml Syringe) 40 mg SUBCUT ONETIME ONE Stop: 01/07/21 17:34 Last Admin: 01/07/21 18:17 Dose: 40 mg Documented by: Hydromorphone HCl (Hydromorphone 2 Mg Tab) 2 mg PO NOW STA Stop: 01/07/21 14:45 Last Admin: 01/07/21 16:23 Dose: 2 mg Documented by: Sodium Chloride (Normal Saline) 100 mls @ 4 mls/sec IV ASDIRECTED [facility] Stop: 01/07/21 11:46 Last Admin: 01/07/21 12:05 Dose: 4 mls/sec Documented by: Sodium Chloride (Normal Saline) 1,000 mls @ 500 mls/hr IV ASDIRECTED [facility] Last Admin: 01/07/21 12:24 Dose: 500 mls/hr Documented by: Iopamidol (Iopamidol 755 Mg/Ml 100 Ml Bottle) 100 ml IV . DIRECTED [facility] Stop: 01/07/21 11:46 Last Admin: 01/07/21 12:05 Dose: 100 ml Documented by: Morphine Sulfate (Morphine 4 Mg/Ml Syringe) 4 mg IVPUSH Q10M PRN PRN Reason: Chest Pain Stop: 01/08/21 09:54 Nystatin (Nystatin Topical Powder 15 Gm Bottle) 1 gm TOP TID [facility] Ondansetron HCl (Ondansetron 4 Mg/2 Ml Sdv) 4 mg IVPUSH ONETIME ONE Stop: 01/07/21 09:57 Last Admin: 01/07/21 10:12 Dose: 4 mg Documented by: Potassium Chloride (Potassium Chloride 20 Meq Tab.Er) 40 meq PO ONETIME ONE Stop: 01/07/21 17:34 Last Admin: 01/07/21 18:08 Dose: 40 meq Documented by: Sodium Chloride (Sodium Chloride 0.9% 10 Ml Syringe) 10 ml FLUSH ONETIME ONE Stop: 01/07/21 11:37 Last Admin: 01/07/21 12:05 Dose: 10 ml Documented by: - Exam Quality Assessment: Supplemental Oxygen General: Alert, Oriented, Cooperative, No Acute Distress Lungs: Normal Respiratory Effort GI/Abdominal Exam: Soft, No Distention Extremities: Pedal Edema, Limited Range of Motion (right shoulder pain with passive ext rotation and abduction ) Skin: Warm, Dry Psy/Mental Status: Alert, Normal Affect - Patient Data Lab Results Last 24 hrs: Laboratory Results - last 24 hr 01/07/21 01/07/21 01/07/21 Range/Units 13:45 15:36 15:58 WBC (4.5-11.0) K/uL RBC (4.30-5.90) M/uL Hgb (12.0-15.0) g/dL Hct (40.0-54.0) % MCV (80-98) fL MCH (27-31) pg MCHC (32-36) % Plt Count (150-400) K/uL PT (9.2-10.6) sec INR APTT (21.4-31.8) sec Sodium (140-148) mmol/L Potassium (3.6-5.2) mmol/L Chloride (100-108) mmol/L Carbon Dioxide (21-32) mmol/L Anion Gap (5.0-14.0) mmol/L BUN (7-18) mg/dL Creatinine (0.8-1.3) mg/dL Est Cr Clr Drug Dosing mL/min Estimated GFR (MDRD) (>60) Glucose (74-106) mg/dL Calcium (8.5-10.1) mg/dL Ferritin (8-388) ng/ml Total Bilirubin (0.2-1.0) mg/dL AST (15-37) U/L ALT (12-78) U/L Alkaline Phosphatase (46-116) U/L Troponin I 0.020 (0.000-0.056) ng/mL Total Protein (6.4-8.2) g/dL Albumin (3.4-5.0) g/dL Globulin (2.3-3.5) g/dL Albumin/Globulin Ratio (1.2-2.2) SARS-CoV-2 RNA (ROB) Negative (NEGATIVE) SARS CoV-2 RNA Rapid ROB Negative 01/08/21 01/08/21 01/08/21 Range/Units 05:50 05:50 05:50 WBC 3.0 L (4.5-11.0) K/uL RBC 3.56 L (4.30-5.90) M/uL Hgb 10.7 L (12.0-15.0) g/dL Hct 34.1 L (40.0-54.0) % MCV 96 (80-98) fL MCH 30 (27-31) pg MCHC 31 L (32-36) % Plt Count 75 L (150-400) K/uL PT 15.0 H (9.2-10.6) sec INR 1.5 APTT 33.4 H (21.4-31.8) sec Sodium 142 (140-148) mmol/L Potassium 3.8 (3.6-5.2) mmol/L Chloride 106 (100-108) mmol/L Carbon Dioxide 30 (21-32) mmol/L Anion Gap 5.8 (5.0-14.0) mmol/L BUN 6 L (7-18) mg/dL Creatinine 0.8 (0.8-1.3) mg/dL Est Cr Clr Drug Dosing 83.07 mL/min Estimated GFR (MDRD) > 60 (>60) Glucose 82 (74-106) mg/dL Calcium 7.9 L (8.5-10.1) mg/dL Ferritin 181 (8-388) ng/ml Total Bilirubin 1.5 H (0.2-1.0) mg/dL AST 40 H (15-37) U/L ALT 25 (12-78) U/L Alkaline Phosphatase 58 (46-116) U/L Troponin I (0.000-0.056) ng/mL Total Protein 6.0 L (6.4-8.2) g/dL Albumin 2.3 L (3.4-5.0) g/dL Globulin 3.7 H (2.3-3.5) g/dL Albumin/Globulin Ratio 0.6 L (1.2-2.2) SARS-CoV-2 RNA (ROB) (NEGATIVE) SARS CoV-2 RNA Rapid ROB Result Diagrams: 01/08/21 05:50 01/08/21 05:50 Sepsis Event Note - Evaluation Sepsis Screening Result: No Definite Risk - Focused Exam Vital Signs: Vital Signs Temp Pulse Resp BP BP Pulse Ox 01/08/21 10:27 36.7 C 69 18 119/54 L 97 01/08/21 08:00 91 L 01/08/21 07:00 36.2 C 68 20 124/57 L 98 01/08/21 03:09 36.2 C 66 20 123/57 L 94 L 01/08/21 01:24 18 95 01/07/21 23:15 35.7 C L 72 20 128/67 93 L 01/07/21 23:03 35.7 C L 72 20 128/67 93 L - Problem List & Annotations (1) Syncope and collapse SNOMED Code(s): 230100673 Code(s): R55 - SYNCOPE AND COLLAPSE Status: Acute Current Visit: Yes (2) Nocturnal hypoxemia due to obesity SNOMED Code(s): 070929491 Code(s): E66.9 - OBESITY, UNSPECIFIED; G47.36 - SLEEP RELATED HYPOVENTILATION IN CONDITIONS CLASSD ELSWHR Status: Chronic Current Visit: Yes (3) Morbid obesity with BMI of 70 and over, adult SNOMED Code(s): 003208167 Code(s): E66.01 - MORBID (SEVERE) OBESITY DUE TO EXCESS CALORIES; Z68.45 - BODY MASS INDEX [BMI] 70 OR GREATER, ADULT Status: Chronic Priority: Medium Current Visit: No (4) Cirrhosis SNOMED Code(s): 92856645 Code(s): K74.60 - UNSPECIFIED CIRRHOSIS OF LIVER Status: Chronic Current Visit: Yes Qualifiers: Hepatic cirrhosis type: other cirrhosis Qualified Code(s): K74.69 - Other cirrhosis of liver - Problem List Review Problem List Initiated/Reviewed/Updated: Yes - My Orders Last 24 Hours: My Active Orders 01/07/21 16:24 Resuscitation Status Routine 01/07/21 Dinner 2 Gram Sodium Diet [DIET] 01/07/21 17:33 Acetaminophen [TylenoL] 650 mg PO Q4H PRN Docusate Sodium/Sennosides [Senna Plus] 1 tab PO BID PRN HYDROmorphone [Dilaudid] 2 mg PO Q6H PRN LORazepam [Ativan] 0.5 mg IVPUSH Q4H PRN Melatonin 9 mg PO BEDTIME PRN Ondansetron [Zofran ODT] 4 mg PO Q6H PRN Ondansetron [Zofran] 4 mg IV Q6H PRN 01/07/21 17:33 Patient Status [ADT] Routine Cardiac Monitoring [RC] CONTINUOUS Intake and Output [RC] QSHIFT Notify Provider Vital Signs [RC] ASDIRECTED Oxygen Therapy [RC] PRN Pulse Oximetry [RC] CONTINUOUS Up With Assistance [RC] ASDIRECTED VTE/DVT Education [RC] Per Unit Routine Vital Signs [RC] Q4H 01/07/21 21:00 Gabapentin [Neurontin] 100 mg PO BID 01/08/21 07:00 Echo Comp wo Cont [US] Routine 01/08/21 07:03 Albuterol [Ventolin HFA] 0 gm INH Q6H PRN Fluticasone Propionate [Flonase] 0 gm NASBOTH DAILY PRN 01/08/21 09:46 Evaluate for Home Oxygen [RT Evaluate for Home Oxygen] [RC] Click to Edit 01/08/21 10:11 Nystatin [Nystop] 0 gm TOP TID - Plan Plan:: ASSESSMENT AND PLAN - Syncope-suspect vasovagal or benign cause. Cannot completely rule out pulmonary embolism at this time. He has an elevated D-dimer and does have hypoxia though I suspect this is related to obesity as discussed below. D-dimer could be elevated in the setting of cirrhosis. CT pulmonary angiogram nondiagnostic for PE. VQ scan would likely be nondiagnostic. Planning to assess with echocardiogram tomorrow (not available today). -Discontinue rn flight and pulse oximetry -Echo in the morning Morbid obesity with BMI greater than 70-previously diagnosed with obesity hypoventilation syndrome though he does not have home oxygen. I think he would benefit from home oxygen if this is the case. -Evaluation for home oxygen -Pulse oximetry overnight Cirrhosis-likely secondary to nonalcoholic fatty liver disease. There is evidence for portal venous hypertension. This appears to be compensated at this time. There is evidence for hepatic dysfunction with a mild elevation of his INR. Chronic pain-stable Maintenance issues - -DVT prophylaxis-unable to use pharmacological means because of low platelets -GI prophylaxis-not indicated -[id number] -Mares catheter-not indicated CODE STATUS -full Admission justification -this patient will be referred to observation for expedited work-up and pulse oximetry Disposition -I anticipate discharge home after the hospital stay Primary care physician -Dr. Da Hurd M.D.
[2021-01-08] MEDS: Ibuprofen 600 MG Tab PO SCH ×2 (12:44→17:29)
[2021-01-08] MEDS: Nystatin Topical Powder 15 GM Bottle TOP SCH ×2 (13:38→21:45)
[2021-01-08] MEDS: Melatonin 3 MG Tab PO PRN (21:44)
[2021-01-09] MEDS: Ibuprofen 600 MG Tab PO SCH ×2 (06:00→17:09)
[2021-01-09] MEDS: Gabapentin 100 MG Cap PO SCH ×2 (09:38→20:57)
[2021-01-09] MEDS: Nystatin Topical Powder 15 GM Bottle TOP SCH ×3 (09:48→20:57)
[2021-01-09] MEDS ORDERED: Furosemide 40 MG/4 ML VIAL IVPUSH ONE (12:15)
--- NOTE | 2021-01-09 12:17 | PCM.PN ---
- General Info Date of Service: 01/09/21 Subjective Update: There were no acute events overnight. Patient continues to endorse pain in his right shoulder with most activities. He is reporting discomfort in the right heel area of this morning. This has been present for a few days but not getting better. He did not have any fevers. He has been on 2 to 4 L of supplemental oxygen to maintain adequate oxygenation. Does not feel significantly short of breath. Echocardiogram today showed an enlarged right ventricle with pulmonary hypertension. He had a dilated IVC. Ejection fraction appeared normal. Functional Status: Reports: Pain Controlled - Review of Systems Musculoskeletal: Reports: Shoulder Pain, Other (right heal pain) - Patient Data Vitals - Most Recent: Last Vital Signs Temp 36.5 C 01/09/21 10:30 Pulse 72 01/09/21 10:30 Resp 21 H 01/09/21 10:30 BP 118/56 L 01/09/21 10:30 Pulse Ox 90 L 01/09/21 10:30 Weight - Most Recent: 218.405 kg I&O - Last 24 Hours: Intake & Output 01/08/21 01/09/21 01/09/21 22:59 06:59 14:59 Intake Total 200 1000 720 Output Total 125 Balance 75 1000 720 Med Orders - Current: Current Medications Acetaminophen (Acetaminophen 325 Mg Tab) 650 mg PO Q4H PRN PRN Reason: Pain (Mild 1-3)/fever Last Admin: 01/07/21 20:23 Dose: 650 mg Documented by: Albuterol (Albuterol 8 Gm Inhaler) 0 gm INH Q6H PRN PRN Reason: Shortness of Breath Fluticasone Propionate (Fluticasone Propionate Nasal [place] 16 Gm Bottle) 0 gm NASBOTH DAILY PRN PRN Reason: Allergies Furosemide (Furosemide 40 Mg/4 Ml Vial) 40 mg IVPUSH ONETIME ONE Stop: 01/09/21 12:16 Gabapentin (Gabapentin 100 Mg Cap) 100 mg PO BID VON Last Admin: 01/09/21 09:38 Dose: 100 mg Documented by: Hydromorphone HCl (Hydromorphone 2 Mg Tab) 2 mg PO Q6H PRN PRN Reason: Pain Last Admin: 01/08/21 09:09 Dose: 2 mg Documented by: Ibuprofen (Ibuprofen 600 Mg Tab) 600 mg PO TID@0600,1200,1800 VON Lorazepam (Lorazepam 2 Mg/Ml Sdv) 0.5 mg IVPUSH Q4H PRN PRN Reason: Nausea/Vomiting Melatonin (Melatonin 3 Mg Tab) 9 mg PO BEDTIME PRN PRN Reason: Sleep Last Admin: 01/08/21 21:44 Dose: 9 mg Documented by: Nystatin (Nystatin Topical Powder 15 Gm Bottle) 0 gm TOP TID [facility] Last Admin: 01/09/21 09:48 Dose: 1 applic Documented by: Ondansetron HCl (Ondansetron 4 Mg/2 Ml Sdv) 4 mg IV Q6H PRN PRN Reason: Nausea/Vomiting Ondansetron HCl (Ondansetron 4 Mg Tab.Dis) 4 mg PO Q6H PRN PRN Reason: Nausea able to take PO Potassium Chloride (Potassium Chloride 20 Meq Tab.Er) 40 meq PO ONETIME ONE Stop: 01/09/21 17:01 Senna/Docusate Sodium (Docusate Sodium/Sennosides 50-8.6 Mg Tab) 1 tab PO BID PRN PRN Reason: Constipation Sodium Chloride (Sodium Chloride 0.9% 10 Ml Syringe) 10 ml FLUSH ASDIRECTED PRN PRN Reason: Keep Vein Open Discontinued Medications Aspirin (Aspirin 81 Mg Tab.Chew) 324 mg PO ONETIME ONE Stop: 01/07/21 09:54 Last Admin: 01/07/21 10:12 Dose: 324 mg Documented by: Enoxaparin Sodium (Enoxaparin 40 Mg/0.4 Ml Syringe) 40 mg SUBCUT ONETIME ONE Stop: 01/07/21 17:34 Last Admin: 01/07/21 18:17 Dose: 40 mg Documented by: Hydromorphone HCl (Hydromorphone 2 Mg Tab) 2 mg PO NOW STA Stop: 01/07/21 14:45 Last Admin: 01/07/21 16:23 Dose: 2 mg Documented by: Sodium Chloride (Normal Saline) 100 mls @ 4 mls/sec IV ASDIRECTED [facility] Stop: 01/07/21 11:46 Last Admin: 01/07/21 12:05 Dose: 4 mls/sec Documented by: Sodium Chloride (Normal Saline) 1,000 mls @ 500 mls/hr IV ASDIRECTED [facility] Last Admin: 01/07/21 12:24 Dose: 500 mls/hr Documented by: Ibuprofen (Ibuprofen 600 Mg Tab) 600 mg PO TID@0600,1200,1800 [facility] Last Admin: 01/09/21 06:00 Dose: 600 mg Documented by: Iopamidol (Iopamidol 755 Mg/Ml 100 Ml Bottle) 100 ml IV . DIRECTED [facility] Stop: 01/07/21 11:46 Last Admin: 01/07/21 12:05 Dose: 100 ml Documented by: Morphine Sulfate (Morphine 4 Mg/Ml Syringe) 4 mg IVPUSH Q10M PRN PRN Reason: Chest Pain Stop: 01/08/21 09:54 Nystatin (Nystatin Topical Powder 15 Gm Bottle) 1 gm TOP TID [facility] Last Admin: 01/08/21 13:52 Dose: Not Given Documented by: Ondansetron HCl (Ondansetron 4 Mg/2 Ml Sdv) 4 mg IVPUSH ONETIME ONE Stop: 01/07/21 09:57 Last Admin: 01/07/21 10:12 Dose: 4 mg Documented by: Potassium Chloride (Potassium Chloride 20 Meq Tab.Er) 40 meq PO ONETIME ONE Stop: 01/07/21 17:34 Last Admin: 01/07/21 18:08 Dose: 40 meq Documented by: Sodium Chloride (Sodium Chloride 0.9% 10 Ml Syringe) 10 ml FLUSH ONETIME ONE Stop: 01/07/21 11:37 Last Admin: 01/07/21 12:05 Dose: 10 ml Documented by: - Exam Quality Assessment: Supplemental Oxygen General: Alert, Oriented, Cooperative, No Acute Distress Lungs: Normal Respiratory Effort GI/Abdominal Exam: Soft, No Distention, Other (Obese) Extremities: Pedal Edema, Other (Moderate tenderness to palpation over the distal end of the right Achilles tendon near the insertion site. No nodules, warmth or abnormalities palpated). No: Increased Warmth Skin: Warm, Dry Psy/Mental Status: Alert, Normal Affect - Patient Data Result Diagrams: 01/08/21 05:50 01/08/21 05:50 Sepsis Event Note - Evaluation Sepsis Screening Result: No Definite Risk - Focused Exam Vital Signs: Vital Signs Temp Pulse Resp BP Pulse Ox 01/09/21 10:30 36.5 C 72 21 H 118/56 L 90 L 01/09/21 07:00 36.0 C L 61 19 124/56 L 89 L 01/09/21 03:00 35.7 C L 62 18 128/63 99 - Problem List & Annotations (1) Syncope and collapse SNOMED Code(s): 946927990 Code(s): R55 - SYNCOPE AND COLLAPSE Status: Acute Current Visit: Yes (2) Nocturnal hypoxemia due to obesity SNOMED Code(s): 261974501 Code(s): E66.9 - OBESITY, UNSPECIFIED; G47.36 - SLEEP RELATED HYPOVENTILATION IN CONDITIONS CLASSD ELSWHR Status: Chronic Current Visit: Yes (3) Morbid obesity with BMI of 70 and over, adult SNOMED Code(s): 316649090 Code(s): E66.01 - MORBID (SEVERE) OBESITY DUE TO EXCESS CALORIES; Z68.45 - BODY MASS INDEX [BMI] 70 OR GREATER, ADULT Status: Chronic Priority: Medium Current Visit: No (4) Cirrhosis SNOMED Code(s): 48219139 Code(s): K74.60 - UNSPECIFIED CIRRHOSIS OF LIVER Status: Chronic Current Visit: Yes Qualifiers: Hepatic cirrhosis type: other cirrhosis Qualified Code(s): K74.69 - Other cirrhosis of liver - Problem List Review Problem List Initiated/Reviewed/Updated: Yes - My Orders Last 24 Hours: My Active Orders 01/08/21 15:02 PT Evaluation and Treatment [CONS] Routine 01/08/21 15:04 OT Evaluation and Treatment [CONS] Routine 01/09/21 07:48 Echo Comp wo Cont [US] Routine 01/09/21 11:58 ABG [BLOOD GAS ARTERIAL] [BG] Routine TSH ULTRASENSITIVE [CHEM] Routine 01/09/21 12:10 Admission Status [Patient Status] [ADT] Routine 01/09/21 12:15 Furosemide [Lasix] 40 mg IVPUSH ONETIME ONE 01/09/21 17:00 Potassium Chloride [Klor-Con M20] 40 meq PO ONETIME ONE 01/09/21 18:00 Ibuprofen [Motrin] 600 mg PO TID@0600,1200,1800 01/10/21 05:00 BASIC METABOLIC PANEL,BMP [CHEM] Timed 01/10/21 07:00 Lung Vent Perfusion [NM] Routine - Plan Plan:: ASSESSMENT AND PLAN - Heart failure with preserved ejection fraction-evidence for pulmonary hypertension as well. He has an enlarged right ventricle with possible septal bowing into the left ventricle with inspiration. Could have obesity hypoventilation with pulmonary hypertension versus hepatopulmonary syndrome versus chronic PEs versus other. -Ventilation/perfusion scan tomorrow -ABG and thyroid studies today -Supplement oxygen as needed -Dose of furosemide today Syncope-suspect vasovagal or benign cause. No recurrence during the hospital stay. Focusing work-up and treatment as above. Follow-up formal echo report - Morbid obesity with BMI greater than 70-previously diagnosed with obesity hypoventilation syndrome though he does not have home oxygen. I think he would benefit from home oxygen if this is the case. -Evaluation for home oxygen -Pulse oximetry overnight Cirrhosis-likely secondary to nonalcoholic fatty liver disease. There is evidence for portal venous hypertension. This appears to be compensated at this time. There is evidence for hepatic dysfunction with a mild elevation of his INR. Chronic pain-stable Maintenance issues - -DVT prophylaxis-unable to use pharmacological means because of low platelets -GI prophylaxis-not indicated -[id number] Admission justification -this patient will be transition to inpatient status for management of congestive heart failure with preserved ejection fraction complicated by pulmonary hypertension and hypoxic respiratory failure. Disposition -I anticipate discharge home after the hospital stay Primary care physician -Dr. Da Hurd M.D.
[2021-01-09] MEDS ORDERED: Potassium Chloride 20 MEQ Tab.ER PO ONE (17:00)
[2021-01-09] MEDS: HYDROmorphone 2 MG Tab PO PRN (20:58)
[2021-01-10] MEDS: Ibuprofen 600 MG Tab PO SCH ×3 (05:22→17:58)
[2021-01-10] MEDS: Gabapentin 100 MG Cap PO SCH ×2 (09:20→20:49)
[2021-01-10] MEDS: Nystatin Topical Powder 15 GM Bottle TOP SCH ×3 (09:20→20:49)
--- NOTE | 2021-01-10 10:34 | PCM.PN ---
- General Info Date of Service: 01/10/21 Subjective Update: No acute events overnight. Patient reports ongoing pain in the right shoulder and right heel and ankle area. He has been on supplemental oxygen between 2 and 4 L/min. He does not feel particularly short of breath. He does continue to get dizzy with activity but did not seem as bad today. No nausea. Appetite acceptable. VQ scan was low probability for pulmonary embolus. Functional Status: Reports: Pain Controlled - Review of Systems General: Denies: Fever Pulmonary: Reports: Shortness of Breath Musculoskeletal: Reports: Shoulder Pain - Patient Data Vitals - Most Recent: Last Vital Signs Temp 36.6 C 01/10/21 07:50 Pulse 71 01/10/21 07:50 Resp 18 01/10/21 07:50 BP 103/59 L 01/10/21 07:50 Pulse Ox 94 L 01/10/21 07:50 Weight - Most Recent: 218.405 kg I&O - Last 24 Hours: Intake & Output 01/09/21 01/10/21 01/10/21 22:59 06:59 14:59 Intake Total 415 855 Balance 415 855 Lab Results Last 24 Hours: Laboratory Results - last 24 hr 01/09/21 01/09/21 01/09/21 Range/Units 11:58 11:58 12:34 Puncture Site Lt radial ABG pH 7.368 (7.350-7.450) ABG pCO2 52.7 H (35.0-42.0) mmHg ABG pO2 84.1 (75.0-100.0) mmHg ABG HCO3 29.6 H (22.0-26.0) mmol/L ABG Total CO2 27.5 H (23.0-27.0) mmol/L ABG O2 Saturation 96.3 (95.0-98.0) % ABG O2 Content 13.9 L (15.0-23.0) %vol ABG Base Excess 4.0 mm/L ABG Hemoglobin 10.4 L (13.5-18.0) g/dL ABG Oxyhemoglobin 94.4 % ABG Carboxyhemoglobin 1.5 (0.0-1.6) % ABG Methemoglobin 0.5 % John Test Passed O2 Delivery Device Room air Oxygen Flow Rate 4.0 L Sodium (140-148) mmol/L Potassium (3.6-5.2) mmol/L Chloride (100-108) mmol/L Carbon Dioxide (21-32) mmol/L Anion Gap (5.0-14.0) mmol/L BUN (7-18) mg/dL Creatinine (0.8-1.3) mg/dL Est Cr Clr Drug Dosing mL/min Estimated GFR (MDRD) (>60) Glucose (74-106) mg/dL Calcium (8.5-10.1) mg/dL Free T4 0.86 (0.76-1.46) ng/dL TSH, Ultra Sensitive 5.016 H (0.358-3.740) uIU/mL 01/10/21 Range/Units 05:09 Puncture Site ABG pH (7.350-7.450) ABG pCO2 (35.0-42.0) mmHg ABG pO2 (75.0-100.0) mmHg ABG HCO3 (22.0-26.0) mmol/L ABG Total CO2 (23.0-27.0) mmol/L ABG O2 Saturation (95.0-98.0) % ABG O2 Content (15.0-23.0) %vol ABG Base Excess mm/L ABG Hemoglobin (13.5-18.0) g/dL ABG Oxyhemoglobin % ABG Carboxyhemoglobin (0.0-1.6) % ABG Methemoglobin % John Test O2 Delivery Device Oxygen Flow Rate L Sodium 139 L (140-148) mmol/L Potassium 4.2 (3.6-5.2) mmol/L Chloride 104 (100-108) mmol/L Carbon Dioxide 26 (21-32) mmol/L Anion Gap 13.2 (5.0-14.0) mmol/L BUN 8 (7-18) mg/dL Creatinine 0.9 (0.8-1.3) mg/dL Est Cr Clr Drug Dosing 73.84 mL/min Estimated GFR (MDRD) > 60 (>60) Glucose 82 (74-106) mg/dL Calcium 8.1 L (8.5-10.1) mg/dL Free T4 (0.76-1.46) ng/dL TSH, Ultra Sensitive (0.358-3.740) uIU/mL Med Orders - Current: Current Medications Acetaminophen (Acetaminophen 325 Mg Tab) 650 mg PO Q4H PRN PRN Reason: Pain (Mild 1-3)/fever Last Admin: 01/07/21 20:23 Dose: 650 mg Documented by: Albuterol (Albuterol 8 Gm Inhaler) 0 gm INH Q6H PRN PRN Reason: Shortness of Breath Cyclobenzaprine HCl (Cyclobenzaprine 10 Mg Tab) 10 mg PO Q8H PRN PRN Reason: Spasms Fluticasone Propionate (Fluticasone Propionate Nasal [place] 16 Gm Bottle) 0 gm NASBOTH DAILY PRN PRN Reason: Allergies Gabapentin (Gabapentin 100 Mg Cap) 100 mg PO BID [facility] Last Admin: 01/10/21 09:20 Dose: 100 mg Documented by: Hydromorphone HCl (Hydromorphone 2 Mg Tab) 2 mg PO Q6H PRN PRN Reason: Pain Last Admin: 01/09/21 20:58 Dose: 2 mg Documented by: Ibuprofen (Ibuprofen 600 Mg Tab) 600 mg PO TID@0600,1200,1800 [facility] Last Admin: 01/10/21 05:22 Dose: 600 mg Documented by: Lorazepam (Lorazepam 2 Mg/Ml Sdv) 0.5 mg IVPUSH Q4H PRN PRN Reason: Nausea/Vomiting Melatonin (Melatonin 3 Mg Tab) 9 mg PO BEDTIME PRN PRN Reason: Sleep Last Admin: 01/08/21 21:44 Dose: 9 mg Documented by: Nystatin (Nystatin Topical Powder 15 Gm Bottle) 0 gm TOP TID [facility] Last Admin: 01/10/21 09:20 Dose: 1 applic Documented by: Ondansetron HCl (Ondansetron 4 Mg/2 Ml Sdv) 4 mg IV Q6H PRN PRN Reason: Nausea/Vomiting Ondansetron HCl (Ondansetron 4 Mg Tab.Dis) 4 mg PO Q6H PRN PRN Reason: Nausea able to take PO Senna/Docusate Sodium (Docusate Sodium/Sennosides 50-8.6 Mg Tab) 1 tab PO BID PRN PRN Reason: Constipation Sodium Chloride (Sodium Chloride 0.9% 10 Ml Syringe) 10 ml FLUSH ASDIRECTED PRN PRN Reason: Keep Vein Open Discontinued Medications Aspirin (Aspirin 81 Mg Tab.Chew) 324 mg PO ONETIME ONE Stop: 01/07/21 09:54 Last Admin: 01/07/21 10:12 Dose: 324 mg Documented by: Enoxaparin Sodium (Enoxaparin 40 Mg/0.4 Ml Syringe) 40 mg SUBCUT ONETIME ONE Stop: 01/07/21 17:34 Last Admin: 01/07/21 18:17 Dose: 40 mg Documented by: Furosemide (Furosemide 40 Mg/4 Ml Vial) 40 mg IVPUSH ONETIME ONE Stop: 01/09/21 12:16 Last Admin: 01/09/21 12:37 Dose: 40 mg Documented by: Hydromorphone HCl (Hydromorphone 2 Mg Tab) 2 mg PO NOW STA Stop: 01/07/21 14:45 Last Admin: 01/07/21 16:23 Dose: 2 mg Documented by: Sodium Chloride (Normal Saline) 100 mls @ 4 mls/sec IV ASDIRECTED [facility] Stop: 01/07/21 11:46 Last Admin: 01/07/21 12:05 Dose: 4 mls/sec Documented by: Sodium Chloride (Normal Saline) 1,000 mls @ 500 mls/hr IV ASDIRECTED [facility] Last Admin: 01/07/21 12:24 Dose: 500 mls/hr Documented by: Ibuprofen (Ibuprofen 600 Mg Tab) 600 mg PO TID@0600,1200,1800 [facility] Last Admin: 01/09/21 06:00 Dose: 600 mg Documented by: Iopamidol (Iopamidol 755 Mg/Ml 100 Ml Bottle) 100 ml IV . DIRECTED [facility] Stop: 01/07/21 11:46 Last Admin: 01/07/21 12:05 Dose: 100 ml Documented by: Morphine Sulfate (Morphine 4 Mg/Ml Syringe) 4 mg IVPUSH Q10M PRN PRN Reason: Chest Pain Stop: 01/08/21 09:54 Nystatin (Nystatin Topical Powder 15 Gm Bottle) 1 gm TOP TID [facility] Last Admin: 01/08/21 13:52 Dose: Not Given Documented by: Ondansetron HCl (Ondansetron 4 Mg/2 Ml Sdv) 4 mg IVPUSH ONETIME ONE Stop: 01/07/21 09:57 Last Admin: 01/07/21 10:12 Dose: 4 mg Documented by: Potassium Chloride (Potassium Chloride 20 Meq Tab.Er) 40 meq PO ONETIME ONE Stop: 01/07/21 17:34 Last Admin: 01/07/21 18:08 Dose: 40 meq Documented by: Potassium Chloride (Potassium Chloride 20 Meq Tab.Er) 40 meq PO ONETIME ONE Stop: 01/09/21 17:01 Last Admin: 01/09/21 17:09 Dose: 40 meq Documented by: Sodium Chloride (Sodium Chloride 0.9% 10 Ml Syringe) 10 ml FLUSH ONETIME ONE Stop: 01/07/21 11:37 Last Admin: 01/07/21 12:05 Dose: 10 ml Documented by: - Exam Quality Assessment: Supplemental Oxygen General: Alert, Oriented, Cooperative, No Acute Distress Lungs: Clear to Auscultation, Normal Respiratory Effort, Decreased Breath Sounds (both bases) Cardiovascular: Regular Rate, Regular Rhythm GI/Abdominal Exam: Normal Bowel Sounds, Soft, No Distention Extremities: Pedal Edema, Other (normal ROM of right shoulder with passive ROM. TTP over the insertion of the biceps tendon and insertion of pectoralis ). No: Increased Warmth Skin: Warm, Dry, Rash (chronic venous stasis changes both legs from feet to below the knee ) Psy/Mental Status: Alert, Normal Affect - Patient Data Lab Results Last 24 hrs: Laboratory Results - last 24 hr 01/09/21 01/09/21 01/09/21 Range/Units 11:58 11:58 12:34 Puncture Site Lt radial ABG pH 7.368 (7.350-7.450) ABG pCO2 52.7 H (35.0-42.0) mmHg ABG pO2 84.1 (75.0-100.0) mmHg ABG HCO3 29.6 H (22.0-26.0) mmol/L ABG Total CO2 27.5 H (23.0-27.0) mmol/L ABG O2 Saturation 96.3 (95.0-98.0) % ABG O2 Content 13.9 L (15.0-23.0) %vol ABG Base Excess 4.0 mm/L ABG Hemoglobin 10.4 L (13.5-18.0) g/dL ABG Oxyhemoglobin 94.4 % ABG Carboxyhemoglobin 1.5 (0.0-1.6) % ABG Methemoglobin 0.5 % John Test Passed O2 Delivery Device Room air Oxygen Flow Rate 4.0 L Sodium (140-148) mmol/L Potassium (3.6-5.2) mmol/L Chloride (100-108) mmol/L Carbon Dioxide (21-32) mmol/L Anion Gap (5.0-14.0) mmol/L BUN (7-18) mg/dL Creatinine (0.8-1.3) mg/dL Est Cr Clr Drug Dosing mL/min Estimated GFR (MDRD) (>60) Glucose (74-106) mg/dL Calcium (8.5-10.1) mg/dL Free T4 0.86 (0.76-1.46) ng/dL TSH, Ultra Sensitive 5.016 H (0.358-3.740) uIU/mL 01/10/21 Range/Units 05:09 Puncture Site ABG pH (7.350-7.450) ABG pCO2 (35.0-42.0) mmHg ABG pO2 (75.0-100.0) mmHg ABG HCO3 (22.0-26.0) mmol/L ABG Total CO2 (23.0-27.0) mmol/L ABG O2 Saturation (95.0-98.0) % ABG O2 Content (15.0-23.0) %vol ABG Base Excess mm/L ABG Hemoglobin (13.5-18.0) g/dL ABG Oxyhemoglobin % ABG Carboxyhemoglobin (0.0-1.6) % ABG Methemoglobin % John Test O2 Delivery Device Oxygen Flow Rate L Sodium 139 L (140-148) mmol/L Potassium 4.2 (3.6-5.2) mmol/L Chloride 104 (100-108) mmol/L Carbon Dioxide 26 (21-32) mmol/L Anion Gap 13.2 (5.0-14.0) mmol/L BUN 8 (7-18) mg/dL Creatinine 0.9 (0.8-1.3) mg/dL Est Cr Clr Drug Dosing 73.84 mL/min Estimated GFR (MDRD) > 60 (>60) Glucose 82 (74-106) mg/dL Calcium 8.1 L (8.5-10.1) mg/dL Free T4 (0.76-1.46) ng/dL TSH, Ultra Sensitive (0.358-3.740) uIU/mL Result Diagrams: 01/08/21 05:50 01/10/21 05:09 Sepsis Event Note - Evaluation Sepsis Screening Result: No Definite Risk - Focused Exam Vital Signs: Vital Signs Temp Pulse Resp BP Pulse Ox 01/10/21 07:50 36.6 C 71 18 103/59 L 94 L 01/10/21 02:00 36.7 C 79 18 144/68 H 94 L 01/09/21 22:42 36.6 C 84 16 143/57 H 90 L - Problem List & Annotations (1) (HFpEF) heart failure with preserved ejection fraction SNOMED Code(s): 971933272 Code(s): I50.30 - UNSPECIFIED DIASTOLIC (CONGESTIVE) HEART FAILURE Status: Acute Current Visit: Yes Qualifiers: Heart failure chronicity: acute on chronic Qualified Code(s): I50.33 - Acute on chronic diastolic (congestive) heart failure (2) Pulmonary hypertension SNOMED Code(s): 28578056 Code(s): I27.20 - PULMONARY HYPERTENSION, UNSPECIFIED Status: Chronic Current Visit: Yes (3) 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 SNOMED Code(s): 851060448, 721999540 Code(s): E66.2 - MORBID (SEVERE) OBESITY WITH ALVEOLAR HYPOVENTILATION Status: Chronic Current Visit: Yes (4) Syncope and collapse SNOMED Code(s): 618556073 Code(s): R55 - SYNCOPE AND COLLAPSE Status: Acute Current Visit: Yes (5) Nocturnal hypoxemia due to obesity SNOMED Code(s): 162272329 Code(s): E66.9 - OBESITY, UNSPECIFIED; G47.36 - SLEEP RELATED HYPOVENTILATION IN CONDITIONS CLASSD [id number] Status: Chronic Current Visit: Yes (6) Morbid obesity with BMI of 70 and over, adult SNOMED Code(s): 590476713 Code(s): E66.01 - MORBID (SEVERE) OBESITY DUE TO EXCESS CALORIES; Z68.45 - BODY MASS INDEX [BMI] 70 OR GREATER, ADULT Status: Chronic Priority: Medium Current Visit: No (7) Cirrhosis SNOMED Code(s): 66019323 Code(s): K74.60 - UNSPECIFIED CIRRHOSIS OF LIVER Status: Chronic Current Visit: Yes Qualifiers: Hepatic cirrhosis type: other cirrhosis Qualified Code(s): K74.69 - Other cirrhosis of liver - Problem List Review Problem List Initiated/Reviewed/Updated: Yes - My Orders Last 24 Hours: My Active Orders 01/09/21 12:10 Admission Status [Patient Status] [ADT] Routine 01/09/21 18:00 Ibuprofen [Motrin] 600 mg PO TID@0600,1200,1800 01/10/21 07:00 Lung Vent Perfusion [NM] Routine 01/11/21 05:00 BASIC METABOLIC PANEL,BMP [CHEM] Timed CBC W/O DIFF,HEMOGRAM [HEME] Timed (1) - Plan Plan:: ASSESSMENT AND PLAN - Heart failure with preserved ejection fraction-complicated by pulmonary hypertension. Both of these are probably related to obesity hypoventilation syndrome. Currently receiving diuretic therapy and we have not seen substantial benefit as of yet though he is doing a little better. Ventilation/perfusion scan was low probability for pulmonary embolus. ABG did show chronic compensated respiratory acidosis -Continue diuretics -Supplement oxygen as needed -Consider TAJ inhibitor if blood pressure control as needed Syncope-suspect vasovagal or benign cause. No recurrence during the hospital stay. Focusing work-up and treatment as above. Morbid obesity with BMI greater than 70-complicated by obesity with hypoventilation syndrome. Blood gases showed chronic compensated respiratory acidosis. -Home oxygen Cirrhosis-likely secondary to nonalcoholic fatty liver disease. There is evidence for portal venous hypertension. This appears to be compensated at this time. There is evidence for hepatic dysfunction with a mild elevation of his INR. Chronic pain-stable Maintenance issues - -DVT prophylaxis-unable to use pharmacological means because of low platelets and unable to use mechanical means because of chronic venous stasis. -GI prophylaxis-not indicated -[id number] Admission justification -this patient will be transition to inpatient status for management of congestive heart failure with preserved ejection fraction complic ated by pulmonary hypertension and hypoxic respiratory failure. Disposition -I anticipate discharge home after the hospital stay Primary care physician -Dr. Da Hurd M.D.
--- NOTE | 2021-01-10 10:37 | CRLNM ---
For Patients: As a result of the Century Cures Act, medical imaging exams and procedure reports are released immediately into your electronic medical record. You may view this report before your referring provider. If you have questions, please contact your health care provider. HISTORY: 65-year-old male. Dyspnea. Hypoxia. Elevated D-dimer. Technique: 1.0 millicuries of [id number] aerosol was utilized for the ventilation images. 4.8 millicuries of [id number] was injected intravenously for the perfusion images. COMPARISON: Chest x-ray of 01/07/2021. FINDINGS: There is soft tissue attenuation, likely related to the patient`s body habitus. The perfusion images demonstrate bilateral perfusion inhomogeneities. Several small perfusion abnormalities are noted in right middle lobe. There are matching areas of ventilation inhomogeneity. There are no corresponding infiltrates on the chest x-ray. No significant V/Q mismatches are identified. IMPRESSION: 1. There are findings consistent with a low probability, but not a zero probability, for pulmonary embolism. 2. Recommend further evaluation/follow-up as clinically indicated. Dictated by Rommel Rawls MD @ 01/10/2021 10:35:58 AM (Electronically Signed)
[2021-01-10] MEDS ORDERED: Trolamine Salicylate/Aloe Vera 10% Crm 85 GM Tube TOP PRN (11:18)
[2021-01-10] MEDS: Furosemide 40 MG/4 ML VIAL IVPUSH SCH (11:46)
[2021-01-10] MEDS: Cyclobenzaprine 10 MG Tab PO PRN (13:19)
[2021-01-10] MEDS: HYDROmorphone 2 MG Tab PO PRN (13:58)
[2021-01-11] MEDS: Acetaminophen 325 MG Tab PO PRN ×2 (00:54→08:29)
[2021-01-11] MEDS: Melatonin 3 MG Tab PO PRN (00:54)
[2021-01-11] MEDS: Cyclobenzaprine 10 MG Tab PO PRN (01:58)
[2021-01-11] MEDS: HYDROmorphone 2 MG Tab PO PRN (05:00)
[2021-01-11] MEDS: Ibuprofen 600 MG Tab PO SCH ×3 (05:01→17:46)
[2021-01-11] MEDS: Gabapentin 100 MG Cap PO SCH ×3 (08:23→21:43)
[2021-01-11] MEDS: Nystatin Topical Powder 15 GM Bottle TOP SCH ×3 (08:26→21:42)
[2021-01-11] MEDS: Furosemide 40 MG/4 ML VIAL IVPUSH SCH (08:26)
[2021-01-11] MEDS ORDERED: rOPINIRole 1 MG Tab PO PRN (14:39)
--- NOTE | 2021-01-11 14:41 | PCM.PN ---
- General Info Date of Service: 01/11/21 Subjective Update: There were no acute events overnight. Patient reports difficulty sleeping because of restless legs. Symptoms seem better during the daytime but were quite pronounced again last night. Still having some right shoulder pain but thinks it is moving a little better today. Does not think there is been any change in his edema. Thinks maybe his shortness of breath is slightly better. Still requiring supplemental oxygen. Functional Status: Reports: Pain Controlled, Tolerating Diet - Review of Systems Musculoskeletal: Reports: Shoulder Pain - Patient Data Vitals - Most Recent: Last Vital Signs Temp 36.5 C 01/11/21 11:10 Pulse 78 01/11/21 11:10 Resp 16 01/11/21 11:10 BP 145/71 H 01/11/21 11:10 Pulse Ox 95 01/11/21 11:10 Weight - Most Recent: 218.405 kg I&O - Last 24 Hours: Intake & Output 01/10/21 01/11/21 01/11/21 22:59 06:59 14:59 Intake Total 300 Balance 300 Lab Results Last 24 Hours: Laboratory Results - last 24 hr 01/11/21 01/11/21 Range/Units 05:59 05:59 WBC 2.7 L (4.5-11.0) K/uL RBC 3.42 L (4.30-5.90) M/uL Hgb 10.5 L (12.0-15.0) g/dL Hct 32.9 L (40.0-54.0) % MCV 96 (80-98) fL MCH 31 (27-31) pg MCHC 32 (32-36) % Plt Count 32 L (150-400) K/uL Sodium 140 (140-148) mmol/L Potassium 3.8 (3.6-5.2) mmol/L Chloride 105 (100-108) mmol/L Carbon Dioxide 28 (21-32) mmol/L Anion Gap 6.7 (5.0-14.0) mmol/L BUN 9 (7-18) mg/dL Creatinine 0.9 (0.8-1.3) mg/dL Est Cr Clr Drug Dosing 73.84 mL/min Estimated GFR (MDRD) > 60 (>60) Glucose 87 (74-106) mg/dL Calcium 8.0 L (8.5-10.1) mg/dL Med Orders - Current: Current Medications Acetaminophen (Acetaminophen 325 Mg Tab) 650 mg PO Q4H PRN PRN Reason: Pain (Mild 1-3)/fever Last Admin: 01/11/21 08:29 Dose: 650 mg Documented by: Albuterol (Albuterol 8 Gm Inhaler) 0 gm INH Q6H PRN PRN Reason: Shortness of Breath Cyclobenzaprine HCl (Cyclobenzaprine 10 Mg Tab) 10 mg PO Q8H PRN PRN Reason: Spasms Last Admin: 01/11/21 01:58 Dose: 10 mg Documented by: Fluticasone Propionate (Fluticasone Propionate Nasal [place] 16 Gm Bottle) 0 gm NASBOTH DAILY PRN PRN Reason: Allergies Furosemide (Furosemide 40 Mg/4 Ml Vial) 40 mg IVPUSH DAILY [facility] Last Admin: 01/11/21 08:26 Dose: 40 mg Documented by: Hydromorphone HCl (Hydromorphone 2 Mg Tab) 2 mg PO Q6H PRN PRN Reason: Pain Last Admin: 01/11/21 05:00 Dose: 2 mg Documented by: Ibuprofen (Ibuprofen 600 Mg Tab) 600 mg PO TID@0600,1200,1800 [facility] Last Admin: 01/11/21 13:25 Dose: 600 mg Documented by: Lorazepam (Lorazepam 2 Mg/Ml Sdv) 0.5 mg IVPUSH Q4H PRN PRN Reason: Nausea/Vomiting Melatonin (Melatonin 3 Mg Tab) 9 mg PO BEDTIME PRN PRN Reason: Sleep Last Admin: 01/11/21 00:54 Dose: 9 mg Documented by: Nystatin (Nystatin Topical Powder 15 Gm Bottle) 0 gm TOP TID [facility] Last Admin: 01/11/21 13:26 Dose: 1 applic Documented by: Ondansetron HCl (Ondansetron 4 Mg/2 Ml Sdv) 4 mg IV Q6H PRN PRN Reason: Nausea/Vomiting Ondansetron HCl (Ondansetron 4 Mg Tab.Dis) 4 mg PO Q6H PRN PRN Reason: Nausea able to take PO Senna/Docusate Sodium (Docusate Sodium/Sennosides 50-8.6 Mg Tab) 1 tab PO BID PRN PRN Reason: Constipation Sodium Chloride (Sodium Chloride 0.9% 10 Ml Syringe) 10 ml FLUSH ASDIRECTED PRN PRN Reason: Keep Vein Open Trolamine Salicylate (Trolamine Salicylate/Aloe Vera 10% Crm 85 Gm Tube) 0 gm TOP Q2H PRN PRN Reason: shoulder pain Last Admin: 01/11/21 00:55 Dose: 1 applic Documented by: Discontinued Medications Aspirin (Aspirin 81 Mg Tab.Chew) 324 mg PO ONETIME ONE Stop: 01/07/21 09:54 Last Admin: 01/07/21 10:12 Dose: 324 mg Documented by: Enoxaparin Sodium (Enoxaparin 40 Mg/0.4 Ml Syringe) 40 mg SUBCUT ONETIME ONE Stop: 01/07/21 17:34 Last Admin: 01/07/21 18:17 Dose: 40 mg Documented by: Furosemide (Furosemide 40 Mg/4 Ml Vial) 40 mg IVPUSH ONETIME ONE Stop: 01/09/21 12:16 Last Admin: 01/09/21 12:37 Dose: 40 mg Documented by: Gabapentin (Gabapentin 100 Mg Cap) 100 mg PO BID [facility] Last Admin: 01/11/21 08:23 Dose: 100 mg Documented by: Hydromorphone HCl (Hydromorphone 2 Mg Tab) 2 mg PO NOW STA Stop: 01/07/21 14:45 Last Admin: 01/07/21 16:23 Dose: 2 mg Documented by: Sodium Chloride (Normal Saline) 100 mls @ 4 mls/sec IV ASDIRECTED [facility] Stop: 01/07/21 11:46 Last Admin: 01/07/21 12:05 Dose: 4 mls/sec Documented by: Sodium Chloride (Normal Saline) 1,000 mls @ 500 mls/hr IV ASDIRECTED [facility] Last Admin: 01/07/21 12:24 Dose: 500 mls/hr Documented by: Ibuprofen (Ibuprofen 600 Mg Tab) 600 mg PO TID@0600,1200,1800 [facility] Last Admin: 01/09/21 06:00 Dose: 600 mg Documented by: Iopamidol (Iopamidol 755 Mg/Ml 100 Ml Bottle) 100 ml IV . DIRECTED [facility] Stop: 01/07/21 11:46 Last Admin: 01/07/21 12:05 Dose: 100 ml Documented by: Morphine Sulfate (Morphine 4 Mg/Ml Syringe) 4 mg IVPUSH Q10M PRN PRN Reason: Chest Pain Stop: 01/08/21 09:54 Nystatin (Nystatin Topical Powder 15 Gm Bottle) 1 gm TOP TID [facility] Last Admin: 01/08/21 13:52 Dose: Not Given Documented by: Ondansetron HCl (Ondansetron 4 Mg/2 Ml Sdv) 4 mg IVPUSH ONETIME ONE Stop: 01/07/21 09:57 Last Admin: 01/07/21 10:12 Dose: 4 mg Documented by: Potassium Chloride (Potassium Chloride 20 Meq Tab.Er) 40 meq PO ONETIME ONE Stop: 01/07/21 17:34 Last Admin: 01/07/21 18:08 Dose: 40 meq Documented by: Potassium Chloride (Potassium Chloride 20 Meq Tab.Er) 40 meq PO ONETIME ONE Stop: 01/09/21 17:01 Last Admin: 01/09/21 17:09 Dose: 40 meq Documented by: Sodium Chloride (Sodium Chloride 0.9% 10 Ml Syringe) 10 ml FLUSH ONETIME ONE Stop: 01/07/21 11:37 Last Admin: 01/07/21 12:05 Dose: 10 ml Documented by: - Exam Quality Assessment: Supplemental Oxygen General: Alert, Oriented, Cooperative, No Acute Distress Lungs: Normal Respiratory Effort Cardiovascular: Regular Rate, Regular Rhythm GI/Abdominal Exam: Other (obese) Extremities: Pedal Edema. No: Increased Warmth Skin: Warm, Dry Psy/Mental Status: Alert, Normal Affect - Patient Data Lab Results Last 24 hrs: Laboratory Results - last 24 hr 01/11/21 01/11/21 Range/Units 05:59 05:59 WBC 2.7 L (4.5-11.0) K/uL RBC 3.42 L (4.30-5.90) M/uL Hgb 10.5 L (12.0-15.0) g/dL Hct 32.9 L (40.0-54.0) % MCV 96 (80-98) fL MCH 31 (27-31) pg MCHC 32 (32-36) % Plt Count 32 L (150-400) K/uL Sodium 140 (140-148) mmol/L Potassium 3.8 (3.6-5.2) mmol/L Chloride 105 (100-108) mmol/L Carbon Dioxide 28 (21-32) mmol/L Anion Gap 6.7 (5.0-14.0) mmol/L BUN 9 (7-18) mg/dL Creatinine 0.9 (0.8-1.3) mg/dL Est Cr Clr Drug Dosing 73.84 mL/min Estimated GFR (MDRD) > 60 (>60) Glucose 87 (74-106) mg/dL Calcium 8.0 L (8.5-10.1) mg/dL Result Diagrams: 01/11/21 05:59 01/11/21 05:59 Sepsis Event Note - Evaluation Sepsis Screening Result: No Definite Risk - Focused Exam Vital Signs: Vital Signs Temp Pulse Resp BP Pulse Ox Pulse Ox 01/11/21 11:10 36.5 C 78 16 145/71 H 95 01/11/21 08:52 94 L 01/11/21 07:17 36.2 C 72 18 141/66 H 94 L - Problem List & Annotations (1) (HFpEF) heart failure with preserved ejection fraction SNOMED Code(s): 781347226 Code(s): I50.30 - UNSPECIFIED DIASTOLIC (CONGESTIVE) HEART FAILURE Status: Acute Current Visit: Yes Qualifiers: Heart failure chronicity: acute on chronic Qualified Code(s): I50.33 - Acute on chronic diastolic (congestive) heart failure (2) Pulmonary hypertension SNOMED Code(s): 00413287 Code(s): I27.20 - PULMONARY HYPERTENSION, UNSPECIFIED Status: Chronic Current Visit: Yes (3) 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 SNOMED Code(s): 952214522, 903397894 Code(s): E66.2 - MORBID (SEVERE) OBESITY WITH ALVEOLAR HYPOVENTILATION Status: Chronic Current Visit: Yes (4) Syncope and collapse SNOMED Code(s): 912867584 Code(s): R55 - SYNCOPE AND COLLAPSE Status: Acute Current Visit: Yes (5) Nocturnal hypoxemia due to obesity SNOMED Code(s): 214730838 Code(s): E66.9 - OBESITY, UNSPECIFIED; G47.36 - SLEEP RELATED HYPOVENTILATION IN CONDITIONS CLASSD ELSWHR Status: Chronic Current Visit: Yes (6) Morbid obesity with BMI of 70 and over, adult SNOMED Code(s): 257839438 Code(s): E66.01 - MORBID (SEVERE) OBESITY DUE TO EXCESS CALORIES; Z68.45 - BODY MASS INDEX [BMI] 70 OR GREATER, ADULT Status: Chronic Priority: Medium Current Visit: No (7) Cirrhosis SNOMED Code(s): 62875953 Code(s): K74.60 - UNSPECIFIED CIRRHOSIS OF LIVER Status: Chronic Current Visit: Yes Qualifiers: Hepatic cirrhosis type: other cirrhosis Qualified Code(s): K74.69 - Other cirrhosis of liver - Problem List Review Problem List Initiated/Reviewed/Updated: Yes - My Orders Last 24 Hours: My Active Orders 01/11/21 14:39 rOPINIRole [Requip] 1 mg PO BEDTIME PRN 01/11/21 14:40 MAGNESIUM [CHEM] Routine 01/11/21 15:00 Furosemide [Lasix] 40 mg IVPUSH Q24H 01/11/21 16:00 Gabapentin [Neurontin] 100 mg PO QID HYDROmorphone [Dilaudid] 2 mg PO QID 01/12/21 05:00 BASIC METABOLIC PANEL,BMP [CHEM] Timed - Plan Plan:: ASSESSMENT AND PLAN - Heart failure with preserved ejection fraction-complicated by pulmonary hypertension. Both of these are probably related to obesity hypoventilation syndrome. Respiratory status seems to be slowly improving but he still has a fair amount of evidence to support volume overload. Still requiring supplemental oxygen. -Continue furosemide twice daily -Start spironolactone tomorrow -Supplement oxygen as needed -Consider TAJ inhibitor if blood pressure control as needed Syncope-suspect vasovagal or benign cause. No recurrence during the hospital stay. Focusing work-up and treatment as above. Morbid obesity with BMI greater than 70-complicated by obesity with hypoventilation syndrome. Blood gases showed chronic compensated respiratory acidosis. -Home oxygen Cirrhosis-likely secondary to nonalcoholic fatty liver disease. There is evidence for portal venous hypertension. This appears to be compensated at this time. There is evidence for hepatic dysfunction with a mild elevation of his INR. Chronic pain-stable Maintenance issues - -DVT prophylaxis-unable to use pharmacological means because of low platelets and unable to use mechanical means because of chronic venous stasis. -GI prophylaxis-not indicated -[id number] Admission justification -this patient will be transition to inpatient status for management of congestive heart failure with preserved ejection fraction complicated by pulmonary hypertension and hypoxic respiratory failure. Disposition -I anticipate discharge home after the hospital stay Primary care physician -Dr. Da Hurd M.D.
[2021-01-11] MEDS: HYDROmorphone 2 MG Tab PO SCH ×2 (15:48→21:45)
[2021-01-11] MEDS ORDERED: Furosemide 40 MG/4 ML VIAL IVPUSH SCH (16:00)
[2021-01-11] MEDS ORDERED: Magnesium Sulfate/Water 2 GM in Premix Bag 1 BAG IV ONE (17:00)
[2021-01-12] MEDS ORDERED: Sodium Chloride 0.9% 1,000 ML IV SCH ×2 (00:02→17:30)
[2021-01-12] MEDS: Gabapentin 100 MG Cap PO SCH ×3 (06:16→16:10)
[2021-01-12] MEDS: Ibuprofen 600 MG Tab PO SCH (06:16)
[2021-01-12] MEDS: HYDROmorphone 2 MG Tab PO SCH ×3 (06:16→16:11)
[2021-01-12] MEDS: Furosemide 40 MG/4 ML VIAL IVPUSH SCH (08:36)
[2021-01-12] MEDS: Nystatin Topical Powder 15 GM Bottle TOP SCH ×3 (08:37→20:57)
[2021-01-12] MEDS: Potassium Chloride 20 MEQ Tab.ER PO SCH ×2 (08:39→16:41)
[2021-01-12] MEDS ORDERED: Spironolactone 25 MG Tab PO SCH (09:00)
--- NOTE | 2021-01-12 10:06 | PCM.PN ---
- General Info Date of Service: 01/12/21 Subjective Update: There were no acute events overnight. Patient slept better last night after scheduling his pain medications. No restless legs were reported. Shortness of breath is stable. Lower extremity edema is better today. He was able to get the shower and get cleaned up. Kidney function stable. No fevers. Shoulder pain slightly better. Functional Status: Reports: Pain Controlled, Tolerating Diet - Patient Data Vitals - Most Recent: Last Vital Signs Temp 35.9 C L 01/12/21 07:02 Pulse 75 01/12/21 07:02 Resp 18 01/12/21 07:02 BP 131/59 L 01/12/21 07:02 Pulse Ox 93 L 01/12/21 09:40 Weight - Most Recent: 218.405 kg I&O - Last 24 Hours: Intake & Output 01/11/21 01/12/21 01/12/21 22:59 06:59 14:59 Intake Total 1040 Balance 1040 Lab Results Last 24 Hours: Laboratory Results - last 24 hr 01/11/21 01/12/21 Range/Units 05:57 04:20 Sodium 143 (140-148) mmol/L Potassium 3.5 L (3.6-5.2) mmol/L Chloride 104 (100-108) mmol/L Carbon Dioxide 29 (21-32) mmol/L Anion Gap 13.5 (5.0-14.0) mmol/L BUN 9 (7-18) mg/dL Creatinine 1.0 (0.8-1.3) mg/dL Est Cr Clr Drug Dosing 66.46 mL/min Estimated GFR (MDRD) > 60 (>60) Glucose 85 (74-106) mg/dL Calcium 8.0 L (8.5-10.1) mg/dL Magnesium 1.7 L (1.8-2.4) mg/dL Med Orders - Current: Current Medications Acetaminophen (Acetaminophen 325 Mg Tab) 650 mg PO Q4H PRN PRN Reason: Pain (Mild 1-3)/fever Last Admin: 01/11/21 08:29 Dose: 650 mg Documented by: Albuterol (Albuterol 8 Gm Inhaler) 0 gm INH Q6H PRN PRN Reason: Shortness of Breath Cyclobenzaprine HCl (Cyclobenzaprine 10 Mg Tab) 10 mg PO Q8H PRN PRN Reason: Spasms Last Admin: 01/11/21 01:58 Dose: 10 mg Documented by: Fluticasone Propionate (Fluticasone Propionate Nasal [place] 16 Gm Bottle) 0 gm NASBOTH DAILY PRN PRN Reason: Allergies Furosemide (Furosemide 40 Mg/4 Ml Vial) 40 mg IVPUSH DAILY [facility] Last Admin: 01/12/21 08:36 Dose: 40 mg Documented by: Furosemide (Furosemide 40 Mg/4 Ml Vial) 40 mg IVPUSH Q24H [facility] Last Admin: 01/11/21 15:49 Dose: 40 mg Documented by: Gabapentin (Gabapentin 100 Mg Cap) 100 mg PO QID [facility] Last Admin: 01/12/21 06:16 Dose: 100 mg Documented by: Hydromorphone HCl (Hydromorphone 2 Mg Tab) 2 mg PO QID [facility] Last Admin: 01/12/21 06:16 Dose: 2 mg Documented by: Ibuprofen (Ibuprofen 600 Mg Tab) 600 mg PO TID@0600,1200,1800 [facility] Last Admin: 01/12/21 06:16 Dose: 600 mg Documented by: Lorazepam (Lorazepam 2 Mg/Ml Sdv) 0.5 mg IVPUSH Q4H PRN PRN Reason: Nausea/Vomiting Melatonin (Melatonin 3 Mg Tab) 9 mg PO BEDTIME PRN PRN Reason: Sleep Last Admin: 01/11/21 00:54 Dose: 9 mg Documented by: Nystatin (Nystatin Topical Powder 15 Gm Bottle) 0 gm TOP TID [facility] Last Admin: 01/12/21 08:37 Dose: 1 applic Documented by: Ondansetron HCl (Ondansetron 4 Mg/2 Ml Sdv) 4 mg IV Q6H PRN PRN Reason: Nausea/Vomiting Ondansetron HCl (Ondansetron 4 Mg Tab.Dis) 4 mg PO Q6H PRN PRN Reason: Nausea able to take PO Potassium Chloride (Potassium Chloride 20 Meq Tab.Er) 40 meq PO BIDMEALS [facility] Last Admin: 01/12/21 08:39 Dose: 40 meq Documented by: Ropinirole HCl (Ropinirole 1 Mg Tab) 1 mg PO BEDTIME PRN PRN Reason: restless legs Senna/Docusate Sodium (Docusate Sodium/Sennosides 50-8.6 Mg Tab) 1 tab PO BID PRN PRN Reason: Constipation Sodium Chloride (Sodium Chloride 0.9% 10 Ml Syringe) 10 ml FLUSH ASDIRECTED PRN PRN Reason: Keep Vein Open Spironolactone (Spironolactone 25 Mg Tab) 25 mg PO DAILY [facility] Last Admin: 01/12/21 08:36 Dose: 25 mg Documented by: Trolamine Salicylate (Trolamine Salicylate/Aloe Vera 10% Crm 85 Gm Tube) 0 gm TOP Q2H PRN PRN Reason: shoulder pain Last Admin: 01/11/21 00:55 Dose: 1 applic Documented by: Discontinued Medications Aspirin (Aspirin 81 Mg Tab.Chew) 324 mg PO ONETIME ONE Stop: 01/07/21 09:54 Last Admin: 01/07/21 10:12 Dose: 324 mg Documented by: Enoxaparin Sodium (Enoxaparin 40 Mg/0.4 Ml Syringe) 40 mg SUBCUT ONETIME ONE Stop: 01/07/21 17:34 Last Admin: 01/07/21 18:17 Dose: 40 mg Documented by: Furosemide (Furosemide 40 Mg/4 Ml Vial) 40 mg IVPUSH ONETIME ONE Stop: 01/09/21 12:16 Last Admin: 01/09/21 12:37 Dose: 40 mg Documented by: Gabapentin (Gabapentin 100 Mg Cap) 100 mg PO BID [facility] Last Admin: 01/11/21 08:23 Dose: 100 mg Documented by: Hydromorphone HCl (Hydromorphone 2 Mg Tab) 2 mg PO NOW STA Stop: 01/07/21 14:45 Last Admin: 01/07/21 16:23 Dose: 2 mg Documented by: Hydromorphone HCl (Hydromorphone 2 Mg Tab) 2 mg PO Q6H PRN PRN Reason: Pain Last Admin: 01/11/21 05:00 Dose: 2 mg Documented by: Sodium Chloride (Normal Saline) 100 mls @ 4 mls/sec IV ASDIRECTED [facility] Stop: 01/07/21 11:46 Last Admin: 01/07/21 12:05 Dose: 4 mls/sec Documented by: Sodium Chloride (Normal Saline) 1,000 mls @ 500 mls/hr IV ASDIRECTED [facility] Last Admin: 01/07/21 12:24 Dose: 500 mls/hr Documented by: Magnesium Sulfate 2 gm/ Premix 50 mls @ 25 mls/hr IV ONETIME ONE Stop: 01/11/21 18:59 Last Admin: 01/11/21 17:29 Dose: 25 mls/hr Documented by: Ibuprofen (Ibuprofen 600 Mg Tab) 600 mg PO TID@0600,1200,1800 [facility] Last Admin: 01/09/21 06:00 Dose: 600 mg Documented by: Iopamidol (Iopamidol 755 Mg/Ml 100 Ml Bottle) 100 ml IV . DIRECTED [facility] Stop: 01/07/21 11:46 Last Admin: 01/07/21 12:05 Dose: 100 ml Documented by: Morphine Sulfate (Morphine 4 Mg/Ml Syringe) 4 mg IVPUSH Q10M PRN PRN Reason: Chest Pain Stop: 01/08/21 09:54 Nystatin (Nystatin Topical Powder 15 Gm Bottle) 1 gm TOP TID [facility] Last Admin: 01/08/21 13:52 Dose: Not Given Documented by: Ondansetron HCl (Ondansetron 4 Mg/2 Ml Sdv) 4 mg IVPUSH ONETIME ONE Stop: 01/07/21 09:57 Last Admin: 01/07/21 10:12 Dose: 4 mg Documented by: Potassium Chloride (Potassium Chloride 20 Meq Tab.Er) 40 meq PO ONETIME ONE Stop: 01/07/21 17:34 Last Admin: 01/07/21 18:08 Dose: 40 meq Documented by: Potassium Chloride (Potassium Chloride 20 Meq Tab.Er) 40 meq PO ONETIME ONE Stop: 01/09/21 17:01 Last Admin: 01/09/21 17:09 Dose: 40 meq Documented by: Sodium Chloride (Sodium Chloride 0.9% 10 Ml Syringe) 10 ml FLUSH ONETIME ONE Stop: 01/07/21 11:37 Last Admin: 01/07/21 12:05 Dose: 10 ml Documented by: - Exam Quality Assessment: Supplemental Oxygen General: Alert, Oriented, Cooperative, No Acute Distress Neck: JVD Lungs: Normal Respiratory Effort Extremities: Pedal Edema Skin: Warm, Dry, Other (chronic venous stasis both lower legs) Psy/Mental Status: Alert, Normal Affect - Patient Data Lab Results Last 24 hrs: Laboratory Results - last 24 hr 01/11/21 01/12/21 Range/Units 05:57 04:20 Sodium 143 (140-148) mmol/L Potassium 3.5 L (3.6-5.2) mmol/L Chloride 104 (100-108) mmol/L Carbon Dioxide 29 (21-32) mmol/L Anion Gap 13.5 (5.0-14.0) mmol/L BUN 9 (7-18) mg/dL Creatinine 1.0 (0.8-1.3) mg/dL Est Cr Clr Drug Dosing 66.46 mL/min Estimated GFR (MDRD) > 60 (>60) Glucose 85 (74-106) mg/dL Calcium 8.0 L (8.5-10.1) mg/dL Magnesium 1.7 L (1.8-2.4) mg/dL Result Diagrams: 01/11/21 05:59 01/12/21 04:20 Sepsis Event Note - Evaluation Sepsis Screening Result: No Definite Risk - Focused Exam Vital Signs: Vital Signs Temp Pulse Resp BP BP Pulse Ox Pulse Ox 01/12/21 09:40 93 L 01/12/21 07:02 35.9 C L 75 18 131/59 L 96 01/12/21 03:00 35.7 C L 77 16 128/72 96 01/11/21 23:00 16 - Problem List & Annotations (1) (HFpEF) heart failure with preserved ejection fraction SNOMED Code(s): 326800165 Code(s): I50.30 - UNSPECIFIED DIASTOLIC (CONGESTIVE) HEART FAILURE Status: Acute Current Visit: Yes Qualifiers: Heart failure chronicity: acute on chronic Qualified Code(s): I50.33 - Acute on chronic diastolic (congestive) heart failure (2) Pulmonary hypertension SNOMED Code(s): 30393500 Code(s): I27.20 - PULMONARY HYPERTENSION, UNSPECIFIED Status: Chronic Current Visit: Yes (3) 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 SNOMED Code(s): 997697547, 547715763 Code(s): E66.2 - MORBID (SEVERE) OBESITY WITH ALVEOLAR HYPOVENTILATION Status: Chronic Current Visit: Yes (4) Syncope and collapse SNOMED Code(s): 106230767 Code(s): R55 - SYNCOPE AND COLLAPSE Status: Acute Current Visit: Yes (5) Nocturnal hypoxemia due to obesity SNOMED Code(s): 090903907 Code(s): E66.9 - OBESITY, UNSPECIFIED; G47.36 - SLEEP RELATED HYPOVENTILATION IN CONDITIONS CLASSD ELSWHR Status: Chronic Current Visit: Yes (6) Morbid obesity with BMI of 70 and over, adult SNOMED Code(s): 233392486 Code(s): E66.01 - MORBID (SEVERE) OBESITY DUE TO EXCESS CALORIES; Z68.45 - BODY MASS INDEX [BMI] 70 OR GREATER, ADULT Status: Chronic Priority: Medium Current Visit: No (7) Cirrhosis SNOMED Code(s): 95014160 Code(s): K74.60 - UNSPECIFIED CIRRHOSIS OF LIVER Status: Chronic Current Visit: Yes Qualifiers: Hepatic cirrhosis type: other cirrhosis Qualified Code(s): K74.69 - Other cirrhosis of liver - Problem List Review Problem List Initiated/Reviewed/Updated: Yes - My Orders Last 24 Hours: My Active Orders 01/11/21 14:39 rOPINIRole [Requip] 1 mg PO BEDTIME PRN 01/11/21 16:00 Furosemide [Lasix] 40 mg IVPUSH Q24H Gabapentin [Neurontin] 100 mg PO QID HYDROmorphone [Dilaudid] 2 mg PO QID 01/12/21 09:00 Potassium Chloride [Klor-Con M20] 40 meq PO BIDMEALS Spironolactone [Aldactone] 25 mg PO DAILY 01/13/21 05:00 BASIC METABOLIC PANEL,BMP [CHEM] Timed - Plan Plan:: ASSESSMENT AND PLAN - Heart failure with preserved ejection fraction-complicated by pulmonary hypertension. Both of these are probably related to obesity hypoventilation syndrome. Respiratory status stable/slightly better. Still requiring supplemental oxygen. Still evidence for volume overload. -Continue furosemide twice daily -Start spironolactone -Supplement oxygen as needed -Consider lisinopril if additional blood pressure management needed Syncope-suspect vasovagal or benign cause. No recurrence during the hospital stay. Focusing work-up and treatment as above. Morbid obesity with BMI greater than 70-complicated by obesity with hypoventilation syndrome. Blood gases showed chronic compensated respiratory acidosis. -Home oxygen Cirrhosis-likely secondary to nonalcoholic fatty liver disease. There is evidence for portal venous hypertension. This appears to be compensated at this time. There is evidence for hepatic dysfunction with a mild elevation of his INR. Chronic pain-stable Maintenance issues - -DVT prophylaxis-unable to use pharmacological means because of low platelets and unable to use mechanical means because of chronic venous stasis. -GI prophylaxis-not indicated -[id number] Disposition -I anticipate discharge home with home care after the hospital stay Primary care physician -Dr. Da Hurd M.D.
[2021-01-12] MEDS ORDERED: Sodium Chloride 0.9% 10 ML Syringe FLUSH PRN (15:03)
--- NOTE | 2021-01-12 15:04 | PCM.SN.2 ---
- Free Text/Narrative Note: 1505 Patient went to the bathroom this afternoon just before 3:00 while he was in the bathroom he had an emesis that consisted of red to maroon blood. He had another one in bed. In total he had about 400 mL of hematemesis. He will be receiving octreotide and pantoprazole. Lab is coming up to get hemoglobin and type and cross. A second IV will be placed. I talked to Dr. Ramos who will come in for an urgent EGD. No ICU beds are currently available and fortunately the patient is stable at this point. If he becomes unstable we will need to make room in the ICU. 1730 EGD discovered a large bleeding ulcer. This was injected with epinephrine. Minimal but some residual bleeding. Patient will be transferred to the intensive care unit. He will be started on a pantoprazole infusion. We will give him a bolus of normal saline. Hemoglobin will be rechecked in a few hours. 2 units of blood have been typed and crossed. If he does not respond to PPI therapy we may need to consider interventional radiology for embolization versus potentially high risk surgery if that fails. Jared Hurd MD Time Documentation
[2021-01-12] MEDS ORDERED: Octreotide 100 MCG/ML SDV IVPUSH ONE (15:30)
[2021-01-12] MEDS ORDERED: Pantoprazole 40 MG Vial IVPUSH ONE (15:30)
[2021-01-12] MEDS ORDERED: Propofol 200 MG/20 ML SDV ONE (15:36)
[2021-01-12] MEDS ORDERED: Succinylcholine 200 MG/10 ML MDV ONE (15:36)
[2021-01-12] MEDS ORDERED: Lidocaine 2% 5 ML SDV ONE (15:36)
[2021-01-12] MEDS ORDERED: fentaNYL 100 MCG/2 ML SDV ONE (15:39)
[2021-01-12] MEDS ORDERED: Ondansetron 4 MG/2 ML SDV ONE (16:31)
[2021-01-12] MEDS ORDERED: EPINEPHrine 1 MG/ML SDV ONE (17:07)
[2021-01-12] MEDS ORDERED: Sodium Chloride 0.9% 500 ML IV SCH (17:30)
[2021-01-12] MEDS ORDERED: Pantoprazole 80 MG in Sodium Chloride 0.9% 100 ML IV SCH (17:30)
[2021-01-12] MEDS ORDERED: fentaNYL 100 MCG/2 ML SDV IVPUSH ONE (17:44)
[2021-01-12] MEDS: HYDROmorphone 0.5 MG/0.5 ML Syringe IVPUSH PRN ×2 (19:32→22:19)
[2021-01-12] MEDS ORDERED: LORazepam 2 MG/ML SDV IVPUSH PRN (21:24)
[2021-01-12] MEDS ORDERED: Promethazine 25 MG in Sodium Chloride 0.9% 50 ML IV PRN (21:24)
[2021-01-13] MEDS ORDERED: Octreotide 500 MCG in Sodium Chloride 0.9% 497.5 ML IV SCH ×2
[2021-01-13] MEDS ORDERED: Octreotide 200 MCG/ML 5 ML MDV ONE (00:11)
[2021-01-13] MEDS ORDERED: Iopamidol 755 Mg/ML 100 ML Bottle IV STA ×2 (02:11)
[2021-01-13] MEDS ORDERED: Sodium Chloride 0.9% 100 ML IV STA (02:12)
--- NOTE | 2021-01-13 02:16 | PCM.DCSUM1 ---
Discharge Summary - Hospital Course Brief History: 65-year-old male with history of morbid obesity with a BMI over 70, cirrhosis and chronic pain who presented with syncope. He was admitted for management of hypoxia thought secondary to obesity hypoventilation syndrome. Diagnosis: Stroke: No - Discharge Data Discharge Date: 01/13/21 Discharge Disposition: DC/Tfer to Acute Hospital 02 Condition: Critical - Referral to Home Health Primary Care Physician: PCP None - Discharge Diagnosis/Problem(s) (1) Acute upper GI hemorrhage SNOMED Code(s): 91784492 ICD Code: K92.2 - GASTROINTESTINAL HEMORRHAGE, UNSPECIFIED Status: Acute Current Visit: Yes (2) Anemia due to blood loss, acute SNOMED Code(s): 078372874 ICD Code: D62 - ACUTE POSTHEMORRHAGIC ANEMIA Status: Acute Current Visit: Yes (3) (HFpEF) heart failure with preserved ejection fraction SNOMED Code(s): 335432828 ICD Code: I50.30 - UNSPECIFIED DIASTOLIC (CONGESTIVE) HEART FAILURE Status: Acute Current Visit: Yes Qualifiers: Heart failure chronicity: acute on chronic Qualified Code(s): I50.33 - Acute on chronic diastolic (congestive) heart failure (4) Pulmonary hypertension SNOMED Code(s): 53484593 ICD Code: I27.20 - PULMONARY HYPERTENSION, UNSPECIFIED Status: Chronic Current Visit: Yes (5) 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 SNOMED Code(s): 978473402, 523687073 ICD Code: E66.2 - MORBID (SEVERE) OBESITY WITH ALVEOLAR HYPOVENTILATION Status: Chronic Current Visit: Yes (6) Syncope and collapse SNOMED Code(s): 778326143 ICD Code: R55 - SYNCOPE AND COLLAPSE Status: Acute Current Visit: Yes (7) Nocturnal hypoxemia due to obesity SNOMED Code(s): 477026976 ICD Code: E66.9 - OBESITY, UNSPECIFIED; G47.36 - SLEEP RELATED HYPOVENTILATION IN CONDITIONS CLASSD ELSWHR Status: Chronic Current Visit: Yes (8) Morbid obesity with BMI of 70 and over, adult SNOMED Code(s): 069777987 ICD Code: E66.01 - MORBID (SEVERE) OBESITY DUE TO EXCESS CALORIES; Z68.45 - BODY MASS INDEX [BMI] 70 OR GREATER, ADULT Status: Chronic Priority: Medium Current Visit: No (9) Cirrhosis SNOMED Code(s): 60160937 ICD Code: K74.60 - UNSPECIFIED CIRRHOSIS OF LIVER Status: Chronic Current Visit: Yes Qualifiers: Hepatic cirrhosis type: other cirrhosis Qualified Code(s): K74.69 - Other cirrhosis of liver - Patient Summary/Data Consults: Consultations 01/12/21 15:02 Consult to Physician [CONS] Routine Consulting Provider: Néstor Ramos Call Completed to Consulting Physician: Yes Reason for Consult: hematemesis Person Notified: RW Date Notified: 01/12/21 Special Instructions: EGD today Hospital Course: Stephanie presented to the emergency room by ambulance after an episode of syncope at home. He collapsed in the bathroom trying to clean up after an episode of diarrhea. Work-up in the emergency room revealed mild hypoxia. There was no evidence for pulmonary infection. His D-dimer was elevated at more than 5000. There was concern for pulmonary embolus. A CT scan of the chest to look for pulmonary embolism was attempted but because of his size the images were nondiagnostic. The CT scan did document cirrhosis with some upper abdominal ascites. Clinically there is no evidence for decompensated cirrhosis. We did perform ultrasound evaluation of his lower extremities and these were limited because of his body habitus but probably negative for DVT. The patient was admitted to the hospital for further work-up which was planned to include an echocardiogram and possibly a VQ scan. An echocardiogram was performed and this showed preserved ejection fraction but did show an enlarged right ventricle and evidence for pulmonary hypertension. Arterial blood gases showed a normal pH with a PCO2 of 52. We were suspicious for obesity hypoventilation and resulting pulmonary hypertension as the cause for his hypoxia. This had been the working diagnosis a couple of years ago but the patient had not followed through with his home oxygen therapy. We did perform a VQ scan and this was felt to be low probability for pulmonary embolus. Patient had been diuresing well and progressing well until the afternoon of January 12. At around 3 PM the patient had an episode of hematemesis with approximately 400 mL of blood. 2 large bore IVs were placed. 2 units of blood were typed and crossed. Patient received a dose of pantoprazole as well as octreotide with concern that there could be variceal bleeding. He also had hematochezia. The Surgical team was consulted and Dr. Ramos took him to the operating room and performed upper endoscopy. This showed a very large gastric ulcer that was actively bleeding. This was injected with epinephrine. The bleeding slowed down but did not completely stop. He was started on a pantoprazole infusion. The patient was hemodynamically stable. He was tr ansferred to the intensive care unit after the procedure. Initially after the procedure he did well. Around midnight the evening prior to transfer the patient had an additional episode of large-volume hematochezia followed by another large volume emesis with maroon to reddish blood. Patient was quite tachycardic and hypotensive at this time. Volume resuscitation with a 1 L bolus of fluid and transfusion of 1 unit of blood was initiated. An octreotide infusion was initiated. He received 2 units of fresh frozen plasma. With this resuscitation his blood pressure has come up into the low 100s systolically. His heart rate has slowed down to the 100s. He did have another large maroon stool around 1 AM. The case was discussed with the intensive care team at [facility]. They graciously accepted his care and transfer. He would benefit from either gastroenterology or interventional radiology or potentially both. The benefits of transfer far outweigh the risks at this [facility]. 80 minutes of critical care time was spent with stabilization of the patient after massive upper GI hemorrhage and anemia due to blood loss. - Patient Instructions Diet: NPO Activity: Bedrest Other/Special Instructions: transfer to [facility] for management of acute upper gastrointestinal hemorrhage secondary to large gastric ulcer - Discharge Plan *PRESCRIPTION DRUG MONITORING PROGRAM REVIEWED*: No *COPY OF PRESCRIPTION DRUG MONITORING REPORT IN PATIENT CANDY: No Home Medications: Home Meds Albuterol [Ventolin HFA] 2 puff INH Q6H PRN 11/10/16 [History] HYDROmorphone [Dilaudid] 2 mg PO Q6H PRN 11/10/16 [History] Fluticasone Propionate [Flonase] 2 spray CHELSY DAILY PRN 01/25/17 [History] Gabapentin [Neurontin] 100 mg PO BID 01/29/19 [History] Oxygen Therapy Mode: Room Air Forms: ED Department Discharge Referrals: Ezekiel Roberson MD [Physician] - 01/17/21 1:30 pm - Discharge Summary/Plan Comment DC Time >30 min.: Yes Total # of Minutes for Discharge Time: 45- transfer to acute hospital - Patient Data Vitals - Most Recent: Last Vital Signs Temp 36.8 C 01/13/21 01:24 Pulse 107 H 01/13/21 01:24 Resp 18 01/13/21 01:24 BP 106/60 01/13/21 01:24 Pulse Ox 95 01/13/21 01:00 Weight - Most Recent: 218.405 kg I&O - Last 24 hours: Intake & Output 01/12/21 01/12/21 01/13/21 14:59 22:59 06:59 Intake Total 480 136 Output Total 400 200 Balance 80 -200 136 Lab Results - Last 24 hrs: Laboratory Results - last 24 hr 01/12/21 01/12/21 01/12/21 Range/Units 04:20 15:20 15:20 WBC 5.9 (4.5-11.0) K/uL RBC 3.54 L (4.30-5.90) M/uL Hgb 11.1 L (12.0-15.0) g/dL Hct 34.6 L (40.0-54.0) % MCV 98 (80-98) fL MCH 31 (27-31) pg MCHC 32 (32-36) % Plt Count 114 L (150-400) K/uL Neut % (Auto) (36-66) % Lymph % (Auto) (24-44) % Burke % (Auto) (2-6) % Eos % (Auto) (2-4) % Baso % (Auto) (0-1) % APTT (21.4-31.8) sec Sodium 143 (140-148) mmol/L Potassium 3.5 L (3.6-5.2) mmol/L Chloride 104 (100-108) mmol/L Carbon Dioxide 29 (21-32) mmol/L Anion Gap 13.5 (5.0-14.0) mmol/L BUN 9 (7-18) mg/dL Creatinine 1.0 (0.8-1.3) mg/dL Est Cr Clr Drug Dosing 66.46 mL/min Estimated GFR (MDRD) > 60 (>60) Glucose 85 (74-106) mg/dL Calcium 8.0 L (8.5-10.1) mg/dL Blood Type O POSITIVE Gel Antibody Screen Negative Crossmatch See Detail 01/12/21 01/13/21 01/13/21 Range/Units 21:14 01:10 01:10 WBC 6.3 (4.5-11.0) K/uL RBC 3.36 L (4.30-5.90) M/uL Hgb 10.9 L 10.4 L (12.0-15.0) g/dL Hct 32.6 L (40.0-54.0) % MCV 97 (80-98) fL MCH 31 (27-31) pg MCHC 32 (32-36) % Plt Count 81 L (150-400) K/uL Neut % (Auto) 83.8 H (36-66) % Lymph % (Auto) 3.0 L (24-44) % Burke % (Auto) 11.3 H (2-6) % Eos % (Auto) 1.6 L (2-4) % Baso % (Auto) 0.3 (0-1) % APTT 32.7 H (21.4-31.8) sec Sodium (140-148) mmol/L Potassium (3.6-5.2) mmol/L Chloride (100-108) mmol/L Carbon Dioxide (21-32) mmol/L Anion Gap (5.0-14.0) mmol/L BUN (7-18) mg/dL Creatinine (0.8-1.3) mg/dL Est Cr Clr Drug Dosing mL/min Estimated GFR (MDRD) (>60) Glucose (74-106) mg/dL Calcium (8.5-10.1) mg/dL Blood Type Gel Antibody Screen Crossmatch 01/13/21 Range/Units 01:10 WBC (4.5-11.0) K/uL RBC (4.30-5.90) M/uL Hgb (12.0-15.0) g/dL Hct (40.0-54.0) % MCV (80-98) fL MCH (27-31) pg MCHC (32-36) % Plt Count (150-400) K/uL Neut % (Auto) (36-66) % Lymph % (Auto) (24-44) % Burke % (Auto) (2-6) % Eos % (Auto) (2-4) % Baso % (Auto) (0-1) % APTT (21.4-31.8) sec Sodium 144 (140-148) mmol/L Potassium 4.2 (3.6-5.2) mmol/L Chloride 105 (100-108) mmol/L Carbon Dioxide 30 (21-32) mmol/L Anion Gap 9.2 (5.0-14.0) mmol/L BUN 13 (7-18) mg/dL Creatinine 1.2 (0.8-1.3) mg/dL Est Cr Clr Drug Dosing 55.38 mL/min Estimated GFR (MDRD) > 60 (>60) Glucose 103 (74-106) mg/dL Calcium 7.6 L (8.5-10.1) mg/dL Blood Type Gel Antibody Screen Crossmatch Med Orders - Current: Current Medications Acetaminophen (Acetaminophen 325 Mg Tab) 650 mg PO Q4H PRN PRN Reason: Pain (Mild 1-3)/fever Last Admin: 01/11/21 08:29 Dose: 650 mg Documented by: Albuterol (Albuterol 8 Gm Inhaler) 0 gm INH Q6H PRN PRN Reason: Shortness of Breath Cyclobenzaprine HCl (Cyclobenzaprine 10 Mg Tab) 10 mg PO Q8H PRN PRN Reason: Spasms Last Admin: 01/11/21 01:58 Dose: 10 mg Documented by: Fluticasone Propionate (Fluticasone Propionate Nasal Witt 16 Gm Bottle) 0 gm NASBOTH DAILY PRN PRN Reason: Allergies Furosemide (Furosemide 40 Mg/4 Ml Vial) 40 mg IVPUSH DAILY [facility] Last Admin: 01/12/21 08:36 Dose: 40 mg Documented by: Furosemide (Furosemide 40 Mg/4 Ml Vial) 40 mg IVPUSH Q24H [facility] Last Admin: 01/11/21 15:49 Dose: 40 mg Documented by: Gabapentin (Gabapentin 100 Mg Cap) 100 mg PO QID [facility] Last Admin: 01/12/21 16:10 Dose: Not Given Documented by: Hydromorphone HCl (Hydromorphone 2 Mg Tab) 2 mg PO QID [facility] Last Admin: 01/12/21 16:11 Dose: Not Given Documented by: Hydromorphone HCl (Hydromorphone 0.5 Mg/0.5 Ml Syringe) 0.5 mg IVPUSH Q2H PRN PRN Reason: Pain Last Admin: 01/12/21 22:19 Dose: 0.5 mg Documented by: Pantoprazole Sodium 80 mg/ (Sodium Chloride) 100 mls @ 10 mls/hr IV Q10H [facility] Last Admin: 01/12/21 18:40 Dose: 10 mls/hr Documented by: Sodium Chloride (Normal Saline) 1,000 mls @ 100 mls/hr IV ASDIRECTED [facility] Last Admin: 01/12/21 20:57 Dose: 100 mls/hr Documented by: Promethazine HCl 25 mg/ Sodium (Chloride) 51 mls @ 200 mls/hr IV Q6H PRN PRN Reason: Nausea/Vomiting Last Admin: 01/12/21 21:57 Dose: 200 mls/hr Documented by: Octreotide Acetate 500 mcg/ (Sodium Chloride) 500 mls @ 50 mls/hr IV Q10H [facility]; Protocol Last Admin: 01/13/21 00:21 Dose: 50 mcg/hr, 50 mls/hr Documented by: Sodium Chloride (Normal Saline) 1,000 mls @ 999 mls/hr IV ASDIRECTED [facility] Last Admin: 01/13/21 00:05 Dose: 999 mls/hr Documented by: Lorazepam (Lorazepam 2 Mg/Ml Sdv) 1 mg IVPUSH Q4H PRN PRN Reason: Nausea/Vomiting Nystatin (Nystatin Topical Powder 15 Gm Bottle) 0 gm TOP TID [facility] Last Admin: 01/12/21 20:57 Dose: 1 applic Documented by: Ondansetron HCl (Ondansetron 4 Mg/2 Ml Sdv) 4 mg IV Q6H PRN PRN Reason: Nausea/Vomiting Ondansetron HCl (Ondansetron 4 Mg Tab.Dis) 4 mg PO Q6H PRN PRN Reason: Nausea able to take PO Ropinirole HCl (Ropinirole 1 Mg Tab) 1 mg PO BEDTIME PRN PRN Reason: restless legs Senna/Docusate Sodium (Docusate Sodium/Sennosides 50-8.6 Mg Tab) 1 tab PO BID PRN PRN Reason: Constipation Sodium Chloride (Sodium Chloride 0.9% 10 Ml Syringe) 10 ml FLUSH ASDIRECTED PRN PRN Reason: Keep Vein Open Sodium Chloride (Sodium Chloride 0.9% 10 Ml Syringe) 10 ml FLUSH ASDIRECTED PRN PRN Reason: Keep Vein Open Spironolactone (Spironolactone 25 Mg Tab) 25 mg PO DAILY [facility] Last Admin: 01/12/21 08:36 Dose: 25 mg Documented by: Trolamine Salicylate (Trolamine Salicylate/Aloe Vera 10% Crm 85 Gm Tube) 0 gm TOP Q2H PRN PRN Reason: shoulder pain Last Admin: 01/11/21 00:55 Dose: 1 applic Documented by: Discontinued Medications Aspirin (Aspirin 81 Mg Tab.Chew) 324 mg PO ONETIME ONE Stop: 01/07/21 09:54 Last Admin: 01/07/21 10:12 Dose: 324 mg Documented by: Enoxaparin Sodium (Enoxaparin 40 Mg/0.4 Ml Syringe) 40 mg SUBCUT ONETIME ONE Stop: 01/07/21 17:34 Last Admin: 01/07/21 18:17 Dose: 40 mg Documented by: Epinephrine HCl (Epinephrine 1 Mg/Ml Sdv) Confirm Administered Dose 1 mg .ROUTE .STK-MED ONE Stop: 01/12/21 17:08 Last Admin: 01/12/21 17:10 Dose: 1 mg Documented by: Fentanyl (Fentanyl 100 Mcg/2 Ml Sdv) Confirm Administered Dose 100 mcg .ROUTE .STK-MED ONE Stop: 01/12/21 15:40 Fentanyl (Fentanyl 100 Mcg/2 Ml Sdv) 50 mcg IVPUSH ONETIME ONE Stop: 01/12/21 17:45 Last Admin: 01/12/21 17:48 Dose: 50 mcg Documented by: Furosemide (Furosemide 40 Mg/4 Ml Vial) 40 mg IVPUSH ONETIME ONE Stop: 01/09/21 12:16 Last Admin: 01/09/21 12:37 Dose: 40 mg Documented by: Gabapentin (Gabapentin 100 Mg Cap) 100 mg PO BID [facility] Last Admin: 01/11/21 08:23 Dose: 100 mg Documented by: Hydromorphone HCl (Hydromorphone 2 Mg Tab) 2 mg PO NOW STA Stop: 01/07/21 14:45 Last Admin: 01/07/21 16:23 Dose: 2 mg Documented by: Hydromorphone HCl (Hydromorphone 2 Mg Tab) 2 mg PO Q6H PRN PRN Reason: Pain Last Admin: 01/11/21 05:00 Dose: 2 mg Documented by: Sodium Chloride (Normal Saline) 100 mls @ 4 mls/sec IV ASDIRECTED [facility] Stop: 01/07/21 11:46 Last Admin: 01/07/21 12:05 Dose: 4 mls/sec Documented by: Sodium Chloride (Normal Saline) 1,000 mls @ 500 mls/hr IV ASDIRECTED [facility] Last Admin: 01/07/21 12:24 Dose: 500 mls/hr Documented by: Magnesium Sulfate 2 gm/ Premix 50 mls @ 25 mls/hr IV ONETIME ONE Stop: 01/11/21 18:59 Last Admin: 01/11/21 17:29 Dose: 25 mls/hr Documented by: Sodium Chloride (Normal Saline) 500 mls @ 500 mls/hr IV ASDIRECTED [facility] Stop: 01/12/21 18:31 Ibuprofen (Ibuprofen 600 Mg Tab) 600 mg PO TID@0600,1200,1800 [facility] Last Admin: 01/09/21 06:00 Dose: 600 mg Documented by: Ibuprofen (Ibuprofen 600 Mg Tab) 600 mg PO TID@0600,1200,1800 [facility] Last Admin: 01/12/21 06:16 Dose: 600 mg Documented by: Iopamidol (Iopamidol 755 Mg/Ml 100 Ml Bottle) 100 ml IV . DIRECTED [facility] Stop: 01/07/21 11:46 Last Admin: 01/07/21 12:05 Dose: 100 ml Documented by: Lidocaine (Lidocaine 2% 5 Ml Sdv) Confirm Administered Dose 5 ml .ROUTE .STK-MED ONE Stop: 01/12/21 15:37 Lorazepam (Lorazepam 2 Mg/Ml Sdv) 0.5 mg IVPUSH Q4H PRN PRN Reason: Nausea/Vomiting Last Admin: 01/12/21 19:32 Dose: 0.5 mg Documented by: Melatonin (Melatonin 3 Mg Tab) 9 mg PO BEDTIME PRN PRN Reason: Sleep Last Admin: 01/11/21 00:54 Dose: 9 mg Documented by: Morphine Sulfate (Morphine 4 Mg/Ml Syringe) 4 mg IVPUSH Q10M PRN PRN Reason: Chest Pain Stop: 01/08/21 09:54 Nystatin (Nystatin Topical Powder 15 Gm Bottle) 1 gm TOP TID [facility] Last Admin: 01/08/21 13:52 Dose: Not Given Documented by: Octreotide Acetate (Octreotide 100 Mcg/Ml Sdv) 50 mcg IVPUSH ONETIME ONE Stop: 01/12/21 15:31 Last Admin: 01/12/21 15:17 Dose: 50 mcg Documented by: Octreotide Acetate (Octreotide 200 Mcg/Ml 5 Ml Mdv) Confirm Administered Dose 1,000 mcg .ROUTE .STK-MED ONE Stop: 01/13/21 00:12 Last Admin: 01/13/21 00:37 Dose: Not Given Documented by: Ondansetron HCl (Ondansetron 4 Mg/2 Ml Sdv) 4 mg IVPUSH ONETIME ONE Stop: 01/07/21 09:57 Last Admin: 01/07/21 10:12 Dose: 4 mg Documented by: Ondansetron HCl (Ondansetron 4 Mg/2 Ml Sdv) Confirm Administered Dose 4 mg .ROUT E .STK-MED ONE Stop: 01/12/21 16:32 Pantoprazole Sodium (Pantoprazole 40 Mg Vial) 80 mg IVPUSH .BOLUS ONE Stop: 01/12/21 15:31 Last Admin: 01/12/21 15:22 Dose: 80 mg Documented by: Potassium Chloride (Potassium Chloride 20 Meq Tab.Er) 40 meq PO ONETIME ONE Stop: 01/07/21 17:34 Last Admin: 01/07/21 18:08 Dose: 40 meq Documented by: Potassium Chloride (Potassium Chloride 20 Meq Tab.Er) 40 meq PO ONETIME ONE Stop: 01/09/21 17:01 Last Admin: 01/09/21 17:09 Dose: 40 meq Documented by: Potassium Chloride (Potassium Chloride 20 Meq Tab.Er) 40 meq PO BIDMEALS VON Last Admin: 01/12/21 16:41 Dose: Not Given Documented by: Propofol (Propofol 200 Mg/20 Ml Sdv) Confirm Administered Dose 200 mg .ROUTE .STK-MED ONE Stop: 01/12/21 15:37 Sodium Chloride (Sodium Chloride 0.9% 10 Ml Syringe) 10 ml FLUSH ONETIME ONE Stop: 01/07/21 11:37 Last Admin: 01/07/21 12:05 Dose: 10 ml Documented by: Succinylcholine Chloride (Succinylcholine 200 Mg/10 Ml Mdv) Confirm Administered Dose 200 mg .ROUTE .STK-MED ONE Stop: 01/12/21 15:37
[2021-01-13] MEDS ORDERED: HYDROmorphone 1 MG/ML Syringe IVPUSH ONE (02:53)
[2021-01-13] MEDS ORDERED: HYDROmorphone 1 MG/ML Syringe ONE (02:54)
[2021-01-13 02:56] VITALS: BP 102/57; PULSE 98
--- NOTE | 2021-01-13 04:51 | CRLCT ---
For Patients: As a result of the Century Cures Act, medical imaging exams and procedure reports are released immediately into your electronic medical record. You may view this report before your referring provider. If you have questions, please contact your health care provider. Indication: GI bleed Technique: Contrast enhanced axial CT imaging through the abdomen according the angiographic phase of enhancement, followed by delayed scan. 150 mL Isovue 370 contrast agent was administered intravenously. Sagittal and coronal reconstructions are provided. Comparison: None Findings: Suboptimal phase of contrast enhancement, which appears closer to the venous phase. Normal caliber abdominal aorta. Patent celiac trunk, superior mesenteric artery, and visualized inferior mesenteric artery. No extravasated contrast material identified in the visualized gastrointestinal tract. No appreciable gastric or small bowel wall thickening. Normal caliber small-bowel. Unremarkable visualized colon. Cirrhotic liver. Moderate ascites. Splenomegaly up to 21 cm in craniocaudal dimension. Prominent esophageal and gastric varices. Recanalized umbilical vein. Patent portal vein. Grossly unremarkable gallbladder and adrenal glands. Atrophic pancreas. Small bilateral renal cortical cysts. Mild left hydronephrosis secondary to 8 mm proximal ureteral stone. No right nephrolithiasis. Mild bibasilar atelectasis. S-shaped thoracolumbar spinal curvature. Impression: 1. Suboptimal phase of contrast enhancement. No extravasated contrast material identified in the visualized gastrointestinal tract. 2. Hepatic cirrhosis with sequela of portal hypertension. 3. An 8 mm stone in the proximal left ureter. Mild hydronephrosis. Please note that all CT scans at this facility use dose modulation, iterative reconstruction, and/or weight-based dosing when appropriate to reduce radiation dose to as low as reasonably achievable. Dictated by Raul Berrios MD @ 01/13/2021 4:49:25 AM (Electronically Signed)
--- NOTE | 2021-01-13 10:47 | OR ---
DATE OF PROCEDURE: 01/12/2021 SURGEON: Néstor Ramos MD PROCEDURE: Esophagogastroduodenoscopy. FINDINGS: 1. Bleeding in the gastric antrum, injected with 1:10,000 epinephrine, bleeding but not at a high volume or high rate. 2. Retained solid food. COMPLICATIONS: None. BIOLOGIST AIDE: None. ANESTHESIA: General. RISKS: Risks, benefits, alternatives, and limitations including, but not limited to infection, bleeding, aspiration, perforation, false positives and false negatives were all explained to the patient and wished to proceed. PROCEDURE IN DETAIL: The patient was placed in left lateral decubitus position. The EGD scope was introduced. The patient was noted to have aspirated blood immediately on entry in his esophagus. The scope was then introduced and advanced. Approximately 30 minutes was used to remove solid and liquid-type food material along the clot. Once this was completed, the esophagus and its associated varices were inspected and none was noted. The scope was then advanced into the duodenum. No abnormalities noted. Within the gastric antrum itself, there was a single ulceration approximately 8 mm in size. This wound to be actively bleeding, albeit at a slow rate. This was injected in all four quadrants using 1:10,000 epinephrine solution. This appeared to decrease the bleeding. The air was removed from the stomach. The patient tolerated the procedure well. Néstor Ramos MD /[id number]
== END 2021-01-13 03:17 | DRG 205 ==
LOC: JP.ED 09:31 → JP.MS 16:23 → OBSVTOIN 01-09 12:10 → JP.ICU 01-12 17:26
PROVIDERS: ADMIT Internal Medicine; ATTEND Internal Medicine
PROC: 30233N1 Transfusion of Nonautologous Red Blood Cells into Peripheral Vein, Percutaneous Approach (ICD-10-PCS; principal; 2021-01-12)
PROC: 0W3P8ZZ Control Bleeding in Gastrointestinal Tract, Via Natural or Artificial Opening Endoscopic (ICD-10-PCS; 2021-01-12)
PROC: 30233K1 Transfusion of Nonautologous Frozen Plasma into Peripheral Vein, Percutaneous Approach (ICD-10-PCS; 2021-01-13)
DX: R55 Syncope and collapse (principal); R09.02 Hypoxemia; E66.2 Morbid (severe) obesity with alveolar hypoventilation; Z86.718 Personal history of other venous thrombosis and embolism; I50.33 Acute on chronic diastolic (congestive) heart failure; K25.4 Chronic or unspecified gastric ulcer with hemorrhage; D62 Acute posthemorrhagic anemia; R18.8 Other ascites; Z68.45 Body mass index [BMI] 70 or greater, adult; G40.909 Epilepsy, unspecified, not intractable, without status epilepticus; G89.29 Other chronic pain; I27.20 Pulmonary hypertension, unspecified; K74.69 Other cirrhosis of liver; D69.6 Thrombocytopenia, unspecified; H54.7 Unspecified visual loss; K59.09 Other constipation; R32 Unspecified urinary incontinence; G47.36 Sleep related hypoventilation in conditions classified elsewhere; E66.01 Morbid (severe) obesity due to excess calories; M19.90 Unspecified osteoarthritis, unspecified site; K74.60 Unspecified cirrhosis of liver; M54.9 Dorsalgia, unspecified; F41.9 Anxiety disorder, unspecified; F32.9 Major depressive disorder, single episode, unspecified; E03.9 Hypothyroidism, unspecified; K76.0 Fatty (change of) liver, not elsewhere classified; Z91.018 Allergy to other foods; Z88.7 Allergy status to serum and vaccine; Z79.899 Other long term (current) drug therapy; Z87.11 Personal history of peptic ulcer disease; Z87.440 Personal history of urinary (tract) infections; Z85.51 Personal history of malignant neoplasm of bladder
CPT/HCPCS: 36415 ×2; 36600; 70450; 71045; 71275; 80053 ×2; 82728; 82803; 83690; 84443; 84484 ×2; 85025; 85027; 85379; 85610; 85730; 93306; 93970; 94762; 96374; 99285; A9270 ×16; J1650; J2405; J7030; Q9967; U0002 ×2; 36430; 74175; 78582; 80048; 83735; 84439; 85018; 86850; 86900; 86901; 86920; 86922; 96372; 97110-GO; 97110-GP; 97162-GP; 97165-GO; 97530-GP; 97535-GO; 97535-GP; A9539; A9540; C9113; G0378; J0171; J0330; J1170; J1940; J2060; J2354-JA; J2550; J2704; J3010; J3475; J7040; P9016; P9017

== ENCOUNTER 2021-02-12 15:18 | Emergency (ER) | payer MEDICARE, MEDICAID ==
--- NOTE | 2021-02-12 16:02 | EDM.PDOC ---
ED HPI GENERAL MEDICAL PROBLEM - General Chief Complaint: Gastrointestinal Problem Stated Complaint: [facility] Time Seen by Provider: 02/12/21 15:49 Source of Information: Reports: Patient, Old Records, RN Notes Reviewed History Limitations: Reports: No Limitations - History of Present Illness INITIAL COMMENTS - FREE TEXT/NARRATIVE: 65-year-old gentleman presents emergency department today complaint of black tarry stools, he states initially early this morning had 1 small 1 and then later on this afternoon large black tarry stool. He states he is having some abdominal cramping but no lightheadedness does not feel like he wants to pass out. He does have a history of GI bleed in the past underwent EGD January 2021 small ulcer was identified epinephrine was placed around the wound please see operative note for details - Related Data Allergies Allergy/AdvReac Type Severity Reaction Status Date / Time blueberry Allergy Wheezing Verified 01/07/21 09:38 cinnamon Allergy Seizure Verified 01/07/21 09:38 raspberry Allergy Seizure Verified 01/07/21 09:38 strawberry Allergy Seizure Verified 01/07/21 09:38 Influenza Virus Vaccines AdvReac Seizure Verified 01/07/21 09:38 chocolate Allergy Seizure Uncoded 02/16/20 23:04 Home Meds: Home Meds Albuterol [Ventolin HFA] 2 puff INH Q6H PRN 11/10/16 [History] HYDROmorphone [Dilaudid] 2 mg PO Q6H PRN 11/10/16 [History] Fluticasone Propionate [Flonase] 2 spray CHELSY DAILY PRN 01/25/17 [History] Gabapentin [Neurontin] 100 mg PO BID 01/29/19 [History] Past Medical History HEENT History: Reports: Impaired Vision, Otitis Media Cardiovascular History: Reports: Angina, Blood Clots/VTE/DVT, SOB on Exertion Respiratory History: Reports: Sleep Apnea, SOB Gastrointestinal History: Reports: Chronic Constipation, PUD Genitourinary History: Reports: Renal Calculus, Urinary Incontinence, UTI, Recurrent Musculoskeletal History: Reports: Arthritis, Back Pain, Chronic, Fracture Neurological History: Reports: Seizure, Other (See Below) Other Neuro History: Pt. states that some foods cause him to have seizures, mostly sweet foods Psychiatric History: Reports: Anxiety, Depression, Eating Disorders, Suicide Attempt Endocrine/Metabolic History: Reports: Hypothyroidism, Obesity/BMI 30+ Other Endocrine/Metabolic History: started on thyroid meds again Hematologic History: Reports: None Immunologic History: Reports: None Oncologic (Cancer) History: Reports: Bladder Dermatologic History: Reports: Other (See Below) Other Dermatologic History: irritated skin at skin folds - Infectious Disease History Infectious Disease History: Reports: Chicken Pox - Past Surgical History Head Surgeries/Procedures: Reports: None HEENT Surgical History: Reports: None Cardiovascular Surgical History: Reports: None Respiratory Surgical History: Reports: None GI Surgical History: Reports: EGD, Hernia, Abdominal, Hernia, Inguinal, Other (See Below) Other GI Surgeries/Procedures: Pt. states that a "couple" years ago he had an EGD done and was found to have two ulcers. Pt. denies being on any medication for it. panniculectomy for abscess.. PT HAD A PANNICULECTOMY JUNE 2015 Male Surgical History: Reports: Other (See Below) Other Male Surgeries/Procedures: bladder cancer- dx 2017, untreated Endocrine Surgical History: Reports: None Neurological Surgical History: Reports: None Musculoskeletal Surgical History: Reports: Carpal Tunnel Dermatological Surgical History: Reports: None Social & Family History - Family History Family Medical History: No Pertinent Family History HEENT: Reports: Cataract, Impaired Vision, Macular Degeneration Cardiac: Reports: CAD, [place] Respiratory: Reports: None GI: Reports: None : Reports: None OBGYN: Reports: None Musculoskeletal: Reports: Arthritis Other Musculoskeletal Family History: HIP REPLACEMENT BONE DEGENERATION Neurological: Reports: None Psychiatric: Reports: None Endocrine/Metabolic: Reports: None Hematologic: Reports: None Immunologic: Reports: None Dermatologic: Reports: None Oncologic: Reports: Other (See Below) Other Oncologic Family History: BROTHER OF CANCER DOES NOT KNOW WHAT KIND - Tobacco Use Tobacco Use Status *Q: Former Tobacco User Years of Tobacco use: 12 Packs/Tins Daily: 1 Used Tobacco, but Quit: Yes Month/Year Tobacco Last Used: 1979 Second Hand Smoke Exposure: No - Caffeine Use Caffeine Use: Reports: Soda Other Caffeine Use: 3 per day Caffeine Use Comment: 3 cups/day - Recreational Drug Use Recreational Drug Use: No ED ROS GENERAL - Review of Systems Review Of Systems: See Below Constitutional: Reports: No Symptoms HEENT: Reports: No Symptoms Respiratory: Reports: No Symptoms Cardiovascular: Reports: No Symptoms GI/Abdominal: Reports: Abdominal Pain, Black Stool. Denies: Nausea, Vomiting ED EXAM, GI/ABD - Physical Exam Exam: See Below Exam Limited By: No Limitations General Appearance: Alert, WD/WN, No Apparent Distress Respiratory/Chest: No Respiratory Distress, Lungs Clear, Normal Breath Sounds, No Accessory Muscle Use, Chest Non-Tender Cardiovascular: Regular Rate, Rhythm, No Murmur GI/Abdominal Exam: Soft, Non-Tender Course - Vital Signs Last Recorded V/S: Last Vital Signs Temp 97.6 F 02/12/21 15:31 Pulse 75 02/12/21 17:09 Resp 19 02/12/21 17:09 BP 134/65 02/12/21 17:09 Pulse Ox 91 L 02/12/21 17:09 - Orders/Labs/Meds Labs: Laboratory Tests 02/12/21 02/12/21 Range/Units 16:11 16:11 WBC 2.6 L (4.5-11.0) K/uL RBC 3.21 L (4.30-5.90) M/uL Hgb 9.8 L (12.0-15.0) g/dL Hct 31.6 L (40.0-54.0) % MCV 98 (80-98) fL MCH 31 (27-31) pg MCHC 31 L (32-36) % Plt Count 66 L (150-400) K/uL Neut % (Auto) 66.0 (36-66) % Lymph % (Auto) 13.9 L (24-44) % Troup % (Auto) 16.6 H (2-6) % Eos % (Auto) 2.7 (2-4) % Baso % (Auto) 0.8 (0-1) % Sodium 144 (140-148) mmol/L Potassium 4.3 (3.6-5.2) mmol/L Chloride 107 (100-108) mmol/L Carbon Dioxide 28 (21-32) mmol/L Anion Gap 8.7 (5.0-14.0) mmol/L BUN 5 L D (7-18) mg/dL Creatinine 1.2 (0.8-1.3) mg/dL Est Cr Clr Drug Dosing 55.38 mL/min Estimated GFR (MDRD) > 60 (>60) Glucose 99 (74-106) mg/dL Calcium 8.3 L (8.5-10.1) mg/dL Meds: Medications Discontinued Medications Generic Name Dose Route Start Last Admin Trade Name Marina PRN Reason Stop Dose Admin Hyoscyamine 0.125 mg 02/12/21 17:36 Hyoscyamine 0.125 Mg Tab.Sl SL 02/12/21 17:37 ONETIME ONE Departure - Departure Time of Disposition: 17:43 Disposition: Home, Self-Care 01 Condition: Poor Clinical Impression: Black stools - Discharge Information Instructions: Gastrointestinal Bleeding Referrals: PCP,Unknown [Primary Care Provider] - Forms: ED Department Discharge Additional Instructions: Please report for your procedure in the morning they will call you with an appointment time to show up, call or return to the emergency department worsening of symptoms Sepsis Event Note (ED) - Evaluation Sepsis Screening Result: No Definite Risk - Focused Exam Vital Signs: Vital Signs Temp Pulse Resp BP Pulse Ox 02/12/21 17:09 75 19 134/65 91 L 02/12/21 16:15 76 11 L 136/66 95 02/12/21 15:31 97.6 F 77 22 H 138/67 93 L 02/12/21 15:29 97.6 F 77 22 H 138/67 93 L - Assessment/Plan Plan: Assessment Acuity = acute Site and laterality = black-colored stools Etiology = suspicious for upper GI bleed Manifestations = none Location of injury = Home Lab values = hemoglobin low at 9.8 consistent with normochromic anemia Plan Call discussed case Dr. Jones general surgeon on-call at 1740 agreed to perform an EGD in the morning, this was set up with the charge nurse Patricia will be discharged home report outpatient surgery center in the morning because he is asymptomatic at this time. This note was dictated using [employer] voice recognition software please call with any questions on syntax or grammar.
[2021-02-12 17:10] VITALS: BP 134/65; PULSE 75
[2021-02-12] MEDS ORDERED: Hyoscyamine 0.125 MG Tab.SL SL ONE (17:36)
== END 2021-02-12 18:27 | disposition home or self-care (01) ==
LOC: JP.ED 15:18
DX: K92.1 Melena (principal); E03.9 Hypothyroidism, unspecified; E66.9 Obesity, unspecified; Z68.45 Body mass index [BMI] 70 or greater, adult; Z87.891 Personal history of nicotine dependence; Z88.7 Allergy status to serum and vaccine; Z91.018 Allergy to other foods; Z79.899 Other long term (current) drug therapy
CPT/HCPCS: 36415; 80048; 85025; 99284; A9270; U0002

== ENCOUNTER 2021-02-13 05:43 | Day surgery (SDC) | payer MEDICARE, MEDICAID ==
[2021-02-13] MEDS ORDERED: Dextrose 5%-Lactated Ringers 1,000 ML IV SCH (06:53)
[2021-02-13] MEDS ORDERED: Propofol 200 MG/20 ML SDV ONE (07:15)
[2021-02-13 08:36] VITALS: BP 127/67; PULSE 70
--- NOTE | 2021-02-14 11:08 | OR ---
DATE OF PROCEDURE: 02/13/2021 SURGEON: Baldomero Jones MD PREOPERATIVE DIAGNOSIS: Upper gastrointestinal bleeding. POSTOPERATIVE DIAGNOSIS: Erosive antral gastritis with a small amount of sludge present, but no active bleeding. OPERATIVE PROCEDURE: Esophagogastroduodenoscopy with antral biopsies for CLOtest. ANESTHESIA: IV sedation. INDICATIONS FOR PROCEDURE: This is a 65-year-old male presenting with some black and bloody stools over the past 36 hours. His hemoglobin in the emergency room last night was 9.8. Then, overnight he did not report to have any additional black or bloody stools. He does have a known history of hepatic cirrhosis and recently had an upper GI bleeding from the antral area for which Dr. Ramos placed some clips. Plan is to proceed with upper GI endoscopy with biopsies as indicated. Potential risks including bleeding and perforation were discussed and the patient wishes to proceed. DESCRIPTION OF PROCEDURE: The patient was taken to the operating room, placed in a left lateral decubitus position. IV sedation was administered after which the upper GI endoscope was passed orally through the length of the esophagus into the stomach with retroflexion view of the fundus and thereafter through the pyloric channel and the junction of the 3rd and 4th portions of the duodenum. The hypopharynx, larynx, upper esophageal sphincter were unremarkable. The uppermost esophagus was unremarkable. Beginning at the mid esophagus, there were some quite prominent esophageal varices. These became more prominent as one approached the esophagogastric junction and continued to have some gastric varices, predominantly in the gastric cardia. However, there is no significant mucosal inflammation in the esophagus or antral area, and while the varices were fairly prominent, these clearly were not associated with any recent bleeding. Within the stomach, no blood was seen in the proximal stomach. As one passed into the antrum, the 2 clips placed previously were still in place and there were some scattered erosions present and a small amount of blood present in the antrum. There was no active bleeding seen. This was associated with a diffuse antral gastritis with some few scattered erosions and these were not actively bleeding. Pyloric channel and visualized portions of the duodenum were unremarkable. At this point, biopsies were obtained from the antrum to reassess the patient's H. pylori status. Minimal bleeding from the biopsy site was seen and the procedure then concluded. The patient is already on Protonix 40 mg twice daily and with the persistence of the gastritis, we will add Carafate 1 g q.i.d. The patient will be following up with Dr. Roberson in [facility] in the early part of next week. Baldomero Jones MD Job #: [id number]
== END 2021-02-13 09:05 | disposition home or self-care (01) ==
LOC: JP.SDS 05:43
PROVIDERS: ATTEND Surgery
DX: K29.60 Other gastritis without bleeding (principal); K25.9 Gastric ulcer, unspecified as acute or chronic, without hemorrhage or perforation; G47.33 Obstructive sleep apnea (adult) (pediatric); I10 Essential (primary) hypertension; E03.9 Hypothyroidism, unspecified
CPT/HCPCS: 43239; 87081; J2704; J7121

== ENCOUNTER 2021-03-03 07:09 | Emergency (ER) | payer MEDICARE, MEDICAID ==
[2021-03-03] MEDS ORDERED: Sodium Chloride 0.9% 10 ML Syringe FLUSH PRN ×2 (09:17→09:41)
--- NOTE | 2021-03-03 09:24 | EDM.PDOC ---
ED HPI GENERAL MEDICAL PROBLEM - General Chief Complaint: Abdominal Pain Stated Complaint: [facility] Time Seen by Provider: 03/03/21 09:08 Source of Information: Reports: Patient, RN Notes Reviewed History Limitations: Reports: No Limitations - History of Present Illness INITIAL COMMENTS - FREE TEXT/NARRATIVE: 65-year-old gentleman presents emergency department day complaint of abdominal pain, he states his had ongoing pain for the last 2 weeks progressively got worse over the last 24 hours does have chronic diarrhea. No nausea vomiting no shortness of breath no chest pain. No fevers Lower Abdomen Pain Score (Numeric/FACES): 8 - Related Data Allergies Allergy/AdvReac Type Severity Reaction Status Date / Time blueberry Allergy Wheezing Verified 03/03/21 07:17 cinnamon Allergy Seizure Verified 03/03/21 07:17 raspberry Allergy Seizure Verified 03/03/21 07:17 strawberry Allergy Seizure Verified 03/03/21 07:17 Influenza Virus Vaccines AdvReac Seizure Verified 03/03/21 07:17 chocolate Allergy Seizure Uncoded 03/03/21 07:17 Home Meds: Home Meds Albuterol [Ventolin HFA] 2 puff INH Q6H PRN 11/10/16 [History] HYDROmorphone [Dilaudid] 2 mg PO Q6H PRN 11/10/16 [History] Fluticasone Propionate [Flonase] 2 spray CHELSY DAILY PRN 01/25/17 [History] Gabapentin [Neurontin] 100 mg PO BID 01/29/19 [History] Diclofenac Sodium [Voltaren 1% Gel] 4 gm TOP QID PRN 02/13/21 [History] Furosemide [Lasix] 40 mg PO BID 02/13/21 [History] Iron Polysaccharide Complex [Iferex 150] 150 mg PO DAILY 02/13/21 [History] Magnesium Chloride [Magnesium] 64 mg PO DAILY 02/13/21 [History] Pantoprazole Sodium [Protonix] 40 mg PO BID 02/13/21 [History] Potassium Chloride [Klor-Con M20] 40 meq PO BID 02/13/21 [History] Spironolactone [Aldactone] 25 mg PO DAILY 02/13/21 [History] Hyoscyamine Sulfate [Anaspaz] 0.25 mg PO Q4HR PRN #10 tab 03/03/21 [Rx] Past Medical History HEENT History: Reports: Impaired Vision, Otitis Media Other HEENT History: wears glasses Cardiovascular History: Reports: Angina, Blood Clots/VTE/DVT, SOB on Exertion Respiratory History: Reports: Sleep Apnea, SOB Gastrointestinal History: Reports: Chronic Constipation, PUD Genitourinary History: Reports: Renal Calculus, Urinary Incontinence, UTI, Recurrent Musculoskeletal History: Reports: Arthritis, Back Pain, Chronic, Fracture, Other (See Below) Other Musculoskeletal History: carpal tunnel Neurological History: Reports: Seizure, Other (See Below) Other Neuro History: Pt. states that some foods cause him to have seizures, mostly sweet foods Psychiatric History: Reports: Anxiety, Depression, Eating Disorders, Suicide Attempt Endocrine/Metabolic History: Reports: Hypothyroidism, Obesity/BMI 30+ Other Endocrine/Metabolic History: started on thyroid meds again Hematologic History: Reports: None Immunologic History: Reports: None Oncologic (Cancer) History: Reports: Bladder Dermatologic History: Reports: Other (See Below) Other Dermatologic History: irritated skin at skin folds - Infectious Disease History Infectious Disease History: Reports: Chicken Pox - Past Surgical History Head Surgeries/Procedures: Reports: None HEENT Surgical History: Reports: None Cardiovascular Surgical History: Reports: None Respiratory Surgical History: Reports: None GI Surgical History: Reports: EGD, Hernia, Abdominal, Hernia, Inguinal, Other (See Below) Other GI Surgeries/Procedures: Pt. states that a "couple" years ago he had an EGD done and was found to have two ulcers. Pt. denies being on any medication for it. panniculectomy for abscess.. PT HAD A PANNICULECTOMY JUNE 2015 Male Surgical History: Reports: Other (See Below) Other Male Surgeries/Procedures: bladder cancer- dx 2017, untreated Endocrine Surgical History: Reports: None Neurological Surgical History: Reports: None Musculoskeletal Surgical History: Reports: Carpal Tunnel Dermatological Surgical History: Reports: None Social & Family History - Family History Family Medical History: No Pertinent Family History HEENT: Reports: Cataract, Impaired Vision, Macular Degeneration Cardiac: Reports: CAD, CA Respiratory: Reports: None GI: Reports: None : Reports: None OBGYN: Reports: None Musculoskeletal: Reports: Arthritis Other Musculoskeletal Family History: HIP REPLACEMENT BONE DEGENERATION Neurological: Reports: None Psychiatric: Reports: None Endocrine/Metabolic: Reports: None Hematologic: Reports: None Immunologic: Reports: None Dermatologic: Reports: None Oncologic: Reports: Other (See Below) Other Oncologic Family History: BROTHER OF CANCER DOES NOT KNOW WHAT KIND - Tobacco Use Tobacco Use Status *Q: Never Tobacco User - Caffeine Use Caffeine Use: Reports: None Other Caffeine Use: 3 per day Caffeine Use Comment: 3 cups/day - Recreational Drug Use Recreational Drug Use: No ED ROS GENERAL - Review of Systems Review Of Systems: See Below Constitutional: Reports: Weakness, Fatigue. Denies: Fever, Chills HEENT: Reports: No Symptoms Respiratory: Reports: No Symptoms Cardiovascular: Reports: No Symptoms GI/Abdominal: Reports: Abdominal Pain, Diarrhea. Denies: Nausea ED EXAM, GI/ABD - Physical Exam Exam: See Below Exam Limited By: No Limitations General Appearance: Alert, WD/WN, Mild Distress Respiratory/Chest: No Respiratory Distress, Lungs Clear, Normal Breath Sounds, No Accessory Muscle Use, Chest Non-Tender Cardiovascular: Regular Rate, Rhythm, No Murmur GI/Abdominal Exam: Soft, Tender (Generalized tenderness to palpation). No: Guarding Course - Vital Signs Last Recorded V/S: Last Vital Signs Temp 97.2 F 03/03/21 07:16 Pulse 78 03/03/21 18:21 Resp 18 03/03/21 18:21 BP 153/93 H 03/03/21 18:21 Pulse Ox 96 03/03/21 18:21 - Orders/Labs/Meds Orders: Active Orders 24 hr Category Date Time Status Peripheral IV Care [RC] . DIRECTED Care 03/03/21 09:18 Active CLOS DIFFICILE PCR W/REFLEX [RM] Urgent Lab 03/03/21 13:37 Ordered Iopamidol [Isovue-300 (61%)] Med 03/03/21 09:45 Active 150 ml IV . DIRECTED Lactated Ringers [Ringers, Lactated] 1,000 ml Med 03/03/21 09:30 Active IV ASDIRECTED Sodium Chloride 0.9% [Saline Flush] Med 03/03/21 09:17 Active 10 ml FLUSH ASDIRECTED PRN Sodium Chloride 0.9% [Saline Flush] Med 03/03/21 09:41 Active 10 ml FLUSH ONETIME PRN Isolation [COMM] Stat Oth 03/03/21 09:20 Ordered Peripheral IV Insertion Adult [OM.PC] Urgent Oth 03/03/21 09:17 Ordered Medication Orders Lactated Ringer's (Ringers, Lactated) 1,000 mls @ 999 mls/hr IV ASDIRECTED VON Last Admin: 03/03/21 10:08 Dose: 125 mls/hr Documented by: ANTHONY Iopamidol (Iopamidol 612 Mg/Ml 150 Ml Bottle) 150 ml IV . DIRECTED VON Last Admin: 03/03/21 09:54 Dose: 150 ml Documented by: GENARO Sodium Chloride (Sodium Chloride 0.9% 10 Ml Syringe) 10 ml FLUSH ASDIRECTED PRN PRN Reason: Keep Vein Open Last Admin: 03/03/21 10:04 Dose: 10 ml Documented by: ANTHONY Sodium Chloride (Sodium Chloride 0.9% 10 Ml Syringe) 10 ml FLUSH ONETIME PRN PRN Reason: PER RADIOLOGY PROTOCOL Last Admin: 03/03/21 09:53 Dose: 10 ml Documented by: EGNARO Labs: Laboratory Tests 03/03/21 03/03/21 03/03/21 Range/Units 09:45 09:45 09:45 WBC 3.7 L (4.5-11.0) K/uL RBC 3.57 L (4.30-5.90) M/uL Hgb 11.1 L (12.0-15.0) g/dL Hct 35.1 L (40.0-54.0) % MCV 98 (80-98) fL MCH 31 (27-31) pg MCHC 32 (32-36) % Plt Count 60 L (150-400) K/uL Neut % (Auto) 69.6 H (36-66) % Lymph % (Auto) 14.0 L (24-44) % [place] % (Auto) 14.5 H (2-6) % Eos % (Auto) 1.6 L (2-4) % Baso % (Auto) 0.3 (0-1) % Sodium 144 (140-148) mmol/L Potassium 3.2 L (3.6-5.2) mmol/L Chloride 103 (100-108) mmol/L Carbon Dioxide 32 (21-32) mmol/L Anion Gap 12.2 (5.0-14.0) mmol/L BUN 8 D (7-18) mg/dL Creatinine 1.0 (0.8-1.3) mg/dL Est Cr Clr Drug Dosing 66.46 mL/min Estimated GFR (MDRD) > 60 (>60) Glucose 101 (74-106) mg/dL Lactic Acid 2.5 H (0.4-2.0) mmol/L Calcium 8.4 L (8.5-10.1) mg/dL Total Bilirubin 2.4 H D (0.2-1.0) mg/dL AST 27 (15-37) U/L ALT 15 (12-78) U/L Alkaline Phosphatase 52 (46-116) U/L Troponin I 0.024 (0.000-0.056) ng/mL Total Protein 6.6 (6.4-8.2) g/dL Albumin 2.6 L (3.4-5.0) g/dL Globulin 4.0 H (2.3-3.5) g/dL Albumin/Globulin Ratio 0.7 L (1.2-2.2) Lipase 36 L (73-393) U/L Urine Color (YELLOW) Urine Appearance (CLEAR) Urine pH (5.0-8.0) Ur Specific [place] (1.008-1.030) Urine Protein (NEGATIVE) mg/dL Urine Glucose (UA) (NEGATIVE) mg/dL Urine Ketones (NEGATIVE) mg/dL Urine Occult Blood (NEGATIVE) Urine Nitrite (NEGATIVE) Urine Bilirubin (NEGATIVE) Urine Urobilinogen (0.2-1.0) EU/dL Ur Leukocyte Esterase (NEGATIVE) Urine RBC (0-5) Urine WBC (0-5) Ur Epithelial Cells Amorphous Sediment Urine Bacteria Urine Mucus Influenza Type A RNA (NEGATIVE) RSV RNA (INAAT) (NEGATIVE) Influenza Type B RNA (NEGATIVE) SARS-CoV-2 RNA (ROB) (NEGATIVE) 03/03/21 03/03/21 03/03/21 Range/Units 10:51 12:53 14:40 WBC (4.5-11.0) K/uL RBC (4.30-5.90) M/uL Hgb (12.0-15.0) g/dL Hct (40.0-54.0) % MCV (80-98) fL MCH (27-31) pg MCHC (32-36) % Plt Count (150-400) K/uL Neut % (Auto) (36-66) % Lymph % (Auto) (24-44) % [place] % (Auto) (2-6) % Eos % (Auto) (2-4) % Baso % (Auto) (0-1) % Sodium (140-148) mmol/L Potassium (3.6-5.2) mmol/L Chloride (100-108) mmol/L Carbon Dioxide (21-32) mmol/L Anion Gap (5.0-14.0) mmol/L BUN (7-18) mg/dL Creatinine (0.8-1.3) mg/dL Est Cr Clr Drug Dosing mL/min Estimated GFR (MDRD) (>60) Glucose (74-106) mg/dL Lactic Acid (0.4-2.0) mmol/L Calcium (8.5-10.1) mg/dL Total Bilirubin (0.2-1.0) mg/dL AST (15-37) U/L ALT (12-78) U/L Alkaline Phosphatase (46-116) U/L Troponin I 0.027 (0.000-0.056) ng/mL Total Protein (6.4-8.2) g/dL Albumin (3.4-5.0) g/dL Globulin (2.3-3.5) g/dL Albumin/Globulin Ratio (1.2-2.2) Lipase (73-393) U/L Urine Color Yellow (YELLOW) Urine Appearance Slightly cloudy A (CLEAR) Urine pH 5.5 (5.0-8.0) Ur Specific [place] 1.015 (1.008-1.030) Urine Protein Negative (NEGATIVE) mg/dL Urine Glucose (UA) Negative (NEGATIVE) mg/dL Urine Ketones Negative (NEGATIVE) mg/dL Urine Occult Blood Large H (NEGATIVE) Urine Nitrite Negative (NEGATIVE) Urine Bilirubin Small H (NEGATIVE) Urine Urobilinogen 1.0 (0.2-1.0) EU/dL Ur Leukocyte Esterase Negative (NEGATIVE) Urine RBC 10-20 H (0-5) Urine WBC Not seen (0-5) Ur Epithelial Cells Not seen Amorphous Sediment Rare Urine Bacteria Not seen Urine Mucus Not seen Influenza Type A RNA Negative (NEGATIVE) RSV RNA (INAAT) Negative (NEGATIVE) Influenza Type B RNA Negative (NEGATIVE) SARS-CoV-2 RNA (ROB) Negative (NEGATIVE) Meds: Medications Generic Name Dose Route Start Last Admin Trade Name Freq PRN Reason Stop Dose Admin Lactated Ringer's 1,000 mls @ 999 mls/hr 03/03/21 09:30 03/03/21 10:08 Ringers, Lactated IV 125 mls/hr ASDIRECTED VON Administration Iopamidol 150 ml 03/03/21 09:45 03/03/21 09:54 Iopamidol 612 Mg/Ml 150 Ml Bottle IV 150 ml . DIRECTED VON Administration Sodium Chloride 10 ml 03/03/21 09:17 03/03/21 10:04 Sodium Chloride 0.9% 10 Ml Syringe FLUSH 10 ml ASDIRECTED PRN Administration Keep Vein Open Sodium Chloride 10 ml 03/03/21 09:41 03/03/21 09:53 Sodium Chloride 0.9% 10 Ml Syringe FLUSH 10 ml ONETIME PRN Administration PER RADIOLOGY PROTOCOL Discontinued Medications Generic Name Dose Route Start Last Admin Trade Name Freq PRN Reason Stop Dose Admin Fentanyl 50 mcg 03/03/21 09:25 03/03/21 10:06 Fentanyl 100 Mcg/2 Ml Sdv IVPUSH 03/03/21 09:26 50 mcg ONETIME ONE Administration Hydromorphone HCl 1 mg 03/03/21 16:03 03/03/21 16:31 Hydromorphone 1 Mg/Ml Syringe IVPUSH 03/03/21 16:04 1 mg ONETIME ONE Administration Hyoscyamine 0.125 mg 03/03/21 18:09 03/03/21 18:21 Hyoscyamine 0.125 Mg Tab.Sl SL 03/03/21 18:10 0.125 mg ONETIME ONE Administration Sodium Chloride 85 mls @ 3 mls/sec 03/03/21 09:41 03/03/21 09:54 Normal Saline IV 03/03/21 09:42 3 mls/sec ONETIME ONE Administration Potassium Chloride 20 meq/ 100 mls @ 50 mls/hr 03/03/21 12:08 03/03/21 12:27 Premix IV 03/03/21 14:07 50 mls/hr ONETIME ONE Administration Ondansetron HCl 4 mg 03/03/21 09:25 03/03/21 10:02 Ondansetron 4 Mg/2 Ml Sdv IVPUSH 03/03/21 09:26 4 mg ONETIME ONE Administration Potassium Chloride 40 meq 03/03/21 12:08 03/03/21 12:27 Potassium Chloride 20 Meq Tab.Er PO 03/03/21 12:09 40 meq ONETIME ONE Administration Departure - Departure Time of Disposition: 18:32 Disposition: Home, Self-Care 01 Condition: Fair Clinical Impression: Diarrhea Qualifiers: Diarrhea type: unspecified type Qualified Code(s): R19.7 - Diarrhea, unspecified - Discharge Information Prescriptions: Hyoscyamine Sulfate [Anaspaz] 0.25 mg PO Q4HR PRN #10 tab PRN Reason: Pain Instructions: Diarrhea, Adult Referrals: PCP,Unknown [Primary Care Provider] - Forms: ED Department Discharge Additional Instructions: Try the Anaspaz as needed for cramping abdominal symptoms, please followup with your primary care provider in 3-5 days if not better, please call return to the emergency department with worsening of symptoms. Your medications have been faxed to [facility] Sepsis Event Note (ED) - Evaluation Sepsis Screening Result: No Definite Risk - Focused Exam Vital Signs: Vital Signs Temp Pulse Resp BP Pulse Ox 03/03/21 18:21 78 18 153/93 H 96 03/03/21 16:32 71 18 129/54 L 93 L 03/03/21 14:53 69 117/61 97 03/03/21 14:06 71 122/56 L 97 03/03/21 12:54 81 18 138/75 94 L 03/03/21 12:01 75 16 137/68 97 03/03/21 10:49 76 16 135/72 96 03/03/21 09:03 78 18 147/82 H 95 03/03/21 07:16 97.2 F 85 20 124/79 96 - My Orders Last 24 Hours: My Active Orders 03/03/21 09:17 Sodium Chloride 0.9% [Saline Flush] 10 ml FLUSH ASDIRECTED PRN Peripheral IV Insertion Adult [OM.PC] Urgent 03/03/21 09:18 Peripheral IV Care [RC] . DIRECTED 03/03/21 09:20 Isolation [COMM] Stat 03/03/21 09:30 Lactated Ringers [Ringers, Lactated] 1,000 ml IV ASDIRECTED 03/03/21 09:41 Sodium Chloride 0.9% [Saline Flush] 10 ml FLUSH ONETIME PRN 03/03/21 09:45 Iopamidol [Isovue-300 (61%)] 150 ml IV . DIRECTED 03/03/21 13:37 CLOS DIFFICILE PCR W/REFLEX [RM] Urgent - Assessment/Plan Last 24 Hours: My Active Orders 03/03/21 09:17 Sodium Chloride 0.9% [Saline Flush] 10 ml FLUSH ASDIRECTED PRN Peripheral IV Insertion Adult [OM.PC] Urgent 03/03/21 09:18 Peripheral IV Care [RC] . DIRECTED 03/03/21 09:20 Isolation [COMM] Stat 03/03/21 09:30 Lactated Ringers [Ringers, Lactated] 1,000 ml IV ASDIRECTED 03/03/21 09:41 Sodium Chloride 0.9% [Saline Flush] 10 ml FLUSH ONETIME PRN 03/03/21 09:45 Iopamidol [Isovue-300 (61%)] 150 ml IV . DIRECTED 03/03/21 13:37 CLOS DIFFICILE PCR W/REFLEX [RM] Urgent Plan: Assessment Acuity = acute Site and laterality = diarrhea Etiology = unknown Manifestations = abdominal pain Location of injury = Home Lab values = WBC low at 3.7 consistent leukopenia hemoglobin low 11.1 consistent with normochromic anemia potassium initially low at 3.2 consistent hypokalemia status post replacement lactic acid slightly elevated 2.5 consistent lactic acidosis, total bilirubin markedly elevated 2.4 consistent hyperbilirubinemia initial troponin 0.0 two 4 repeat troponin III hours later 0.027 review of troponin seems to be in the normal range. Urinalysis reveals 10-20 RBCs consistent with hematuria CT scan demonstrates cirrhosis of the liver with esophageal varices, moderate amount of ascites appreciated in the abdominal cavity however unchanged from prior exam Plan We did try Anaspaz in the emergency department which provided some relief I tried to obtain a stool sample on multiple occasions but were unsuccessful. He is can follow-up with his primary care in the next 3 to 5 days for reevaluation consider consultation with gastroenterology This note was dictated using [employer] voice recognition software please call with any questions on syntax or grammar.
[2021-03-03] MEDS ORDERED: Ondansetron 4 MG/2 ML SDV IVPUSH ONE (09:25)
[2021-03-03] MEDS ORDERED: fentaNYL 100 MCG/2 ML SDV IVPUSH ONE (09:25)
[2021-03-03] MEDS ORDERED: Lactated Ringers 1,000 ML IV SCH (09:30)
[2021-03-03] MEDS ORDERED: Iopamidol 612 MG/ML 150 ML Bottle IV SCH (09:45)
--- NOTE | 2021-03-03 10:53 | CRLCT ---
For Patients: As a result of the Century Cures Act, medical imaging exams and procedure reports are released immediately into your electronic medical record. You may view this report before your referring provider. If you have questions, please contact your health care provider. Indication: Generalized abdominal pain. Technique: Multiple contiguous axial images were obtained from the lung bases through the symphysis pubis after the intravenous administration of 150 cc Isovue 300. Please note that all CT scans at this facility use dose modulation, iterative reconstruction, and/or weight-based dosing when appropriate to reduce radiation dose to as low as reasonably achievable. Comparison: None Findings: A small left pleural effusion is identified. Bibasilar atelectasis is identified. The heart is normal in size. Pericardial effusion is identified. A small hiatal hernia is identified. Esophageal varices are identified. Gastric varices are identified. The liver is cirrhotic. No intrahepatic biliary ductal dilatation is identified. The spleen is enlarged. The pancreas is atrophic. The adrenals and kidneys are normal. In the pelvis, thickening of the wall the urinary bladder is identified, questionably due to lack of complete distention. Paragraph The small and large bowel are normal in caliber. A small amount of stool is identified within the colon. The aorta is normal in caliber. There is no evidence of aortic dissection. Degenerative changes of the spine are identified. No lytic or blastic lesions are identified. Impression: Cirrhosis. Mild to moderate amount of ascites, stable. Splenomegaly. Small left pleural effusion Please note that all CT scans at this facility use dose modulation, iterative reconstruction, and/or weight-based dosing when appropriate to reduce radiation dose to as low as reasonably achievable. Dictated by Gladis Greene MD @ 03/03/2021 10:52:55 AM (Electronically Signed)
[2021-03-03 11:34] LABS: CORONAVIRUS COVID-19 NAA NEGATIVE (NEGATIVE)
[2021-03-03] MEDS ORDERED: Potassium Chloride 20 MEQ in Premix Bag 1 BAG IV ONE (12:08)
[2021-03-03] MEDS ORDERED: Potassium Chloride 20 MEQ Tab.ER PO ONE (12:08)
[2021-03-03] MEDS ORDERED: HYDROmorphone 1 MG/ML Syringe IVPUSH ONE (16:03)
[2021-03-03] MEDS ORDERED: Hyoscyamine 0.125 MG Tab.SL SL ONE (18:09)
[2021-03-03 18:21] VITALS: BP 153/93; PULSE 78
[2021-03-04] MEDS ORDERED: Ondansetron 4 MG Tab.DIS PO ONE (07:23)
== END 2021-03-04 08:36 | disposition home or self-care (01) ==
LOC: JP.ED 07:09
DX: R19.7 Diarrhea, unspecified (principal); E03.9 Hypothyroidism, unspecified; E66.9 Obesity, unspecified; Z68.45 Body mass index [BMI] 70 or greater, adult; Z88.7 Allergy status to serum and vaccine; Z91.018 Allergy to other foods; Z20.822 Contact with and (suspected) exposure to COVID-19
CPT/HCPCS: 0241U; 36415; 74177; 80053; 81001; 83605; 83690; 84484; 85025; 96365; 96366; 96375; 99284; A9270; J1170; J2405; J3010; J3480; J7120; Q9967

== ENCOUNTER 2021-04-06 07:21 | Inpatient (IN) | payer MEDICARE, MEDICAID ==
[2021-04-06] MEDS ORDERED: Ondansetron 4 MG/2 ML SDV IVPUSH ONE (07:23)
[2021-04-06] MEDS ORDERED: Sodium Chloride 0.9% 10 ML Syringe FLUSH PRN ×2 (07:23→09:24)
--- NOTE | 2021-04-06 07:31 | EDM.PDOC ---
ED HPI GENERAL MEDICAL PROBLEM - General Chief Complaint: Gastrointestinal Problem Stated Complaint: [facility] Time Seen by Provider: 04/06/21 07:29 Source of Information: Reports: Patient, EMS, Old Records History Limitations: Reports: Other (patient is not a good historian) - History of Present Illness INITIAL COMMENTS - FREE TEXT/NARRATIVE: 65 yo male who lives alone presents via EMS for nausea and vomiting that began last evening. Later about 1 AM he also developed some chest pain. He does not have a cardiac hx. He says he often gets nausea, vomiting, and diarrhea. He sees Dr. Roberson and just saw him a couple days ago for an unrelated problem. There has not been a fever or hematochezia or melena or hematemesis. Vitals were reported as stable per EMS en route. EMS gave ASA en route. Onset: Gradual Onset Date: 05/06/21 Duration: Hour(s):, Constant Location: Reports: Chest, Abdomen Quality: Reports: Dull Severity: Mild Improves with: Reports: None Worsens with: Reports: Other (pressing on area) Context: Reports: Other (See HPI) Associated Symptoms: Reports: Chest Pain, Nausea/Vomiting, Other (diarrhea). 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 - Related Data Allergies Allergy/AdvReac Type Severity Reaction Status Date / Time blueberry Allergy Wheezing Verified 04/06/21 07:28 cinnamon Allergy Seizure Verified 04/06/21 07:28 raspberry Allergy Seizure Verified 04/06/21 07:28 strawberry Allergy Seizure Verified 04/06/21 07:28 Influenza Virus Vaccines AdvReac Seizure Verified 04/06/21 07:28 chocolate Allergy Seizure Uncoded 04/06/21 07:28 Home Meds: Home Meds Albuterol [Ventolin HFA] 2 puff INH Q6H PRN 11/10/16 [History] HYDROmorphone [Dilaudid] 2 mg PO Q6H PRN 11/10/16 [History] Fluticasone Propionate [Flonase] 2 spray CHELSY DAILY PRN 01/25/17 [History] Diclofenac Sodium [Voltaren 1% Gel] 4 gm TOP QID PRN 02/13/21 [History] Furosemide [Lasix] 40 mg PO BID 02/13/21 [History] Magnesium Chloride [Magnesium] 64 mg PO DAILY 02/13/21 [History] Pantoprazole Sodium [Protonix] 40 mg PO BID 02/13/21 [History] Potassium Chloride [Klor-Con M20] 40 meq PO BID 02/13/21 [History] Spironolactone [Aldactone] 25 mg PO DAILY 02/13/21 [History] Hyoscyamine Sulfate [Anaspaz] 0.25 mg PO Q4HR PRN #10 tab 03/03/21 [Rx] Citalopram [Citalopram HBr] 1 tab PO DAILY 04/06/21 [History] Gabapentin [Neurontin] 100 mg PO ACBREAKFAST 04/06/21 [History] Gabapentin [Neurontin] 200 mg PO BEDTIME 04/06/21 [History] Sucralfate 1 gram PO QID 04/06/21 [History] Past Medical History - Past Health History Medical/Surgical History: Denies Medical/Surgical History HEENT History: Reports: Impaired Vision, Otitis Media Other HEENT History: wears glasses Cardiovascular History: Reports: Angina, Blood Clots/VTE/DVT, SOB on Exertion Respiratory History: Reports: Sleep Apnea, SOB Gastrointestinal History: Reports: Chronic Constipation, PUD Genitourinary History: Reports: Renal Calculus, Urinary Incontinence, UTI, Recurrent Musculoskeletal History: Reports: Arthritis, Back Pain, Chronic, Fracture, Other (See Below) Other Musculoskeletal History: carpal tunnel Neurological History: Reports: Seizure, Other (See Below) Other Neuro History: Pt. states that some foods cause him to have seizures, mostly sweet foods Psychiatric History: Reports: Anxiety, Depression, Eating Disorders, Suicide Attempt Endocrine/Metabolic History: Reports: Hypothyroidism, Obesity/BMI 30+ Other Endocrine/Metabolic History: started on thyroid meds again Hematologic History: Reports: None Immunologic History: Reports: None Oncologic (Cancer) History: Reports: Bladder Dermatologic History: Reports: Other (See Below) Other Dermatologic History: irritated skin at skin folds - Infectious Disease History Infectious Disease History: Reports: Chicken Pox - Past Surgical History Head Surgeries/Procedures: Reports: None HEENT Surgical History: Reports: None Cardiovascular Surgical History: Reports: None Respiratory Surgical History: Reports: None GI Surgical History: Reports: EGD, Hernia, Abdominal, Hernia, Inguinal, Other (See Below) Other GI Surgeries/Procedures: Pt. states that a "couple" years ago he had an EGD done and was found to have two ulcers. Pt. denies being on any medication for it. panniculectomy for abscess.. PT HAD A PANNICULECTOMY JUNE 2015 Male Surgical History: Reports: Other (See Below) Other Male Surgeries/Procedures: bladder cancer- dx 2017, untreated Endocrine Surgical History: Reports: None Neurological Surgical History: Reports: None Musculoskeletal Surgical History: Reports: Carpal Tunnel Dermatological Surgical History: Reports: None Social & Family History - Family History Family Medical History: No Pertinent Family History HEENT: Reports: Cataract, Impaired Vision, Macular Degeneration Cardiac: Reports: CAD, [place] Respiratory: Reports: None GI: Reports: None : Reports: None OBGYN: Reports: None Musculoskeletal: Reports: Arthritis Other Musculoskeletal Family History: HIP REPLACEMENT BONE DEGENERATION Neurological: Reports: None Psychiatric: Reports: None Endocrine/Metabolic: Reports: None Hematologic: Reports: None Immunologic: Reports: None Dermatologic: Reports: None Oncologic: Reports: Other (See Below) Other Oncologic Family History: BROTHER OF CANCER DOES NOT KNOW WHAT KIND - Caffeine Use Caffeine Use: Reports: None Other Caffeine Use: 3 per day Caffeine Use Comment: 3 cups/day ED ROS GENERAL - Review of Systems Review Of Systems: See Below Constitutional: Reports: No Symptoms HEENT: Reports: No Symptoms Respiratory: Reports: No Symptoms Cardiovascular: Reports: Chest Pain Endocrine: Reports: No Symptoms GI/Abdominal: Reports: Diarrhea, Nausea, Vomiting. Denies: Black Stool, Bloody Stool, Distension, Hematemesis, Hematochezia, Melena : Reports: No Symptoms Musculoskeletal: Reports: No Symptoms Skin: Reports: No Symptoms Neurological: Reports: No Symptoms Psychiatric: Reports: No Symptoms ED EXAM, GENERAL - Physical Exam Exam: See Below Exam Limited By: No Limitations General Appearance: Alert, WD/WN, No Apparent Distress, Obese (morbidly) Eye Exam: Bilateral Eye: Normal Inspection Ears: Normal External Exam, Normal Canal, Hearing Grossly Normal Ear Exam: Bilateral Ear: Auricle Normal, Canal Normal Nose: Normal Inspection, No Blood Throat/Mouth: Normal Inspection, Normal Lips, Normal Oropharynx, Normal Voice, No Airway Compromise Head: Atraumatic, Normocephalic Neck: Normal Inspection Respiratory/Chest: No Respiratory Distress, Lungs Clear, Normal Breath Sounds, No Accessory Muscle Use. No: Chest Non-Tender (localized tenderness to anterior chest with palpation) Cardiovascular: Regular Rate, Rhythm, No Edema GI/Abdominal: Normal Bowel Sounds, Soft, No Distention, Tender (mild diffuse). No: Non-Tender, Distended Extremities: Pedal Edema (bilaterally with lichenified skin to legs below the knees bilat.). No: Limited Range of Motion Neurological: Alert, Oriented, CN II-XII Intact, Normal Cognition, No Motor/Sensory Deficits Psychiatric: Normal Affect, Normal Mood Skin Exam: Warm, Dry, Intact, Normal Color, No Rash. No: Diaphoretic, Erythema #1 Interpretation EKG Date: 04/06/21 Time: 07:25 Rhythm: NSR Rate (Beats/Min): 86 [place]: Normal P-Wave: Present QRS: RBBB ST-T: Normal QT: Normal Comparison: No Change Course - Vital Signs Last Recorded V/S: Last Vital Signs Temp 36.6 C 04/06/21 07:46 Pulse 87 04/06/21 12:13 Resp 14 04/06/21 12:13 BP 121/76 04/06/21 12:13 Pulse Ox 95 04/06/21 12:13 - Orders/Labs/Meds Orders: Active Orders 24 hr Category Date Time Status Cardiac Monitoring [RC] .As Directed Care 04/06/21 07:24 Active HEPATIC FUNCTION PANEL,HFP [CHEM] Urgent Lab 04/06/21 13:08 Ordered Iopamidol [Isovue-300 (61%)] Med 04/06/21 09:24 Active 150 ml IV . DIRECTED PRN NS + KCl 20mEq/L [Normal Saline with 20 mEq KCl] 1,000 Med 04/06/21 08:00 A ctive ml IV ASDIRECTED Sodium Chloride 0.9% [Saline Flush] Med 04/06/21 07:23 Active 10 ml FLUSH ASDIRECTED PRN Saline Lock Insert [OM.PC] Routine Oth 04/06/21 07:23 Ordered EKG 12 Lead [EK] Routine Ther 04/06/21 07:24 Ordered Medication Orders Potassium Chloride/Sodium Chloride (Normal Saline With 20 Meq Kcl) 1,000 mls @ 1,000 mls/hr IV ASDIRECTED VON Last Admin: 04/06/21 08:08 Dose: 1,000 mls/hr Documented by: MACIEL Iopamidol (Iopamidol 612 Mg/Ml 150 Ml Bottle) 150 ml IV . DIRECTED PRN PRN Reason: RADIOLOGY EXAM Stop: 04/07/21 09:25 Last Admin: 04/06/21 09:59 Dose: 150 ml Documented by: SHLOMO Sodium Chloride (Sodium Chloride 0.9% 10 Ml Syringe) 10 ml FLUSH ASDIRECTED PRN PRN Reason: Keep Vein Open Last Admin: 04/06/21 07:31 Dose: 10 ml Documented by: MACIEL Labs: Laboratory Tests 04/06/21 04/06/21 04/06/21 Range/Units 04:30 07:30 07:30 WBC 7.2 (4.5-11.0) K/uL RBC 4.21 L (4.30-5.90) M/uL Hgb 12.8 (12.0-15.0) g/dL Hct 40.1 (40.0-54.0) % MCV 95 (80-98) fL MCH 30 (27-31) pg MCHC 32 (32-36) % Plt Count 138 L (150-400) K/uL Sodium 137 L (140-148) mmol/L Potassium 3.5 L (3.6-5.2) mmol/L Chloride 99 L (100-108) mmol/L Carbon Dioxide 31 (21-32) mmol/L Anion Gap 10.5 (5.0-14.0) mmol/L BUN 7 (7-18) mg/dL Creatinine 1.0 (0.8-1.3) mg/dL Est Cr Clr Drug Dosing 66.46 mL/min Estimated GFR (MDRD) > 60 (>60) Glucose 130 H (74-106) mg/dL Calcium 8.7 (8.5-10.1) mg/dL Magnesium (1.8-2.4) mg/dL Troponin I High Sens 28.0 (<=60.3) pg/mL C-Reactive Protein 1.31 H (0.0-0.3) mg/dL Lipase (73-393) U/L Urine Color (YELLOW) Urine Appearance (CLEAR) Urine RBC (0-5) Urine WBC (0-5) Ur Epithelial Cells Amorphous Sediment Urine Bacteria Urine Mucus Urine Other 04/06/21 04/06/21 04/06/21 Range/Units 07:55 10:15 11:19 WBC (4.5-11.0) K/uL RBC (4.30-5.90) M/uL Hgb (12.0-15.0) g/dL Hct (40.0-54.0) % MCV (80-98) fL MCH (27-31) pg MCHC (32-36) % Plt Count (150-400) K/uL Sodium (140-148) mmol/L Potassium (3.6-5.2) mmol/L Chloride (100-108) mmol/L Carbon Dioxide (21-32) mmol/L Anion Gap (5.0-14.0) mmol/L BUN (7-18) mg/dL Creatinine (0.8-1.3) mg/dL Est Cr Clr Drug Dosing mL/min Estimated GFR (MDRD) (>60) Glucose (74-106) mg/dL Calcium (8.5-10.1) mg/dL Magnesium 1.9 (1.8-2.4) mg/dL Troponin I High Sens (<=60.3) pg/mL C-Reactive Protein (0.0-0.3) mg/dL Lipase 30 L (73-393) U/L Urine Color [place] A (YELLOW) Urine Appearance Clear (CLEAR) Urine RBC 10-20 H (0-5) Urine WBC 0-5 (0-5) Ur Epithelial Cells Moderate Amorphous Sediment Not seen Urine Bacteria Moderate Urine Mucus Few Urine Other Meds: Medications Generic Name Dose Route Start Last Admin Trade Name Freq PRN Reason Stop Dose Admin Potassium Chloride/Sodium Chloride 1,000 mls @ 1,000 mls/hr 04/06/21 08:00 04/06/21 08:08 Normal Saline With 20 Meq Kcl IV 1,000 mls/hr ASDIRECTED VON Administration Iopamidol 150 ml 04/06/21 09:24 04/06/21 09:59 Iopamidol 612 Mg/Ml 150 Ml Bottle IV 04/07/21 09:25 150 ml . DIRECTED PRN Administration RADIOLOGY EXAM Sodium Chloride 10 ml 04/06/21 07:23 04/06/21 07:31 Sodium Chloride 0.9% 10 Ml Syringe FLUSH 10 ml ASDIRECTED PRN Administration Keep Vein Open Discontinued Medications Generic Name Dose Route Start Last Admin Trade Name Freq PRN Reason Stop Dose Admin Acetaminophen 1,000 mg 04/06/21 08:36 04/06/21 08:41 Acetaminophen 500 Mg Tab PO 04/06/21 08:37 1,000 mg ONETIME ONE Administration Hydromorphone HCl 0.5 mg 04/06/21 09:12 04/06/21 09:22 Hydromorphone 0.5 Mg/0.5 Ml Syringe IVPUSH 04/06/21 09:13 0.5 mg ONETIME ONE Administration Lactated Ringer's 1,000 mls @ 1,000 mls/hr 04/06/21 07:54 04/06/21 09:25 Ringers, Lactated IV 04/06/21 08:53 Not Given BOLUS ONE Sodium Chloride 85 mls @ 3.5 mls/sec 04/06/21 09:30 04/06/21 09:59 Normal Saline IV 04/06/21 09:31 3 mls/sec ASDIRECTED VON Administration Loperamide HCl 4 mg 04/06/21 07:37 04/06/21 08:08 Loperamide 2 Mg Cap PO 04/06/21 07:38 4 mg ONETIME ONE Administration Metoclopramide HCl 10 mg 04/06/21 09:11 04/06/21 09:22 Metoclopramide 10 Mg/2 Ml Sdv IVPUSH 04/06/21 09:12 10 mg ONETIME ONE Administration Ondansetron HCl 4 mg 04/06/21 07:23 04/06/21 07:31 Ondansetron 4 Mg/2 Ml Sdv IVPUSH 04/06/21 07:24 4 mg ONETIME ONE Administration Sodium Chloride 10 ml 04/06/21 09:24 04/06/21 09:58 Sodium Chloride 0.9% 10 Ml Syringe FLUSH 04/06/21 09:25 10 ml ONETIME PRN Administration per radiology protocol - Radiology Interpretation Free Text/Narrative:: CT abd/pelvis with IV contrast-Impression: Thickening of several loops of small bowel wall. However, no definite obstruction is identified. Cirrhosis. Large amount of ascites. Gastric and esophageal varices. Splenomegaly. Please note that all CT scans at this facility use dose modulation, iterative reconstruction, and/or weight-based dosing when appropriate to reduce radiation dose to as low as reasonably achievable. Dictated by Gladis Greene MD @ 04/06/2021 10:56:05 AM (Electronic Signature) CT Results Date: 04/06/21 CT Results Time: 11:00 - Re-Assessments/Exams Free Text/Narrative Re-Assessment/Exam: 04/06/21 09:12 Vomiting returned after initial relief with Zofran. Now seems more distended. Will get CT. Departure - Departure Time of Disposition: 13:25 Disposition: Admitted As Inpatient 66 Condition: Fair Clinical Impression: Nausea vomiting and diarrhea, Tense ascites Referrals: PCP,None [Primary Care Provider] - Forms: ED Department Discharge Sepsis Event Note (ED) - Focused Exam Vital Signs: Vital Signs Temp Pulse Resp BP Pulse Ox 04/06/21 12:13 87 14 121/76 95 04/06/21 11:21 87 11 L 144/80 H 96 04/06/21 10:21 85 12 125/70 97 04/06/21 09:07 86 18 129/70 97 04/06/21 07:51 87 13 136/76 86 L 04/06/21 07:46 36.6 C 88 20 150/90 H 92 L - My Orders Last 24 Hours: My Active Orders 04/06/21 07:23 Sodium Chloride 0.9% [Saline Flush] 10 ml FLUSH ASDIRECTED PRN Saline Lock Insert [OM.PC] Routine 04/06/21 07:24 Cardiac Monitoring [RC] .As Directed EKG 12 Lead [EK] Routine 04/06/21 08:00 NS + KCl 20mEq/L [Normal Saline with 20 mEq KCl] 1,000 ml IV ASDIRECTED 04/06/21 09:24 Iopamidol [Isovue-300 (61%)] 150 ml IV . DIRECTED PRN - Assessment/Plan Last 24 Hours: My Active Orders 04/06/21 07:23 Sodium Chloride 0.9% [Saline Flush] 10 ml FLUSH ASDIRECTED PRN Saline Lock Insert [OM.PC] Routine 04/06/21 07:24 Cardiac Monitoring [RC] .As Directed EKG 12 Lead [EK] Routine 04/06/21 08:00 NS + KCl 20mEq/L [Normal Saline with 20 mEq KCl] 1,000 ml IV ASDIRECTED 04/06/21 09:24 Iopamidol [Isovue-300 (61%)] 150 ml IV . DIRECTED PRN
[2021-04-06] MEDS ORDERED: Loperamide 2 MG Cap PO ONE (07:37)
[2021-04-06] MEDS ORDERED: Lactated Ringers 1,000 ML IV ONE (07:54)
[2021-04-06] MEDS ORDERED: NS + KCl 20mEq/L 1,000 ML IV SCH (08:00)
[2021-04-06] MEDS ORDERED: Acetaminophen 500 MG Tab PO ONE (08:36)
[2021-04-06] MEDS ORDERED: Metoclopramide 10 MG/2 ML SDV IVPUSH ONE (09:11)
[2021-04-06] MEDS ORDERED: HYDROmorphone 0.5 MG/0.5 ML Syringe IVPUSH ONE (09:12)
[2021-04-06] MEDS ORDERED: Iopamidol 612 MG/ML 150 ML Bottle IV PRN (09:24)
--- NOTE | 2021-04-06 10:57 | CRLCT ---
For Patients: As a result of the Century Cures Act, medical imaging exams and procedure reports are released immediately into your electronic medical record. You may view this report before your referring provider. If you have questions, please contact your health care provider. Indication: Abdominal distention with vomiting Technique: Multiple contiguous axial images were obtained from the lung bases is symphysis pubis after the intravenous administration of 150 cc Isovue 300. Please note that all CT scans at this facility use dose modulation, iterative reconstruction, and/or weight-based dosing when appropriate to reduce radiation dose to as low as reasonably achievable. Comparison: March 03, 2021. Findings: A small left pleural effusion is identified. Bibasilar atelectasis is identified. The heart is normal in size. No pericardial effusions identified. Cirrhosis of the liver is identified. The liver is small and nodular. Esophageal varices are identified. Gastric varices are identified. A small hiatal hernia is identified. Bilateral renal cysts are identified. The adrenals, gallbladder, and kidneys are grossly normal. The pancreas is atrophic. The spleen measures up to 20 centimeters in size. In the pelvis, the urinary bladder is grossly normal. The prostate gland is normal. A large amount of ascites is identified. No free air is identified. Degenerative changes of the spine are identified. No lytic or blastic lesions are identified. Thickening of several loops of small bowel wall are identified. However, there is no definite evidence of obstruction. Impression: Thickening of several loops of small bowel wall. However, no definite obstruction is identified. Cirrhosis. Large amount of ascites. Gastric and esophageal varices. Splenomegaly. Please note that all CT scans at this facility use dose modulation, iterative reconstruction, and/or weight-based dosing when appropriate to reduce radiation dose to as low as reasonably achievable. Dictated by Gladis Greene MD @ 04/06/2021 10:56:05 AM (Electronically Signed)
--- NOTE | 2021-04-06 14:03 | PCM.HP.2 ---
H&P History of Present Illness - General Date of Service: 04/06/21 Admit Problem/Dx: Admission Diagnosis/Problem Admission Diagnosis/Problem Peritonitis Source of Information: Patient, Family, Provider History Limitations: Reports: No Limitations - History of Present Illness Initial Comments - Free Text/Narative: CC: I can't keep anything down HPI: Stephanie presents to the emergency room with progressive abdominal pain as well as nausea and vomiting. He does report difficulties on and off for quite some time with both of these symptoms though the pain has been much more intense lately. He has been having trouble keeping anything down because of the nausea and vomiting. His abdomen also feels bigger and more distended than usual. He describes the pain as a pressure-like pain in the upper abdomen and somewhat on the left upper side. Pain seems to come and go in waves. Pain pills helped take the edge off of it but do not make it go away. No obvious triggers to make the pain worse. This is similar to previous just much more intense. He has not been able to keep anything down for a couple of days because of the nausea and vomiting. Vomit has been mostly yellow to green with gastric acid and bile. He is not aware of any fevers. He is not aware of any obvious sick contacts. No change in respiratory status compared to baseline. He does use home oxygen at 2 L/min most of the time. He has also had some diarrhea but this has been an intermittent issue for him and its not significantly different than usual. No blood in the stool. No hematemesis. Work-up in the emergency room revealed fairly unremarkable laboratory studies other than a mildly elevated bilirubin. Hemoglobin level is normal. CT scan of the abdomen and pelvis showed massive ascites as well as some thickening of the intestines in the mid abdomen with a couple of loops of small bowel involved but no obvious obstruction. He also had a stomach full of fluid noted on the CT sca n. Given his significant abdominal pain and increasing ascites there is some concern for SBP. He will be receiving antibiotics and will be admitted to the hospital for further management. - Related Data Allergies/Adverse Reactions: Allergies Allergy/AdvReac Type Severity Reaction Status Date / Time blueberry Allergy Wheezing Verified 04/06/21 07:28 cinnamon Allergy Seizure Verified 04/06/21 07:28 raspberry Allergy Seizure Verified 04/06/21 07:28 strawberry Allergy Seizure Verified 04/06/21 07:28 Influenza Virus Vaccines AdvReac Seizure Verified 04/06/21 07:28 chocolate Allergy Seizure Uncoded 04/06/21 07:28 Home Medications: Home Meds Albuterol [Ventolin HFA] 2 puff INH Q6H PRN 11/10/16 [History] HYDROmorphone [Dilaudid] 2 mg PO Q6H PRN 11/10/16 [History] Fluticasone Propionate [Flonase] 2 spray CHELSY DAILY PRN 01/25/17 [History] Diclofenac Sodium [Voltaren 1% Gel] 4 gm TOP QID PRN 02/13/21 [History] Furosemide [Lasix] 40 mg PO BID 02/13/21 [History] Magnesium Chloride [Magnesium] 64 mg PO DAILY 02/13/21 [History] Pantoprazole Sodium [Protonix] 40 mg PO BID 02/13/21 [History] Potassium Chloride [Klor-Con M20] 40 meq PO BID 02/13/21 [History] Spironolactone [Aldactone] 25 mg PO DAILY 02/13/21 [History] Hyoscyamine Sulfate [Anaspaz] 0.25 mg PO Q4HR PRN #10 tab 03/03/21 [Rx] Citalopram [Citalopram HBr] 1 tab PO DAILY 04/06/21 [History] Gabapentin [Neurontin] 100 mg PO ACBREAKFAST 04/06/21 [History] Gabapentin [Neurontin] 200 mg PO BEDTIME 04/06/21 [History] Sucralfate 1 gram PO QID 04/06/21 [History] Past Medical History - Past Health History Medical/Surgical History: Denies Medical/Surgical History HEENT History: Reports: Impaired Vision, Otitis Media Other HEENT History: wears glasses Cardiovascular History: Reports: Angina, Blood Clots/VTE/DVT, SOB on Exertion Respiratory History: Reports: Sleep Apnea, SOB Gastrointestinal History: Reports: Chronic Constipation, PUD Genitourinary History: Reports: Renal Calculus, Urinary Incontinence, UTI, Recurrent Musculoskeletal History: Reports: Arthritis, Back Pain, Chronic, Fracture, Other (See Below) Other Musculoskeletal History: carpal tunnel Neurological History: Reports: Seizure, Other (See Below) Other Neuro History: Pt. states that some foods cause him to have seizures, mostly sweet foods Psychiatric History: Reports: Anxiety, Depression, Eating Disorders, Suicide Attempt Endocrine/Metabolic History: Reports: Hypothyroidism, Obesity/BMI 30+ Other Endocrine/Metabolic History: started on thyroid meds again Hematologic History: Reports: None Immunologic History: Reports: None Oncologic (Cancer) History: Reports: Bladder Dermatologic History: Reports: Other (See Below) Other Dermatologic History: irritated skin at skin folds - Infectious Disease History Infectious Disease History: Reports: Chicken Pox - Past Surgical History Head Surgeries/Procedures: Reports: None HEENT Surgical History: Reports: None Cardiovascular Surgical History: Reports: None Respiratory Surgical History: Reports: None GI Surgical History: Reports: EGD, Hernia, Abdominal, Hernia, Inguinal, Other (See Below) Other GI Surgeries/Procedures: Pt. states that a "couple" years ago he had an EGD done and was found to have two ulcers. Pt. denies being on any medication for it. panniculectomy for abscess.. PT HAD A PANNICULECTOMY JUNE 2015 Male Surgical History: Reports: Other (See Below) Other Male Surgeries/Procedures: bladder cancer- dx 2017, untreated Endocrine Surgical History: Reports: None Neurological Surgical History: Reports: None Musculoskeletal Surgical History: Reports: Carpal Tunnel Dermatological Surgical History: Reports: None Social & Family History - Family History Family Medical History: No Pertinent Family History HEENT: Reports: Cataract, Impaired Vision, Macular Degeneration Cardiac: Reports: CAD, [place] Respiratory: Reports: None GI: Reports: None : Reports: None OBGYN: Reports: None Musculoskeletal: Reports: Arthritis Other Musculoskeletal Family History: HIP REPLACEMENT BONE DEGENERATION Neurological: Reports: None Psychiatric: Reports: None Endocrine/Metabolic: Reports: None Hematologic: Reports: None Immunologic: Reports: None Dermatologic: Reports: None Oncologic: Reports: Other (See Below) Other Oncologic Family History: BROTHER OF CANCER DOES NOT KNOW WHAT KIND - Tobacco Use Tobacco Use Status *Q: Former Tobacco User Years of Tobacco use: 10 Packs/Tins Daily: 1 Used Tobacco, but Quit: Yes Month/Year Tobacco Last Used: 01/1980 - Caffeine Use Caffeine Use: Reports: Coffee, Soda Other Caffeine Use: 3 per day Caffeine Use Comment: 3 cups/day - Alcohol Use Alcohol Use History: No Alcohol Use in Last Twelve Months: No - Recreational Drug Use Recreational Drug Use: No H&P Review of Systems - Review of Systems: Review Of Systems: See Below Free Text/Narrative: A complete 12 point review of systems was obtained. Pertinent positives and negatives are noted in the history of present illness. All other systems were reviewed and were negative except as noted. Exam - Exam Exam: See Below - Vital Signs Vital Signs: Last Vital Signs Temp 36.6 C 04/06/21 07:46 Pulse 87 04/06/21 12:13 Resp 14 04/06/21 12:13 BP 121/76 04/06/21 12:13 Pulse Ox 95 04/06/21 12:13 Weight: 183.705 kg - Exam Quality Assessment: Supplemental Oxygen General: Alert, Oriented, Cooperative. No: Mild Distress HEENT: Conjunctiva Clear, Scleral Icterus (Mild). No: Mucosa Moist & [place] (Dry) Neck: Supple, Trachea Midline. No: JVD Lungs: Clear to Auscultation, Normal Respiratory Effort Cardiovascular: Regular Rate, Regular Rhythm. No: Systolic Murmur GI/Abdominal Exam: Normal Bowel Sounds, Soft, Distended, Tender (Mild right lower abdomen and suprapubic. Moderate epigastric and left upper quadrant). No: Guarding Back Exam: Normal Inspection, Full Range of Motion Extremities: Pedal Edema (Pitting edema to the knee bilaterally). No: Increased Warmth Skin: Warm, Dry, Other (Scratch on the left upper chest). No: Rash Neuro Extensive - Mental Status: Alert, Oriented x3, Nl Response to Commands Neuro Extensive - Motor, Sensory, Reflexes: No: Dysarthria, Abnormal Motor, Tremor Psychiatric: Alert, Normal Affect - Patient Data Lab Results Last 24 hrs: Laboratory Results - last 24 hr 04/06/21 04/06/21 04/06/21 Range/Units 04:30 04:30 07:30 WBC 7.2 (4.5-11.0) K/uL RBC 4.21 L (4.30-5.90) M/uL Hgb 12.8 (12.0-15.0) g/dL Hct 40.1 (40.0-54.0) % MCV 95 (80-98) fL MCH 30 (27-31) pg MCHC 32 (32-36) % Plt Count 138 L (150-400) K/uL Sodium (140-148) mmol/L Potassium (3.6-5.2) mmol/L Chloride (100-108) mmol/L Carbon Dioxide (21-32) mmol/L Anion Gap (5.0-14.0) mmol/L BUN (7-18) mg/dL Creatinine (0.8-1.3) mg/dL Est Cr Clr Drug Dosing mL/min Estimated GFR (MDRD) (>60) Glucose (74-106) mg/dL Calcium (8.5-10.1) mg/dL Magnesium (1.8-2.4) mg/dL Total Bilirubin 3.3 H (0.2-1.0) mg/dL Direct Bilirubin 1.28 H (0.0-0.2) mg/dL Indirect Bilirubin 2.02 AST 32 (15-37) U/L ALT 14 (12-78) U/L Alkaline Phosphatase 63 (46-116) U/L Troponin I High Sens (<=60.3) pg/mL C-Reactive Protein 1.31 H (0.0-0.3) mg/dL Total Protein 7.7 (6.4-8.2) g/dL Albumin 2.6 L (3.4-5.0) g/dL Globulin 5.1 H (2.3-3.5) g/dL Albumin/Globulin Ratio 0.5 L (1.2-2.2) Lipase (73-393) U/L Urine Color (YELLOW) Urine Appearance (CLEAR) Urine RBC (0-5) Urine WBC (0-5) Ur Epithelial Cells Amorphous Sediment Urine Bacteria Urine Mucus Urine Other 04/06/21 04/06/21 04/06/21 Range/Units 07:30 07:55 10:15 WBC (4.5-11.0) K/uL RBC (4.30-5.90) M/uL Hgb (12.0-15.0) g/dL Hct (40.0-54.0) % MCV (80-98) fL MCH (27-31) pg MCHC (32-36) % Plt Count (150-400) K/uL Sodium 137 L (140-148) mmol/L Potassium 3.5 L (3.6-5.2) mmol/L Chloride 99 L (100-108) mmol/L Carbon Dioxide 31 (21-32) mmol/L Anion Gap 10.5 (5.0-14.0) mmol/L BUN 7 (7-18) mg/dL Creatinine 1.0 (0.8-1.3) mg/dL Est Cr Clr Drug Dosing 66.46 mL/min Estimated GFR (MDRD) > 60 (>60) Glucose 130 H (74-106) mg/dL Calcium 8.7 (8.5-10.1) mg/dL Magnesium 1.9 (1.8-2.4) mg/dL Total Bilirubin (0.2-1.0) mg/dL Direct Bilirubin (0.0-0.2) mg/dL Indirect Bilirubin AST (15-37) U/L ALT (12-78) U/L Alkaline Phosphatase (46-116) U/L Troponin I High Sens 28.0 (<=60.3) pg/mL C-Reactive Protein (0.0-0.3) mg/dL Total Protein (6.4-8.2) g/dL Albumin (3.4-5.0) g/dL Globulin (2.3-3.5) g/dL Albumin/Globulin Ratio (1.2-2.2) Lipase 30 L (73-393) U/L Urine Color (YELLOW) Urine Appearance (CLEAR) Urine RBC (0-5) Urine WBC (0-5) Ur Epithelial Cells Amorphous Sediment Urine Bacteria Urine Mucus Urine Other 04/06/21 Range/Units 11:19 WBC (4.5-11.0) K/uL RBC (4.30-5.90) M/uL Hgb (12.0-15.0) g/dL Hct (40.0-54.0) % MCV (80-98) fL MCH (27-31) pg MCHC (32-36) % Plt Count (150-400) K/uL Sodium (140-148) mmol/L Potassium (3.6-5.2) mmol/L Chloride (100-108) mmol/L Carbon Dioxide (21-32) mmol/L Anion Gap (5.0-14.0) mmol/L BUN (7-18) mg/dL Creatinine (0.8-1.3) mg/dL Est Cr Clr Drug Dosing mL/min Estimated GFR (MDRD) (>60) Glucose (74-106) mg/dL Calcium (8.5-10.1) mg/dL Magnesium (1.8-2.4) mg/dL Total Bilirubin (0.2-1.0) mg/dL Direct Bilirubin (0.0-0.2) mg/dL Indirect Bilirubin AST (15-37) U/L ALT (12-78) U/L Alkaline Phosphatase (46-116) U/L Troponin I High Sens (<=60.3) pg/mL C-Reactive Protein (0.0-0.3) mg/dL Total Protein (6.4-8.2) g/dL Albumin (3.4-5.0) g/dL Globulin (2.3-3.5) g/dL Albumin/Globulin Ratio (1.2-2.2) Lipase (73-393) U/L Urine Color [place] A (YELLOW) Urine Appearance Clear (CLEAR) Urine RBC 10-20 H (0-5) Urine WBC 0-5 (0-5) Ur Epithelial Cells Moderate Amorphous Sediment Not seen Urine Bacteria Moderate Urine Mucus Few Urine Other Result Diagrams: 04/06/21 07:30 04/06/21 07:30 Imaging Impressions Last 24 hrs: CT scan of the abdomen and pelvis-these images were personally reviewed-there is evidence for cirrhosis with a small nodular liver as well as massive ascites which has increased compared to his CAT scan from just over a month ago. There is evidence for gastric and esophageal varices as well as splenomegaly. He does have a couple of loops of small intestine in the mid abdomen which appear thickened but no obvious bowel obstruction. Sepsis Event Note - Focused Exam Vital Signs: Vital Signs Temp Pulse Resp BP Pulse Ox 04/06/21 12:13 87 14 121/76 95 04/06/21 11:21 87 11 L 144/80 H 96 04/06/21 10:21 85 12 125/70 97 04/06/21 09:07 86 18 129/70 97 04/06/21 07:51 87 13 136/76 86 L 04/06/21 07:46 36.6 C 88 20 150/90 H 92 L *Q Meaningful Use (ADM) - VTE *Q VTE Mechanical Contraindications *Q: Bilateral Lower Edema VTE Pharmacological Contraindications *Q: High INR Value - VTE Risk Assess *Q Each Risk Factor Represents 1 Point: Swollen Legs, Current, Obesity ( BMI > 25 kg/m2) Total Score 1 Point Risk Factors: 2 Each Risk Factor Represents 2 Points: Age 60 - 74 Years Total Score 2 Point Risk Factors: 2 Each Risk Factor Represents 3 Points: None Total Score 3 Point Risk Factors: 0 Each Risk Factor Represents 5 Points: None Total Score 5 Point Risk Factors: 0 Venous Thromboembolism Risk Factor Score *Q: 4 - Problem List (1) Spontaneous bacterial peritonitis SNOMED Code(s): 98489538 ICD Code: K65.2 - SPONTANEOUS BACTERIAL PERITONITIS Status: Acute Current Visit: Yes (2) Cirrhosis SNOMED Code(s): 97497732 ICD Code: K74.60 - UNSPECIFIED CIRRHOSIS OF LIVER Status: Chronic Current Visit: No Qualifiers: Hepatic cirrhosis type: other cirrhosis Qualified Code(s): K74.69 - Other cirrhosis of liver (3) Tense ascites SNOMED Code(s): 489040074 ICD Code: R18.8 - OTHER ASCITES Status: Acute Current Visit: Yes (4) Morbid obesity with BMI of 60.0-69.9, adult SNOMED Code(s): 676251639, 63225744425505 ICD Code: E66.01 - MORBID (SEVERE) OBESITY DUE TO EXCESS CALORIES; Z68.44 - BODY MASS INDEX [BMI] 60.0-69.9, ADULT Status: Chronic Current Visit: Yes (5) (HFpEF) heart failure with preserved ejection fraction SNOMED Code(s): 384131935 ICD Code: I50.30 - UNSPECIFIED DIASTOLIC (CONGESTIVE) HEART FAILURE Status: Chronic Current Visit: No Qualifiers: Heart failure chronicity: acute on chronic Qualified Code(s): I50.33 - Acute on chronic diastolic (congestive) heart failure (6) Pulmonary hypertension SNOMED Code(s): 31894022 ICD Code: I27.20 - PULMONARY HYPERTENSION, UNSPECIFIED Status: Chronic Current Visit: No (7) 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 DIRECTED PRN Sodium Chloride 0.9% [Saline Flush] Med 04/06/21 07:23 Active 10 ml FLUSH ASDIRECTED PRN Saline Lock Insert [OM.PC] Routine Oth 04/06/21 07:23 Ordered Resuscitation Status Routine Resus Stat 04/06/21 13:47 Ordered EKG 12 Lead [EK] Routine Ther 04/06/21 07:24 Ordered Medication Orders Iopamidol (Iopamidol 612 Mg/Ml 150 Ml Bottle) 150 ml IV . DIRECTED PRN PRN Reason: RADIOLOGY EXAM Stop: 04/07/21 09:25 Last Admin: 04/06/21 09:59 Dose: 150 ml Documented by: SHLOMO Sodium Chloride (Sodium Chloride 0.9% 10 Ml Syringe) 10 ml FLUSH ASDIRECTED PRN PRN Reason: Keep Vein Open Last Admin: 04/06/21 07:31 Dose: 10 ml Documented by: MACIEL Assessment/Plan Comment:: ASSESSMENT AND PLAN - Spontaneous bacterial peritonitis, suspected-increasing ascites, increasing abdominal pain but no fever. -Empiric ceftriaxone -Paracentesis in the morning -Symptomatic management of pain and nausea Cirrhosis with massive ascites-cirrhosis likely due to fatty liver disease with no strong risk factors for other etiologies. Progression of cirrhosis and ascites in the last 6 to 8 weeks. He has impaired synthetic function with an elevated INR and decreased albumin -Diagnostic and therapeutic paracentesis in the morning -Serologic testing for hepatitis, PBC and PSC as well as autoimmune hepatitis -Hold diuretics until after the paracentesis Morbid obesity with BMI greater than 60-complicated by obesity hypoventilation syndrome. He is oxygen dependent. Heart failure with preserved ejection fraction-complicated by pulmonary hypertension. Well compensated at this time. -Restart medical management after the paracentesis tomorrow Maintenance issues - -DVT prophylaxis-contraindicated with elevated INR and significant lower extremity edema -GI prophylaxis-PPI -Nutrition-clear liquids, advance as nausea and pain improve -Mares catheter-not indicated Encounter for palliative care-we did discuss the severity of his liver disease and I expressed my concerns that he is nearing the end stage of his cirrhosis. I am a little concerned that his liver disease may be at least partially decompensated. He is hoping that we can complete work-up and management here ra ther than be transferred to a higher level of care at this point. He is aware of the poor prognosis. His daughter was in the room and participated in the conversation as well. He has not no interest in a liver transplant even if it were offered. CODE STATUS -DNR/DNI Admission justification -this patient will be admitted for inpatient services and is medically appropriate meeting medical necessity for inpatient admission as outlined in my documentation. I reasonably expect the patient will require inpatient services that span a period time over 2 midnights. I reasonably expect this patient to be discharged or transferred within 96 hours [facility]. Disposition -I anticipate discharge home after the hospital stay Primary care physician -Dr. Da Hurd M.D. - Mortality Measure Prognosis:: Poor
[2021-04-06] MEDS ORDERED: Albuterol 0.083% 2.5 MG/3 ML Neb Soln NEB PRN (15:04)
[2021-04-06] MEDS ORDERED: Melatonin 3 MG Tab PO PRN (15:04)
[2021-04-06 15:05] LABS: CORONAVIRUS COVID-19 NAA NEGATIVE (NEGATIVE)
[2021-04-06] MEDS: cefTRIAXone 2 GM in Sodium Chloride 0.9% 50 ML IV SCH (15:56)
[2021-04-06] MEDS: HYDROmorphone 1 MG/ML Syringe IVPUSH PRN ×2 (16:11→19:38)
[2021-04-06] MEDS: LORazepam 2 MG/ML SDV IVPUSH PRN (16:11)
[2021-04-06] MEDS: Potassium Chloride 20 MEQ, Lidocaine 1% 2 ML in Sodium Chloride 0.9% 100 ML IV SCH ×2 (16:18→19:27)
[2021-04-06] MEDS: Gabapentin 100 MG Cap PO SCH (20:55)
[2021-04-06] MEDS: Pantoprazole 40 MG Tab.CR PO SCH (20:55)
[2021-04-07] MEDS: Ondansetron 4 MG/2 ML SDV IV PRN ×2 (00:31→06:35)
[2021-04-07] MEDS: LORazepam 2 MG/ML SDV IVPUSH PRN (01:44)
[2021-04-07] MEDS: HYDROmorphone 1 MG/ML Syringe IVPUSH PRN ×2 (01:44→06:36)
[2021-04-07] MEDS: Citalopram 20 MG Tab PO SCH (08:43)
[2021-04-07] MEDS: Gabapentin 100 MG Cap PO SCH ×2 (08:43→21:32)
[2021-04-07] MEDS: Pantoprazole 40 MG Tab.CR PO SCH ×2 (08:44→21:32)
--- NOTE | 2021-04-07 08:48 | PCM.PN ---
- General Info Date of Service: 04/07/21 Subjective Update: There were no acute events overnight. Patient reports that prior to the paracentesis his pain has not changed much overnight. He is still complaining of at least moderate periumbilical and epigastric pain. He has some nausea but has not had any vomiting. His diarrhea seems to have resolved. He did not have any fevers. No melena or hematochezia. Shortness of breath is at baseline with his 2 L of oxygen. Functional Status: Denies: Pain Controlled - Review of Systems General: Denies: Fever Gastrointestinal: Reports: Abdominal Pain, Nausea. Denies: Diarrhea - Patient Data Vitals - Most Recent: Last Vital Signs Temp 36.2 C 04/07/21 07:39 Pulse 86 04/07/21 07:39 Resp 18 04/07/21 07:39 BP 180/98 H 04/07/21 07:39 Pulse Ox 96 04/07/21 07:39 Weight - Most Recent: 187.6 kg I&O - Last 24 Hours: Intake & Output 04/06/21 04/07/21 04/07/21 22:59 06:59 14:59 Intake Total 112 Balance 112 Lab Results Last 24 Hours: Laboratory Results - last 24 hr 04/06/21 04/06/21 04/06/21 Range/Units 04:30 04:30 10:15 WBC (4.5-11.0) K/uL RBC (4.30-5.90) M/uL Hgb (12.0-15.0) g/dL Hct (40.0-54.0) % MCV (80-98) fL MCH (27-31) pg MCHC (32-36) % Plt Count (150-400) K/uL PT (9.2-10.6) sec INR Sodium (140-148) mmol/L Potassium (3.6-5.2) mmol/L Chloride (100-108) mmol/L Carbon Dioxide (21-32) mmol/L Anion Gap (5.0-14.0) mmol/L BUN (7-18) mg/dL Creatinine (0.8-1.3) mg/dL Est Cr Clr Drug Dosing Estimated GFR (MDRD) (>60) Glucose (74-106) mg/dL Calcium (8.5-10.1) mg/dL Total Bilirubin 3.3 H (0.2-1.0) mg/dL Direct Bilirubin 1.28 H (0.0-0.2) mg/dL Indirect Bilirubin 2.02 AST 32 (15-37) U/L ALT 14 (12-78) U/L Alkaline Phosphatase 63 (46-116) U/L C-Reactive Protein 1.31 H (0.0-0.3) mg/dL Total Protein 7.7 (6.4-8.2) g/dL Albumin 2.6 L (3.4-5.0) g/dL Globulin 5.1 H (2.3-3.5) g/dL Albumin/Globulin Ratio 0.5 L (1.2-2.2) Lipase 30 L (73-393) U/L Urine Color (YELLOW) Urine Appearance (CLEAR) Urine RBC (0-5) Urine WBC (0-5) Ur Epithelial Cells Amorphous Sediment Urine Bacteria Urine Mucus Urine Other Influenza Type A RNA (NEGATIVE) RSV RNA (INAAT) (NEGATIVE) Influenza Type B RNA (NEGATIVE) SARS-CoV-2 RNA (ROB) (NEGATIVE) 04/06/21 04/06/21 04/06/21 Range/Units 11:19 13:41 14:31 WBC (4.5-11.0) K/uL RBC (4.30-5.90) M/uL Hgb (12.0-15.0) g/dL Hct (40.0-54.0) % MCV (80-98) fL MCH (27-31) pg MCHC (32-36) % Plt Count (150-400) K/uL PT 18.9 H (9.2-10.6) sec INR 1.7 Sodium (140-148) mmol/L Potassium (3.6-5.2) mmol/L Chloride (100-108) mmol/L Carbon Dioxide (21-32) mmol/L Anion Gap (5.0-14.0) mmol/L BUN (7-18) mg/dL Creatinine (0.8-1.3) mg/dL Est Cr Clr Drug Dosing Estimated GFR (MDRD) (>60) Glucose (74-106) mg/dL Calcium (8.5-10.1) mg/dL Total Bilirubin (0.2-1.0) mg/dL Direct Bilirubin (0.0-0.2) mg/dL Indirect Bilirubin AST (15-37) U/L ALT (12-78) U/L Alkaline Phosphatase (46-116) U/L C-Reactive Protein (0.0-0.3) mg/dL Total Protein (6.4-8.2) g/dL Albumin (3.4-5.0) g/dL Globulin (2.3-3.5) g/dL Albumin/Globulin Ratio (1.2-2.2) Lipase (73-393) U/L Urine Color Tie Siding A (YELLOW) Urine Appearance Clear (CLEAR) Urine RBC 10-20 H (0-5) Urine WBC 0-5 (0-5) Ur Epithelial Cells Moderate Amorphous Sediment Not seen Urine Bacteria Moderate Urine Mucus Few Urine Other Influenza Type A RNA Negative (NEGATIVE) RSV RNA (INAAT) Negative (NEGATIVE) Influenza Type B RNA Negative (NEGATIVE) SARS-CoV-2 RNA (ROB) Negative (NEGATIVE) 04/07/21 04/07/21 Range/Units 06:15 06:15 WBC 7.5 (4.5-11.0) K/uL RBC 3.59 L (4.30-5.90) M/uL Hgb 11.3 L (12.0-15.0) g/dL Hct 34.9 L (40.0-54.0) % MCV 97 (80-98) fL MCH 32 H (27-31) pg MCHC 32 (32-36) % Plt Count 94 L (150-400) K/uL PT (9.2-10.6) sec INR Sodium 140 (140-148) mmol/L Potassium 4.2 (3.6-5.2) mmol/L Chloride 103 (100-108) mmol/L Carbon Dioxide 31 (21-32) mmol/L Anion Gap 5.7 (5.0-14.0) mmol/L BUN 8 (7-18) mg/dL Creatinine 0.9 (0.8-1.3) mg/dL Est Cr Clr Drug Dosing TNP Estimated GFR (MDRD) > 60 (>60) Glucose 118 H (74-106) mg/dL Calcium 8.6 (8.5-10.1) mg/dL Total Bilirubin (0.2-1.0) mg/dL Direct Bilirubin (0.0-0.2) mg/dL Indirect Bilirubin AST (15-37) U/L ALT (12-78) U/L Alkaline Phosphatase (46-116) U/L C-Reactive Protein 1.40 H (0.0-0.3) mg/dL Total Protein (6.4-8.2) g/dL Albumin (3.4-5.0) g/dL Globulin (2.3-3.5) g/dL Albumin/Globulin Ratio (1.2-2.2) Lipase (73-393) U/L Urine Color (YELLOW) Urine Appearance (CLEAR) Urine RBC (0-5) Urine WBC (0-5) Ur Epithelial Cells Amorphous Sediment Urine Bacteria Urine Mucus Urine Other Influenza Type A RNA (NEGATIVE) RSV RNA (INAAT) (NEGATIVE) Influenza Type B RNA (NEGATIVE) SARS-CoV-2 RNA (ROB) (NEGATIVE) Med Orders - Current: Current Medications Acetaminophen (Acetaminophen 325 Mg Tab) 650 mg PO Q4H PRN PRN Reason: Pain (Mild 1-3)/fever Albuterol (Albuterol 0.083% 2.5 Mg/3 Ml Neb Soln) 2.5 mg NEB Q4H PRN PRN Reason: Shortness Of Breath/wheezing Citalopram Hydrobromide (Citalopram 20 Mg Tab) 20 mg PO DAILY [facility] Last Admin: 04/07/21 08:43 Dose: 20 mg Documented by: Furosemide (Furosemide 40 Mg Tab) 40 mg PO BIDDIURETIC VON Gabapentin (Gabapentin 100 Mg Cap) 100 mg PO ACBREAKFAST [facility] Last Admin: 04/07/21 08:43 Dose: 100 mg Documented by: Gabapentin (Gabapentin 100 Mg Cap) 200 mg PO BEDTIME [facility] Last Admin: 04/06/21 20:55 Dose: 200 mg Documented by: Hydromorphone HCl (Hydromorphone 1 Mg/Ml Syringe) 0.5 mg IVPUSH Q2H PRN PRN Reason: Pain Last Admin: 04/07/21 06:36 Dose: 0.5 mg Documented by: Ceftriaxone Sodium 2 gm/ (Sodium Chloride) 50 mls @ 100 mls/hr IV Q24H [facility] Last Admin: 04/06/21 15:56 Dose: 100 mls/hr Documented by: Lorazepam (Lorazepam 2 Mg/Ml Sdv) 0.5 mg IVPUSH Q4H PRN PRN Reason: Nausea/Vomiting Last Admin: 04/07/21 01:44 Dose: 0.5 mg Documented by: Melatonin (Melatonin 3 Mg Tab) 9 mg PO BEDTIME PRN PRN Reason: Sleep Ondansetron HCl (Ondansetron 4 Mg/2 Ml Sdv) 4 mg IV Q6H PRN PRN Reason: Nausea/Vomiting Last Admin: 04/07/21 06:35 Dose: 4 mg Documented by: Ondansetron HCl (Ondansetron 4 Mg Tab.Dis) 4 mg PO Q6H PRN PRN Reason: Nausea able to take PO Pantoprazole Sodium (Pantoprazole 40 Mg Tab.Cr) 40 mg PO BID@0730,2100 [facility] Last Admin: 04/07/21 08:44 Dose: 40 mg Documented by: Sodium Chloride (Sodium Chloride 0.9% 10 Ml Syringe) 10 ml FLUSH ASDIRECTED PRN PRN Reason: Keep Vein Open Last Admin: 04/06/21 07:31 Dose: 10 ml Documented by: Spironolactone (Spironolactone 25 Mg Tab) 25 mg PO BIDDIURETIC [facility] Discontinued Medications Acetaminophen (Acetaminophen 500 Mg Tab) 1,000 mg PO ONETIME ONE Stop: 04/06/21 08:37 Last Admin: 04/06/21 08:41 Dose: 1,000 mg Documented by: Hydromorphone HCl (Hydromorphone 0.5 Mg/0.5 Ml Syringe) 0.5 mg IVPUSH ONETIME ONE Stop: 04/06/21 09:13 Last Admin: 04/06/21 09:22 Dose: 0.5 mg Documented by: Lactated Ringer's (Ringers, Lactated) 1,000 mls @ 1,000 mls/hr IV BOLUS ONE Stop: 04/06/21 08:53 Last Admin: 04/06/21 09:25 Dose: Not Given Documented by: Potassium Chloride/Sodium Chloride (Normal Saline With 20 Meq Kcl) 1,000 mls @ 1,000 mls/hr IV ASDIRECTED [facility] Last Admin: 04/06/21 08:08 Dose: 1,000 mls/hr Documented by: Sodium Chloride (Normal Saline) 85 mls @ 3.5 mls/sec IV ASDIRECTED [facility] Stop: 01/01/22 09:31 Last Admin: 04/06/21 09:59 Dose: 3 mls/sec Documented by: Potassium Chloride 20 meq/Lidocaine HCl 2 ml/ Sodium Chloride 112 mls @ 56 mls/hr IV Q2H VON Stop: 04/06/21 20:29 Last Admin: 04/06/21 19:27 Dose: 56 mls/hr Documented by: Iopamidol (Iopamidol 612 Mg/Ml 150 Ml Bottle) 150 ml IV . DIRECTED PRN PRN Reason: RADIOLOGY EXAM Stop: 04/07/21 09:25 Last Admin: 04/06/21 09:59 Dose: 150 ml Documented by: Loperamide HCl (Loperamide 2 Mg Cap) 4 mg PO ONETIME ONE Stop: 04/06/21 07:38 Last Admin: 04/06/21 08:08 Dose: 4 mg Documented by: Metoclopramide HCl (Metoclopramide 10 Mg/2 Ml Sdv) 10 mg IVPUSH ONETIME ONE Stop: 04/06/21 09:12 Last Admin: 04/06/21 09:22 Dose: 10 mg Documented by: Ondansetron HCl (Ondansetron 4 Mg/2 Ml Sdv) 4 mg IVPUSH ONETIME ONE Stop: 04/06/21 07:24 Last Admin: 04/06/21 07:31 Dose: 4 mg Documented by: Sodium Chloride (Sodium Chloride 0.9% 10 Ml Syringe) 10 ml FLUSH ONETIME PRN PRN Reason: per radiology protocol Stop: 04/06/21 09:25 Last Admin: 04/06/21 09:58 Dose: 10 ml Documented by: - Exam Quality Assessment: Supplemental Oxygen General: Alert, Oriented, Cooperative, No Acute Distress Lungs: Normal Respiratory Effort. No: Wheezing GI/Abdominal Exam: Soft, No Distention Extremities: Pedal Edema. No: Increased Warmth Skin: Warm, Dry Psy/Mental Status: Alert, Normal Affect - Patient Data Lab Results Last 24 hrs: Laboratory Results - last 24 hr 04/06/21 04/06/21 04/06/21 Range/Units 04:30 04:30 10:15 WBC (4.5-11.0) K/uL RBC (4.30-5.90) M/uL Hgb (12.0-15.0) g/dL Hct (40.0-54.0) % MCV (80-98) fL MCH (27-31) pg MCHC (32-36) % Plt Count (150-400) K/uL PT (9.2-10.6) sec INR Sodium (140-148) mmol/L Potassium (3.6-5.2) mmol/L Chloride (100-108) mmol/L Carbon Dioxide (21-32) mmol/L Anion Gap (5.0-14.0) mmol/L BUN (7-18) mg/dL Creatinine (0.8-1.3) mg/dL Est Cr Clr Drug Dosing Estimated GFR (MDRD) (>60) Glucose (74-106) mg/dL Calcium (8.5-10.1) mg/dL Total Bilirubin 3.3 H (0.2-1.0) mg/dL Direct Bilirubin 1.28 H (0.0-0.2) mg/dL Indirect Bilirubin 2.02 AST 32 (15-37) U/L ALT 14 (12-78) U/L Alkaline Phosphatase 63 (46-116) U/L C-Reactive Protein 1.31 H (0.0-0.3) mg/dL Total Protein 7.7 (6.4-8.2) g/dL Albumin 2.6 L (3.4-5.0) g/dL Globulin 5.1 H (2.3-3.5) g/dL Albumin/Globulin Ratio 0.5 L (1.2-2.2) Lipase 30 L (73-393) U/L Urine Color (YELLOW) Urine Appearance (CLEAR) Urine RBC (0-5) Urine WBC (0-5) Ur Epithelial Cells Amorphous Sediment Urine Bacteria Urine Mucus Urine Other Influenza Type A RNA (NEGATIVE) RSV RNA (INAAT) (NEGATIVE) Influenza Type B RNA (NEGATIVE) SARS-CoV-2 RNA (ROB) (NEGATIVE) 04/06/21 04/06/21 04/06/21 Range/Units 11:19 13:41 14:31 WBC (4.5-11.0) K/uL RBC (4.30-5.90) M/uL Hgb (12.0-15.0) g/dL Hct (40.0-54.0) % MCV (80-98) fL MCH (27-31) pg MCHC (32-36) % Plt Count (150-400) K/uL PT 18.9 H (9.2-10.6) sec INR 1.7 Sodium (140-148) mmol/L Potassium (3.6-5.2) mmol/L Chloride (100-108) mmol/L Carbon Dioxide (21-32) mmol/L Anion Gap (5.0-14.0) mmol/L BUN (7-18) mg/dL Creatinine (0.8-1.3) mg/dL Est Cr Clr Drug Dosing Estimated GFR (MDRD) (>60) Glucose (74-106) mg/dL Calcium (8.5-10.1) mg/dL Total Bilirubin (0.2-1.0) mg/dL Direct Bilirubin (0.0-0.2) mg/dL Indirect Bilirubin AST (15-37) U/L ALT (12-78) U/L Alkaline Phosphatase (46-116) U/L C-Reactive Protein (0.0-0.3) mg/dL Total Protein (6.4-8.2) g/dL Albumin (3.4-5.0) g/dL Globulin (2.3-3.5) g/dL Albumin/Globulin Ratio (1.2-2.2) Lipase (73-393) U/L Urine Color Tie Siding A (YELLOW) Urine Appearance Clear (CLEAR) Urine RBC 10-20 H (0-5) Urine WBC 0-5 (0-5) Ur Epithelial Cells Moderate Amorphous Sediment Not seen Urine Bacteria Moderate Urine Mucus Few Urine Other Influenza Type A RNA Negative (NEGATIVE) RSV RNA (INAAT) Negative (NEGATIVE) Influenza Type B RNA Negative (NEGATIVE) SARS-CoV-2 RNA (ROB) Negative (NEGATIVE) 04/07/21 04/07/21 Range/Units 06:15 06:15 WBC 7.5 (4.5-11.0) K/uL RBC 3.59 L (4.30-5.90) M/uL Hgb 11.3 L (12.0-15.0) g/dL Hct 34.9 L (40.0-54.0) % MCV 97 (80-98) fL MCH 32 H (27-31) pg MCHC 32 (32-36) % Plt Count 94 L (150-400) K/uL PT (9.2-10.6) sec INR Sodium 140 (140-148) mmol/L Potassium 4.2 (3.6-5.2) mmol/L Chloride 103 (100-108) mmol/L Carbon Dioxide 31 (21-32) mmol/L Anion Gap 5.7 (5.0-14.0) mmol/L BUN 8 (7-18) mg/dL Creatinine 0.9 (0.8-1.3) mg/dL Est Cr Clr Drug Dosing TNP Estimated GFR (MDRD) > 60 (>60) Glucose 118 H (74-106) mg/dL Calcium 8.6 (8.5-10.1) mg/dL Total Bilirubin (0.2-1.0) mg/dL Direct Bilirubin (0.0-0.2) mg/dL Indirect Bilirubin AST (15-37) U/L ALT (12-78) U/L Alkaline Phosphatase (46-116) U/L C-Reactive Protein 1.40 H (0.0-0.3) mg/dL Total Protein (6.4-8.2) g/dL Albumin (3.4-5.0) g/dL Globulin (2.3-3.5) g/dL Albumin/Globulin Ratio (1.2-2.2) Lipase (73-393) U/L Urine Color (YELLOW) Urine Appearance (CLEAR) Urine RBC (0-5) Urine WBC (0-5) Ur Epithelial Cells Amorphous Sediment Urine Bacteria Urine Mucus Urine Other Influenza Type A RNA (NEGATIVE) RSV RNA (INAAT) (NEGATIVE) Influenza Type B RNA (NEGATIVE) SARS-CoV-2 RNA (ROB) (NEGATIVE) Result Diagrams: 04/07/21 06:15 04/07/21 06:15 Sepsis Event Note - Evaluation Sepsis Screening Result: No Definite Risk - Focused Exam Vital Signs: Vital Signs Temp Pulse Resp BP Pulse Ox 04/07/21 07:39 36.2 C 86 18 180/98 H 96 04/07/21 02:34 36.3 C 89 18 158/90 H 97 04/06/21 22:10 36.3 C 90 18 185/96 H 94 L - Problem List & Annotations (1) Spontaneous bacterial peritonitis SNOMED Code(s): 48232269 Code(s): K65.2 - SPONTANEOUS BACTERIAL PERITONITIS Status: Acute Current Visit: Yes (2) Cirrhosis SNOMED Code(s): 65486416 Code(s): K74.60 - UNSPECIFIED CIRRHOSIS OF LIVER Status: Chronic Current Visit: No Qualifiers: Hepatic cirrhosis type: other cirrhosis Qualified Code(s): K74.69 - Other cirrhosis of liver (3) Tense ascites SNOMED Code(s): 607221099 Code(s): R18.8 - OTHER ASCITES Status: Acute Current Visit: Yes (4) Morbid obesity with BMI of 60.0-69.9, adult SNOMED Code(s): 772981346, 68141730557644 Code(s): E66.01 - MORBID (SEVERE) OBESITY DUE TO EXCESS CALORIES; Z68.44 - BODY MASS INDEX [BMI] 60.0-69.9, ADULT Status: Chronic Current Visit: Yes (5) (HFpEF) heart failure with preserved ejection fraction SNOMED Code(s): 901701099 Code(s): I50.30 - UNSPECIFIED DIASTOLIC (CONGESTIVE) HEART FAILURE Status: Chronic Current Visit: No Qualifiers: Heart failure chronicity: acute on chronic Qualified Code(s): I50.33 - Acute on chronic diastolic (congestive) heart failure (6) Pulmonary hypertension SNOMED Code(s): 57116839 Code(s): I27.20 - PULMONARY HYPERTENSION, UNSPECIFIED Status: Chronic Current Visit: No (7) 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 SNOMED Code(s): 030375098, 610483308 Code(s): E66.2 - MORBID (SEVERE) OBESITY WITH ALVEOLAR HYPOVENTILATION Status: Chronic Current Visit: No - Problem List Review Problem List Initiated/Reviewed/Updated: Yes - My Orders Last 24 Hours: My Active Orders 04/06/21 13:47 CULTURE URINE [RM] Routine Resuscitation Status Routine 04/06/21 15:04 Acetaminophen [TylenoL] 650 mg PO Q4H PRN Albuterol [Proventil Neb Soln] 2.5 mg NEB Q4H PRN HYDROmorphone [Dilaudid] 0.5 mg IVPUSH Q2H PRN LORazepam [Ativan] 0.5 mg IVPUSH Q4H PRN Melatonin 9 mg PO BEDTIME PRN Ondansetron [Zofran ODT] 4 mg PO Q6H PRN Ondansetron [Zofran] 4 mg IV Q6H PRN 04/06/21 15:04 Patient Status [ADT] Routine Intake and Output [RC] QSHIFT Notify Provider Consults [RC] ASDIRECTED Notify Provider Vital Signs [RC] ASDIRECTED Oxygen Therapy [RC] PRN RT Aerosol Therapy [RC] ASDIRECTED Up With Assistance [RC] ASDIRECTED VTE/DVT Education [RC] Per Unit Routine Vital Signs [RC] Q4H Consult to Physician [CONS] Routine VTE Mechanical Contraindications [AST] Routine VTE Pharmacological Contraindications [AST] Routine 04/06/21 16:00 cefTRIAXone [Rocephin] 2 gm Sodium Chloride 0.9% [Normal Saline AdvBag] 50 ml IV Q24H 04/06/21 Dinner Clear Liquid Diet [DIET] 04/06/21 21:00 Gabapentin [Neurontin] 200 mg PO BEDTIME Pantoprazole [ProTONIX] 40 mg PO BID@0730,2100 04/07/21 05:11 VIC W/REFLEX Routine HEPATITIS PANEL (4) Routine 04/07/21 07:00 US Guidance Paracentesis NC [US] Routine 04/07/21 07:30 Gabapentin [Neurontin] 100 mg PO ACBREAKFAST 04/07/21 08:46 LACTATE DEHYDROGENASE,LDH [CHEM] Routine 04/07/21 09:00 Citalopram [Celexa] 20 mg PO DAILY 04/07/21 14:00 Furosemide [Lasix] 40 mg PO BIDDIURETIC Spironolactone [Aldactone] 25 mg PO BIDDIURETIC 04/08/21 05:00 CBC W/O DIFF,HEMOGRAM [HEME] Timed (1) COMPREHENSIVE METABOLIC PN,CMP [CHEM] Timed - Plan Plan:: ASSESSMENT AND PLAN - Spontaneous bacterial peritonitis, suspected-increasing ascites, increasing abdominal pain but no fever. Paracentesis completed this morning. Note organisms seen on Gram stain. Cultures are pending. Fluid consistent with a t ransudate. -Empiric ceftriaxone -Follow-up cultures -Symptomatic management of pain and nausea Cirrhosis with massive ascites-cirrhosis likely due to fatty liver disease with no strong risk factors for other etiologies. Progression of cirrhosis and ascites in the last 6 to 8 weeks. He has impaired synthetic function with an elevated INR and decreased albumin. MELD NA score is 19 suggesting a 3 to 4% 90- day mortality. -Follow-up results from paracentesis -Serologic testing for hepatitis, PBC and PSC as well as autoimmune hepatitis -Restart diuretics this afternoon Morbid obesity with BMI greater than 60-complicated by obesity hypoventilation syndrome. He is oxygen dependent. Heart failure with preserved ejection fraction-complicated by pulmonary hypertension. Well compensated at this time. -Restart medical management today Maintenance issues - -DVT prophylaxis-contraindicated with elevated INR and significant lower extremity edema -GI prophylaxis-PPI -Nutrition-clear liquids, advance as nausea and pain improve -Mares catheter-not indicated Encounter for palliative care-we did discuss the severity of his liver disease and I expressed my concerns that he is nearing the end stage of his cirrhosis. I am a little concerned that his liver disease may be at least partially dec ompensated. He is hoping that we can complete work-up and management here rather than be transferred to a higher level of care at this point. He is aware of the poor prognosis. His daughter was in the room and participated in the conversation as well. He has not no interest in a liver transplant even if it were offered. CODE STATUS -DNR/DNI Admission justification -this patient will be admitted for inpatient services and is medically appropriate meeting medical necessity for inpatient admission as outlined in my documentation. I reasonably expect the patient will require inpatient services that span a period time over 2 midnights. I reasonably expect this patient to be discharged or transferred within 96 hours [facility]. Disposition -I anticipate discharge to the correction after the hospital stay. His daughter lives in [place] and is wondering if maybe he could be moved to a correction down closer to her. Primary care physician -Dr. Da Hurd M.D.
[2021-04-07] MEDS: HYDROmorphone 0.5 MG/0.5 ML Syringe IVPUSH PRN ×2 (09:21→19:26)
[2021-04-07] MEDS: Furosemide 40 MG Tab PO SCH (14:36)
[2021-04-07] MEDS: Spironolactone 25 MG Tab PO SCH (14:36)
[2021-04-07] MEDS: cefTRIAXone 2 GM in Sodium Chloride 0.9% 50 ML IV SCH (18:31)
[2021-04-08] MEDS: Gabapentin 100 MG Cap PO SCH ×2 (07:46→20:32)
[2021-04-08] MEDS: Pantoprazole 40 MG Tab.CR PO SCH ×2 (07:46→20:32)
[2021-04-08] MEDS: Furosemide 40 MG Tab PO SCH ×2 (07:47→15:52)
[2021-04-08] MEDS: Spironolactone 25 MG Tab PO SCH ×2 (07:47→15:52)
[2021-04-08] MEDS: Acetaminophen 325 MG Tab PO PRN ×3 (07:50→23:50)
--- NOTE | 2021-04-08 08:25 | OR ---
DATE OF PROCEDURE: 04/07/2021 SURGEON: Baldomero Jones MD PREOPERATIVE DIAGNOSIS: Tense ascites. POSTOPERATIVE DIAGNOSIS: Tense ascites. PROCEDURE: Ultrasound-guided paracentesis. ANESTHESIA: Local. INDICATION FOR PROCEDURE: The patient presents with increasing tense ascites related to hepatic cirrhosis. Plan is to proceed with a paracentesis for diagnostic and therapeutic purposes. Potential risks of the procedure including bleeding, infection, injury to underlying viscera were reviewed, and the patient wishes to proceed. DETAILS OF PROCEDURE: The patient in the hospital bed was initially evaluated with ultrasound which marked a satisfactory site for the paracentesis in the left subcostal region. That area was prepped and draped and anesthetized with 1% lidocaine and paracentesis catheter placed. 3.5 L of clear serous fluid was removed. This was sent for full cytologic, microbiologic, chemistry, and cell count differential examination. 3.5 L were removed and the procedure was then concluded with placement of a [id number] stitch at the puncture site and a dressing applied. There were no evident complications. Baldomero Jones MD /[id number]
[2021-04-08] MEDS ORDERED: Potassium Chloride 20 MEQ Tab.ER PO ONE ×2 (08:42→17:00)
[2021-04-08] MEDS: Citalopram 20 MG Tab PO SCH (09:24)
--- NOTE | 2021-04-08 13:18 | PCM.PN ---
- General Info Date of Service: 04/08/21 Subjective Update: Mr. Santa continues to experience symptoms of upper abdominal pain and nausea. Symptoms did improve modestly following paracentesis. Oral intake is remained f airly poor and he continues to feel very weak. Functional Status: Reports: Urinating. Denies: Tolerating Diet - Review of Systems General: Reports: Weakness, Fatigue. Denies: Fever, Chills Pulmonary: Reports: No Symptoms Cardiovascular: Reports: No Symptoms Gastrointestinal: Reports: Abdominal Pain, Decreased Appetite, Nausea. Denies: Diarrhea, Difficulty Swallowing, Hematochezia, Melena, Vomiting Genitourinary: Reports: No Symptoms - Patient Data Vitals - Most Recent: Last Vital Signs Temp 98.1 F 04/08/21 10:51 Pulse 88 04/08/21 10:51 Resp 18 04/08/21 10:51 BP 139/65 04/08/21 10:51 Pulse Ox 96 04/08/21 10:51 Weight - Most Recent: 413 lb I&O - Last 24 Hours: Intake & Output 04/07/21 04/08/21 04/08/21 22:59 06:59 14:59 Intake Total 270 100 Balance 270 100 Lab Results Last 24 Hours: Laboratory Results - last 24 hr 04/08/21 04/08/21 Range/Units 04:25 04:25 WBC 4.4 L (4.5-11.0) K/uL RBC 3.20 L (4.30-5.90) M/uL Hgb 10.0 L (12.0-15.0) g/dL Hct 31.5 L (40.0-54.0) % MCV 98 (80-98) fL MCH 31 (27-31) pg MCHC 32 (32-36) % Plt Count 85 L (150-400) K/uL Sodium 141 (140-148) mmol/L Potassium 3.5 L (3.6-5.2) mmol/L Chloride 105 (100-108) mmol/L Carbon Dioxide 31 (21-32) mmol/L Anion Gap 8.5 (5.0-14.0) mmol/L BUN 8 (7-18) mg/dL Creatinine 0.9 (0.8-1.3) mg/dL Est Cr Clr Drug Dosing 71.18 mL/min Estimated GFR (MDRD) > 60 (>60) Glucose 97 (74-106) mg/dL Calcium 8.5 (8.5-10.1) mg/dL Total Bilirubin 2.1 H (0.2-1.0) mg/dL AST 24 (15-37) U/L ALT 11 L (12-78) U/L Alkaline Phosphatase 42 L (46-116) U/L Total Protein 6.0 L (6.4-8.2) g/dL Albumin 2.5 L (3.4-5.0) g/dL Globulin 3.5 (2.3-3.5) g/dL Albumin/Globulin Ratio 0.7 L (1.2-2.2) Humble Results Last 24 Hours: Microbiology 04/07/21 09:28 Gram Stain - Final Paracentesis Fluid Body Fluid Culture - Preliminary NO GROWTH AFTER 1 DAY Aerobic Culture - Preliminary NO GROWTH AFTER 1 DAY Anaerobic Culture - Preliminary NO GROWTH AFTER 1 DAY 04/07/21 09:28 LUCILLE Preparation - Final Other - Abdomen 04/06/21 13:47 Urine Culture - Preliminary Urine, Clean Catch MIXED POSITIVE STEVEN DAY 1 Med Orders - Current: Current Medications Acetaminophen (Acetaminophen 325 Mg Tab) 650 mg PO Q4H PRN PRN Reason: Pain (Mild 1-3)/fever Last Admin: 04/08/21 07:50 Dose: 650 mg Documented by: Albuterol (Albuterol 0.083% 2.5 Mg/3 Ml Neb Soln) 2.5 mg NEB Q4H PRN PRN Reason: Shortness Of Breath/wheezing Citalopram Hydrobromide (Citalopram 20 Mg Tab) 20 mg PO DAILY ON LICENSE OF [facility] Last Admin: 04/08/21 09:24 Dose: 20 mg Documented by: Furosemide (Furosemide 40 Mg Tab) 40 mg PO BIDDIURETIC ON LICENSE OF [facility] Last Admin: 04/08/21 07:47 Dose: 40 mg Documented by: Gabapentin (Gabapentin 100 Mg Cap) 100 mg PO ACBREAKFAST ON LICENSE OF [facility] Last Admin: 04/08/21 07:46 Dose: 100 mg Documented by: Gabapentin (Gabapentin 100 Mg Cap) 200 mg PO BEDTIME ON LICENSE OF [facility] Last Admin: 04/07/21 21:32 Dose: 200 mg Documented by: Hydromorphone HCl (Hydromorphone 0.5 Mg/0.5 Ml Syringe) 0.5 mg IVPUSH Q2H PRN PRN Reason: Pain Last Admin: 04/07/21 19:26 Dose: 0.5 mg Documented by: Ceftriaxone Sodium 2 gm/ (Sodium Chloride) 50 mls @ 100 mls/hr IV Q24H ON LICENSE OF [facility] Last Admin: 04/07/21 18:31 Dose: 100 mls/hr Documented by: Lorazepam (Lorazepam 2 Mg/Ml Sdv) 0.5 mg IVPUSH Q4H PRN PRN Reason: Nausea/Vomiting Last Admin: 04/07/21 01:44 Dose: 0.5 mg Documented by: Melatonin (Melatonin 3 Mg Tab) 9 mg PO BEDTIME PRN PRN Reason: Sleep Ondansetron HCl (Ondansetron 4 Mg/2 Ml Sdv) 4 mg IV Q6H PRN PRN Reason: Nausea/Vomiting Last Admin: 04/07/21 06:35 Dose: 4 mg Documented by: Ondansetron HCl (Ondansetron 4 Mg Tab.Dis) 4 mg PO Q6H PRN PRN Reason: Nausea able to take PO Pantoprazole Sodium (Pantoprazole 40 Mg Tab.Cr) 40 mg PO BID@0730,2100 ON LICENSE OF [facility] Last Admin: 04/08/21 07:46 Dose: 40 mg Documented by: Potassium Chloride (Potassium Chloride 20 Meq Tab.Er) 40 meq PO ONETIME ONE Stop: 04/08/21 17:01 Sodium Chloride (Sodium Chloride 0.9% 10 Ml Syringe) 10 ml FLUSH ASDIRECTED PRN PRN Reason: Keep Vein Open Last Admin: 04/06/21 07:31 Dose: 10 ml Documented by: Spironolactone (Spironolactone 25 Mg Tab) 25 mg PO BIDDIURETIC ON LICENSE OF [facility] Last Admin: 04/08/21 07:47 Dose: 25 mg Documented by: Discontinued Medications Acetaminophen (Acetaminophen 500 Mg Tab) 1,000 mg PO ONETIME ONE Stop: 04/06/21 08:37 Last Admin: 04/06/21 08:41 Dose: 1,000 mg Documented by: Hydromorphone HCl (Hydromorphone 0.5 Mg/0.5 Ml Syringe) 0.5 mg IVPUSH ONETIME ONE Stop: 04/06/21 09:13 Last Admin: 04/06/21 09:22 Dose: 0.5 mg Documented by: Hydromorphone HCl (Hydromorphone 1 Mg/Ml Syringe) 0.5 mg IVPUSH Q2H PRN PRN Reason: Pain Last Admin: 04/07/21 06:36 Dose: 0.5 mg Documented by: Lactated Ringer's (Ringers, Lactated) 1,000 mls @ 1,000 mls/hr IV BOLUS ONE Stop: 04/06/21 08:53 Last Admin: 04/06/21 09:25 Dose: Not Given Documented by: Potassium Chloride/Sodium Chloride (Normal Saline With 20 Meq Kcl) 1,000 mls @ 1,000 mls/hr IV ASDIRECTED ON LICENSE OF [facility] Last Admin: 04/06/21 08:08 Dose: 1,000 mls/hr Documented by: Sodium Chloride (Normal Saline) 85 mls @ 3.5 mls/sec IV ASDIRECTED ON LICENSE OF [facility] Stop: 04/06/21 09:31 Last Admin: 04/06/21 09:59 Dose: 3 mls/sec Documented by: Potassium Chloride 20 meq/Lidocaine HCl 2 ml/ Sodium Chloride 112 mls @ 56 mls/hr IV Q2H ON LICENSE OF [facility] Stop: 04/06/21 20:29 Last Admin: 04/06/21 19:27 Dose: 56 mls/hr Documented by: Albumin Human (Albumin 25%) 25 gm in 100 mls @ 25 mls/hr IV Q4H ON LICENSE OF [facility] Stop: 04/07/21 17:59 Last Admin: 04/07/21 14:34 Dose: 25 mls/hr Documented by: Iopamidol (Iopamidol 612 Mg/Ml 150 Ml Bottle) 150 ml IV . DIRECTED PRN PRN Reason: RADIOLOGY EXAM Stop: 04/07/21 09:25 Last Admin: 04/06/21 09:59 Dose: 150 ml Documented by: Loperamide HCl (Loperamide 2 Mg Cap) 4 mg PO ONETIME ONE Stop: 04/06/21 07:38 Last Admin: 04/06/21 08:08 Dose: 4 mg Documented by: Metoclopramide HCl (Metoclopramide 10 Mg/2 Ml Sdv) 10 mg IVPUSH ONETIME ONE Stop: 04/06/21 09:12 Last Admin: 04/06/21 09:22 Dose: 10 mg Documented by: Ondansetron HCl (Ondansetron 4 Mg/2 Ml Sdv) 4 mg IVPUSH ONETIME ONE Stop: 04/06/21 07:24 Last Admin: 04/06/21 07:31 Dose: 4 mg Documented by: Potassium Chloride (Potassium Chloride 20 Meq Tab.Er) 40 meq PO ONETIME ONE Stop: 04/08/21 08:43 Last Admin: 04/08/21 09:23 Dose: 40 meq Documented by: Sodium Chloride (Sodium Chloride 0.9% 10 Ml Syringe) 10 ml FLUSH ONETIME PRN PRN Reason: per radiology protocol Stop: 04/06/21 09:25 Last Admin: 04/06/21 09:58 Dose: 10 ml Documented by: - Exam Quality Assessment: DVT Prophylaxis General: Alert, Oriented, Cooperative, Mild Distress Lungs: Clear to Auscultation, Normal Respiratory Effort, Decreased Breath Sounds Cardiovascular: Regular Rate, Regular Rhythm, No Murmurs GI/Abdominal Exam: Soft, No Organomegaly, Tender. No: Distended, Guarding, Rigid, Rebound Extremities: Non-Tender, Pedal Edema - Patient Data Lab Results Last 24 hrs: Laboratory Results - last 24 hr 04/08/21 04/08/21 Range/Units 04:25 04:25 WBC 4.4 L (4.5-11.0) K/uL RBC 3.20 L (4.30-5.90) M/uL Hgb 10.0 L (12.0-15.0) g/dL Hct 31.5 L (40.0-54.0) % MCV 98 (80-98) fL MCH 31 (27-31) pg MCHC 32 (32-36) % Plt Count 85 L (150-400) K/uL Sodium 141 (140-148) mmol/L Potassium 3.5 L (3.6-5.2) mmol/L Chloride 105 (100-108) mmol/L Carbon Dioxide 31 (21-32) mmol/L Anion Gap 8.5 (5.0-14.0) mmol/L BUN 8 (7-18) mg/dL Creatinine 0.9 (0.8-1.3) mg/dL Est Cr Clr Drug Dosing 71.18 mL/min Estimated GFR (MDRD) > 60 (>60) Glucose 97 (74-106) mg/dL Calcium 8.5 (8.5-10.1) mg/dL Total Bilirubin 2.1 H (0.2-1.0) mg/dL AST 24 (15-37) U/L ALT 11 L (12-78) U/L Alkaline Phosphatase 42 L (46-116) U/L Total Protein 6.0 L (6.4-8.2) g/dL Albumin 2.5 L (3.4-5.0) g/dL Globulin 3.5 (2.3-3.5) g/dL Albumin/Globulin Ratio 0.7 L (1.2-2.2) Result Diagrams: 04/08/21 04:25 04/08/21 04:25 Humble Results Last 24 hrs: Microbiology 04/07/21 09:28 Gram Stain - Final Paracentesis Fluid Body Fluid Culture - Preliminary NO GROWTH AFTER 1 DAY Aerobic Culture - Preliminary NO GROWTH AFTER 1 DAY Anaerobic Culture - Preliminary NO GROWTH AFTER 1 DAY 04/07/21 09:28 LUCILLE Preparation - Final Other - Abdomen 04/06/21 13:47 Urine Culture - Preliminary Urine, Clean Catch MIXED POSITIVE STEVEN DAY 1 Sepsis Event Note - Evaluation Sepsis Screening Result: Possible Sepsis Risk - Focused Exam Vital Signs: Vital Signs Temp Pulse Resp BP Pulse Ox 04/08/21 10:51 98.1 F 88 18 139/65 96 04/08/21 10:42 98.2 F 89 18 195/114 H 95 04/08/21 07:35 99.5 F 87 16 149/72 H 90 L 04/08/21 04:05 97.8 F 76 159/90 H - Problem List Review Problem List Initiated/Reviewed/Updated: Yes - My Orders Last 24 Hours: My Active Orders 04/08/21 Lunch Full Liquid Diet [DIET] 04/08/21 17:00 Potassium Chloride [Klor-Con M20] 40 meq PO ONETIME ONE 04/09/21 05:00 CBC WITH AUTO DIFF [HEME] Timed COMPREHENSIVE METABOLIC PN,CMP [CHEM] Timed - Plan Plan:: ASSESSMENT AND PLAN - Spontaneous bacterial peritonitis, suspected-increasing ascites, increasing abdominal pain but no fever. Paracentesis completed yesterday. Note organisms seen on Gram stain and no growth on cultures since yesterday. Fluid consistent with a transudate. -Empiric ceftriaxone -Follow-up cultures -Symptomatic management of pain and nausea Cirrhosis with massive ascites-cirrhosis likely due to fatty liver disease with no strong risk factors for other etiologies. Progression of cirrhosis and a scites in the last 6 to 8 weeks. He has impaired synthetic function with an elevated INR and decreased albumin. MELD NA score is 19 suggesting a 3 to 4% 90- day mortality. -Follow-up results from paracentesis -Serologic testing for hepatitis, PBC and PSC as well as autoimmune hepatitis -Restart diuretics this afternoon Morbid obesity with BMI greater than 60-complicated by obesity hypoventilation syndrome. He is oxygen dependent. Heart failure with preserved ejection fraction-complicated by pulmonary hypertension. Well compensated at this time. -Restart medical management today Maintenance issues - -DVT prophylaxis-contraindicated with elevated INR and significant lower extremity edema -GI prophylaxis-PPI -Nutrition-full liquids, advance as nausea and pain improve -Mares catheter-not indicated Encounter for palliative care-we did discuss the severity of his liver disease and I expressed my concerns that he is nearing the end stage of his cirrhosis. I am a little concerned that his liver disease may be at least partially decompensated. He is hoping that we can complete work-up and management here rather than be transferred to a higher level of care at this point. He is aware of the poor prognosis. His daughter was in the room and participated in the conversation as well. He has not no interest in a liver transplant even if it were offered. CODE STATUS -DNR/DNI Admission justification -this patient will be admitted for inpatient services and is medically appropriate meeting medical necessity for inpatient admission as outlined in my documentation. I reasonably expect the patient will require inpatient services that span a period time over 2 midnights. I reasonably expect this patient to be discharged or transferred within 96 hours [facility]. Disposition -I anticipate discharge to the group home after the hospital stay. His daughter lives in [place] and is wondering if maybe he could be moved to a group home down closer to her. Primary care physician -Dr. Roberson
[2021-04-08] MEDS: cefTRIAXone 2 GM in Sodium Chloride 0.9% 50 ML IV SCH (15:52)
[2021-04-08] MEDS: HYDROmorphone 0.5 MG/0.5 ML Syringe IVPUSH PRN (17:49)
[2021-04-09] MEDS: Gabapentin 100 MG Cap PO SCH ×2 (07:57→20:11)
[2021-04-09] MEDS: Spironolactone 25 MG Tab PO SCH ×2 (07:57→13:46)
[2021-04-09] MEDS: Pantoprazole 40 MG Tab.CR PO SCH ×2 (07:58→20:11)
[2021-04-09] MEDS: Furosemide 40 MG Tab PO SCH ×2 (07:58→13:46)
[2021-04-09] MEDS: Citalopram 20 MG Tab PO SCH (08:04)
[2021-04-09 09:11] LABS: HBSAG SCREEN Negative (Negative); HEP A AB, IGM Negative (Negative); HEP B CORE AB, IGM Negative (Negative); HEP C VIRUS AB 0.1 s/co ratio (0.0-0.9)
--- NOTE | 2021-04-09 14:25 | PCM.PN ---
- General Info Date of Service: 04/09/21 Subjective Update: Mr. Santa to him since yesterday as far as overall strength and slightly less abdominal pain. Oral intake has remained poor, he experiences nausea with even minimal intake. Overall strength has improved and he has been out of bed and up in the chair a few times a day. Functional Status: Reports: Urinating. Denies: Tolerating Diet, Ambulating - Review of Systems General: Reports: Weakness, Fatigue. Denies: Fever, Chills Pulmonary: Reports: No Symptoms Cardiovascular: Reports: No Symptoms Gastrointestinal: Reports: Abdominal Pain, Decreased Appetite, Nausea. Denies: Diarrhea, Difficulty Swallowing, Hematochezia, Melena, Vomiting Genitourinary: Reports: No Symptoms - Patient Data Vitals - Most Recent: Last Vital Signs Temp 97.5 F 04/09/21 11:09 Pulse 84 04/09/21 11:09 Resp 16 04/09/21 11:09 BP 120/68 04/09/21 11:09 Pulse Ox 98 04/09/21 11:09 Weight - Most Recent: 413 lb I&O - Last 24 Hours: Intake & Output 04/08/21 04/09/21 04/09/21 22:59 06:59 14:59 Intake Total 120 Output Total 500 400 250 Balance -380 -400 -250 Lab Results Last 24 Hours: Laboratory Results - last 24 hr 04/07/21 04/09/21 04/09/21 Range/Units 04:25 05:20 05:20 WBC 2.9 L (4.5-11.0) K/uL RBC 3.30 L (4.30-5.90) M/uL Hgb 10.3 L (12.0-15.0) g/dL Hct 32.6 L (40.0-54.0) % MCV 99 H (80-98) fL MCH 31 (27-31) pg MCHC 32 (32-36) % Plt Count 77 L (150-400) K/uL Neut % (Auto) 64.4 (36-66) % Lymph % (Auto) 19.9 L (24-44) % Phillips % (Auto) 12.7 H (2-6) % Eos % (Auto) 2.7 (2-4) % Baso % (Auto) 0.3 (0-1) % Sodium 142 (140-148) mmol/L Potassium 3.6 (3.6-5.2) mmol/L Chloride 105 (100-108) mmol/L Carbon Dioxide 34 H (21-32) mmol/L Anion Gap 6.6 (5.0-14.0) mmol/L BUN 8 (7-18) mg/dL Creatinine 0.9 (0.8-1.3) mg/dL Est Cr Clr Drug Dosing 71.18 mL/min Estimated GFR (MDRD) > 60 (>60) Glucose 81 (74-106) mg/dL Calcium 8.3 L (8.5-10.1) mg/dL Total Bilirubin 1.8 H (0.2-1.0) mg/dL AST 21 (15-37) U/L ALT 10 L (12-78) U/L Alkaline Phosphatase 43 L (46-116) U/L Total Protein 6.0 L (6.4-8.2) g/dL Albumin 2.3 L (3.4-5.0) g/dL Globulin 3.7 H (2.3-3.5) g/dL Albumin/Globulin Ratio 0.6 L (1.2-2.2) Hepatitis A IgM Ab Negative (Negative) Hep Bs Antigen Negative (Negative) Hep B Core IgM Ab Negative (Negative) Hepatitis C Antibody 0.1 (0.0-0.9) s/co ratio [facility] Results Last 24 Hours: Microbiology 04/07/21 09:28 Gram Stain - Final Paracentesis Fluid Body Fluid Culture - Preliminary NO GROWTH AFTER 2 DAYS Aerobic Culture - Preliminary NO GROWTH AFTER 2 DAYS Anaerobic Culture - Preliminary NO GROWTH AFTER 2 DAYS 04/06/21 13:47 Urine Culture - Final Urine, Clean Catch MIXED POSITIVE STEVEN DAY 2 Med Orders - Current: Current Medications Acetaminophen (Acetaminophen 325 Mg Tab) 650 mg PO Q4H PRN PRN Reason: Pain (Mild 1-3)/fever Last Admin: 04/08/21 23:50 Dose: 650 mg Documented by: Albuterol (Albuterol 0.083% 2.5 Mg/3 Ml Neb Soln) 2.5 mg NEB Q4H PRN PRN Reason: Shortness Of Breath/wheezing Citalopram Hydrobromide (Citalopram 20 Mg Tab) 20 mg PO DAILY VON Last Admin: 04/09/21 08:04 Dose: 20 mg Documented by: Furosemide (Furosemide 40 Mg Tab) 40 mg PO BIDDIURETIC [facility] Last Admin: 04/09/21 13:46 Dose: 40 mg Documented by: Gabapentin (Gabapentin 100 Mg Cap) 100 mg PO ACBREAKFAST [facility] Last Admin: 04/09/21 07:57 Dose: 100 mg Documented by: Gabapentin (Gabapentin 100 Mg Cap) 200 mg PO BEDTIME [facility] Last Admin: 04/08/21 20:32 Dose: 200 mg Documented by: Hydromorphone HCl (Hydromorphone 0.5 Mg/0.5 Ml Syringe) 0.5 mg IVPUSH Q2H PRN PRN Reason: Pain Last Admin: 04/08/21 17:49 Dose: 0.5 mg Documented by: Ceftriaxone Sodium 2 gm/ (Sodium Chloride) 50 mls @ 100 mls/hr IV Q24H [facility] Last Admin: 04/08/21 15:52 Dose: 100 mls/hr Documented by: Lorazepam (Lorazepam 2 Mg/Ml Sdv) 0.5 mg IVPUSH Q4H PRN PRN Reason: Nausea/Vomiting Last Admin: 04/07/21 01:44 Dose: 0.5 mg Documented by: Melatonin (Melatonin 3 Mg Tab) 9 mg PO BEDTIME PRN PRN Reason: Sleep Ondansetron HCl (Ondansetron 4 Mg/2 Ml Sdv) 4 mg IV Q6H PRN PRN Reason: Nausea/Vomiting Last Admin: 04/07/21 06:35 Dose: 4 mg Documented by: Ondansetron HCl (Ondansetron 4 Mg Tab.Dis) 4 mg PO Q6H PRN PRN Reason: Nausea able to take PO Pantoprazole Sodium (Pantoprazole 40 Mg Tab.Cr) 40 mg PO BID@0730,2100 [facility] Last Admin: 04/09/21 07:58 Dose: 40 mg Documented by: Potassium Chloride (Potassium Chloride 20 Meq Tab.Er) 40 meq PO ONETIME ONE Stop: 04/09/21 17:01 Sodium Chloride (Sodium Chloride 0.9% 10 Ml Syringe) 10 ml FLUSH ASDIRECTED PRN PRN Reason: Keep Vein Open Last Admin: 04/06/21 07:31 Dose: 10 ml Documented by: Spironolactone (Spironolactone 25 Mg Tab) 25 mg PO BIDDIURETIC [facility] Last Admin: 04/09/21 13:46 Dose: 25 mg Documented by: Discontinued Medications Acetaminophen (Acetaminophen 500 Mg Tab) 1,000 mg PO ONETIME ONE Stop: 04/06/21 08:37 Last Admin: 04/06/21 08:41 Dose: 1,000 mg Documented by: Hydromorphone HCl (Hydromorphone 0.5 Mg/0.5 Ml Syringe) 0.5 mg IVPUSH ONETIME ONE Stop: 04/06/21 09:13 Last Admin: 04/06/21 09:22 Dose: 0.5 mg Documented by: Hydromorphone HCl (Hydromorphone 1 Mg/Ml Syringe) 0.5 mg IVPUSH Q2H PRN PRN Reason: Pain Last Admin: 04/07/21 06:36 Dose: 0.5 mg Documented by: Lactated Ringer's (Ringers, Lactated) 1,000 mls @ 1,000 mls/hr IV BOLUS ONE Stop: 04/06/21 08:53 Last Admin: 04/06/21 09:25 Dose: Not Given Documented by: Potassium Chloride/Sodium Chloride (Normal Saline With 20 Meq Kcl) 1,000 mls @ 1,000 mls/hr IV ASDIRECTED [facility] Last Admin: 04/06/21 08:08 Dose: 1,000 mls/hr Documented by: Sodium Chloride (Normal Saline) 85 mls @ 3.5 mls/sec IV ASDIRECTED [facility] Stop: 04/06/21 09:31 Last Admin: 04/06/21 09:59 Dose: 3 mls/sec Documented by: Potassium Chloride 20 meq/Lidocaine HCl 2 ml/ Sodium Chloride 112 mls @ 56 mls/hr IV Q2H [facility] Stop: 04/06/21 20:29 Last Admin: 04/06/21 19:27 Dose: 56 mls/hr Documented by: Albumin Human (Albumin 25%) 25 gm in 100 mls @ 25 mls/hr IV Q4H [facility] Stop: 04/07/21 17:59 Last Admin: 04/07/21 14:34 Dose: 25 mls/hr Documented by: Iopamidol (Iopamidol 612 Mg/Ml 150 Ml Bottle) 150 ml IV . DIRECTED PRN PRN Reason: RADIOLOGY EXAM Stop: 04/07/21 09:25 Last Admin: 04/06/21 09:59 Dose: 150 ml Documented by: Loperamide HCl (Loperamide 2 Mg Cap) 4 mg PO ONETIME ONE Stop: 04/06/21 07:38 Last Admin: 04/06/21 08:08 Dose: 4 mg Documented by: Metoclopramide HCl (Metoclopramide 10 Mg/2 Ml Sdv) 10 mg IVPUSH ONETIME ONE Stop: 04/06/21 09:12 Last Admin: 04/06/21 09:22 Dose: 10 mg Documented by: Ondansetron HCl (Ondansetron 4 Mg/2 Ml Sdv) 4 mg IVPUSH ONETIME ONE Stop: 04/06/21 07:24 Last Admin: 04/06/21 07:31 Dose: 4 mg Documented by: Potassium Chloride (Potassium Chloride 20 Meq Tab.Er) 40 meq PO ONETIME ONE Stop: 04/08/21 08:43 Last Admin: 04/08/21 09:23 Dose: 40 meq Documented by: Potassium Chloride (Potassium Chloride 20 Meq Tab.Er) 40 meq PO ONETIME ONE Stop: 04/08/21 17:01 Last Admin: 04/08/21 17:30 Dose: 40 meq Documented by: Sodium Chloride (Sodium Chloride 0.9% 10 Ml Syringe) 10 ml FLUSH ONETIME PRN PRN Reason: per radiology protocol Stop: 04/06/21 09:25 Last Admin: 04/06/21 09:58 Dose: 10 ml Documented by: - Exam General: Alert, Oriented, Cooperative, Moderate Distress Lungs: Clear to Auscultation, Normal Respiratory Effort Cardiovascular: Regular Rate, Regular Rhythm, No Murmurs GI/Abdominal Exam: Soft, No Organomegaly, Tender. No: Distended, Guarding, Rigid, Rebound Extremities: Non-Tender, Pedal Edema - Patient Data Lab Results Last 24 hrs: Laboratory Results - last 24 hr 04/07/21 04/09/21 04/09/21 Range/Units 04:25 05:20 05:20 WBC 2.9 L (4.5-11.0) K/uL RBC 3.30 L (4.30-5.90) M/uL Hgb 10.3 L (12.0-15.0) g/dL Hct 32.6 L (40.0-54.0) % MCV 99 H (80-98) fL MCH 31 (27-31) pg MCHC 32 (32-36) % Plt Count 77 L (150-400) K/uL Neut % (Auto) 64.4 (36-66) % Lymph % (Auto) 19.9 L (24-44) % Phillips % (Auto) 12.7 H (2-6) % Eos % (Auto) 2.7 (2-4) % Baso % (Auto) 0.3 (0-1) % Sodium 142 (140-148) mmol/L Potassium 3.6 (3.6-5.2) mmol/L Chloride 105 (100-108) mmol/L Carbon Dioxide 34 H (21-32) mmol/L Anion Gap 6.6 (5.0-14.0) mmol/L BUN 8 (7-18) mg/dL Creatinine 0.9 (0.8-1.3) mg/dL Est Cr Clr Drug Dosing 71.18 mL/min Estimated GFR (MDRD) > 60 (>60) Glucose 81 (74-106) mg/dL Calcium 8.3 L (8.5-10.1) mg/dL Total Bilirubin 1.8 H (0.2-1.0) mg/dL AST 21 (15-37) U/L ALT 10 L (12-78) U/L Alkaline Phosphatase 43 L (46-116) U/L Total Protein 6.0 L (6.4-8.2) g/dL Albumin 2.3 L (3.4-5.0) g/dL Globulin 3.7 H (2.3-3.5) g/dL Albumin/Globulin Ratio 0.6 L (1.2-2.2) Hepatitis A IgM Ab Negative (Negative) Hep Bs Antigen Negative (Negative) Hep B Core IgM Ab Negative (Negative) Hepatitis C Antibody 0.1 (0.0-0.9) s/co ratio Result Diagrams: 04/09/21 05:20 04/09/21 05:20 [place] Results Last 24 hrs: Microbiology 04/07/21 09:28 Gram Stain - Final Paracentesis Fluid Body Fluid Culture - Preliminary NO GROWTH AFTER 2 DAYS Aerobic Culture - Preliminary NO GROWTH AFTER 2 DAYS Anaerobic Culture - Preliminary NO GROWTH AFTER 2 DAYS 04/06/21 13:47 Urine Culture - Final Urine, Clean Catch MIXED POSITIVE STEVEN DAY 2 Sepsis Event Note - Evaluation Sepsis Screening Result: Possible Sepsis Risk - Focused Exam Vital Signs: Vital Signs Temp Pulse Resp BP Pulse Ox 04/09/21 11:09 97.5 F 84 16 120/68 98 04/09/21 07:12 98.6 F 85 18 126/65 88 L 04/09/21 04:00 93 18 87 L - Problem List Review Problem List Initiated/Reviewed/Updated: Yes - My Orders Last 24 Hours: My Active Orders 04/09/21 17:00 Potassium Chloride [Klor-Con M20] 40 meq PO ONETIME ONE 04/10/21 05:00 CBC WITH AUTO DIFF [HEME] Timed COMPREHENSIVE METABOLIC PN,CMP [CHEM] Timed 04/10/21 Breakfast NPO After Midnight [Nothing per Oral After Midnight Diet] [DIET] - Plan Plan:: ASSESSMENT AND PLAN - Spontaneous bacterial peritonitis, suspected-increasing ascites, increasing abdominal pain but no fever. Paracentesis completed 04/07. Note organisms seen on Gram stain and no growth on cultures. Fluid consistent with a transudate. Persistent symptoms of abdominal pain and nausea with eating, poor oral intake. -Empiric ceftriaxone -Follow-up cultures -Symptomatic management of pain and nausea -Consult Dr. Jones for EGD in a.m. -Continue Protonix 40 mg twice daily Cirrhosis with massive ascites-cirrhosis likely due to fatty liver disease with no strong risk factors for other etiologies. Progression of cirrhosis and asci eric in the last 6 to 8 weeks. He has impaired synthetic function with an elevated INR and decreased albumin. MELD NA score is 19 suggesting a 3 to 4% 90- day mortality. -Follow-up results from paracentesis -Serologic testing for hepatitis, PBC and PSC as well as autoimmune hepatitis -Continue diuretics Morbid obesity with BMI greater than 60-complicated by obesity hypoventilation syndrome. He is oxygen dependent. Heart failure with preserved ejection fraction-complicated by pulmonary hyperte nsion. Well compensated at this time. -Restart medical management today Maintenance issues - -DVT prophylaxis-contraindicated with elevated INR and significant lower extremity edema -GI prophylaxis-PPI -Nutrition-full liquids, advance as nausea and pain improve -Mares catheter-not indicated Encounter for palliative care-we did discuss the severity of his liver disease and I expressed my concerns that he is nearing the end stage of his cirrhosis. I am a little concerned that his liver disease may be at least partially decompensated. He is hoping that we can complete work-up and management here rather than be transferred to a higher level of care at this point. He is aware of the poor prognosis. His daughter was in the room and participated in the conversation as well. He has not no interest in a liver transplant even if it were offered. CODE STATUS -DNR/DNI Admission justification -this patient will be admitted for inpatient services and is medically appropriate meeting medical necessity for inpatient admission as outlined in my documentation. I reasonably expect the patient will require inpatient services that span a period time over 2 midnights. I reasonably expect this patient to be discharged or transferred within 96 hours after admission to the [facility]. Disposition -I anticipate discharge to the residential after the hospital stay. His daughter lives in [place] and is wondering if maybe he could be moved to a residential down closer to her. Primary care physician -Dr. Roberson
[2021-04-09] MEDS: cefTRIAXone 2 GM in Sodium Chloride 0.9% 50 ML IV SCH (15:26)
[2021-04-09] MEDS: HYDROmorphone 0.5 MG/0.5 ML Syringe IVPUSH PRN (16:03)
[2021-04-09] MEDS ORDERED: Potassium Chloride 20 MEQ Tab.ER PO ONE (17:00)
[2021-04-10] MEDS: Acetaminophen 325 MG Tab PO PRN (02:27)
[2021-04-10] MEDS: Ondansetron 4 MG Tab.DIS PO PRN (02:27)
[2021-04-10] MEDS: HYDROmorphone 0.5 MG/0.5 ML Syringe IVPUSH PRN (06:49)
[2021-04-10] MEDS: Pantoprazole 40 MG Tab.CR PO SCH ×2 (08:24→20:59)
[2021-04-10] MEDS: Furosemide 40 MG Tab PO SCH ×3 (08:24→13:44)
[2021-04-10] MEDS: Spironolactone 25 MG Tab PO SCH ×2 (08:24→13:35)
[2021-04-10] MEDS: Citalopram 20 MG Tab PO SCH (08:24)
[2021-04-10] MEDS: Gabapentin 100 MG Cap PO SCH ×2 (08:24→20:58)
[2021-04-10] MEDS: Potassium Chloride 20 MEQ, Lidocaine 1% 2 ML in Sodium Chloride 0.9% 100 ML IV SCH ×2 (08:58→11:56)
--- NOTE | 2021-04-10 09:15 | PN ---
DATE OF SERVICE: 04/10/2021 SUBJECTIVE: Stephanie has been hospitalized since 04/06/2021. He reported that he is having difficulties swallowing and pain with swallowing. He said he has had it before and has had 2 prior EGDs. He is on Protonix 40 mg twice daily. Past medical history, past surgical history and medications were reviewed on electronic medical records. OBJECTIVE: GENERAL: Stephanie Santa is a pleasant 65-year-old male, alert and orientated. VITAL SIGNS: TPR is 97.1, 82, 16, blood pressure 137/54. HEART: Regular rate and rhythm. LUNGS: Clear. ABDOMEN: Distended, nontender. EXTREMITIES: Revealed peripheral edema. ASSESSMENT: Pain with swallowing, nausea, cirrhosis with massive ascites, morbid obesity, BMI 68, heart failure. PLAN: EGD scheduled with IV local sedation. Case to follow 04/10/2021. Surgeon: Baldomero Jones MD. No Robinul to be given. Orders to be written post procedure. Madison Morales PA-C /[id number]
[2021-04-10] MEDS ORDERED: Lidocaine 2% 5 ML SDV ONE (09:46)
[2021-04-10] MEDS ORDERED: Propofol 200 MG/20 ML SDV ONE (09:46)
[2021-04-10] MEDS ORDERED: Midazolam 1 MG/ML 2 ML SDV ONE (10:04)
[2021-04-10] MEDS ORDERED: fentaNYL 100 MCG/2 ML SDV ONE (10:05)
[2021-04-10] MEDS: Nystatin Susp 100,000 Unit/ML 5 ML UD Cup PO SCH ×3 (11:32→20:59)
[2021-04-10] MEDS: Lidocaine 2% 60 ML, Alum Hydrox/Mag Hydrox/Simeth 360 ML PO SCH ×4 (11:32→16:11)
--- NOTE | 2021-04-10 12:31 | PCM.PN ---
- General Info Date of Service: 04/10/21 Subjective Update: Mr. Santa has continued to experience epigastric and left upper quadrant abdominal pain. EGD was performed today which showed evidence of significant esophagitis and probable associated yeast infection. Overall strength seems to be modestly improved, appetite is still poor. Functional Status: Reports: Urinating. Denies: Tolerating Diet - Review of Systems General: Reports: Weakness, Fatigue. Denies: Fever, Chills Pulmonary: Reports: No Symptoms Cardiovascular: Reports: No Symptoms Gastrointestinal: Reports: Abdominal Pain, Decreased Appetite, Nausea. Denies: Difficulty Swallowing, Hematochezia, Melena, Vomiting Genitourinary: Reports: No Symptoms - Patient Data Vitals - Most Recent: Last Vital Signs Temp 96.9 F 04/10/21 11:00 Pulse 82 04/10/21 11:45 Resp 18 04/10/21 11:45 BP 128/69 04/10/21 11:45 Pulse Ox 99 04/10/21 11:45 Weight - Most Recent: 413 lb I&O - Last 24 Hours: Intake & Output 04/09/21 04/10/21 04/10/21 22:59 06:59 14:59 Intake Total 440 400 75 Output Total 950 Balance -510 400 75 Lab Results Last 24 Hours: Laboratory Results - last 24 hr 04/10/21 04/10/21 Range/Units 07:03 07:03 WBC 3.9 L (4.5-11.0) K/uL RBC 3.39 L (4.30-5.90) M/uL Hgb 10.6 L (12.0-15.0) g/dL Hct 33.1 L (40.0-54.0) % MCV 98 (80-98) fL MCH 31 (27-31) pg MCHC 32 (32-36) % Plt Count 87 L (150-400) K/uL Neut % (Auto) 69.7 H (36-66) % Lymph % (Auto) 15.7 L (24-44) % [place] % (Auto) 10.0 H (2-6) % Eos % (Auto) 2.8 (2-4) % Baso % (Auto) 0.8 (0-1) % Sodium 141 (140-148) mmol/L Potassium 3.5 L (3.6-5.2) mmol/L Chloride 104 (100-108) mmol/L Carbon Dioxide 33 H (21-32) mmol/L Anion Gap 7.5 (5.0-14.0) mmol/L BUN 9 (7-18) mg/dL Creatinine 1.1 (0.8-1.3) mg/dL Est Cr Clr Drug Dosing 58.24 mL/min Estimated GFR (MDRD) > 60 (>60) Glucose 87 (74-106) mg/dL Calcium 8.4 L (8.5-10.1) mg/dL Total Bilirubin 1.8 H (0.2-1.0) mg/dL AST 23 (15-37) U/L ALT 10 L (12-78) U/L Alkaline Phosphatase 48 (46-116) U/L Total Protein 6.4 (6.4-8.2) g/dL Albumin 2.5 L (3.4-5.0) g/dL Globulin 3.9 H (2.3-3.5) g/dL Albumin/Globulin Ratio 0.6 L (1.2-2.2) [facility] Results Last 24 Hours: Microbiology 04/07/21 09:28 Gram Stain - Final Paracentesis Fluid Body Fluid Culture - Final NO GROWTH AFTER 3 DAYS Aerobic Culture - Preliminary NO GROWTH AFTER 3 DAYS Anaerobic Culture - Preliminary NO GROWTH AFTER 3 DAYS Med Orders - Current: Current Medications Acetaminophen (Acetaminophen 325 Mg Tab) 650 mg PO Q4H PRN PRN Reason: Pain (Mild 1-3)/fever Last Admin: 04/10/21 02:27 Dose: 650 mg Documented by: Albuterol (Albuterol 0.083% 2.5 Mg/3 Ml Neb Soln) 2.5 mg NEB Q4H PRN PRN Reason: Shortness Of Breath/wheezing Citalopram Hydrobromide (Citalopram 20 Mg Tab) 20 mg PO DAILY [facility] Last Admin: 04/10/21 08:24 Dose: 20 mg Documented by: Lidocaine HCl 60 ml/ Al (Hydroxide/Mg Hydroxide 360 ml) 0 ml PO TIDAC [facility] Last Admin: 04/10/21 11:32 Dose: 60 ml Documented by: Famotidine (Famotidine 20 Mg Tab) 20 mg PO BID VON Furosemide (Furosemide 40 Mg Tab) 40 mg PO BIDDIURETIC [facility] Last Admin: 04/10/21 08:24 Dose: Not Given Documented by: Gabapentin (Gabapentin 100 Mg Cap) 100 mg PO ACBREAKFAST [facility] Last Admin: 04/10/21 08:24 Dose: 100 mg Documented by: Gabapentin (Gabapentin 100 Mg Cap) 200 mg PO BEDTIME [facility] Last Admin: 04/09/21 20:11 Dose: 200 mg Documented by: Hydromorphone HCl (Hydromorphone 0.5 Mg/0.5 Ml Syringe) 0.5 mg IVPUSH Q2H PRN PRN Reason: Pain Last Admin: 04/10/21 06:49 Dose: 0.5 mg Documented by: Ceftriaxone Sodium 2 gm/ (Sodium Chloride) 50 mls @ 100 mls/hr IV Q24H [facility] Last Admin: 04/09/21 15:26 Dose: 100 mls/hr Documented by: Potassium Chloride 20 meq/Lidocaine HCl 2 ml/ Sodium Chloride 112 mls @ 56 mls/hr IV Q2H [facility] Stop: 04/10/21 12:59 Last Admin: 04/10/21 11:56 Dose: 56 mls/hr Documented by: Lorazepam (Lorazepam 2 Mg/Ml Sdv) 0.5 mg IVPUSH Q4H PRN PRN Reason: Nausea/Vomiting Last Admin: 04/07/21 01:44 Dose: 0.5 mg Documented by: Melatonin (Melatonin 3 Mg Tab) 9 mg PO BEDTIME PRN PRN Reason: Sleep Nystatin (Nystatin Susp 100,000 Unit/Ml 5 Ml Ud Cup) 5 ml PO QID [facility] Last Admin: 04/10/21 11:32 Dose: 5 ml Documented by: Ondansetron HCl (Ondansetron 4 Mg/2 Ml Sdv) 4 mg IV Q6H PRN PRN Reason: Nausea/Vomiting Last Admin: 04/07/21 06:35 Dose: 4 mg Documented by: Ondansetron HCl (Ondansetron 4 Mg Tab.Dis) 4 mg PO Q6H PRN PRN Reason: Nausea able to take PO Last Admin: 04/10/21 02:27 Dose: 4 mg Documented by: Pantoprazole Sodium (Pantoprazole 40 Mg Tab.Cr) 40 mg PO BID@0730,2100 [facility] Last Admin: 04/10/21 08:24 Dose: 40 mg Documented by: Potassium Chloride (Potassium Chloride 20 Meq Tab.Er) 40 meq PO ONETIME ONE Stop: 04/10/21 17:01 Sodium Chloride (Sodium Chloride 0.9% 10 Ml Syringe) 10 ml FLUSH ASDIRECTED PRN PRN Reason: Keep Vein Open Last Admin: 04/06/21 07:31 Dose: 10 ml Documented by: Spironolactone (Spironolactone 25 Mg Tab) 25 mg PO BIDDIURETIC [facility] Last Admin: 04/10/21 08:24 Dose: 25 mg Documented by: Sucralfate (Sucralfate Suspension 1 Gm/10 Ml Cup) 1 gm PO QIDACANDBED [facility] Discontinued Medications Acetaminophen (Acetaminophen 500 Mg Tab) 1,000 mg PO ONETIME ONE Stop: 04/06/21 08:37 Last Admin: 04/06/21 08:41 Dose: 1,000 mg Documented by: Fentanyl (Fentanyl 100 Mcg/2 Ml Sdv) Confirm Administered Dose 100 mcg .ROUTE .STK-MED ONE Stop: 04/10/21 10:06 Hydromorphone HCl (Hydromorphone 0.5 Mg/0.5 Ml Syringe) 0.5 mg IVPUSH ONETIME ONE Stop: 04/06/21 09:13 Last Admin: 04/06/21 09:22 Dose: 0.5 mg Documented by: Hydromorphone HCl (Hydromorphone 1 Mg/Ml Syringe) 0.5 mg IVPUSH Q2H PRN PRN Reason: Pain Last Admin: 04/07/21 06:36 Dose: 0.5 mg Documented by: Lactated Ringer's (Ringers, Lactated) 1,000 mls @ 1,000 mls/hr IV BOLUS ONE Stop: 04/06/21 08:53 Last Admin: 04/06/21 09:25 Dose: Not Given Documented by: Potassium Chloride/Sodium Chloride (Normal Saline With 20 Meq Kcl) 1,000 mls @ 1,000 mls/hr IV ASDIRECTED [facility] Last Admin: 04/06/21 08:08 Dose: 1,000 mls/hr Documented by: Sodium Chloride (Normal Saline) 85 mls @ 3.5 mls/sec IV ASDIRECTED VON Stop: 04/06/21 09:31 Last Admin: 04/06/21 09:59 Dose: 3 mls/sec Documented by: Potassium Chloride 20 meq/Lidocaine HCl 2 ml/ Sodium Chloride 112 mls @ 56 mls/hr IV Q2H [facility] Stop: 04/06/21 20:29 Last Admin: 04/06/21 19:27 Dose: 56 mls/hr Documented by: Albumin Human (Albumin 25%) 25 gm in 100 mls @ 25 mls/hr IV Q4H [facility] Stop: 04/07/21 17:59 Last Admin: 04/07/21 14:34 Dose: 25 mls/hr Documented by: Iopamidol (Iopamidol 612 Mg/Ml 150 Ml Bottle) 150 ml IV . DIRECTED PRN PRN Reason: RADIOLOGY EXAM Stop: 04/07/21 09:25 Last Admin: 04/06/21 09:59 Dose: 150 ml Documented by: Lidocaine (Lidocaine 2% 5 Ml Sdv) Confirm Administered Dose 5 ml .ROUTE .STK-MED ONE Stop: 04/10/21 09:47 Loperamide HCl (Loperamide 2 Mg Cap) 4 mg PO ONETIME ONE Stop: 04/06/21 07:38 Last Admin: 04/06/21 08:08 Dose: 4 mg Documented by: Metoclopramide HCl (Metoclopramide 10 Mg/2 Ml Sdv) 10 mg IVPUSH ONETIME ONE Stop: 04/06/21 09:12 Last Admin: 04/06/21 09:22 Dose: 10 mg Documented by: Midazolam HCl (Midazolam 1 Mg/Ml 2 Ml Sdv) Confirm Administered Dose 2 mg .ROUTE .STK-MED ONE Stop: 04/10/21 10:05 Ondansetron HCl (Ondansetron 4 Mg/2 Ml Sdv) 4 mg IVPUSH ONETIME ONE Stop: 04/06/21 07:24 Last Admin: 04/06/21 07:31 Dose: 4 mg Documented by: Potassium Chloride (Potassium Chloride 20 Meq Tab.Er) 40 meq PO ONETIME ONE Stop: 04/08/21 08:43 Last Admin: 04/08/21 09:23 Dose: 40 meq Documented by: Potassium Chloride (Potassium Chloride 20 Meq Tab.Er) 40 meq PO ONETIME ONE Stop: 04/08/21 17:01 Last Admin: 04/08/21 17:30 Dose: 40 meq Documented by: Potassium Chloride (Potassium Chloride 20 Meq Tab.Er) 40 meq PO ONETIME ONE Stop: 04/09/21 17:01 Last Admin: 04/09/21 17:04 Dose: 40 meq Documented by: Propofol (Propofol 200 Mg/20 Ml Sdv) Confirm Administered Dose 200 mg .ROUTE .STK-MED ONE Stop: 04/10/21 09:47 Sodium Chloride (Sodium Chloride 0.9% 10 Ml Syringe) 10 ml FLUSH ONETIME PRN PRN Reason: per radiology protocol Stop: 04/06/21 09:25 Last Admin: 04/06/21 09:58 Dose: 10 ml Documented by: - Exam Quality Assessment: DVT Prophylaxis General: Alert, Oriented, Cooperative, Moderate Distress Lungs: Clear to Auscultation, Normal Respiratory Effort, Decreased Breath Sounds Cardiovascular: Regular Rate, Regular Rhythm, No Murmurs GI/Abdominal Exam: Soft, Non-Tender, No Organomegaly, No Distention Extremities: Non-Tender, Pedal Edema - Patient Data Lab Results Last 24 hrs: Laboratory Results - last 24 hr 04/10/21 04/10/21 Range/Units 07:03 07:03 WBC 3.9 L (4.5-11.0) K/uL RBC 3.39 L (4.30-5.90) M/uL Hgb 10.6 L (12.0-15.0) g/dL Hct 33.1 L (40.0-54.0) % MCV 98 (80-98) fL MCH 31 (27-31) pg MCHC 32 (32-36) % Plt Count 87 L (150-400) K/uL Neut % (Auto) 69.7 H (36-66) % Lymph % (Auto) 15.7 L (24-44) % [place] % (Auto) 10.0 H (2-6) % Eos % (Auto) 2.8 (2-4) % Baso % (Auto) 0.8 (0-1) % Sodium 141 (140-148) mmol/L Potassium 3.5 L (3.6-5.2) mmol/L Chloride 104 (100-108) mmol/L Carbon Dioxide 33 H (21-32) mmol/L Anion Gap 7.5 (5.0-14.0) mmol/L BUN 9 (7-18) mg/dL Creatinine 1.1 (0.8-1.3) mg/dL Est Cr Clr Drug Dosing 58.24 mL/min Estimated GFR (MDRD) > 60 (>60) Glucose 87 (74-106) mg/dL Calcium 8.4 L (8.5-10.1) mg/dL Total Bilirubin 1.8 H (0.2-1.0) mg/dL AST 23 (15-37) U/L ALT 10 L (12-78) U/L Alkaline Phosphatase 48 (46-116) U/L Total Protein 6.4 (6.4-8.2) g/dL Albumin 2.5 L (3.4-5.0) g/dL Globulin 3.9 H (2.3-3.5) g/dL Albumin/Globulin Ratio 0.6 L (1.2-2.2) Result Diagrams: 04/10/21 07:03 04/10/21 07:03 [facility] Results Last 24 hrs: Microbiology 04/07/21 09:28 Gram Stain - Final Paracentesis Fluid Body Fluid Culture - Final NO GROWTH AFTER 3 DAYS Aerobic Culture - Preliminary NO GROWTH AFTER 3 DAYS Anaerobic Culture - Preliminary NO GROWTH AFTER 3 DAYS Sepsis Event Note - Evaluation Sepsis Screening Result: Possible Sepsis Risk - Focused Exam Vital Signs: Vital Signs Temp Temp Pulse Resp BP Pulse Ox 04/10/21 11:45 82 18 128/69 99 04/10/21 11:30 81 18 127/60 97 04/10/21 11:15 84 16 128/65 99 04/10/21 11:00 96.9 F 80 16 106/55 L 94 L 04/10/21 10:40 97.3 F 86 16 121/86 93 L 04/10/21 10:35 83 16 133/56 L 92 L 04/10/21 10:30 81 16 137/72 96 04/10/21 10:25 82 15 119/71 95 04/10/21 10:20 97.9 F 81 16 127/74 95 04/10/21 07:00 97.1 F 82 16 137/54 L 98 04/10/21 03:00 98.4 F 83 16 110/50 L 90 L - Problem List Review Problem List Initiated/Reviewed/Updated: Yes - My Orders Last 24 Hours: My Active Orders 04/10/21 09:00 Potassium Chloride 20 meq Lidocaine 1% [Xylocaine 1%] 2 ml Sodium Chloride 0 .9% [Normal Saline] 100 ml IV Q2H 04/10/21 Lunch Full Liquid Diet [DIET] 04/10/21 12:30 Famotidine [Pepcid] 20 mg PO BID 04/10/21 17:00 Potassium Chloride [Klor-Con M20] 40 meq PO ONETIME ONE Sucralfate [Carafate] 1 gm PO QIDACANDBED 04/11/21 05:00 CBC WITH AUTO DIFF [HEME] Timed COMPREHENSIVE METABOLIC PN,CMP [CHEM] Timed - Plan Plan:: ASSESSMENT AND PLAN - Spontaneous bacterial peritonitis, suspected-increasing ascites, increasing abdominal pain but no fever. Paracentesis completed 04/07. No organisms seen on Gram stain and no growth on cultures. Fluid consistent with a transudate. Persistent symptoms of abdominal pain and nausea with eating, poor oral intake. -Empiric ceftriaxone -Follow-up cultures -Symptomatic management of pain and nausea Severe esophagitis-associated with yeast infection, likely because of ongoing s ymptoms of pain and nausea -Continue Protonix 40 mg twice daily -Nystatin swish and swallow 4 times daily -Carafate slurry 1 g 4 times daily -Pepcid 20 mg p.o. twice daily Cirrhosis with massive ascites-cirrhosis likely due to fatty liver disease with no strong risk factors for other etiologies. Progression of cirrhosis and ascites in the last 6 to 8 weeks. He has impaired synthetic function with an elevated INR and decreased albumin. MELD NA score is 19 suggesting a 3 to 4% 90- day mortality. -Follow-up results from paracentesis -Serologic testing for hepatitis, PBC and PSC as well as autoimmune hepatitis -Continue diuretics Morbid obesity with BMI greater than 60-complicated by obesity hypoventilation syndrome. He is oxygen dependent. Heart failure with preserved ejection fraction-complicated by pulmonary hypertension. Well compensated at this time. -Continue medical management Maintenance issues - -DVT prophylaxis-contraindicated with elevated INR and significant lower ext remity edema -GI prophylaxis-PPI -Nutrition-full liquids, advance as nausea and pain improve -Mares catheter-not indicated Encounter for palliative care-we did discuss the severity of his liver disease and I expressed my concerns that he is nearing the end stage of his cirrhosis. I am a little concerned that his liver disease may be at least partially decompensated. He is hoping that we can complete work-up and management here rather than be transferred to a higher level of care at this point. He is aware of the poor prognosis. His daughter was in the room and participated in the conversation as well. He has not no interest in a liver transplant even if it were offered. CODE STATUS -DNR/DNI Admission justification -this patient will be admitted for inpatient services and is medically appropriate meeting medical necessity for inpatient admission as outlined in my documentation. I reasonably expect the patient will require inpatient services that span a period time over 2 midnights. I reasonably expect this patient to be discharged or transferred within 96 hours after admission to the [facility]. Disposition -I anticipate discharge to the assisted after the hospital stay. His daughter lives in [place] and is wondering if maybe he could be moved to a assisted down closer to her. Primary care physician -Dr. Roberson
[2021-04-10] MEDS: Famotidine 20 MG Tab PO SCH ×2 (13:35→20:59)
[2021-04-10 14:13] LABS: ACTIN (SMOOTH MUSCLE) ANTIBODY 12 Units (0-19); LIVER-KIDNEY MICROSOMAL AB 1.1 Units (0.0-20.0); MITOCHONDRIAL (M2) ANTIBODY <20.0 Units (0.0-20.0)
[2021-04-10] MEDS: cefTRIAXone 2 GM in Sodium Chloride 0.9% 50 ML IV SCH (15:32)
[2021-04-10] MEDS: Sucralfate Suspension 1 GM/10 ML Cup PO SCH ×2 (16:11→20:59)
[2021-04-10] MEDS ORDERED: Potassium Chloride 20 MEQ Tab.ER PO ONE (17:00)
[2021-04-11] MEDS: Sucralfate Suspension 1 GM/10 ML Cup PO SCH ×4 (06:04→20:06)
[2021-04-11] MEDS: Nystatin Susp 100,000 Unit/ML 5 ML UD Cup PO SCH ×4 (06:04→21:40)
[2021-04-11] MEDS: Gabapentin 100 MG Cap PO SCH ×2 (07:19→20:06)
[2021-04-11] MEDS: Lidocaine 2% 60 ML, Alum Hydrox/Mag Hydrox/Simeth 360 ML PO SCH ×6 (07:20→16:17)
[2021-04-11] MEDS: Pantoprazole 40 MG Tab.CR PO SCH ×2 (07:20→20:06)
[2021-04-11] MEDS: HYDROmorphone 0.5 MG/0.5 ML Syringe IVPUSH PRN (07:30)
[2021-04-11] MEDS: Furosemide 40 MG Tab PO SCH ×2 (09:51→13:51)
[2021-04-11] MEDS: Famotidine 20 MG Tab PO SCH ×2 (09:51→20:06)
[2021-04-11] MEDS: Citalopram 20 MG Tab PO SCH (09:51)
[2021-04-11] MEDS: Spironolactone 25 MG Tab PO SCH ×2 (09:51→13:51)
--- NOTE | 2021-04-11 09:57 | OR ---
DATE OF PROCEDURE: 04/10/2021 SURGEON: Baldomero Jones MD PREOPERATIVE DIAGNOSIS: Upper abdominal pain and anorexia. POSTOPERATIVE DIAGNOSES: 1. Upper abdominal pain and anorexia. 2. Upper endoscopy is showing: a. Moderately enlarged esophageal varices. b. Severe distal esophagitis with probable fungal overgrowth. 3. Multiple superficial duodenal ulcers. OPERATIVE PROCEDURES: Esophagogastroduodenoscopy with antral biopsies for CLOtest. ANESTHESIA: IV sedation. INDICATIONS FOR PROCEDURE: This is a 65-year-old male with known hepatic cirrhosis presenting with some ongoing upper abdominal discomfort and relatively anorexic state. The plan is to proceed with an upper endoscopy with biopsies as indicated. Potential risks, including bleeding and perforation, were discussed, and the patient wishes to proceed. DETAILS OF PROCEDURE: The patient was taken to the operating room and placed in a left lateral decubitus position. IV sedation was administered, after which the upper GI endoscope was passed orally through the length of the esophagus into the stomach with retroflexion view of the fundus and thereafter through the pyloric channel into the junction of the 3rd and 4th portions of the duodenum. FINDINGS: Included a normal hypopharynx, larynx, upper and esophageal sphincter. Within the esophageal body, there were some enlarged varices. These were not associated with any bleeding or inflammation per se. At the EG junction, the patient was noted to have a 3 cm hiatal hernia and quite severe active erosive esophagitis with the EG junction being reddened, edematous, and quite excoriated. There was a white exudate over the entire area of involvement, consistent with a probable fungal overgrowth. Within the stomach, other than the hiatal hernia seen on retroflexion, this was relatively unremarkable. There were a few varices in the gastric cardia. In the duodenum, there were multiple superficial duodenal ulcers with most of the duodenal bulb being at least somewhat inflamed. Beyond that, the findings normalized within the duodenum. At this point, biopsy was obtained from the antrum and sent for CLOtest for H. pylori and bleeding from the biopsy site was seen, and the procedure was then concluded. The patient was taken to the recovery room in satisfactory condition. RECOMMENDATION: At this point would be to start some Mycostatin swish and swallow empirically for probable fungal overgrowth. We also gave him 2 ounces of lidocaine with 12 ounces of Maalox to take 2 tablespoons before meals and otherwise resume diet. The patient is already on Protonix 40 mg b.i.d. Baldomero Jones MD /[id number]
--- NOTE | 2021-04-11 16:16 | PCM.PN ---
- General Info Date of Service: 04/11/21 Subjective Update: Mr. Santa is finally feeling somewhat improved. He is experiencing less abdominal and lower chest pain today. Appetite is better and he is currently tolerating a full liquid diet. Functional Status: Reports: Tolerating Diet, Urinating - Review of Systems General: Reports: Weakness, Fatigue. Denies: Fever, Chills Pulmonary: Reports: No Symptoms Cardiovascular: Reports: No Symptoms Gastrointestinal: Reports: Abdominal Pain. Denies: Difficulty Swallowing, Hematochezia, Melena, Nausea, Vomiting Genitourinary: Reports: No Symptoms - Patient Data Vitals - Most Recent: Last Vital Signs Temp 97.5 F 04/11/21 14:51 Pulse 82 04/11/21 14:51 Resp 18 04/11/21 14:51 BP 127/66 04/11/21 14:51 Pulse Ox 96 04/11/21 14:51 Weight - Most Recent: 413 lb I&O - Last 24 Hours: Intake & Output 04/11/21 04/11/21 04/11/21 06:59 14:59 22:59 Intake Total 120 Output Total 350 1250 Balance -230 -1250 Lab Results Last 24 Hours: Laboratory Results - last 24 hr 04/11/21 04/11/21 Range/Units 05:53 05:53 WBC 3.0 L (4.5-11.0) K/uL RBC 3.46 L (4.30-5.90) M/uL Hgb 10.7 L (12.0-15.0) g/dL Hct 34.5 L (40.0-54.0) % MCV 100 H (80-98) fL MCH 31 (27-31) pg MCHC 31 L (32-36) % Plt Count 82 L (150-400) K/uL Neut % (Auto) 66.2 H (36-66) % Lymph % (Auto) 18.7 L (24-44) % [place] % (Auto) 10.7 H (2-6) % Eos % (Auto) 3.0 (2-4) % Baso % (Auto) 0.7 (0-1) % Sodium 142 (140-148) mmol/L Potassium 3.8 (3.6-5.2) mmol/L Chloride 104 (100-108) mmol/L Carbon Dioxide 34 H (21-32) mmol/L Anion Gap 7.8 (5.0-14.0) mmol/L BUN 8 (7-18) mg/dL Creatinine 0.9 (0.8-1.3) mg/dL Est Cr Clr Drug Dosing 71.18 mL/min Estimated GFR (MDRD) > 60 (>60) Glucose 89 (74-106) mg/dL Calcium 8.4 L (8.5-10.1) mg/dL Total Bilirubin 1.7 H (0.2-1.0) mg/dL AST 26 (15-37) U/L ALT 12 (12-78) U/L Alkaline Phosphatase 49 (46-116) U/L Total Protein 6.4 (6.4-8.2) g/dL Albumin 2.4 L (3.4-5.0) g/dL Globulin 4.0 H (2.3-3.5) g/dL Albumin/Globulin Ratio 0.6 L (1.2-2.2) [facility] Results Last 24 Hours: Microbiology 04/07/21 09:15 AFB Specimen Processing Tissue - Final Paracentesis Fluid Acid Fast Bacilli Smear - Final Acid Fast Bacilli Culture - Preliminary 04/10/21 10:14 CLOtest - Final Stomach NEGATIVE CLOTEST REFERENCE RANGE: NEGATIVE 04/07/21 09:28 Gram Stain - Final Paracentesis Fluid Body Fluid Culture - Final NO GROWTH AFTER 3 DAYS Aerobic Culture - Preliminary NO GROWTH AFTER 4 DAYS Anaerobic Culture - Preliminary NO GROWTH AFTER 4 DAYS Med Orders - Current: Current Medications Acetaminophen (Acetaminophen 325 Mg Tab) 650 mg PO Q4H PRN PRN Reason: Pain (Mild 1-3)/fever Last Admin: 04/10/21 02:27 Dose: 650 mg Documented by: Albuterol (Albuterol 0.083% 2.5 Mg/3 Ml Neb Soln) 2.5 mg NEB Q4H PRN PRN Reason: Shortness Of Breath/wheezing Cefdinir (Cefdinir 300 Mg Cap) 300 mg PO BID [facility] Citalopram Hydrobromide (Citalopram 20 Mg Tab) 20 mg PO DAILY [facility] Last Admin: 04/11/21 09:51 Dose: 20 mg Documented by: Lidocaine HCl 60 ml/ Al (Hydroxide/Mg Hydroxide 360 ml) 0 ml PO TIDAC [facility] Last Admin: 04/11/21 11:24 Dose: 60 ml Documented by: Famotidine (Famotidine 20 Mg Tab) 20 mg PO BID [facility] Last Admin: 04/11/21 09:51 Dose: 20 mg Documented by: Furosemide (Furosemide 40 Mg Tab) 40 mg PO BIDDIURETIC [facility] Last Admin: 04/11/21 13:51 Dose: 40 mg Documented by: Gabapentin (Gabapentin 100 Mg Cap) 100 mg PO ACBREAKFAST [facility] Last Admin: 04/11/21 07:19 Dose: 100 mg Documented by: Gabapentin (Gabapentin 100 Mg Cap) 200 mg PO BEDTIME [facility] Last Admin: 04/10/21 20:58 Dose: 200 mg Documented by: Lorazepam (Lorazepam 2 Mg/Ml Sdv) 0.5 mg IVPUSH Q4H PRN PRN Reason: Nausea/Vomiting Last Admin: 04/07/21 01:44 Dose: 0.5 mg Documented by: Melatonin (Melatonin 3 Mg Tab) 9 mg PO BEDTIME PRN PRN Reason: Sleep Nystatin (Nystatin Susp 100,000 Unit/Ml 5 Ml Ud Cup) 5 ml PO QID [facility] Last Admin: 04/11/21 09:52 Dose: 5 ml Documented by: Ondansetron HCl (Ondansetron 4 Mg/2 Ml Sdv) 4 mg IV Q6H PRN PRN Reason: Nausea/Vomiting Last Admin: 04/07/21 06:35 Dose: 4 mg Documented by: Ondansetron HCl (Ondansetron 4 Mg Tab.Dis) 4 mg PO Q6H PRN PRN Reason: Nausea able to take PO Last Admin: 04/10/21 02:27 Dose: 4 mg Documented by: Oxycodone HCl (Oxycodone 5 Mg Tab) 5 mg PO Q4H PRN PRN Reason: Pain Pantoprazole Sodium (Pantoprazole 40 Mg Tab.Cr) 40 mg PO BID@0730,2100 [facility] Last Admin: 04/11/21 07:20 Dose: 40 mg Documented by: Sodium Chloride (Sodium Chloride 0.9% 10 Ml Syringe) 10 ml FLUSH ASDIRECTED PRN PRN Reason: Keep Vein Open Last Admin: 04/06/21 07:31 Dose: 10 ml Documented by: Spironolactone (Spironolactone 25 Mg Tab) 25 mg PO BIDDIURETIC [facility] Last Admin: 04/11/21 13:51 Dose: 25 mg Documented by: Sucralfate (Sucralfate Suspension 1 Gm/10 Ml Cup) 1 gm PO QIDACANDBED [facility] Last Admin: 04/11/21 11:24 Dose: 1 gm Documented by: Discontinued Medications Acetaminophen (Acetaminophen 500 Mg Tab) 1,000 mg PO ONETIME ONE Stop: 04/06/21 08:37 Last Admin: 04/06/21 08:41 Dose: 1,000 mg Documented by: Fentanyl (Fentanyl 100 Mcg/2 Ml Sdv) Confirm Administered Dose 100 mcg .ROUTE .STK-MED ONE Stop: 04/10/21 10:06 Hydromorphone HCl (Hydromorphone 0.5 Mg/0.5 Ml Syringe) 0.5 mg IVPUSH ONETIME ONE Stop: 04/06/21 09:13 Last Admin: 04/06/21 09:22 Dose: 0.5 mg Documented by: Hydromorphone HCl (Hydromorphone 1 Mg/Ml Syringe) 0.5 mg IVPUSH Q2H PRN PRN Reason: Pain Last Admin: 04/07/21 06:36 Dose: 0.5 mg Documented by: Hydromorphone HCl (Hydromorphone 0.5 Mg/0.5 Ml Syringe) 0.5 mg IVPUSH Q2H PRN PRN Reason: Pain Last Admin: 04/11/21 07:30 Dose: 0.5 mg Documented by: Lactated Ringer's (Ringers, Lactated) 1,000 mls @ 1,000 mls/hr IV BOLUS ONE Stop: 04/06/21 08:53 Last Admin: 04/06/21 09:25 Dose: Not Given Documented by: Potassium Chloride/Sodium Chloride (Normal Saline With 20 Meq Kcl) 1,000 mls @ 1,000 mls/hr IV ASDIRECTED [facility] Last Admin: 04/06/21 08:08 Dose: 1,000 mls/hr Documented by: Sodium Chloride (Normal Saline) 85 mls @ 3.5 mls/sec IV ASDIRECTED [facility] Stop: 04/06/21 09:31 Last Admin: 04/06/21 09:59 Dose: 3 mls/sec Documented by: Ceftriaxone Sodium 2 gm/ (Sodium Chloride) 50 mls @ 100 mls/hr IV Q24H [facility] Last Admin: 04/10/21 15:32 Dose: 100 mls/hr Documented by: Potassium Chloride 20 meq/Lidocaine HCl 2 ml/ Sodium Chloride 112 mls @ 56 mls/hr IV Q2H [facility] Stop: 04/06/21 20:29 Last Admin: 04/06/21 19:27 Dose: 56 mls/hr Documented by: Albumin Human (Albumin 25%) 25 gm in 100 mls @ 25 mls/hr IV Q4H [facility] Stop: 04/07/21 17:59 Last Admin: 04/07/21 14:34 Dose: 25 mls/hr Documented by: Potassium Chloride 20 meq/Lidocaine HCl 2 ml/ Sodium Chloride 112 mls @ 56 mls/hr IV Q2H [facility] Stop: 04/10/21 12:59 Last Admin: 04/10/21 11:56 Dose: 56 mls/hr Documented by: Iopamidol (Iopamidol 612 Mg/Ml 150 Ml Bottle) 150 ml IV . DIRECTED PRN PRN Reason: RADIOLOGY EXAM Stop: 04/07/21 09:25 Last Admin: 04/06/21 09:59 Dose: 150 ml Documented by: Lidocaine (Lidocaine 2% 5 Ml Sdv) Confirm Administered Dose 5 ml .ROUTE .STK-MED ONE Stop: 04/10/21 09:47 Loperamide HCl (Loperamide 2 Mg Cap) 4 mg PO ONETIME ONE Stop: 04/06/21 07:38 Last Admin: 04/06/21 08:08 Dose: 4 mg Documented by: Metoclopramide HCl (Metoclopramide 10 Mg/2 Ml Sdv) 10 mg IVPUSH ONETIME ONE Stop: 04/06/21 09:12 Last Admin: 04/06/21 09:22 Dose: 10 mg Documented by: Midazolam HCl (Midazolam 1 Mg/Ml 2 Ml Sdv) Confirm Administered Dose 2 mg .ROUTE .STK-MED ONE Stop: 04/10/21 10:05 Ondansetron HCl (Ondansetron 4 Mg/2 Ml Sdv) 4 mg IVPUSH ONETIME ONE Stop: 04/06/21 07:24 Last Admin: 04/06/21 07:31 Dose: 4 mg Documented by: Potassium Chloride (Potassium Chloride 20 Meq Tab.Er) 40 meq PO ONETIME ONE Stop: 04/08/21 08:43 Last Admin: 04/08/21 09:23 Dose: 40 meq Documented by: Potassium Chloride (Potassium Chloride 20 Meq Tab.Er) 40 meq PO ONETIME ONE Stop: 04/08/21 17:01 Last Admin: 04/08/21 17:30 Dose: 40 meq Documented by: Potassium Chloride (Potassium Chloride 20 Meq Tab.Er) 40 meq PO ONETIME ONE Stop: 04/09/21 17:01 Last Admin: 04/09/21 17:04 Dose: 40 meq Documented by: Potassium Chloride (Potassium Chloride 20 Meq Tab.Er) 40 meq PO ONETIME ONE Stop: 04/10/21 17:01 Last Admin: 04/10/21 16:12 Dose: 40 meq Documented by: Propofol (Propofol 200 Mg/20 Ml Sdv) Confirm Administered Dose 200 mg .ROUTE .STK-MED ONE Stop: 04/10/21 09:47 Sodium Chloride (Sodium Chloride 0.9% 10 Ml Syringe) 10 ml FLUSH ONETIME PRN PRN Reason: per radiology protocol Stop: 04/06/21 09:25 Last Admin: 04/06/21 09:58 Dose: 10 ml Documented by: - Exam Quality Assessment: DVT Prophylaxis General: Alert, Oriented, Cooperative, Mild Distress Lungs: Clear to Auscultation, Normal Respiratory Effort Cardiovascular: Regular Rate, Regular Rhythm, No Murmurs GI/Abdominal Exam: Soft, No Organomegaly, Tender. No: Distended, Guarding, Rigid, Rebound Extremities: Non-Tender, Pedal Edema - Patient Data Lab Results Last 24 hrs: Laboratory Results - last 24 hr 04/11/21 04/11/21 Range/Units 05:53 05:53 WBC 3.0 L (4.5-11.0) K/uL RBC 3.46 L (4.30-5.90) M/uL Hgb 10.7 L (12.0-15.0) g/dL Hct 34.5 L (40.0-54.0) % MCV 100 H (80-98) fL MCH 31 (27-31) pg MCHC 31 L (32-36) % Plt Count 82 L (150-400) K/uL Neut % (Auto) 66.2 H (36-66) % Lymph % (Auto) 18.7 L (24-44) % [place] % (Auto) 10.7 H (2-6) % Eos % (Auto) 3.0 (2-4) % Baso % (Auto) 0.7 (0-1) % Sodium 142 (140-148) mmol/L Potassium 3.8 (3.6-5.2) mmol/L Chloride 104 (100-108) mmol/L Carbon Dioxide 34 H (21-32) mmol/L Anion Gap 7.8 (5.0-14.0) mmol/L BUN 8 (7-18) mg/dL Creatinine 0.9 (0.8-1.3) mg/dL Est Cr Clr Drug Dosing 71.18 mL/min Estimated GFR (MDRD) > 60 (>60) Glucose 89 (74-106) mg/dL Calcium 8.4 L (8.5-10.1) mg/dL Total Bilirubin 1.7 H (0.2-1.0) mg/dL AST 26 (15-37) U/L ALT 12 (12-78) U/L Alkaline Phosphatase 49 (46-116) U/L Total Protein 6.4 (6.4-8.2) g/dL Albumin 2.4 L (3.4-5.0) g/dL Globulin 4.0 H (2.3-3.5) g/dL Albumin/Globulin Ratio 0.6 L (1.2-2.2) Result Diagrams: 04/11/21 05:53 04/11/21 05:53 [place] Results Last 24 hrs: Microbiology 04/07/21 09:15 AFB Specimen Processing Tissue - Final Paracentesis Fluid Acid Fast Bacilli Smear - Final Acid Fast Bacilli Culture - Preliminary 04/10/21 10:14 CLOtest - Final Stomach NEGATIVE CLOTEST REFERENCE RANGE: NEGATIVE 04/07/21 09:28 Gram Stain - Final Paracentesis Fluid Body Fluid Culture - Final NO GROWTH AFTER 3 DAYS Aerobic Culture - Preliminary NO GROWTH AFTER 4 DAYS Anaerobic Culture - Preliminary NO GROWTH AFTER 4 DAYS Sepsis Event Note - Evaluation Sepsis Screening Result: Possible Sepsis Risk - Focused Exam Vital Signs: Vital Signs Temp Pulse Resp BP Pulse Ox 04/11/21 14:51 97.5 F 82 18 127/66 96 04/11/21 10:31 97.7 F 77 18 118/67 95 04/11/21 08:00 97.8 F 84 18 128/58 L 94 L - Problem List Review Problem List Initiated/Reviewed/Updated: Yes - My Orders Last 24 Hours: My Active Orders 04/10/21 17:00 Sucralfate [Carafate] 1 gm PO QIDACANDBED 04/11/21 14:03 OT Evaluation and Treatment [CONS] Routine PT Evaluation and Treatment [CONS] Routine 04/11/21 15:05 oxyCODONE 5 mg PO Q4H PRN 04/11/21 21:00 Cefdinir [Omnicef] 300 mg PO BID - Plan Plan:: ASSESSMENT AND PLAN - Spontaneous bacterial peritonitis, suspected-increasing ascites, increasing abdominal pain but no fever. Paracentesis completed 04/07. No organisms seen on Gram stain and no growth on cultures. -Empiric cefdinir twice daily -Follow-up cultures -Symptomatic management of pain and nausea Severe esophagitis-improved since yesterday with less pain, able to tolerate a full liquid diet -Continue Protonix 40 mg twice daily -Nystatin swish and swallow 4 times daily -Carafate slurry 1 g 4 times daily -Pepcid 20 mg p.o. twice daily Cirrhosis with massive ascites-cirrhosis likely due to fatty liver disease with no strong risk factors for other etiologies. Progression of cirrhosis and ascites in the last 6 to 8 weeks. He has impaired synthetic function with an elevated INR and decreased albumin. MELD NA score is 19 suggesting a 3 to 4% 90- day mortality. -Serologic testing for hepatitis, PBC and PSC as well as autoimmune hepatitis -Continue diuretics Morbid obesity with BMI greater than 60-complicated by obesity hypoventilation syndrome. He is oxygen dependent. Heart failure with preserved ejection fraction-complicated by pulmonary hype rtension. Well compensated at this time. -Continue medical management Maintenance issues - -DVT prophylaxis-contraindicated with elevated INR and significant lower extremity edema -GI prophylaxis-PPI -Nutrition-full liquids, advance as nausea and pain improve -Mares catheter-not indicated Encounter for palliative care-we did discuss the severity of his liver disease and I expressed my concerns that he is nearing the end stage of his cirrhosis. I am a little concerned that his liver disease may be at least partially decompensated. He is hoping that we can complete work-up and management here rather than be transferred to a higher level of care at this point. He is aware of the poor prognosis. His daughter was in the room and participated in the conversation as well. He has not no interest in a liver transplant even if it were offered. CODE STATUS -DNR/DNI Admission justification -this patient will be admitted for inpatient services and is medically appropriate meeting medical necessity for inpatient admission as outlined in my documentation. I reasonably expect the patient will require inpatient services that span a period time over 2 midnights. I reasonably expect this patient to be discharged or transferred within 96 hours after admission to the [facility]. Disposition -I anticipate discharge to the residential after the hospital stay. His daughter lives in [place] and is wondering if maybe he could be moved to a residential down closer to her. Primary care physician -Dr. Roberson
[2021-04-11] MEDS ORDERED: Loperamide 2 MG Cap PO ONE (21:17)
[2021-04-11] MEDS: Cefdinir 300 MG Cap PO SCH (21:40)
[2021-04-12] MEDS: oxyCODONE 5 MG Tab PO PRN (05:53)
[2021-04-12] MEDS: Ondansetron 4 MG Tab.DIS PO PRN (05:53)
[2021-04-12] MEDS: Gabapentin 100 MG Cap PO SCH ×2 (06:40→20:48)
[2021-04-12] MEDS: Nystatin Susp 100,000 Unit/ML 5 ML UD Cup PO SCH ×4 (06:43→22:12)
[2021-04-12] MEDS: Sucralfate Suspension 1 GM/10 ML Cup PO SCH ×4 (08:00→20:47)
[2021-04-12] MEDS: Pantoprazole 40 MG Tab.CR PO SCH ×2 (08:00→20:48)
[2021-04-12] MEDS: Lidocaine 2% 60 ML, Alum Hydrox/Mag Hydrox/Simeth 360 ML PO SCH ×6 (08:04→16:28)
[2021-04-12] MEDS: Furosemide 40 MG Tab PO SCH ×2 (08:05→16:27)
[2021-04-12] MEDS: Spironolactone 25 MG Tab PO SCH ×2 (08:05→16:28)
[2021-04-12] MEDS: Citalopram 20 MG Tab PO SCH (08:06)
[2021-04-12] MEDS: Famotidine 20 MG Tab PO SCH ×2 (08:06→20:48)
[2021-04-12] MEDS: Cefdinir 300 MG Cap PO SCH ×2 (08:06→20:49)
--- NOTE | 2021-04-12 19:30 | PCM.PN ---
- General Info Date of Service: 04/12/21 Subjective Update: Mr. Santa has been stable since yesterday. Denies significant pain with swallowing now and is abdominal pain is also essentially resolved. Vital signs have been stable and he has remained afebrile. Still very weak but has been able to be more active, he is willing to accept short-term ch[facility] stay for restorative physical therapy. Functional Status: Reports: Tolerating Diet, Urinating - Review of Systems General: Reports: Weakness, Fatigue. Denies: Fever, Chills Pulmonary: Reports: No Symptoms Cardiovascular: Reports: No Symptoms Gastrointestinal: Reports: No Symptoms Genitourinary: Reports: No Symptoms - Patient Data Vitals - Most Recent: Last Vital Signs Temp 98.0 F 04/12/21 19:00 Pulse 72 04/12/21 19:00 Resp 18 04/12/21 19:00 BP 113/58 L 04/12/21 19:00 Pulse Ox 94 L 04/12/21 19:00 Weight - Most Recent: 413 lb I&O - Last 24 Hours: Intake & Output 04/12/21 04/12/21 04/12/21 06:59 14:59 22:59 Intake Total 480 760 Output Total 800 850 Balance 480 -40 -850 [facility] Results Last 24 Hours: Microbiology 04/07/21 09:28 Gram Stain - Final Paracentesis Fluid Body Fluid Culture - Final NO GROWTH AFTER 3 DAYS Aerobic Culture - Final NO GROWTH AFTER 5 DAYS Anaerobic Culture - Final NO GROWTH AFTER 5 DAYS Med Orders - Current: Current Medications Acetaminophen (Acetaminophen 325 Mg Tab) 650 mg PO Q4H PRN PRN Reason: Pain (Mild 1-3)/fever Last Admin: 04/10/21 02:27 Dose: 650 mg Documented by: Albuterol (Albuterol 0.083% 2.5 Mg/3 Ml Neb Soln) 2.5 mg NEB Q4H PRN PRN Reason: Shortness Of Breath/wheezing Cefdinir (Cefdinir 300 Mg Cap) 300 mg PO BID [facility] Last Admin: 04/12/21 08:06 Dose: 300 mg Documented by: Citalopram Hydrobromide (Citalopram 20 Mg Tab) 20 mg PO DAILY [facility] Last Admin: 04/12/21 08:06 Dose: 20 mg Documented by: Lidocaine HCl 60 ml/ Al (Hydroxide/Mg Hydroxide 360 ml) 0 ml PO TIDAC [facility] Last Admin: 04/12/21 16:28 Dose: 30 ml Documented by: Famotidine (Famotidine 20 Mg Tab) 20 mg PO BID [facility] Last Admin: 04/12/21 08:06 Dose: 20 mg Documented by: Furosemide (Furosemide 40 Mg Tab) 40 mg PO BIDDIURETIC [facility] Last Admin: 04/12/21 16:27 Dose: 40 mg Documented by: Gabapentin (Gabapentin 100 Mg Cap) 100 mg PO ACBREAKFAST [facility] Last Admin: 04/12/21 06:40 Dose: 100 mg Documented by: Gabapentin (Gabapentin 100 Mg Cap) 200 mg PO BEDTIME [facility] Last Admin: 04/11/21 20:06 Dose: 200 mg Documented by: Lorazepam (Lorazepam 2 Mg/Ml Sdv) 0.5 mg IVPUSH Q4H PRN PRN Reason: Nausea/Vomiting Last Admin: 04/07/21 01:44 Dose: 0.5 mg Documented by: Melatonin (Melatonin 3 Mg Tab) 9 mg PO BEDTIME PRN PRN Reason: Sleep Nystatin (Nystatin Susp 100,000 Unit/Ml 5 Ml Ud Cup) 5 ml PO QID [facility] Last Admin: 04/12/21 16:28 Dose: 5 ml Documented by: Ondansetron HCl (Ondansetron 4 Mg/2 Ml Sdv) 4 mg IV Q6H PRN PRN Reason: Nausea/Vomiting Last Admin: 04/07/21 06:35 Dose: 4 mg Documented by: Ondansetron HCl (Ondansetron 4 Mg Tab.Dis) 4 mg PO Q6H PRN PRN Reason: Nausea able to take PO Last Admin: 04/12/21 05:53 Dose: 4 mg Documented by: Oxycodone HCl (Oxycodone 5 Mg Tab) 5 mg PO Q4H PRN PRN Reason: Pain Last Admin: 04/12/21 05:53 Dose: 5 mg Documented by: Pantoprazole Sodium (Pantoprazole 40 Mg Tab.Cr) 40 mg PO BID@0730,2100 [facility] Last Admin: 04/12/21 08:00 Dose: 40 mg Documented by: Sodium Chloride (Sodium Chloride 0.9% 10 Ml Syringe) 10 ml FLUSH ASDIRECTED PRN PRN Reason: Keep Vein Open Last Admin: 04/06/21 07:31 Dose: 10 ml Documented by: Spironolactone (Spironolactone 25 Mg Tab) 25 mg PO BIDDIURETIC [facility] Last Admin: 04/12/21 16:28 Dose: 25 mg Documented by: Sucralfate (Sucralfate Suspension 1 Gm/10 Ml Cup) 1 gm PO QIDACANDBED [facility] Last Admin: 04/12/21 16:28 Dose: 1 gm Documented by: Discontinued Medications Acetaminophen (Acetaminophen 500 Mg Tab) 1,000 mg PO ONETIME ONE Stop: 04/06/21 08:37 Last Admin: 04/06/21 08:41 Dose: 1,000 mg Documented by: Fentanyl (Fentanyl 100 Mcg/2 Ml Sdv) Confirm Administered Dose 100 mcg .ROUTE .STK-MED ONE Stop: 04/10/21 10:06 Hydromorphone HCl (Hydromorphone 0.5 Mg/0.5 Ml Syringe) 0.5 mg IVPUSH ONETIME ONE Stop: 04/06/21 09:13 Last Admin: 04/06/21 09:22 Dose: 0.5 mg Documented by: Hydromorphone HCl (Hydromorphone 1 Mg/Ml Syringe) 0.5 mg IVPUSH Q2H PRN PRN Reason: Pain Last Admin: 04/07/21 06:36 Dose: 0.5 mg Documented by: Hydromorphone HCl (Hydromorphone 0.5 Mg/0.5 Ml Syringe) 0.5 mg IVPUSH Q2H PRN PRN Reason: Pain Last Admin: 04/11/21 07:30 Dose: 0.5 mg Documented by: Lactated Ringer's (Ringers, Lactated) 1,000 mls @ 1,000 mls/hr IV BOLUS ONE Stop: 04/06/21 08:53 Last Admin: 04/06/21 09:25 Dose: Not Given Documented by: Potassium Chloride/Sodium Chloride (Normal Saline With 20 Meq Kcl) 1,000 mls @ 1,000 mls/hr IV ASDIRECTED [facility] Last Admin: 04/06/21 08:08 Dose: 1,000 mls/hr Documented by: Sodium Chloride (Normal Saline) 85 mls @ 3.5 mls/sec IV ASDIRECTED [facility] Stop: 04/06/21 09:31 Last Admin: 04/06/21 09:59 Dose: 3 mls/sec Documented by: Ceftriaxone Sodium 2 gm/ (Sodium Chloride) 50 mls @ 100 mls/hr IV Q24H [facility] Last Admin: 04/10/21 15:32 Dose: 100 mls/hr Documented by: Potassium Chloride 20 meq/Lidocaine HCl 2 ml/ Sodium Chloride 112 mls @ 56 mls/hr IV Q2H [facility] Stop: 04/06/21 20:29 Last Admin: 04/06/21 19:27 Dose: 56 mls/hr Documented by: Albumin Human (Albumin 25%) 25 gm in 100 mls @ 25 mls/hr IV Q4H [facility] Stop: 04/07/21 17:59 Last Admin: 04/07/21 14:34 Dose: 25 mls/hr Documented by: Potassium Chloride 20 meq/Lidocaine HCl 2 ml/ Sodium Chloride 112 mls @ 56 mls/hr IV Q2H [facility] Stop: 04/10/21 12:59 Last Admin: 04/10/21 11:56 Dose: 56 mls/hr Documented by: Iopamidol (Iopamidol 612 Mg/Ml 150 Ml Bottle) 150 ml IV . DIRECTED PRN PRN Reason: RADIOLOGY EXAM Stop: 04/07/21 09:25 Last Admin: 04/06/21 09:59 Dose: 150 ml Documented by: Lidocaine (Lidocaine 2% 5 Ml Sdv) Confirm Administered Dose 5 ml .ROUTE .STK-MED ONE Stop: 04/10/21 09:47 Loperamide HCl (Loperamide 2 Mg Cap) 4 mg PO ONETIME ONE Stop: 04/06/21 07:38 Last Admin: 04/06/21 08:08 Dose: 4 mg Documented by: Loperamide HCl (Loperamide 2 Mg Cap) 2 mg PO ONETIME ONE Stop: 04/11/21 21:18 Last Admin: 04/11/21 21:40 Dose: 2 mg Documented by: Metoclopramide HCl (Metoclopramide 10 Mg/2 Ml Sdv) 10 mg IVPUSH ONETIME ONE Stop: 04/06/21 09:12 Last Admin: 04/06/21 09:22 Dose: 10 mg Documented by: Midazolam HCl (Midazolam 1 Mg/Ml 2 Ml Sdv) Confirm Administered Dose 2 mg .ROUTE .STK-MED ONE Stop: 04/10/21 10:05 Ondansetron HCl (Ondansetron 4 Mg/2 Ml Sdv) 4 mg IVPUSH ONETIME ONE Stop: 04/06/21 07:24 Last Admin: 04/06/21 07:31 Dose: 4 mg Documented by: Potassium Chloride (Potassium Chloride 20 Meq Tab.Er) 40 meq PO ONETIME ONE Stop: 04/08/21 08:43 Last Admin: 04/08/21 09:23 Dose: 40 meq Documented by: Potassium Chloride (Potassium Chloride 20 Meq Tab.Er) 40 meq PO ONETIME ONE Stop: 04/08/21 17:01 Last Admin: 04/08/21 17:30 Dose: 40 meq Documented by: Potassium Chloride (Potassium Chloride 20 Meq Tab.Er) 40 meq PO ONETIME ONE Stop: 04/09/21 17:01 Last Admin: 04/09/21 17:04 Dose: 40 meq Documented by: Potassium Chloride (Potassium Chloride 20 Meq Tab.Er) 40 meq PO ONETIME ONE Stop: 04/10/21 17:01 Last Admin: 04/10/21 16:12 Dose: 40 meq Documented by: Propofol (Propofol 200 Mg/20 Ml Sdv) Confirm Administered Dose 200 mg .ROUTE .STK-MED ONE Stop: 04/10/21 09:47 Sodium Chloride (Sodium Chloride 0.9% 10 Ml Syringe) 10 ml FLUSH ONETIME PRN PRN Reason: per radiology protocol Stop: 04/06/21 09:25 Last Admin: 04/06/21 09:58 Dose: 10 ml Documented by: - Exam Quality Assessment: DVT Prophylaxis General: Alert, Oriented, Cooperative, No Acute Distress Lungs: Clear to Auscultation, Normal Respiratory Effort Cardiovascular: Regular Rate, Regular Rhythm, No Murmurs GI/Abdominal Exam: Soft, Non-Tender, No Organomegaly, No Distention Extremities: Non-Tender, Pedal Edema - Patient Data Result Diagrams: 04/11/21 05:53 04/11/21 05:53 [facility] Results Last 24 hrs: Microbiology 04/07/21 09:28 Gram Stain - Final Paracentesis Fluid Body Fluid Culture - Final NO GROWTH AFTER 3 DAYS Aerobic Culture - Final NO GROWTH AFTER 5 DAYS Anaerobic Culture - Final NO GROWTH AFTER 5 DAYS Sepsis Event Note - Evaluation Sepsis Screening Result: No Definite Risk - Focused Exam Vital Signs: Vital Signs Temp Pulse Resp BP Pulse Ox 04/12/21 19:00 98.0 F 72 18 113/58 L 94 L 04/12/21 14:53 98.7 F 80 18 113/59 L 96 04/12/21 11:00 98.3 F 78 18 122/63 94 L 04/12/21 07:46 99.1 F 84 18 126/62 95 - Problem List Review Problem List Initiated/Reviewed/Updated: Yes - My Orders Last 24 Hours: My Active Orders 04/11/21 21:00 Cefdinir [Omnicef] 300 mg PO BID - Plan Plan:: ASSESSMENT AND PLAN - Spontaneous bacterial peritonitis-from admission -Empiric cefdinir twice daily -Follow-up cultures -Symptomatic management of pain and nausea Severe esophagitis-improved over the past 2 days, no pain with eating and upper abdominal pain has resolved -Continue Protonix 40 mg twice daily -Nystatin swish and swallow 4 times daily -Carafate slurry 1 g 4 times daily -Pepcid 20 mg p.o. twice daily Cirrhosis with massive ascites-cirrhosis likely due to fatty liver disease with no strong risk factors for other etiologies. Progression of cirrhosis and ascites in the last 6 to 8 weeks. He has impaired synthetic function with an elevated INR and decreased albumin. MELD NA score is 19 suggesting a 3 to 4% 90- day mortality. -Serologic testing for hepatitis, PBC and PSC as well as autoimmune hepatitis -Continue diuretics Morbid obesity with BMI greater than 60-complicated by obesity hypoventilation syndrome. He is oxygen dependent. Heart failure with preserved ejection fraction-complicated by pulmonary hypertension. Well compensated at this time. -Continue medical management Maintenance issues - -DVT prophylaxis-contraindicated with elevated INR and significant lower extremity edema -GI prophylaxis-PPI -Nutrition-soft low residue diet -Mares catheter-not indicated Encounter for palliative care-we did discuss the severity of his liver disease and I expressed my concerns that he is nearing the end stage of his cirrhosis. I am a little concerned that his liver disease may be at least partially decompensated. He is hoping that we can complete work-up and management here rather than be transferred to a higher level of care at this point. He is aware of the poor prognosis. His daughter was in the room and participated in the conversation as well. He has not no interest in a liver transplant even if it were offered. CODE STATUS -DNR/DNI Admission justification -this patient will be admitted for inpatient services and is medically appropriate meeting medical necessity for inpatient admission as outlined in my documentation. I reasonably expect the patient will require inpatient services that span a period time over 2 midnights. I reasonably expect this patient to be discharged or transferred within 96 hours after admission to the [facility]. Disposition -I anticipate discharge to the [facility] after the hospital stay. His daughter lives in [place] and is wondering if maybe he could be moved to a chcf down closer to her. Primary care physician -Dr. Roberson
[2021-04-12] MEDS ORDERED: Gabapentin 100 MG Cap PO PRN (20:43)
[2021-04-13] MEDS: oxyCODONE 5 MG Tab PO PRN ×2 (02:21→11:05)
[2021-04-13] MEDS: Nystatin Susp 100,000 Unit/ML 5 ML UD Cup PO SCH ×4 (06:11→21:31)
[2021-04-13] MEDS: Sucralfate Suspension 1 GM/10 ML Cup PO SCH ×4 (07:54→19:50)
[2021-04-13] MEDS: Pantoprazole 40 MG Tab.CR PO SCH ×2 (07:55→21:32)
[2021-04-13] MEDS: Gabapentin 100 MG Cap PO SCH ×2 (07:55→21:32)
[2021-04-13] MEDS: Lidocaine 2% 60 ML, Alum Hydrox/Mag Hydrox/Simeth 360 ML PO SCH ×6 (07:56→15:24)
[2021-04-13] MEDS: Spironolactone 25 MG Tab PO SCH ×2 (07:57→15:24)
[2021-04-13] MEDS: Furosemide 40 MG Tab PO SCH ×2 (07:57→15:24)
--- NOTE | 2021-04-13 09:30 | PCM.PN ---
- General Info Date of Service: 04/13/21 Subjective Update: Mr. Santa has been stable since yesterday, tolerating a soft low residue diet without difficulty. No further symptoms of pain. Slowly regaining some strength. Functional Status: Reports: Tolerating Diet, Ambulating, Urinating - Review of Systems General: Reports: Weakness, Fatigue. Denies: Fever, Chills Pulmonary: Reports: No Symptoms Cardiovascular: Reports: No Symptoms Gastrointestinal: Reports: No Symptoms Genitourinary: Reports: No Symptoms - Patient Data Vitals - Most Recent: Last Vital Signs Temp 98.1 F 04/13/21 08:02 Pulse 79 04/13/21 08:02 Resp 18 04/13/21 08:02 BP 127/76 04/13/21 08:02 Pulse Ox 94 L 04/13/21 08:02 Weight - Most Recent: 413 lb I&O - Last 24 Hours: Intake & Output 04/12/21 04/13/21 04/13/21 22:59 06:59 14:59 Intake Total 240 360 Output Total 1375 350 Balance -1135 10 [place] Results Last 24 Hours: Microbiology 04/07/21 09:28 Gram Stain - Final Paracentesis Fluid Body Fluid Culture - Final NO GROWTH AFTER 3 DAYS Aerobic Culture - Final NO GROWTH AFTER 5 DAYS Anaerobic Culture - Final NO GROWTH AFTER 5 DAYS Med Orders - Current: Current Medications Acetaminophen (Acetaminophen 325 Mg Tab) 650 mg PO Q4H PRN PRN Reason: Pain (Mild 1-3)/fever Last Admin: 04/10/21 02:27 Dose: 650 mg Documented by: Albuterol (Albuterol 0.083% 2.5 Mg/3 Ml Neb Soln) 2.5 mg NEB Q4H PRN PRN Reason: Shortness Of Breath/wheezing Cefdinir (Cefdinir 300 Mg Cap) 300 mg PO BID [facility] Last Admin: 04/12/21 20:49 Dose: 300 mg Documented by: Citalopram Hydrobromide (Citalopram 20 Mg Tab) 20 mg PO DAILY [facility] Last Admin: 04/12/21 08:06 Dose: 20 mg Documented by: Lidocaine HCl 60 ml/ Al (Hydroxide/Mg Hydroxide 360 ml) 0 ml PO TIDAC [facility] Last Admin: 04/13/21 07:56 Dose: 30 ml Documented by: Famotidine (Famotidine 20 Mg Tab) 20 mg PO BID [facility] Last Admin: 04/12/21 20:48 Dose: 20 mg Documented by: Furosemide (Furosemide 40 Mg Tab) 40 mg PO BIDDIURETIC [facility] Last Admin: 04/13/21 07:57 Dose: 40 mg Documented by: Gabapentin (Gabapentin 100 Mg Cap) 100 mg PO ACBREAKFAST [facility] Last Admin: 04/13/21 07:55 Dose: 100 mg Documented by: Gabapentin (Gabapentin 100 Mg Cap) 200 mg PO BEDTIME [facility] Last Admin: 04/12/21 20:48 Dose: 200 mg Documented by: Gabapentin (Gabapentin 100 Mg Cap) 100 mg PO DAILY PRN PRN Reason: Pain Lorazepam (Lorazepam 2 Mg/Ml Sdv) 0.5 mg IVPUSH Q4H PRN PRN Reason: Nausea/Vomiting Last Admin: 04/07/21 01:44 Dose: 0.5 mg Documented by: Melatonin (Melatonin 3 Mg Tab) 9 mg PO BEDTIME PRN PRN Reason: Sleep Nystatin (Nystatin Susp 100,000 Unit/Ml 5 Ml Ud Cup) 5 ml PO QID [facility] Last Admin: 04/13/21 06:11 Dose: 5 ml Documented by: Nystatin (Nystatin Topical Powder 15 Gm Bottle) 0 gm TOP QID PRN PRN Reason: Rash Ondansetron HCl (Ondansetron 4 Mg/2 Ml Sdv) 4 mg IV Q6H PRN PRN Reason: Nausea/Vomiting Last Admin: 04/07/21 06:35 Dose: 4 mg Documented by: Ondansetron HCl (Ondansetron 4 Mg Tab.Dis) 4 mg PO Q6H PRN PRN Reason: Nausea able to take PO Last Admin: 04/12/21 05:53 Dose: 4 mg Documented by: Oxycodone HCl (Oxycodone 5 Mg Tab) 5 mg PO Q4H PRN PRN Reason: Pain Last Admin: 04/13/21 02:21 Dose: 5 mg Documented by: Pantoprazole Sodium (Pantoprazole 40 Mg Tab.Cr) 40 mg PO BID@0730,2100 [facility] Last Admin: 04/13/21 07:55 Dose: 40 mg Documented by: Sodium Chloride (Sodium Chloride 0.9% 10 Ml Syringe) 10 ml FLUSH ASDIRECTED PRN PRN Reason: Keep Vein Open Last Admin: 04/06/21 07:31 Dose: 10 ml Documented by: Spironolactone (Spironolactone 25 Mg Tab) 25 mg PO BIDDIURETIC [facility] Last Admin: 04/13/21 07:57 Dose: 25 mg Documented by: Sucralfate (Sucralfate Suspension 1 Gm/10 Ml Cup) 1 gm PO QIDACANDBED [facility] Last Admin: 04/13/21 07:54 Dose: 1 gm Documented by: Discontinued Medications Acetaminophen (Acetaminophen 500 Mg Tab) 1,000 mg PO ONETIME ONE Stop: 04/06/21 08:37 Last Admin: 04/06/21 08:41 Dose: 1,000 mg Documented by: Fentanyl (Fentanyl 100 Mcg/2 Ml Sdv) Confirm Administered Dose 100 mcg .ROUTE .STK-MED ONE Stop: 04/10/21 10:06 Hydromorphone HCl (Hydromorphone 0.5 Mg/0.5 Ml Syringe) 0.5 mg IVPUSH ONETIME ONE Stop: 04/06/21 09:13 Last Admin: 04/06/21 09:22 Dose: 0.5 mg Documented by: Hydromorphone HCl (Hydromorphone 1 Mg/Ml Syringe) 0.5 mg IVPUSH Q2H PRN PRN Reason: Pain Last Admin: 04/07/21 06:36 Dose: 0.5 mg Documented by: Hydromorphone HCl (Hydromorphone 0.5 Mg/0.5 Ml Syringe) 0.5 mg IVPUSH Q2H PRN PRN Reason: Pain Last Admin: 04/11/21 07:30 Dose: 0.5 mg Documented by: Lactated Ringer's (Ringers, Lactated) 1,000 mls @ 1,000 mls/hr IV BOLUS ONE Stop: 04/06/21 08:53 Last Admin: 04/06/21 09:25 Dose: Not Given Documented by: Potassium Chloride/Sodium Chloride (Normal Saline With 20 Meq Kcl) 1,000 mls @ 1,000 mls/hr IV ASDIRECTED [facility] Last Admin: 04/06/21 08:08 Dose: 1,000 mls/hr Documented by: Sodium Chloride (Normal Saline) 85 mls @ 3.5 mls/sec IV ASDIRECTED [facility] Stop: 04/06/21 09:31 Last Admin: 04/06/21 09:59 Dose: 3 mls/sec Documented by: Ceftriaxone Sodium 2 gm/ (Sodium Chloride) 50 mls @ 100 mls/hr IV Q24H [facility] Last Admin: 04/10/21 15:32 Dose: 100 mls/hr Documented by: Potassium Chloride 20 meq/Lidocaine HCl 2 ml/ Sodium Chloride 112 mls @ 56 mls/hr IV Q2H [facility] Stop: 04/06/21 20:29 Last Admin: 04/06/21 19:27 Dose: 56 mls/hr Documented by: Albumin Human (Albumin 25%) 25 gm in 100 mls @ 25 mls/hr IV Q4H [facility] Stop: 04/07/21 17:59 Last Admin: 04/07/21 14:34 Dose: 25 mls/hr Documented by: Potassium Chloride 20 meq/Lidocaine HCl 2 ml/ Sodium Chloride 112 mls @ 56 mls/ hr IV Q2H [facility] Stop: 04/10/21 12:59 Last Admin: 04/10/21 11:56 Dose: 56 mls/hr Documented by: Iopamidol (Iopamidol 612 Mg/Ml 150 Ml Bottle) 150 ml IV . DIRECTED PRN PRN Reason: RADIOLOGY EXAM Stop: 04/07/21 09:25 Last Admin: 04/06/21 09:59 Dose: 150 ml Documented by: Lidocaine (Lidocaine 2% 5 Ml Sdv) Confirm Administered Dose 5 ml .ROUTE .STK-MED ONE Stop: 04/10/21 09:47 Loperamide HCl (Loperamide 2 Mg Cap) 4 mg PO ONETIME ONE Stop: 04/06/21 07:38 Last Admin: 04/06/21 08:08 Dose: 4 mg Documented by: Loperamide HCl (Loperamide 2 Mg Cap) 2 mg PO ONETIME ONE Stop: 04/11/21 21:18 Last Admin: 04/11/21 21:40 Dose: 2 mg Documented by: Metoclopramide HCl (Metoclopramide 10 Mg/2 Ml Sdv) 10 mg IVPUSH ONETIME ONE Stop: 04/06/21 09:12 Last Admin: 04/06/21 09:22 Dose: 10 mg Documented by: Midazolam HCl (Midazolam 1 Mg/Ml 2 Ml Sdv) Confirm Administered Dose 2 mg .ROUTE .STK-MED ONE Stop: 04/10/21 10:05 Ondansetron HCl (Ondansetron 4 Mg/2 Ml Sdv) 4 mg IVPUSH ONETIME ONE Stop: 04/06/21 07:24 Last Admin: 04/06/21 07:31 Dose: 4 mg Documented by: Potassium Chloride (Potassium Chloride 20 Meq Tab.Er) 40 meq PO ONETIME ONE Stop: 04/08/21 08:43 Last Admin: 04/08/21 09:23 Dose: 40 meq Documented by: Potassium Chloride (Potassium Chloride 20 Meq Tab.Er) 40 meq PO ONETIME ONE Stop: 04/08/21 17:01 Last Admin: 04/08/21 17:30 Dose: 40 meq Documented by: Potassium Chloride (Potassium Chloride 20 Meq Tab.Er) 40 meq PO ONETIME ONE Stop: 04/09/21 17:01 Last Admin: 04/09/21 17:04 Dose: 40 meq Documented by: Potassium Chloride (Potassium Chloride 20 Meq Tab.Er) 40 meq PO ONETIME ONE Stop: 04/10/21 17:01 Last Admin: 04/10/21 16:12 Dose: 40 meq Documented by: Propofol (Propofol 200 Mg/20 Ml Sdv) Confirm Administered Dose 200 mg .ROUTE .STK-MED ONE Stop: 04/10/21 09:47 Sodium Chloride (Sodium Chloride 0.9% 10 Ml Syringe) 10 ml FLUSH ONETIME PRN PRN Reason: per radiology protocol Stop: 04/06/21 09:25 Last Admin: 04/06/21 09:58 Dose: 10 ml Documented by: - Exam Quality Assessment: DVT Prophylaxis General: Alert, Oriented, Cooperative, Mild Distress Lungs: Clear to Auscultation, Normal Respiratory Effort Cardiovascular: Regular Rate, Regular Rhythm, No Murmurs GI/Abdominal Exam: Soft, Non-Tender, No Organomegaly, No Distention Extremities: Non-Tender, Pedal Edema - Patient Data Result Diagrams: 04/11/21 05:53 04/11/21 05:53 [place] Results Last 24 hrs: Microbiology 04/07/21 09:28 Gram Stain - Final Paracentesis Fluid Body Fluid Culture - Final NO GROWTH AFTER 3 DAYS Aerobic Culture - Final NO GROWTH AFTER 5 DAYS Anaerobic Culture - Final NO GROWTH AFTER 5 DAYS Sepsis Event Note - Evaluation Sepsis Screening Result: Possible Sepsis Risk - Focused Exam Vital Signs: Vital Signs Temp Pulse Resp BP Pulse Ox Pulse Ox 04/13/21 08:02 98.1 F 79 18 127/76 94 L 04/13/21 08:00 94 L 04/13/21 02:28 98.1 F 72 20 138/78 90 L 04/12/21 22:13 98.9 F 83 16 118/52 L 91 L - Problem List Review Problem List Initiated/Reviewed/Updated: Yes - My Orders Last 24 Hours: My Active Orders 04/12/21 Dinner GI Soft Low Fiber [Soft Diet] [DIET] 04/12/21 20:43 Gabapentin [Neurontin] 100 mg PO DAILY PRN Nystatin [Nystop] 0 gm TOP QID PRN 04/14/21 05:00 CBC WITH AUTO DIFF [HEME] Timed COMPREHENSIVE METABOLIC PN,CMP [CHEM] Timed - Plan Plan:: ASSESSMENT AND PLAN Spontaneous bacterial peritonitis -Empiric cefdinir twice daily -Follow-up cultures -Symptomatic management of pain and nausea Severe esophagitis-improved over the past 3 days, no pain with eating and upper abdominal pain has resolved -Continue Protonix 40 mg twice daily -Nystatin swish and swallow 4 times daily -Carafate slurry 1 g 4 times daily -Pepcid 20 mg p.o. twice daily Cirrhosis with massive ascites-cirrhosis likely due to fatty liver disease with no strong risk factors for other etiologies. Progression of cirrhosis and ascites in the last 6 to 8 weeks. He has impaired synthetic function with an elevated INR and decreased albumin. MELD NA score is 19 suggesting a 3 to 4% 90- day mortality. -Serologic testing for hepatitis, PBC and PSC as well as autoimmune hepatitis -Continue diuretics -Follow-up labs in a.m. Morbid obesity with BMI greater than 60-complicated by obesity hypoventilation syndrome. He is oxygen dependent. Heart failure with preserved ejection fraction-complicated by pulmonary hy pertension. Well compensated at this time. -Continue medical management Maintenance issues - -DVT prophylaxis-contraindicated with elevated INR and significant lower extremity edema -GI prophylaxis-PPI -Nutrition-soft low residue diet -Mares catheter-not indicated Encounter for palliative care-we did discuss the severity of his liver disease and I expressed my concerns that he is nearing the end stage of his cirrhosis. I am a little concerned that his liver disease may be at least partially decompensated. He is hoping that we can complete work-up and management here rather than be transferred to a higher level of care at this point. He is aware of the poor prognosis. His daughter was in the room and participated in the conversation as well. He has not no interest in a liver transplant even if it were offered. CODE STATUS -DNR/DNI Admission justification -this patient will be admitted for inpatient services and is medically appropriate meeting medical necessity for inpatient admission as outlined in my documentation. I reasonably expect the patient will require inpatient services that span a period time over 2 midnights. I reasonably expect this patient to be discharged or transferred within 96 hours after admission to the [facility]. Disposition -I anticipate discharge to the care home after the hospital stay. His daughter lives in [place] and is wondering if maybe he could be moved to a care home down closer to her. Primary care physician -Dr. Roberson
[2021-04-13] MEDS: Citalopram 20 MG Tab PO SCH (11:01)
[2021-04-13] MEDS: Famotidine 20 MG Tab PO SCH ×2 (11:01→21:32)
[2021-04-13] MEDS: Cefdinir 300 MG Cap PO SCH (11:01)
[2021-04-13] MEDS: Nystatin Topical Powder 15 GM Bottle TOP PRN ×2 (11:06→22:52)
[2021-04-13] MEDS: HYDROmorphone 2 MG Tab PO PRN (21:31)
[2021-04-14] MEDS: Nystatin Susp 100,000 Unit/ML 5 ML UD Cup PO SCH ×4 (05:49→21:01)
[2021-04-14] MEDS: Sucralfate Suspension 1 GM/10 ML Cup PO SCH ×5 (07:24→20:54)
[2021-04-14] MEDS: Gabapentin 100 MG Cap PO SCH ×2 (07:24→20:54)
[2021-04-14] MEDS: Pantoprazole 40 MG Tab.CR PO SCH ×2 (07:24→20:53)
[2021-04-14] MEDS: Lidocaine 2% 60 ML, Alum Hydrox/Mag Hydrox/Simeth 360 ML PO SCH ×6 (07:25→15:12)
[2021-04-14] MEDS: Furosemide 40 MG Tab PO SCH ×2 (07:25→15:12)
[2021-04-14] MEDS: Spironolactone 25 MG Tab PO SCH ×2 (07:25→15:11)
[2021-04-14] MEDS: Nystatin Topical Powder 15 GM Bottle TOP PRN (07:26)
[2021-04-14] MEDS ORDERED: Potassium Chloride 20 MEQ Tab.ER PO ONE (09:00)
[2021-04-14] MEDS: Famotidine 20 MG Tab PO SCH ×2 (10:15→20:53)
[2021-04-14] MEDS: Citalopram 20 MG Tab PO SCH (10:16)
--- NOTE | 2021-04-14 12:54 | PCM.PN ---
- General Info Date of Service: 04/14/21 Subjective Update: Mr. Santa has been fairly stable since yesterday, slowly regaining strength, appetite remains somewhat poor. Abdominal pain has resolved. Doing well with diuretic therapy with improvement in peripheral edema. Functional Status: Reports: Ambulating, Urinating - Review of Systems General: Reports: Weakness, Fatigue. Denies: Fever, Chills Pulmonary: Reports: No Symptoms Cardiovascular: Reports: Edema. Denies: Chest Pain, Palpitations, Dyspnea on Exertion Gastrointestinal: Reports: No Symptoms - Patient Data Vitals - Most Recent: Last Vital Signs Temp 99.3 F 04/14/21 07:28 Pulse 85 04/14/21 07:28 Resp 16 04/14/21 07:28 BP 144/66 H 04/14/21 07:28 Pulse Ox 98 04/14/21 07:30 Weight - Most Recent: 413 lb I&O - Last 24 Hours: Intake & Output 04/13/21 04/14/21 04/14/21 22:59 06:59 14:59 Intake Total 900 60 Output Total 725 1550 Balance 175 -1490 Lab Results Last 24 Hours: Laboratory Results - last 24 hr 04/14/21 04/14/21 Range/Units 06:52 06:52 WBC 5.2 (3.2-11.0) K/uL RBC 3.85 L (4.14-5.76) M/uL Hgb 12.1 L (12.9-16.9) Hct 37.7 L (38.4-49.7) % MCV 97.9 (81.4-99.0) fL MCH 31.4 L (31.6-35.5) pg MCHC 32.1 (31.6-35.5) g/dL Plt Count 107 L (130-375) K/uL Immature Gran % (Auto) 1.1 H (0.0-0.7) % Neut % (Auto) 59.5 (36-66) % Lymph % (Auto) 21.8 L (24-44) % [place] % (Auto) 12.1 H (2-6) % Eos % (Auto) 4.2 H (2-4) % Baso % (Auto) 1.3 H (0-1) % Neut # (Auto) 3.10 (1.0-7.6) K/uL Lymph # (Auto) 1.14 (0.8-3.3) K/uL [place] # (Auto) 0.63 (0.20-0.90) K/uL Eos # (Auto) 0.22 (0.00-0.40) K/uL Baso # (Auto) 0.07 (0.00-0.10) K/uL Immature Gran # (Auto) 0.06 (0.00-0.23) K/uL Sodium 139 L (140-148) mmol/L Potassium 3.0 L (3.6-5.2) mmol/L Chloride 98 L (100-108) mmol/L Carbon Dioxide 39 H (21-32) mmol/L Anion Gap 5.0 (5.0-14.0) mmol/L BUN 6 L (7-18) mg/dL Creatinine 1.0 (0.8-1.3) mg/dL Est Cr Clr Drug Dosing 64.06 mL/min Estimated GFR (MDRD) > 60 (>60) Glucose 103 (74-106) mg/dL Calcium 8.3 L (8.5-10.1) mg/dL Total Bilirubin 2.7 H D (0.2-1.0) mg/dL AST 32 (15-37) U/L ALT 13 (12-78) U/L Alkaline Phosphatase 54 (46-116) U/L Total Protein 7.0 (6.4-8.2) g/dL Albumin 2.6 L (3.4-5.0) g/dL Globulin 4.4 H (2.3-3.5) g/dL Albumin/Globulin Ratio 0.6 L (1.2-2.2) Med Orders - Current: Current Medications Acetaminophen (Acetaminophen 325 Mg Tab) 650 mg PO Q4H PRN PRN Reason: Pain (Mild 1-3)/fever Last Admin: 04/10/21 02:27 Dose: 650 mg Documented by: Albuterol (Albuterol 0.083% 2.5 Mg/3 Ml Neb Soln) 2.5 mg NEB Q4H PRN PRN Reason: Shortness Of Breath/wheezing Citalopram Hydrobromide (Citalopram 20 Mg Tab) 20 mg PO DAILY VON Last Admin: 04/14/21 10:16 Dose: 20 mg Documented by: Lidocaine HCl 60 ml/ Al (Hydroxide/Mg Hydroxide 360 ml) 0 ml PO TIDAC [facility] Last Admin: 04/14/21 10:17 Dose: Not Given Documented by: Famotidine (Famotidine 20 Mg Tab) 20 mg PO BID [facility] Last Admin: 04/14/21 10:15 Dose: 20 mg Documented by: Furosemide (Furosemide 40 Mg Tab) 40 mg PO BIDDIURETIC [facility] Last Admin: 04/14/21 07:25 Dose: 40 mg Documented by: Gabapentin (Gabapentin 100 Mg Cap) 100 mg PO ACBREAKFAST [facility] Last Admin: 04/14/21 07:24 Dose: 100 mg Documented by: Gabapentin (Gabapentin 100 Mg Cap) 200 mg PO BEDTIME [facility] Last Admin: 04/13/21 21:32 Dose: 200 mg Documented by: Gabapentin (Gabapentin 100 Mg Cap) 100 mg PO DAILY PRN PRN Reason: Pain Hydromorphone HCl (Hydromorphone 2 Mg Tab) 2 mg PO Q6H PRN PRN Reason: Pain Last Admin: 04/13/21 21:31 Dose: 2 mg Documented by: Lorazepam (Lorazepam 2 Mg/Ml Sdv) 0.5 mg IVPUSH Q4H PRN PRN Reason: Nausea/Vomiting Last Admin: 04/07/21 01:44 Dose: 0.5 mg Documented by: Melatonin (Melatonin 3 Mg Tab) 9 mg PO BEDTIME PRN PRN Reason: Sleep Nystatin (Nystatin Susp 100,000 Unit/Ml 5 Ml Ud Cup) 5 ml PO QID [facility] Last Admin: 04/14/21 10:14 Dose: 5 ml Documented by: Nystatin (Nystatin Topical Powder 15 Gm Bottle) 0 gm TOP QID PRN PRN Reason: Rash Last Admin: 04/14/21 07:26 Dose: 1 applic Documented by: Ondansetron HCl (Ondansetron 4 Mg/2 Ml Sdv) 4 mg IV Q6H PRN PRN Reason: Nausea/Vomiting Last Admin: 04/07/21 06:35 Dose: 4 mg Documented by: Ondansetron HCl (Ondansetron 4 Mg Tab.Dis) 4 mg PO Q6H PRN PRN Reason: Nausea able to take PO Last Admin: 04/12/21 05:53 Dose: 4 mg Documented by: Pantoprazole Sodium (Pantoprazole 40 Mg Tab.Cr) 40 mg PO BID@0730,2100 [facility] Last Admin: 04/14/21 07:24 Dose: 40 mg Documented by: Potassium Chloride (Potassium Chloride 20 Meq Tab.Er) 20 meq PO BID [facility] Sodium Chloride (Sodium Chloride 0.9% 10 Ml Syringe) 10 ml FLUSH ASDIRECTED PRN PRN Reason: Keep Vein Open Last Admin: 04/06/21 07:31 Dose: 10 ml Documented by: Spironolactone (Spironolactone 25 Mg Tab) 50 mg PO BIDDIURETIC [facility] Sucralfate (Sucralfate Suspension 1 Gm/10 Ml Cup) 1 gm PO QIDACANDBED [facility] Last Admin: 04/14/21 12:38 Dose: Not Given Documented by: Discontinued Medications Acetaminophen (Acetaminophen 500 Mg Tab) 1,000 mg PO ONETIME ONE Stop: 04/06/21 08:37 Last Admin: 04/06/21 08:41 Dose: 1,000 mg Documented by: Cefdinir (Cefdinir 300 Mg Cap) 300 mg PO BID [facility] Last Admin: 04/13/21 11:01 Dose: 300 mg Documented by: Fentanyl (Fentanyl 100 Mcg/2 Ml Sdv) Confirm Administered Dose 100 mcg .ROUTE .STK-MED ONE Stop: 04/10/21 10:06 Hydromorphone HCl (Hydromorphone 0.5 Mg/0.5 Ml Syringe) 0.5 mg IVPUSH ONETIME ONE Stop: 04/06/21 09:13 Last Admin: 04/06/21 09:22 Dose: 0.5 mg Documented by: Hydromorphone HCl (Hydromorphone 1 Mg/Ml Syringe) 0.5 mg IVPUSH Q2H PRN PRN Reason: Pain Last Admin: 04/07/21 06:36 Dose: 0.5 mg Documented by: Hydromorphone HCl (Hydromorphone 0.5 Mg/0.5 Ml Syringe) 0.5 mg IVPUSH Q2H PRN PRN Reason: Pain Last Admin: 04/11/21 07:30 Dose: 0.5 mg Documented by: Lactated Ringer's (Ringers, Lactated) 1,000 mls @ 1,000 mls/hr IV BOLUS ONE Stop: 04/06/21 08:53 Last Admin: 04/06/21 09:25 Dose: Not Given Documented by: Potassium Chloride/Sodium Chloride (Normal Saline With 20 Meq Kcl) 1,000 mls @ 1,000 mls/hr IV ASDIRECTED [facility] Last Admin: 04/06/21 08:08 Dose: 1,000 mls/hr Documented by: Sodium Chloride (Normal Saline) 85 mls @ 3.5 mls/sec IV ASDIRECTED [facility] Stop: 04/06/21 09:31 Last Admin: 04/06/21 09:59 Dose: 3 mls/sec Documented by: Ceftriaxone Sodium 2 gm/ (Sodium Chloride) 50 mls @ 100 mls/hr IV Q24H [facility] Last Admin: 04/10/21 15:32 Dose: 100 mls/hr Documented by: Potassium Chloride 20 meq/Lidocaine HCl 2 ml/ Sodium Chloride 112 mls @ 56 mls/hr IV Q2H [facility] Stop: 04/06/21 20:29 Last Admin: 04/06/21 19:27 Dose: 56 mls/hr Documented by: Albumin Human (Albumin 25%) 25 gm in 100 mls @ 25 mls/hr IV Q4H [facility] Stop: 04/07/21 17:59 Last Admin: 04/07/21 14:34 Dose: 25 mls/hr Documented by: Potassium Chloride 20 meq/Lidocaine HCl 2 ml/ Sodium Chloride 112 mls @ 56 mls/hr IV Q2H [facility] Stop: 04/10/21 12:59 Last Admin: 04/10/21 11:56 Dose: 56 mls/hr Documented by: Iopamidol (Iopamidol 612 Mg/Ml 150 Ml Bottle) 150 ml IV . DIRECTED PRN PRN Reason: RADIOLOGY EXAM Stop: 04/07/21 09:25 Last Admin: 04/06/21 09:59 Dose: 150 ml Documented by: Lidocaine (Lidocaine 2% 5 Ml Sdv) Confirm Administered Dose 5 ml .ROUTE .STK-MED ONE Stop: 04/10/21 09:47 Loperamide HCl (Loperamide 2 Mg Cap) 4 mg PO ONETIME ONE Stop: 04/06/21 07:38 Last Admin: 04/06/21 08:08 Dose: 4 mg Documented by: Loperamide HCl (Loperamide 2 Mg Cap) 2 mg PO ONETIME ONE Stop: 04/11/21 21:18 Last Admin: 04/11/21 21:40 Dose: 2 mg Documented by: Metoclopramide HCl (Metoclopramide 10 Mg/2 Ml Sdv) 10 mg IVPUSH ONETIME ONE Stop: 04/06/21 09:12 Last Admin: 04/06/21 09:22 Dose: 10 mg Documented by: Midazolam HCl (Midazolam 1 Mg/Ml 2 Ml Sdv) Confirm Administered Dose 2 mg .ROUTE .STK-MED ONE Stop: 04/10/21 10:05 Ondansetron HCl (Ondansetron 4 Mg/2 Ml Sdv) 4 mg IVPUSH ONETIME ONE Stop: 04/06/21 07:24 Last Admin: 04/06/21 07:31 Dose: 4 mg Documented by: Oxycodone HCl (Oxycodone 5 Mg Tab) 5 mg PO Q4H PRN PRN Reason: Pain Last Admin: 04/13/21 11:05 Dose: 5 mg Documented by: Potassium Chloride (Potassium Chloride 20 Meq Tab.Er) 40 meq PO ONETIME ONE Stop: 04/08/21 08:43 Last Admin: 04/08/21 09:23 Dose: 40 meq Documented by: Potassium Chloride (Potassium Chloride 20 Meq Tab.Er) 40 meq PO ONETIME ONE Stop: 04/08/21 17:01 Last Admin: 04/08/21 17:30 Dose: 40 meq Documented by: Potassium Chloride (Potassium Chloride 20 Meq Tab.Er) 40 meq PO ONETIME ONE Stop: 04/09/21 17:01 Last Admin: 04/09/21 17:04 Dose: 40 meq Documented by: Potassium Chloride (Potassium Chloride 20 Meq Tab.Er) 40 meq PO ONETIME ONE Stop: 04/10/21 17:01 Last Admin: 04/10/21 16:12 Dose: 40 meq Documented by: Potassium Chloride (Potassium Chloride 20 Meq Tab.Er) 40 meq PO ONETIME ONE Stop: 04/14/21 09:01 Last Admin: 04/14/21 10:15 Dose: 40 meq Documented by: Propofol (Propofol 200 Mg/20 Ml Sdv) Confirm Administered Dose 200 mg .ROUTE .STK-MED ONE Stop: 04/10/21 09:47 Sodium Chloride (Sodium Chloride 0.9% 10 Ml Syringe) 10 ml FLUSH ONETIME PRN PRN Reason: per radiology protocol Stop: 04/06/21 09:25 Last Admin: 04/06/21 09:58 Dose: 10 ml Documented by: Spironolactone (Spironolactone 25 Mg Tab) 25 mg PO BIDDIURETIC VON Last Admin: 04/14/21 07:25 Dose: 25 mg Documented by: - Exam Quality Assessment: Supplemental Oxygen, DVT Prophylaxis General: Alert, Oriented, Cooperative, Mild Distress Lungs: Clear to Auscultation, Normal Respiratory Effort, Decreased Breath Sounds Cardiovascular: Regular Rate, Regular Rhythm, No Murmurs GI/Abdominal Exam: Soft, Non-Tender, No Organomegaly, No Distention Extremities: Non-Tender, Pedal Edema - Patient Data Lab Results Last 24 hrs: Laboratory Results - last 24 hr 04/14/21 04/14/21 Range/Units 06:52 06:52 WBC 5.2 (3.2-11.0) K/uL RBC 3.85 L (4.14-5.76) M/uL Hgb 12.1 L (12.9-16.9) Hct 37.7 L (38.4-49.7) % MCV 97.9 (81.4-99.0) fL MCH 31.4 L (31.6-35.5) pg MCHC 32.1 (31.6-35.5) g/dL Plt Count 107 L (130-375) K/uL Immature Gran % (Auto) 1.1 H (0.0-0.7) % Neut % (Auto) 59.5 (36-66) % Lymph % (Auto) 21.8 L (24-44) % [place] % (Auto) 12.1 H (2-6) % Eos % (Auto) 4.2 H (2-4) % Baso % (Auto) 1.3 H (0-1) % Neut # (Auto) 3.10 (1.0-7.6) K/uL Lymph # (Auto) 1.14 (0.8-3.3) K/uL [place] # (Auto) 0.63 (0.20-0.90) K/uL Eos # (Auto) 0.22 (0.00-0.40) K/uL Baso # (Auto) 0.07 (0.00-0.10) K/uL Immature Gran # (Auto) 0.06 (0.00-0.23) K/uL Sodium 139 L (140-148) mmol/L Potassium 3.0 L (3.6-5.2) mmol/L Chloride 98 L (100-108) mmol/L Carbon Dioxide 39 H (21-32) mmol/L Anion Gap 5.0 (5.0-14.0) mmol/L BUN 6 L (7-18) mg/dL Creatinine 1.0 (0.8-1.3) mg/dL Est Cr Clr Drug Dosing 64.06 mL/min Estimated GFR (MDRD) > 60 (>60) Glucose 103 (74-106) mg/dL Calcium 8.3 L (8.5-10.1) mg/dL Total Bilirubin 2.7 H D (0.2-1.0) mg/dL AST 32 (15-37) U/L ALT 13 (12-78) U/L Alkaline Phosphatase 54 (46-116) U/L Total Protein 7.0 (6.4-8.2) g/dL Albumin 2.6 L (3.4-5.0) g/dL Globulin 4.4 H (2.3-3.5) g/dL Albumin/Globulin Ratio 0.6 L (1.2-2.2) Result Diagrams: 04/14/21 06:52 04/14/21 06:52 Sepsis Event Note - Evaluation Sepsis Screening Result: No Definite Risk - Focused Exam Vital Signs: Vital Signs Temp Pulse Resp BP Pulse Ox Pulse Ox 04/14/21 07:30 98 04/14/21 07:28 99.3 F 85 16 144/66 H 98 04/14/21 07:25 77 L 04/14/21 02:50 99.5 F 95 16 127/86 86 L - Problem List Review Problem List Initiated/Reviewed/Updated: Yes - My Orders Last 24 Hours: My Active Orders 04/13/21 15:55 HYDROmorphone [Dilaudid] 2 mg PO Q6H PRN 04/14/21 13:00 Potassium Chloride [Klor-Con M20] 20 meq PO BID 04/14/21 14:00 Spironolactone [Aldactone] 50 mg PO BIDDIURETIC - Plan Plan:: ASSESSMENT AND PLAN Spontaneous bacterial peritonitis -Empiric cefdinir, completed Severe esophagitis-improved over the past several days, no pain with eating and upper abdominal pain has resolved -Continue Protonix 40 mg twice daily -Nystatin swish and swallow 4 times daily -Carafate slurry 1 g 4 times daily -Pepcid 20 mg p.o. twice daily Cirrhosis with massive ascites-cirrhosis likely due to fatty liver disease with no strong risk factors for other etiologies. Progression of cirrhosis and ascites in the last 6 to 8 weeks. He has impaired synthetic function with an elevated INR and decreased albumin. MELD NA score is 19 suggesting a 3 to 4% 90- day mortality. -Serologic testing for hepatitis, PBC and PSC as well as autoimmune hepatitis -Continue diuretics Hypokalemia-likely secondary to diuretic therapy -Potassium chloride 20 mill colons p.o. twice daily -Extra 40 mEq of potassium given earlier today -Follow-up potassium level in a.m. Morbid obesity with BMI greater than 60-complicated by obesity hypoventilation syndrome. He is oxygen dependent. Heart failure with preserved ejection fraction-complicated by pulmonary hypertension. Well compensated at this time. -Continue medical management Maintenance issues - -DVT prophylaxis-contraindicated with elevated INR and significant lower extremity edema -GI prophylaxis-PPI -Nutrition-soft low residue diet -Mares catheter-not indicated Encounter for palliative care-we did discuss the severity of his liver disease and I expressed my concerns that he is nearing the end stage of his cirrhosis. I am a little concerned that his liver disease may be at least partially decompensated. He is hoping that we can complete work-up and management here rather than be transferred to a higher level of care at this point. He is aware of the poor prognosis. His daughter was in the room and participated in the conversation as well. He has not no interest in a liver transplant even if it were offered. CODE STATUS -DNR/DNI Admission justification -this patient will be admitted for inpatient services and is medically appropriate meeting medical necessity for inpatient admission as outlined in my documentation. I reasonably expect the patient will require inpatient services that span a period time over 2 midnights. I reasonably expect this patient to be discharged or transferred within 96 hours [facility]. Disposition -I anticipate discharge to the alf after the hospital stay. His daughter lives in [place] and is wondering if maybe he could be moved to a alf down closer to her. Primary care physician -Dr. Roberson
[2021-04-14] MEDS: Potassium Chloride 20 MEQ Tab.ER PO SCH ×2 (15:11→20:53)
[2021-04-14] MEDS: HYDROmorphone 2 MG Tab PO PRN (21:01)
[2021-04-15] MEDS: Nystatin Susp 100,000 Unit/ML 5 ML UD Cup PO SCH ×3 (05:21→16:30)
[2021-04-15] MEDS: Gabapentin 100 MG Cap PO SCH ×2 (08:01→20:26)
[2021-04-15] MEDS: Sucralfate Suspension 1 GM/10 ML Cup PO SCH ×4 (08:01→20:25)
[2021-04-15] MEDS: Spironolactone 25 MG Tab PO SCH ×2 (08:02→13:52)
[2021-04-15] MEDS: Furosemide 40 MG Tab PO SCH ×2 (08:02→13:52)
[2021-04-15] MEDS: Citalopram 20 MG Tab PO SCH (08:03)
[2021-04-15] MEDS: Famotidine 20 MG Tab PO SCH ×2 (08:03→20:26)
[2021-04-15] MEDS: Potassium Chloride 20 MEQ Tab.ER PO SCH ×2 (08:03→20:26)
[2021-04-15] MEDS: Pantoprazole 40 MG Tab.CR PO SCH ×2 (08:03→20:27)
[2021-04-15] MEDS: HYDROmorphone 2 MG Tab PO PRN ×2 (08:08→20:35)
[2021-04-15] MEDS: Lidocaine 2% 60 ML, Alum Hydrox/Mag Hydrox/Simeth 360 ML PO SCH ×6 (08:12→16:29)
--- NOTE | 2021-04-15 12:15 | PCM.PN ---
- General Info Date of Service: 04/15/21 Subjective Update: There were no acute events overnight. Patient reports that he is slowly feeling better. No significant abdominal pain or nausea. Tolerating his soft low resid ue diet. Strength seems to be slowly improving. He is walking a little bit further each day. He has not had any fevers. Lower extremity edema seems to be slowly improving. An extensive search was undertaken looking for a rehab bed but unfortunately none can be found anywhere in the state. We did discuss the potential to go home with home care and close follow-up since he has made a fair amount of improvement. He was interested in trying this and thinks he can do well at home. He was agreeable to [place] workers from the [place] as well as home care into his apartment. Functional Status: Reports: Pain Controlled, Tolerating Diet - Review of Systems Cardiovascular: Reports: Edema Gastrointestinal: Denies: Abdominal Pain - Patient Data Vitals - Most Recent: Last Vital Signs Temp 36.7 C 04/15/21 10:51 Pulse 78 04/15/21 10:51 Resp 18 04/15/21 10:51 BP 159/104 H 04/15/21 10:51 Pulse Ox 100 04/15/21 10:51 Weight - Most Recent: 187.334 kg I&O - Last 24 Hours: Intake & Output 04/14/21 04/15/21 04/15/21 22:59 06:59 14:59 Intake Total 240 520 200 Output Total 300 300 100 Balance -60 220 100 [place] Results Last 24 Hours: Microbiology 04/07/21 09:28 Fungal Culture - Preliminary Paracentesis Fluid NO FUNGAL GROWTH AT 1 WEEK Med Orders - Current: Current Medications Acetaminophen (Acetaminophen 325 Mg Tab) 650 mg PO Q4H PRN PRN Reason: Pain (Mild 1-3)/fever Last Admin: 04/10/21 02:27 Dose: 650 mg Documented by: Albuterol (Albuterol 0.083% 2.5 Mg/3 Ml Neb Soln) 2.5 mg NEB Q4H PRN PRN Reason: Shortness Of Breath/wheezing Citalopram Hydrobromide (Citalopram 20 Mg Tab) 20 mg PO DAILY VON Last Admin: 04/15/21 08:03 Dose: 20 mg Documented by: Lidocaine HCl 60 ml/ Al (Hydroxide/Mg Hydroxide 360 ml) 0 ml PO TIDAC VON Last Admin: 04/15/21 10:15 Dose: Not Given Documented by: Famotidine (Famotidine 20 Mg Tab) 20 mg PO BID [facility] Last Admin: 04/15/21 08:03 Dose: 20 mg Documented by: Furosemide (Furosemide 40 Mg Tab) 40 mg PO BIDDIURETIC [facility] Last Admin: 04/15/21 08:02 Dose: 40 mg Documented by: Gabapentin (Gabapentin 100 Mg Cap) 100 mg PO ACBREAKFAST [facility] Last Admin: 04/15/21 08:01 Dose: 100 mg Documented by: Gabapentin (Gabapentin 100 Mg Cap) 200 mg PO BEDTIME [facility] Last Admin: 04/14/21 20:54 Dose: 200 mg Documented by: Gabapentin (Gabapentin 100 Mg Cap) 100 mg PO DAILY PRN PRN Reason: Pain Hydromorphone HCl (Hydromorphone 2 Mg Tab) 2 mg PO Q6H PRN PRN Reason: Pain Last Admin: 04/15/21 08:08 Dose: 2 mg Documented by: Lorazepam (Lorazepam 2 Mg/Ml Sdv) 0.5 mg IVPUSH Q4H PRN PRN Reason: Nausea/Vomiting Last Admin: 04/07/21 01:44 Dose: 0.5 mg Documented by: Melatonin (Melatonin 3 Mg Tab) 9 mg PO BEDTIME PRN PRN Reason: Sleep Nystatin (Nystatin Susp 100,000 Unit/Ml 5 Ml Ud Cup) 5 ml PO QID [facility] Last Admin: 04/15/21 10:48 Dose: 5 ml Documented by: Nystatin (Nystatin Topical Powder 15 Gm Bottle) 0 gm TOP QID PRN PRN Reason: Rash Last Admin: 04/14/21 07:26 Dose: 1 applic Documented by: Ondansetron HCl (Ondansetron 4 Mg/2 Ml Sdv) 4 mg IV Q6H PRN PRN Reason: Nausea/Vomiting Last Admin: 04/07/21 06:35 Dose: 4 mg Documented by: Ondansetron HCl (Ondansetron 4 Mg Tab.Dis) 4 mg PO Q6H PRN PRN Reason: Nausea able to take PO Last Admin: 04/12/21 05:53 Dose: 4 mg Documented by: Pantoprazole Sodium (Pantoprazole 40 Mg Tab.Cr) 40 mg PO BID@0730,2100 [facility] Last Admin: 04/15/21 08:03 Dose: 40 mg Documented by: Potassium Chloride (Potassium Chloride 20 Meq Tab.Er) 20 meq PO BID [facility] Last Admin: 04/15/21 08:03 Dose: 20 meq Documented by: Sodium Chloride (Sodium Chloride 0.9% 10 Ml Syringe) 10 ml FLUSH ASDIRECTED PRN PRN Reason: Keep Vein Open Last Admin: 04/06/21 07:31 Dose: 10 ml Documented by: Spironolactone (Spironolactone 25 Mg Tab) 50 mg PO BIDDIURETIC [facility] Last Admin: 04/15/21 08:02 Dose: 50 mg Documented by: Sucralfate (Sucralfate Suspension 1 Gm/10 Ml Cup) 1 gm PO QIDACANDBED [facility] Last Admin: 04/15/21 10:48 Dose: 1 gm Documented by: Discontinued Medications Acetaminophen (Acetaminophen 500 Mg Tab) 1,000 mg PO ONETIME ONE Stop: 04/06/21 08:37 Last Admin: 04/06/21 08:41 Dose: 1,000 mg Documented by: Cefdinir (Cefdinir 300 Mg Cap) 300 mg PO BID [facility] Last Admin: 04/13/21 11:01 Dose: 300 mg Documented by: Fentanyl (Fentanyl 100 Mcg/2 Ml Sdv) Confirm Administered Dose 100 mcg .ROUTE .STK-MED ONE Stop: 04/10/21 10:06 Hydromorphone HCl (Hydromorphone 0.5 Mg/0.5 Ml Syringe) 0.5 mg IVPUSH ONETIME ONE Stop: 04/06/21 09:13 Last Admin: 04/06/21 09:22 Dose: 0.5 mg Documented by: Hydromorphone HCl (Hydromorphone 1 Mg/Ml Syringe) 0.5 mg IVPUSH Q2H PRN PRN Reason: Pain Last Admin: 04/07/21 06:36 Dose: 0.5 mg Documented by: Hydromorphone HCl (Hydromorphone 0.5 Mg/0.5 Ml Syringe) 0.5 mg IVPUSH Q2H PRN PRN Reason: Pain Last Admin: 04/11/21 07:30 Dose: 0.5 mg Documented by: Lactated Ringer's (Ringers, Lactated) 1,000 mls @ 1,000 mls/hr IV BOLUS ONE Stop: 04/06/21 08:53 Last Admin: 04/06/21 09:25 Dose: Not Given Documented by: Potassium Chloride/Sodium Chloride (Normal Saline With 20 Meq Kcl) 1,000 mls @ 1,000 mls/hr IV ASDIRECTED [facility] Last Admin: 04/06/21 08:08 Dose: 1,000 mls/hr Documented by: Sodium Chloride (Normal Saline) 85 mls @ 3.5 mls/sec IV ASDIRECTED [facility] Stop: 04/06/21 09:31 Last Admin: 04/06/21 09:59 Dose: 3 mls/sec Documented by: Ceftriaxone Sodium 2 gm/ (Sodium Chloride) 50 mls @ 100 mls/hr IV Q24H [facility] Last Admin: 04/10/21 15:32 Dose: 100 mls/hr Documented by: Potassium Chloride 20 meq/Lidocaine HCl 2 ml/ Sodium Chloride 112 mls @ 56 mls/hr IV Q2H [facility] Stop: 04/06/21 20:29 Last Admin: 04/06/21 19:27 Dose: 56 mls/hr Documented by: Albumin Human (Albumin 25%) 25 gm in 100 mls @ 25 mls/hr IV Q4H [facility] Stop: 04/07/21 17:59 Last Admin: 04/07/21 14:34 Dose: 25 mls/hr Documented by: Potassium Chloride 20 meq/Lidocaine HCl 2 ml/ Sodium Chloride 112 mls @ 56 mls/hr IV Q2H [facility] Stop: 04/10/21 12:59 Last Admin: 04/10/21 11:56 Dose: 56 mls/hr Documented by: Iopamidol (Iopamidol 612 Mg/Ml 150 Ml Bottle) 150 ml IV . DIRECTED PRN PRN Reason: RADIOLOGY EXAM Stop: 04/07/21 09:25 Last Admin: 04/06/21 09:59 Dose: 150 ml Documented by: Lidocaine (Lidocaine 2% 5 Ml Sdv) Confirm Administered Dose 5 ml .ROUTE .STK-MED ONE Stop: 04/10/21 09:47 Loperamide HCl (Loperamide 2 Mg Cap) 4 mg PO ONETIME ONE Stop: 04/06/21 07:38 Last Admin: 04/06/21 08:08 Dose: 4 mg Documented by: Loperamide HCl (Loperamide 2 Mg Cap) 2 mg PO ONETIME ONE Stop: 04/11/21 21:18 Last Admin: 04/11/21 21:40 Dose: 2 mg Documented by: Metoclopramide HCl (Metoclopramide 10 Mg/2 Ml Sdv) 10 mg IVPUSH ONETIME ONE Stop: 04/06/21 09:12 Last Admin: 04/06/21 09:22 Dose: 10 mg Documented by: Midazolam HCl (Midazolam 1 Mg/Ml 2 Ml Sdv) Confirm Administered Dose 2 mg .ROUTE .STK-MED ONE Stop: 04/10/21 10:05 Ondansetron HCl (Ondansetron 4 Mg/2 Ml Sdv) 4 mg IVPUSH ONETIME ONE Stop: 04/06/21 07:24 Last Admin: 04/06/21 07:31 Dose: 4 mg Documented by: Oxycodone HCl (Oxycodone 5 Mg Tab) 5 mg PO Q4H PRN PRN Reason: Pain Last Admin: 04/13/21 11:05 Dose: 5 mg Documented by: Potassium Chloride (Potassium Chloride 20 Meq Tab.Er) 40 meq PO ONETIME ONE Stop: 04/08/21 08:43 Last Admin: 04/08/21 09:23 Dose: 40 meq Documented by: Potassium Chloride (Potassium Chloride 20 Meq Tab.Er) 40 meq PO ONETIME ONE Stop: 04/08/21 17:01 Last Admin: 04/08/21 17:30 Dose: 40 meq Documented by: Potassium Chloride (Potassium Chloride 20 Meq Tab.Er) 40 meq PO ONETIME ONE Stop: 04/09/21 17:01 Last Admin: 04/09/21 17:04 Dose: 40 meq Documented by: Potassium Chloride (Potassium Chloride 20 Meq Tab.Er) 40 meq PO ONETIME ONE Stop: 04/10/21 17:01 Last Admin: 04/10/21 16:12 Dose: 40 meq Documented by: Potassium Chloride (Potassium Chloride 20 Meq Tab.Er) 40 meq PO ONETIME ONE Stop: 04/14/21 09:01 Last Admin: 04/14/21 10:15 Dose: 40 meq Documented by: Propofol (Propofol 200 Mg/20 Ml Sdv) Confirm Administered Dose 200 mg .ROUTE .STK-MED ONE Stop: 04/10/21 09:47 Sodium Chloride (Sodium Chloride 0.9% 10 Ml Syringe) 10 ml FLUSH ONETIME PRN PRN Reason: per radiology protocol Stop: 04/06/21 09:25 Last Admin: 04/06/21 09:58 Dose: 10 ml Documented by: Spironolactone (Spironolactone 25 Mg Tab) 25 mg PO BIDDIURETIC VON Last Admin: 04/14/21 07:25 Dose: 25 mg Documented by: - Exam Quality Assessment: Supplemental Oxygen General: Alert, Oriented, Cooperative, No Acute Distress Lungs: Normal Respiratory Effort. No: Wheezing GI/Abdominal Exam: Soft, No Distention Extremities: No Pedal Edema. No: Increased Warmth Skin: Warm, Dry Psy/Mental Status: Alert, Normal Affect - Patient Data Result Diagrams: 04/14/21 06:52 04/14/21 06:52 [place] Results Last 24 hrs: Microbiology 04/07/21 09:28 Fungal Culture - Preliminary Paracentesis Fluid NO FUNGAL GROWTH AT 1 WEEK Sepsis Event Note - Evaluation Sepsis Screening Result: No Definite Risk - Focused Exam Vital Signs: Vital Signs Temp Pulse Resp BP Pulse Ox 04/15/21 10:51 36.7 C 78 18 159/104 H 100 04/15/21 08:00 37.7 C 67 18 144/73 H 93 L 04/15/21 03:00 37.6 C 72 18 139/62 92 L - Problem List & Annotations (1) Spontaneous bacterial peritonitis SNOMED Code(s): 61659059 Code(s): K65.2 - SPONTANEOUS BACTERIAL PERITONITIS Status: Acute Current Visit: Yes (2) Cirrhosis SNOMED Code(s): 47853982 Code(s): K74.60 - UNSPECIFIED CIRRHOSIS OF LIVER Status: Chronic Current Visit: No Qualifiers: Hepatic cirrhosis type: other cirrhosis Qualified Code(s): K74.69 - Other cirrhosis of liver (3) Tense ascites SNOMED Code(s): 118130494 Code(s): R18.8 - OTHER ASCITES Status: Acute Current Visit: Yes (4) Morbid obesity with BMI of 60.0-69.9, adult SNOMED Code(s): 873713644, 35936766891861 Code(s): E66.01 - MORBID (SEVERE) OBESITY DUE TO EXCESS CALORIES; Z68.44 - BODY MASS INDEX [BMI] 60.0-69.9, ADULT Status: Chronic Current Visit: Yes (5) (HFpEF) heart failure with preserved ejection fraction SNOMED Code(s): 138369989 Code(s): I50.30 - UNSPECIFIED DIASTOLIC (CONGESTIVE) HEART FAILURE Status: Chronic Current Visit: No Qualifiers: Heart failure chronicity: acute on chronic Qualified Code(s): I50.33 - Acute on chronic diastolic (congestive) heart failure (6) Pulmonary hypertension SNOMED Code(s): 79602149 Code(s): I27.20 - PULMONARY HYPERTENSION, UNSPECIFIED Status: Chronic Current Visit: No (7) 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 -Continue pantoprazole 40 mg twice daily -Nystatin swish and swallow 4 times daily -Sucralfate slurry 1 g 4 times daily -Famotidine 20 mg p.o. twice daily Cirrhosis with massive ascites-cirrhosis likely due to fatty liver disease with no strong risk factors for other etiologies. Progression of cirrhosis and ascites in the last 6 to 8 weeks. He has impaired synthetic function with an elevated INR and decreased albumin. MELD NA score is 19 suggesting a 3 to 4% 90- day mortality. All of his serologic testing was negative. -Continue diuretics Hypokalemia-likely secondary to diuretic therapy -Potassium chloride 20 mill colons p.o. twice daily -Follow-up potassium level in a.m. Morbid obesity with BMI greater than 60-complicated by obesity hypoventilation syndrome. He is oxygen dependent. Heart failure with preserved ejection fraction-complicated by pulmonary hypertension. Well compensated at this time. -Continue medical management Maintenance issues - -DVT prophylaxis-contraindicated with elevated INR and significant lower extr emity edema -GI prophylaxis-PPI -Nutrition-soft low residue diet Disposition -we were hoping for subacute rehab prior to going home. Unfortunately no subacute rehab beds were available anywhere in the state. The patient has made a fair amount of improvement during his time in the hospital and is probably safe to go home with home care at this point. He is agreeable to a trial of this. If he fails he may need assisted living or potentially subacute rehab if a bed can be found at that point. As of right now he seems to be doing fairly well and hopefully can go home tomorrow. Jared Hurd MD
[2021-04-16] MEDS: Nystatin Susp 100,000 Unit/ML 5 ML UD Cup PO SCH ×2 (02:54→05:34)
[2021-04-16] MEDS: Lidocaine 2% 60 ML, Alum Hydrox/Mag Hydrox/Simeth 360 ML PO SCH ×2 (08:16)
[2021-04-16] MEDS: Sucralfate Suspension 1 GM/10 ML Cup PO SCH (08:21)
[2021-04-16] MEDS: Furosemide 40 MG Tab PO SCH (08:21)
[2021-04-16] MEDS: Gabapentin 100 MG Cap PO SCH (08:21)
[2021-04-16] MEDS: Citalopram 20 MG Tab PO SCH (08:22)
[2021-04-16] MEDS: Spironolactone 25 MG Tab PO SCH (08:22)
[2021-04-16] MEDS: Pantoprazole 40 MG Tab.CR PO SCH (08:22)
[2021-04-16] MEDS: Famotidine 20 MG Tab PO SCH (08:22)
[2021-04-16] MEDS ORDERED: Potassium Chloride 20 MEQ Tab.ER PO SCH (09:00)
[2021-04-16 10:26] VITALS: PULSE 73
[2021-04-16 10:27] VITALS: BP 155/83
--- NOTE | 2021-04-16 11:01 | PCM.DCSUM1 ---
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 He was admitted for management of possible spontaneous bacterial peritonitis and further evaluation and management of his liver disease. Diagnosis: Stroke: No - Discharge Data Discharge Date: 04/16/21 Discharge Disposition: Home, W Home Health Agency 06 Condition: Fair - Referral to Home Health Date of Face to Face Encounter: 04/16/21 Reason for Homebound Status: Acute on chronic weakness and dyspnea with exertion Primary Care Physician: PCP None Skilled Need: Nursing. Physical therapy. Occupational Therapy - Discharge Diagnosis/Problem(s) (1) Spontaneous bacterial peritonitis SNOMED Code(s): 40859878 ICD Code: K65.2 - SPONTANEOUS BACTERIAL PERITONITIS Status: Suspected (2) Cirrhosis SNOMED Code(s): 15745839 ICD Code: K74.60 - UNSPECIFIED CIRRHOSIS OF LIVER Status: Chronic Qualifiers: Hepatic cirrhosis type: other cirrhosis Qualified Code(s): K74.69 - Other cirrhosis of liver (3) Kathleen esophagitis SNOMED Code(s): 24252386 ICD Code: B37.81 - CANDIDAL ESOPHAGITIS Status: Acute (4) Tense ascites SNOMED Code(s): 376167281 ICD Code: R18.8 - OTHER ASCITES Status: Acute (5) Morbid obesity with BMI of 60.0-69.9, adult SNOMED Code(s): 869505453, 44275293482851 ICD Code: E66.01 - MORBID (SEVERE) OBESITY DUE TO EXCESS CALORIES; Z68.44 - BODY MASS INDEX [BMI] 60.0-69.9, ADULT Status: Chronic (6) (HFpEF) heart failure with preserved ejection fraction SNOMED Code(s): 615333361 ICD Code: I50.30 - UNSPECIFIED DIASTOLIC (CONGESTIVE) HEART FAILURE Status: Chronic Qualifiers: Heart failure chronicity: acute on chronic Qualified Code(s): I50.33 - Acute on chronic diastolic (congestive) heart failure (7) Pulmonary hypertension SNOMED Code(s): 03954435 ICD Code: I27.20 - PULMONARY HYPERTENSION, UNSPECIFIED Status: Chronic (8) 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 SNOMED Code(s): 353680232, 029031760 ICD Code: E66.2 - MORBID (SEVERE) OBESITY WITH ALVEOLAR HYPOVENTILATION Status: Chronic - Patient Summary/Data Consults: Consultations 04/06/21 15:04 Consult to Physician [CONS] Routine Consulting Provider: Baldomero Jones Courtesy Call Completed to Consulting Physician: Yes Reason for Consult: ascites Person Notified: MOLINA Date Notified: 04/06/21 Special Instructions: paracentesis at bedside in the am 04/11/21 14:03 OT Evaluation and Treatment [CONS] Routine Please Evaluate and Treat. OT Reason for Consult: ADL's Pending Discharge: Yes Discharge Disposition: Senior Living Facility This query below is only for informational purposes and is not editable. Admission Diagnosis/Problem: Peritonitis PT Evaluation and Treatment [CONS] Routine Please Evaluate and Treat. PT Reason for Consult: Strengthening Pending Discharge: Yes Discharge Disposition: Senior Living Facility This query below is only for informational purposes and is not editable. Admission Diagnosis/Problem: Peritonitis Hospital Course: Stephanie presented to the emergency room with several days of progressive abdominal pain, nausea and vomiting. Laboratory studies in the emergency room were fairly unremarkable other than a mildly elevated bilirubin. A CT scan of the abdomen and pelvis did show large quantity of ascites as well as cirrhosis but no other acute findings. He did have a couple of mildly dilated loops but no strong evidence to support obstruction. With his progressive ascites and worsening pain there was some concern for spontaneous bacterial peritonitis. The patient was empirically started on ceftriaxone. Dr. Jones was consulted to consider paracentesis and this was planned to be completed the next morning. We did admit him to the hospital for further management. We did attempt aggressive symptom management of the abdominal pain and nausea with some improvement in the nausea but not much in the way of the pain. The morning after admission he had a paracentesis and 3.5 L of transudative fluid was removed. No organisms were seen. Antibiotics were continued. Over the next couple of days we really did not see much in the way of progress though things were not necessarily getting any worse. His cultures remained negative and he was transition from IV to oral antibiotics. With the persistence of his abdominal pain and nausea Dr. Jones was asked to complete an EGD. This showed moderate esophageal varices as well as severe distal esophagitis with probable fungal overgrowth. Since he was already on pantoprazole we did add famotidine as well as Carafate and nystatin swish and swallow. Over the next several days we saw improvement in his abdominal pain and nausea. His appetite and intake improved. His strength has been improving with physical therapy. We have had a good response to diuresis with significant improvement in his abdominal distention as well as lower extremity edema. Our hope had been that we could get him into a rehab facility to get some subacute rehab with the goal of either going home or potentially to an assisted living facility. Unfortunately we have been unable to locate a rehab facility anywhere in the [facility] despite a valiant effort by the discharge planning crew. The patient has made enough progress that he thinks he is safe to be home at this point. There is concern from all of us and especially his community supports that he will fall back into his usual habits and go downhill once he gets home. Unfortunately we do not really have a better option at this point then setting him up with as many services as we can and encouraging him to put in some effort to help maintain his level of wellbeing. He is aware that if he declines after going home he may need either long-term nursing care or potentially an assisted living facility. He is stable and safe for discharge. He is doing well enough to be home with home care and some additional assistance. He has early follow-up scheduled with his primary care. During the hospital stay we did talk to Stephanie about the severity of his liver disease. He is at the end stage of his cirrhosis with his progressive ascites, lower extremity edema, pancytopenia and coagulopathy. He has significant esophageal varices. We did send out a bunch of blood work looking for hepatitis as well as autoimmune causes for this and these all came back negative. I suspect his liver disease is related to VO. We did discuss that the only cure at this point would be a liver transplant. He has no interest in liver transplant at this point. He did voice understanding of that he is at the end stage of his disease. He does not wish to have any heroic measures undertaken if his condition deteriorates. He is hoping that he can have some more good time and would like to continue his current level of care including trying to manage his fluid and potentially infections if they arise. - Patient Instructions Diet: GI Soft/Low Residue/Low Fiber Activity: As Tolerated Showering/Bathing: May Shower Other/Special Instructions: 1. You were in the hospital for management of cirrhosis complicated by ascites (fluid inside the abdomen) and lower extremity edema. This has been improving with the use of twice daily diuretics including both furosemide and spironolactone. Medication dosing is outlined in your discharge medication list. During the hospital stay your evaluation for abdominal pain led to the discovery of yeast esophagitis. This has been improving during the course of the hospital stay. I do recommend additional treatment with nystatin to reduce the yeast burden for the next 5 days. I also recommend that you take famotidine (Pepcid) twice daily, pantoprazole (Protonix) twice daily and sucralfate 4 times daily. After 1 month you may use just the pantoprazole. We recommend a soft and low residue diet to reduce the inflammation to your gastrointestinal tract. 2. I have placed a referral to home health care services. They will provide nursing, physical therapy and occupational therapy services to ease your transition home after the hospital stay. 3. Follow up Dr. Roberson as scheduled or sooner if symptoms do not continue to get better or if they get worse. 4. Continue to use your home oxygen at 2 L/min as previously prescribed. - Discharge Plan *PRESCRIPTION DRUG MONITORING PROGRAM REVIEWED*: No *COPY OF PRESCRIPTION DRUG MONITORING REPORT IN PATIENT CANDY: No Prescriptions/Med Rec: Sucralfate [Carafate] 1 gm PO ACBED #120 tab Nystatin 5 ml PO QID #100 ml Famotidine [Pepcid] 20 mg PO BID #60 tablet Potassium Chloride 40 meq PO BID #240 cap.er Spironolactone 50 mg PO BID #60 tablet Home Medications: Home Meds Albuterol [Ventolin HFA] 2 puff INH Q6H PRN 11/10/16 [History] HYDROmorphone [Dilaudid] 2 mg PO Q6H PRN 11/10/16 [History] Fluticasone Propionate [Flonase] 2 spray CHELSY DAILY PRN 01/25/17 [History] Diclofenac Sodium [Voltaren 1% Gel] 4 gm TOP QID PRN 02/13/21 [History] Magnesium Chloride [Magnesium] 64 mg PO DAILY 02/13/21 [History] Pantoprazole Sodium [Protonix] 40 mg PO BID 02/13/21 [History] Hyoscyamine Sulfate [Anaspaz] 0.25 mg PO Q4HR PRN #10 tab 03/03/21 [Rx] Citalopram [Citalopram HBr] 1 tab PO DAILY 04/06/21 [History] Gabapentin [Neurontin] 100 mg PO ACBREAKFAST 04/06/21 [History] Gabapentin [Neurontin] 200 mg PO BEDTIME 04/06/21 [History] Famotidine [Pepcid] 20 mg PO BID #60 tablet 04/16/21 [Rx] Furosemide [Lasix] 40 mg PO BID #60 04/16/21 [Rx] Nystatin 5 ml PO QID #100 ml 04/16/21 [Rx] Potassium Chloride 40 meq PO BID #240 cap.er 04/16/21 [Rx] Spironolactone 50 mg PO BID #60 tablet 04/16/21 [Rx] Sucralfate [Carafate] 1 gm PO ACBED #120 tab 04/16/21 [Rx] Oxygen Therapy Mode: Nasal Cannula Oxygen Flow Rate (L/min): 2 Patient Handouts: Esophagitis, Cirrhosis, Low-Fiber Eating Plan Referrals: Ezekiel Roberson MD [Physician] - 04/22/21 1:30 pm (Please arrive 15 minutes early to register for your appointment. ) - Discharge Summary/Plan Comment DC Time >30 min.: Yes Total # of Minutes for Discharge Time: 50-set up home care and coordinate with other community resources - Patient Data Vitals - Most Recent: Last Vital Signs Temp 36.0 C L 04/16/21 10:25 Pulse 73 04/16/21 10:25 Resp 18 04/16/21 10:25 BP 155/83 H 04/16/21 10:25 Pulse Ox 95 04/16/21 10:25 Weight - Most Recent: 164.835 kg I&O - Last 24 hours: Intake & Output 04/15/21 04/16/21 04/16/21 22:59 06:59 14:59 Intake Total 360 60 Output Total 900 Balance -540 60 Lab Results - Last 24 hrs: Laboratory Results - last 24 hr 04/16/21 Range/Units 04:40 Sodium 138 L (140-148) mmol/L Potassium 3.3 L (3.6-5.2) mmol/L Chloride 98 L (100-108) mmol/L Carbon Dioxide 40 H (21-32) mmol/L Anion Gap 3.3 L (5.0-14.0) mmol/L BUN 5 L (7-18) mg/dL Creatinine 0.9 (0.8-1.3) mg/dL Est Cr Clr Drug Dosing 71.18 mL/min Estimated GFR (MDRD) > 60 (>60) Glucose 88 (74-106) mg/dL Calcium 8.3 L (8.5-10.1) mg/dL LISETH Results - Last 24 hrs: Microbiology 04/07/21 09:28 Fungal Culture - Preliminary Paracentesis Fluid NO FUNGAL GROWTH AT 1 WEEK Med Orders - Current: Current Medications Acetaminophen (Acetaminophen 325 Mg Tab) 650 mg PO Q4H PRN PRN Reason: Pain (Mild 1-3)/fever Last Admin: 04/10/21 02:27 Dose: 650 mg Documented by: Albuterol (Albuterol 0.083% 2.5 Mg/3 Ml Neb Soln) 2.5 mg NEB Q4H PRN PRN Reason: Shortness Of Breath/wheezing Citalopram Hydrobromide (Citalopram 20 Mg Tab) 20 mg PO DAILY [facility] Last Admin: 04/16/21 08:22 Dose: 20 mg Documented by: Lidocaine HCl 60 ml/ Al (Hydroxide/Mg Hydroxide 360 ml) 0 ml PO TIDAC [facility] Last Admin: 04/16/21 08:16 Dose: Not Given Documented by: Famotidine (Famotidine 20 Mg Tab) 20 mg PO BID [facility] Last Admin: 04/16/21 08:22 Dose: 20 mg Documented by: Furosemide (Furosemide 40 Mg Tab) 40 mg PO BIDDIURETIC [facility] Last Admin: 04/16/21 08:21 Dose: 40 mg Documented by: Gabapentin (Gabapentin 100 Mg Cap) 100 mg PO ACBREAKFAST [facility] Last Admin: 04/16/21 08:21 Dose: 100 mg Documented by: Gabapentin (Gabapentin 100 Mg Cap) 200 mg PO BEDTIME [facility] Last Admin: 04/15/21 20:26 Dose: 200 mg Documented by: Gabapentin (Gabapentin 100 Mg Cap) 100 mg PO DAILY PRN PRN Reason: Pain Hydromorphone HCl (Hydromorphone 2 Mg Tab) 2 mg PO Q6H PRN PRN Reason: Pain Last Admin: 04/15/21 20:35 Dose: 2 mg Documented by: Lorazepam (Lorazepam 2 Mg/Ml Sdv) 0.5 mg IVPUSH Q4H PRN PRN Reason: Nausea/Vomiting Last Admin: 04/07/21 01:44 Dose: 0.5 mg Documented by: Melatonin (Melatonin 3 Mg Tab) 9 mg PO BEDTIME PRN PRN Reason: Sleep Nystatin (Nystatin Susp 100,000 Unit/Ml 5 Ml Ud Cup) 5 ml PO QID [facility] Last Admin: 04/16/21 05:34 Dose: 5 ml Documented by: Nystatin (Nystatin Topical Powder 15 Gm Bottle) 0 gm TOP QID PRN PRN Reason: Rash Last Admin: 04/14/21 07:26 Dose: 1 applic Documented by: Ondansetron HCl (Ondansetron 4 Mg/2 Ml Sdv) 4 mg IV Q6H PRN PRN Reason: Nausea/Vomiting Last Admin: 04/07/21 06:35 Dose: 4 mg Documented by: Ondansetron HCl (Ondansetron 4 Mg Tab.Dis) 4 mg PO Q6H PRN PRN Reason: Nausea able to take PO Last Admin: 04/12/21 05:53 Dose: 4 mg Documented by: Pantoprazole Sodium (Pantoprazole 40 Mg Tab.Cr) 40 mg PO BID@0730,2100 [facility] Last Admin: 04/16/21 08:22 Dose: 40 mg Documented by: Potassium Chloride (Potassium Chloride 20 Meq Tab.Er) 40 meq PO BID [facility] Last Admin: 04/16/21 08:27 Dose: 40 meq Documented by: Sodium Chloride (Sodium Chloride 0.9% 10 Ml Syringe) 10 ml FLUSH ASDIRECTED PRN PRN Reason: Keep Vein Open Last Admin: 04/06/21 07:31 Dose: 10 ml Documented by: Spironolactone (Spironolactone 25 Mg Tab) 50 mg PO BIDDIURETIC [facility] Last Admin: 04/16/21 08:22 Dose: 50 mg Documented by: Sucralfate (Sucralfate Suspension 1 Gm/10 Ml Cup) 1 gm PO QIDACANDBED [facility] Last Admin: 04/16/21 08:21 Dose: 1 gm Documented by: Discontinued Medications Acetaminophen (Acetaminophen 500 Mg Tab) 1,000 mg PO ONETIME ONE Stop: 04/06/21 08:37 Last Admin: 04/06/21 08:41 Dose: 1,000 mg Documented by: Cefdinir (Cefdinir 300 Mg Cap) 300 mg PO BID [facility] Last Admin: 04/13/21 11:01 Dose: 300 mg Documented by: Fentanyl (Fentanyl 100 Mcg/2 Ml Sdv) Confirm Administered Dose 100 mcg .ROUTE .STK-MED ONE Stop: 04/10/21 10:06 Hydromorphone HCl (Hydromorphone 0.5 Mg/0.5 Ml Syringe) 0.5 mg IVPUSH ONETIME ONE Stop: 04/06/21 09:13 Last Admin: 04/06/21 09:22 Dose: 0.5 mg Documented by: Hydromorphone HCl (Hydromorphone 1 Mg/Ml Syringe) 0.5 mg IVPUSH Q2H PRN PRN Reason: Pain Last Admin: 04/07/21 06:36 Dose: 0.5 mg Documented by: Hydromorphone HCl (Hydromorphone 0.5 Mg/0.5 Ml Syringe) 0.5 mg IVPUSH Q2H PRN PRN Reason: Pain Last Admin: 04/11/21 07:30 Dose: 0.5 mg Documented by: Lactated Ringer's (Ringers, Lactated) 1,000 mls @ 1,000 mls/hr IV BOLUS ONE Stop: 04/06/21 08:53 Last Admin: 04/06/21 09:25 Dose: Not Given Documented by: Potassium Chloride/Sodium Chloride (Normal Saline With 20 Meq Kcl) 1,000 mls @ 1,000 mls/hr IV ASDIRECTED [facility] Last Admin: 04/06/21 08:08 Dose: 1,000 mls/hr Documented by: Sodium Chloride (Normal Saline) 85 mls @ 3.5 mls/sec IV ASDIRECTED [facility] Stop: 04/06/21 09:31 Last Admin: 04/06/21 09:59 Dose: 3 mls/sec Documented by: Ceftriaxone Sodium 2 gm/ (Sodium Chloride) 50 mls @ 100 mls/hr IV Q24H [facility] Last Admin: 04/10/21 15:32 Dose: 100 mls/hr Documented by: Potassium Chloride 20 meq/Lidocaine HCl 2 ml/ Sodium Chloride 112 mls @ 56 mls/hr IV Q2H [facility] Stop: 04/06/21 20:29 Last Admin: 04/06/21 19:27 Dose: 56 mls/hr Documented by: Albumin Human (Albumin 25%) 25 gm in 100 mls @ 25 mls/hr IV Q4H [facility] Stop: 04/07/21 17:59 Last Admin: 04/07/21 14:34 Dose: 25 mls/hr Documented by: Potassium Chloride 20 meq/Lidocaine HCl 2 ml/ Sodium Chloride 112 mls @ 56 mls/hr IV Q2H [facility] Stop: 04/10/21 12:59 Last Admin: 04/10/21 11:56 Dose: 56 mls/hr Documented by: Iopamidol (Iopamidol 612 Mg/Ml 150 Ml Bottle) 150 ml IV . DIRECTED PRN PRN Reason: RADIOLOGY EXAM Stop: 04/07/21 09:25 Last Admin: 04/06/21 09:59 Dose: 150 ml Documented by: Lidocaine (Lidocaine 2% 5 Ml Sdv) Confirm Administered Dose 5 ml .ROUTE .STK-MED ONE Stop: 04/10/21 09:47 Loperamide HCl (Loperamide 2 Mg Cap) 4 mg PO ONETIME ONE Stop: 04/06/21 07:38 Last Admin: 04/06/21 08:08 Dose: 4 mg Documented by: Loperamide HCl (Loperamide 2 Mg Cap) 2 mg PO ONETIME ONE Stop: 04/11/21 21:18 Last Admin: 04/11/21 21:40 Dose: 2 mg Documented by: Metoclopramide HCl (Metoclopramide 10 Mg/2 Ml Sdv) 10 mg IVPUSH ONETIME ONE Stop: 04/06/21 09:12 Last Admin: 04/06/21 09:22 Dose: 10 mg Documented by: Midazolam HCl (Midazolam 1 Mg/Ml 2 Ml Sdv) Confirm Administered Dose 2 mg .ROUTE .STK-MED ONE Stop: 04/10/21 10:05 Ondansetron HCl (Ondansetron 4 Mg/2 Ml Sdv) 4 mg IVPUSH ONETIME ONE Stop: 04/06/21 07:24 Last Admin: 04/06/21 07:31 Dose: 4 mg Documented by: Oxycodone HCl (Oxycodone 5 Mg Tab) 5 mg PO Q4H PRN PRN Reason: Pain Last Admin: 04/13/21 11:05 Dose: 5 mg Documented by: Potassium Chloride (Potassium Chloride 20 Meq Tab.Er) 40 meq PO ONETIME ONE Stop: 04/08/21 08:43 Last Admin: 04/08/21 09:23 Dose: 40 meq Documented by: Potassium Chloride (Potassium Chloride 20 Meq Tab.Er) 40 meq PO ONETIME ONE Stop: 04/08/21 17:01 Last Admin: 04/08/21 17:30 Dose: 40 meq Documented by: Potassium Chloride (Potassium Chloride 20 Meq Tab.Er) 40 meq PO ONETIME ONE Stop: 04/09/21 17:01 Last Admin: 04/09/21 17:04 Dose: 40 meq Documented by: Potassium Chloride (Potassium Chloride 20 Meq Tab.Er) 40 meq PO ONETIME ONE Stop: 04/10/21 17:01 Last Admin: 04/10/21 16:12 Dose: 40 meq Documented by: Potassium Chloride (Potassium Chloride 20 Meq Tab.Er) 40 meq PO ONETIME ONE Stop: 04/14/21 09:01 Last Admin: 04/14/21 10:15 Dose: 40 meq Documented by: Potassium Chloride (Potassium Chloride 20 Meq Tab.Er) 20 meq PO BID [facility] Last Admin: 04/15/21 20:26 Dose: 20 meq Documented by: Propofol (Propofol 200 Mg/20 Ml Sdv) Confirm Administered Dose 200 mg .ROUTE .STK-MED ONE Stop: 04/10/21 09:47 Sodium Chloride (Sodium Chloride 0.9% 10 Ml Syringe) 10 ml FLUSH ONETIME PRN PRN Reason: per radiology protocol Stop: 04/06/21 09:25 Last Admin: 04/06/21 09:58 Dose: 10 ml Documented by: Spironolactone (Spironolactone 25 Mg Tab) 25 mg PO BIDDIURETIC [facility]ON Last Admin: 04/14/21 07:25 Dose: 25 mg Documented by: *Q Meaningful Use (DIS) - VTE *Q VTE Mechanical Contraindications *Q: Bilateral Lower Edema VTE Pharmacological Contraindications *Q: Patient Scheduled Surgery
== END 2021-04-16 11:15 | disposition home health service (06) | DRG 371 ==
LOC: JP.ED 07:21 → JP.MS 13:44
PROVIDERS: ADMIT Internal Medicine; ATTEND Internal Medicine
PROC: 0W9G3ZZ Drainage of Peritoneal Cavity, Percutaneous Approach (ICD-10-PCS; principal; 2021-04-07)
PROC: 0DB68ZX Excision of Stomach, Via Natural or Artificial Opening Endoscopic, Diagnostic (ICD-10-PCS; 2021-04-10)
DX: K65.2 Spontaneous bacterial peritonitis (principal); R11.2 Nausea with vomiting, unspecified; R19.7 Diarrhea, unspecified; I50.33 Acute on chronic diastolic (congestive) heart failure; I20.9 Angina pectoris, unspecified; B37.81 Candidal esophagitis; R18.8 Other ascites; Z68.44 Body mass index [BMI] 60.0-69.9, adult; E66.2 Morbid (severe) obesity with alveolar hypoventilation; D61.818 Other pancytopenia; I85.10 Secondary esophageal varices without bleeding; H54.7 Unspecified visual loss; G47.30 Sleep apnea, unspecified; K59.09 Other constipation; Z87.11 Personal history of peptic ulcer disease; R32 Unspecified urinary incontinence; M19.90 Unspecified osteoarthritis, unspecified site; F32.A Depression, unspecified; F41.9 Anxiety disorder, unspecified; E03.9 Hypothyroidism, unspecified; Z85.51 Personal history of malignant neoplasm of bladder; Z88.7 Allergy status to serum and vaccine; Z91.018 Allergy to other foods; Z79.890 Hormone replacement therapy; Z51.5 Encounter for palliative care; I27.20 Pulmonary hypertension, unspecified; K74.69 Other cirrhosis of liver; Z66 Do not resuscitate; E87.6 Hypokalemia; Z79.899 Other long term (current) drug therapy; Z20.822 Contact with and (suspected) exposure to COVID-19
CPT/HCPCS: 0241U; 36415; 74177; 80048; 80053; 80074; 80076; 81001; 82040; 82150; 82945; 83615; 83690; 83735; 83986; 84155; 84484; 85025; 85027; 85610; 86038; 86140; 86711; 87015; 87070; 87081; 87086; 87102; 87116; 87205; 87206; 87220; 88112; 88305; 89050; 93005; 93010; 96365; 96375; 97110; 97162; 97165; 97530; 97535; 99285; A9270-GY; J0696; J1170; J2001; J2060; J2250; J2405; J2704; J2765; J3010; J3480; P9047; Q9967

== ENCOUNTER 2021-04-19 13:21 | Emergency (ER) | payer MEDICARE, MEDICAID ==
[2021-04-19] MEDS ORDERED: Potassium Chloride 20 MEQ Tab.ER PO ONE (14:15)
[2021-04-19 15:13] VITALS: BP 123/53; PULSE 83
== END 2021-04-19 16:18 | disposition home or self-care (01) ==
LOC: JP.ED 13:21
DX: S70.02XA Contusion of left hip, initial encounter (principal); E87.6 Hypokalemia; R53.1 Weakness; E03.9 Hypothyroidism, unspecified; E66.01 Morbid (severe) obesity due to excess calories; Z68.43 Body mass index [BMI] 50.0-59.9, adult; Z91.018 Allergy to other foods; Z88.7 Allergy status to serum and vaccine; Z79.899 Other long term (current) drug therapy; W18.30XA Fall on same level, unspecified, initial encounter; Y92.039 Unspecified place in apartment as the place of occurrence of the external cause
CPT/HCPCS: 36415; 72170; 80048; 82550; 85025; 99283; 99285; A9270

== ENCOUNTER 2021-04-23 11:07 | Observation (INO) | payer MEDICARE, MEDICAID ==
[2021-04-23] MEDS ORDERED: Morphine 4 MG/ML Syringe IM ONE (12:15)
[2021-04-23] MEDS ORDERED: Gabapentin 100 MG Cap PO ONE (14:32)
[2021-04-23 16:14] LABS: CORONAVIRUS COVID-19 NAA NEGATIVE (NEGATIVE)
[2021-04-23] MEDS ORDERED: Ondansetron 4 MG/2 ML SDV IV PRN (18:13)
[2021-04-23] MEDS ORDERED: Polyethylene Glycol 3350 Powder 17 GM Packet PO PRN (18:13)
[2021-04-23] MEDS ORDERED: LORazepam 0.5 MG Tab PO PRN (18:13)
[2021-04-23] MEDS: oxyCODONE 5 MG Tab PO PRN (23:50)
[2021-04-24] MEDS: Morphine 10 MG/0.5 ML Oral Syringe PO PRN ×2 (02:35→07:33)
[2021-04-24] MEDS ORDERED: Fluticasone Propionate Nasal Spray 16 GM Bottle NASBOTH PRN (15:17)
[2021-04-24] MEDS ORDERED: Albuterol 8 GM Inhaler INH PRN (15:17)
[2021-04-24] MEDS: Furosemide 40 MG Tab PO SCH (16:59)
[2021-04-24] MEDS: Sucralfate 1 GM Tab PO SCH ×2 (16:59→20:52)
[2021-04-24] MEDS: Spironolactone 25 MG Tab PO SCH (16:59)
[2021-04-24] MEDS: Pantoprazole 40 MG Tab.CR PO SCH (17:00)
[2021-04-24] MEDS: Potassium Chloride 20 MEQ Tab.ER PO SCH (20:52)
[2021-04-24] MEDS: Famotidine 20 MG Tab PO SCH (20:52)
[2021-04-24] MEDS ORDERED: Gabapentin 100 MG Cap PO SCH (21:00)
[2021-04-25 02:30] VITALS: PULSE 83
[2021-04-25] MEDS: Morphine 10 MG/0.5 ML Oral Syringe PO PRN ×2 (03:12→07:34)
[2021-04-25] MEDS ORDERED: Gabapentin 100 MG Cap PO SCH (07:30)
[2021-04-25 07:33] VITALS: BP 118/44
[2021-04-25] MEDS: Sucralfate 1 GM Tab PO SCH ×2 (07:34→10:01)
[2021-04-25] MEDS: Spironolactone 25 MG Tab PO SCH ×2 (07:34→13:34)
[2021-04-25] MEDS: Furosemide 40 MG Tab PO SCH ×2 (07:34→13:35)
[2021-04-25] MEDS: Pantoprazole 40 MG Tab.CR PO SCH (07:34)
[2021-04-25] MEDS ORDERED: Magnesium Oxide 400 MG Tab PO SCH (09:00)
[2021-04-25] MEDS: Famotidine 20 MG Tab PO SCH (10:01)
[2021-04-25] MEDS: Potassium Chloride 20 MEQ Tab.ER PO SCH (10:01)
[2021-04-25] MEDS: oxyCODONE 5 MG Tab PO PRN (12:48)
== END 2021-04-25 14:15 ==
LOC: JP.ED 11:07 → JP.MS 17:22
PROVIDERS: ADMIT Hospitalist; ATTEND Hospitalist
DX: K74.60 Unspecified cirrhosis of liver (principal); I50.31 Acute diastolic (congestive) heart failure; E66.01 Morbid (severe) obesity due to excess calories; K20.90 Esophagitis, unspecified without bleeding; F32.A Depression, unspecified; F41.9 Anxiety disorder, unspecified; E03.9 Hypothyroidism, unspecified; I27.20 Pulmonary hypertension, unspecified; Z20.822 Contact with and (suspected) exposure to COVID-19; Z98.890 Other specified postprocedural states; Z91.018 Allergy to other foods; Z88.7 Allergy status to serum and vaccine; Z79.899 Other long term (current) drug therapy; Z68.44 Body mass index [BMI] 60.0-69.9, adult
CPT/HCPCS: 0241U; 96372; 99217; 99220; 99225; 99285; A9270-GY; G0378; J2270